=== PATIENT | female | born 2000 | race Hispanic/Latino ===

== ENCOUNTER 2019-06-13 03:55 | Emergency (ER) | payer OTHER, SELFPAY ==
--- OUTSIDE RECORDS SUMMARY | 2019-06-13 03:57 | XMS REPORT ---
:2000 [facility] Address [address] [place] [address] Dr. Ga [address] [place] [id number] Care Team Providers Name Role Phone Unavailable Unavailable Unavailable Problems This patient has no known problems. Allergies, Adverse Reactions, Alerts This patient has no known allergies or adverse reactions. Medications This patient has no known medications.
--- NOTE | 2019-06-13 04:40 | EDPHYS ---
Physician Documentation [facility] Name: Lori Handy Age: 18 yrs Sex: Female : 2000 Arrival Date: 06/13/2019 Time: 04:01 Bed 8 Private MD: ED Physician Oscar Laboy HPI: 06/13 04:33 This 18 yrs old Female presents to ER via Ambulatory with complaints of Ear angel Pain. 04:33 The patient presents with pain, tenderness. The complaints affect the right ear. Onset: angel The symptoms/episode began/occurred 2 day(s) ago. Modifying factors: The symptoms are alleviated by nothing, covering ear, the symptoms are aggravated by nothing. Associated signs and symptoms: The patient has no apparent associated signs or symptoms. Severity of symptoms: At their worst the symptoms were mild in the emergency department the symptoms are unchanged. The patient has not experienced similar symptoms in the past. 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 - Social history:: Smoking status: Patient/guardian denies using tobacco, Patient/guardian denies using alcohol, street drugs. - Ebola Screening: : Patient negative for fever greater than or equal to 101.5 degrees Fahrenheit, and additional compatible Ebola Virus Disease symptoms Patient denies exposure to infectious person Patient denies travel to an Ebola-affected area in the 21 days before illness onset. - Family history:: not pertinent. ROS: 04:33 Constitutional: Negative for fever, chills, and weight loss, Eyes: Negative for injury, angel pain, redness, and discharge, Neck: Negative for injury, pain, and swelling, Cardiovascular: Negative for chest pain, palpitations, and edema, Respiratory: Negative for shortness of breath, cough, wheezing, and pleuritic chest pain, Abdomen/GI: Negative for abdominal pain, nausea, vomiting, diarrhea, and constipation, Back: Negative for injury and pain, : Negative for injury, bleeding, discharge, and swelling, MS/Extremity: Negative for injury and deformity, Skin: Negative for injury, rash, and discoloration, Neuro: Negative for headache, weakness, numbness, tingling, and seizure, Psych: Negative for depression, anxiety, suicide ideation, homicidal ideation, and hallucinations, Allergy/Immunology: Negative for hives, rash, and allergies, Endocrine: Negative for neck swelling, polydipsia, polyuria, polyphagia, and marked weight changes, Hematologic/Lymphatic: Negative for swollen nodes, abnormal bleeding, and unusual bruising. 04:33 ENT: Positive for ear pain, rhinorrhea. Exam: 04:33 Constitutional: This is a well developed, well nourished patient who is awake, alert, angel and in no acute distress. Head/Face: Normocephalic, atraumatic. Eyes: Pupils equal round and reactive to light, extra-ocular motions intact. Lids and lashes normal. Conjunctiva and sclera are non-icteric and not injected. Cornea within normal limits. Periorbital areas with no swelling, redness, or edema. Neck: Trachea midline, no thyromegaly or masses palpated, and no cervical lymphadenopathy. Supple, full range of motion without nuchal rigidity, or vertebral point tenderness. No Meningismus. Chest/axilla: Normal chest wall appearance and motion. Nontender with no deformity. No lesions are appreciated. Cardiovascular: Regular rate and rhythm with a normal S1 and S2. No gallops, murmurs, or rubs. Normal PMI, no JVD. No pulse deficits. Respiratory: Lungs have equal breath sounds bilaterally, clear to auscultation and percussion. No rales, rhonchi or wheezes noted. No increased work of breathing, no retractions or nasal flaring. Abdomen/GI: Soft, non-tender, with normal bowel sounds. No distension or tympany. No guarding or rebound. No evidence of tenderness throughout. Back: No spinal tenderness. No costovertebral tenderness. Full range of motion. Skin: Warm, dry with normal turgor. Normal color with no rashes, no lesions, and no evidence of cellulitis. MS/ Extremity: Pulses equal, no cyanosis. Neurovascular intact. Full, normal range of motion. Neuro: Awake and alert, GCS 15, oriented to person, place, time, and situation. Cranial nerves II-XII grossly intact. Motor strength 5/5 in all extremities. Sensory grossly intact. Cerebellar exam normal. Normal gait. Psych: Awake, alert, with orientation to person, place and time. Behavior, mood, and affect are within normal limits. Vital Signs: 04:00 BP 108 / 78; Pulse 85; Resp 18; Temp 98.1(O); Pulse Ox 99% on R/A; Weight 68.04 kg (R); fc Height 5 ft. 0 in. (152.40 cm) (R); Pain 9/10; 04:51 BP 101 / 75; Pulse 94; Resp 16; Pulse Ox 100% on R/A; ak1 04:00 Body Mass Index 29.29 (68.04 kg, 152.40 cm) fc MDM: 04:04 Patient medically screened. [facility] 04:37 Data reviewed: vital signs, nurses notes. [facility] Administered Medications: 04:50 Drug: Zithromax 500 mg Route: PO; ak1 04:50 Follow up: Response: No adverse reaction ak1 Disposition: 06/13/19 04:39 Discharged to Home. Impression: Otitis externa, Otitis media, unspecified, right ear. - Condition is Stable. - Discharge Instructions: Ear Drops, Adult, Otitis Media, Adult, Otitis Media, Pediatric, Otitis Media, Adult, [id number], Otitis Media, Pediatric, [id number]-[id number], Ear Drops, Adult, [id number]. - Prescriptions for Cortisporin 3.5- 10,000-1 mg/mL-unit/mL-% Otic solution - instill 4 drop by OTIC route 4 times per day to right ear; 10 milliliter. Zithromax Z- Evans 250 mg Oral Tablet - take 1 tablet by ORAL route as directed for 5 days Day 1 - take two (2) tablets one time. Day 2, 3, 4 , 5 take one (1) tablet once daily.; 6 tablet. - Medication Reconciliation Form, Thank You Letter, Antibiotic Education, Prescription Opioid Use form. - Follow up: Private Physician; When: 2 - 3 days; Reason: Recheck today's complaints, Continuance of care, Re-evaluation by your physician. Follow up: Kirby Amaro DO; When: 2 - 3 days; Reason: Recheck today's complaints, Continuance of care, Re-evaluation by your physician. - Problem is new. - Symptoms have improved. Signatures: Oscar Laboy MD MD cha Chretien, Felicia, RN RN Jenny Brunson RN RN ak1 Corrections: (The following items were deleted from the chart) 04:51 04:39 06/13/2019 04:39 Discharged to Home. Impression: Otitis externa; Otitis media, ak1 unspecified, right ear. Condition is Stable. Forms are Medication Reconciliation Form, Thank You Letter, Antibiotic Education, Prescription Opioid Use. Follow up: Private Physician; When: 2 - 3 days; Reason: Recheck today's complaints, Continuance of care, Re-evaluation by your physician. [facility]; When: 2 - 3 days; Reason: Recheck today's complaints, Continuance of care, Re-evaluation by your physician. Problem is new. Symptoms have improved. angel
--- NOTE | 2019-06-13 04:40 | ER ---
Nurse's Notes [facility] Name: Lori Handy Age: 18 yrs Sex: Female : 2000 Arrival Date: 06/13/2019 Time: 04:01 Bed 8 Private MD: Diagnosis: Otitis externa;Otitis media, unspecified, right ear Presentation: 06/13 04:00 Presenting complaint: Patient states: that for the past 2 nights she has been having fc right ear pain. She noticed last night that there is a bump behind the ear and when she pushes it, it makes the ear hurt worse. Denies any fever or sore throat. Transition of care: patient was not received from another setting of care. Onset of symptoms was June 11, 2019. Risk Assessment: Do you want to hurt yourself or someone else? Patient reports no desire to harm self or others. Initial Sepsis Screen: Does the patient meet any 2 criteria? No. Patient's initial sepsis screen is negative. Does the patient have a suspected source of infection? No. Patient's initial sepsis screen is negative. Care prior to arrival: None. 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 - Social history:: Smoking status: Patient/guardian denies using tobacco, Patient/guardian denies using alcohol, street drugs. - Ebola Screening: : Patient negative for fever greater than or equal to 101.5 degrees Fahrenheit, and additional compatible Ebola Virus Disease symptoms Patient denies exposure to infectious person Patient denies travel to an Ebola-affected area in the 21 days before illness onset. - Family history:: not pertinent. Screenin:13 Abuse screen: Denies injuries from another. Nutritional screening: No deficits noted. fc Tuberculosis screening: No symptoms or risk factors identified. Fall Risk None identified. Assessment: 04:43 General: Appears in no apparent distress. Behavior is calm, cooperative, appropriate ak1 for age. Pain: Complains of pain in right ear. Neuro: Level of Consciousness is awake, alert, obeys commands, Oriented to person, place, time, situation, Moves all extremities. Gait is steady, Speech is normal. Cardiovascular: No deficits noted. Respiratory: No deficits noted. GI: No signs and/or symptoms were reported involving the gastrointestinal system. : No signs and/or symptoms were reported regarding the genitourinary system. EENT: Reports pain in right ear. Derm: No signs and/or symptoms reported regarding the dermatologic system. Musculoskeletal: No signs and/or symptoms reported regarding the musculoskeletal system. Vital Signs: 04:00 BP 108 / 78; Pulse 85; Resp 18; Temp 98.1(O); Pulse Ox 99% on R/A; Weight 68.04 kg (R); fc Height 5 ft. 0 in. (152.40 cm) (R); Pain 9/10; 04:51 BP 101 / 75; Pulse 94; Resp 16; Pulse Ox 100% on R/A; ak1 04:00 Body Mass Index 29.29 (68.04 kg, 152.40 cm) ED Course: 04:00 Arm band placed on Patient placed in an exam room, on a stretcher. fc 04:01 Patient arrived in ED. ds1 04:04 Oscar Laboy MD is Attending Physician. angel 04:11 Triage completed. 04:13 Patient has correct armband on for positive identification. Bed in low position. Call fc light in reach. Side rails up X 1. Pulse ox on. NIBP on. 04:39 Kirby Amaro DO is Referral Physician. angel 04:43 No provider procedures requiring assistance completed. Patient did not have IV access ak1 during this emergency room visit. 04:50 Jenny Brunson, RN is Primary Nurse. ak1 Administered Medications: 04:50 Drug: Zithromax 500 mg Route: PO; ak1 04:50 Follow up: Response: No adverse reaction ak1 Outcome: 04:39 Discharge ordered by . angel 04:43 Condition: stable ak1 04:50 Discharged to home ambulatory, with family. ak1 04:50 Discharge instructions given to patient, family, Instructed on discharge instructions, follow up and referral plans. no drinking with medication, no driving heavy equipment, medication usage, safe sex practices, control, Demonstrated understanding of instructions, follow-up care, medications, Prescriptions given X 2. 04:51 Patient left the ED. ak1 Signatures: Oscar Laboy MD MD cha Chretien, Felicia RN RN Trudy Garcia Amber, RN RN ak1
[2019-06-13] MEDS ORDERED: AZITHROMYCIN 250 MG TAB ONE (04:47)
[2019-06-13 05:00] VITALS: TEMP 98.1
[2019-06-13 05:01] VITALS: BP 101/75; O2SAT 100
== END 2019-06-13 04:51 | disposition home or self-care (01) ==
LOC: ER 03:55
DX: H66.91 Otitis media, unspecified, right ear (principal); H60.91 Unspecified otitis externa, right ear
CPT/HCPCS: 99283

== ENCOUNTER 2019-10-14 20:33 | Emergency (ER) | payer SELFPAY ==
--- OUTSIDE RECORDS SUMMARY | 2019-10-14 20:36 | XMS REPORT ---
:2000 [facility] Address [address] [place] [address] Dr. Ga [address] [place] [id number] Care Team Providers Name Role Phone Unavailable Unavailable Unavailable Problems This patient has no known problems. Allergies, Adverse Reactions, Alerts This patient has no known allergies or adverse reactions. Medications This patient has no known medications.
[2019-10-14] MEDS ORDERED: NEOMY/POLY/HC 1% OTIC DROPS ONE (21:07)
--- NOTE | 2019-10-14 21:24 | ER ---
Nurse's Notes [facility] Name: Lori Handy Age: 18 yrs Sex: Female : 2000 Arrival Date: 10/14/2019 Time: 20:37 Bed 12 Private MD: Diagnosis: Otitis externa-right ear Presentation: 10/14 20:42 Presenting complaint: Patient states: R ear pain began last night, worse today. Denies ca1 fever, N/V. Transition of care: patient was not received from another setting of care. Onset of symptoms was October 13, 2019. Risk Assessment: Do you want to hurt yourself or someone else? Patient reports no desire to harm self or others. Initial Sepsis Screen: Does the patient meet any 2 criteria? No. Patient's initial sepsis screen is negative. Does the patient have a suspected source of infection? No. Patient's initial sepsis screen is negative. Care prior to arrival: None. 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 - Social history:: Smoking status: Patient denies any tobacco usage or history of. - Ebola Screening: : Patient negative for fever greater than or equal to 101.5 degrees Fahrenheit, and additional compatible Ebola Virus Disease symptoms Patient denies exposure to infectious person Patient denies travel to an Ebola-affected area in the 21 days before illness onset No symptoms or risks identified at this time. Screenin:55 Abuse screen: Denies threats or abuse. Denies injuries from another. Nutritional aa1 screening: No deficits noted. Tuberculosis screening: No symptoms or risk factors identified. Fall Risk None identified. Assessment: 20:55 General: Appears in no apparent distress. comfortable, Behavior is calm, cooperative, aa1 appropriate for age. Pain: Complains of pain in right ear. Neuro: Level of Consciousness is awake, alert, obeys commands, Oriented to person, place, time, situation, Gait is steady. Respiratory: Airway is patent Respiratory effort is even, unlabored, Respiratory pattern is regular, symmetrical. GI: No signs and/or symptoms were reported involving the gastrointestinal system. : No signs and/or symptoms were reported regarding the genitourinary system. EENT: Ear canal w/ drainage noted from right ear. Derm: Skin is intact, is healthy with good turgor, Skin is pink, warm \T\ dry. Musculoskeletal: Capillary refill < 3 seconds. 21:27 Reassessment: Patient appears in no apparent distress at this time. Patient is alert, aa1 oriented x 3, equal unlabored respirations, skin warm/dry/pink. Discussed d/c \T\ f/u instructions with pt; denies questions or concerns at this time. Ambulatory to lobby with steady gait. Vital Signs: 20:44 BP 108 / 79; Pulse 96; Resp 17 S; Temp 99(O); Pulse Ox 100% on R/A; Weight 72.57 kg ca1 (R); Height 5 ft. 2 in. (157.48 cm) (R); Pain 9/10; 20:44 Body Mass Index 29.26 (72.57 kg, 157.48 cm) ca1 ED Course: 20:37 Patient arrived in ED. cf2 20:43 Triage completed. ca1 20:44 Arm band placed on right wrist. ca1 20:50 Cristian Sullivan FNP-C is [facility]. la1 20:50 Prince Pillai MD is Attending Physician. la1 20:55 Patient has correct armband on for positive identification. Bed in low position. Call aa1 light in reach. 21:09 Mary Peterson, MISSY is Primary Nurse. aa1 21:27 No provider procedures requiring assistance completed. Patient did not have IV access aa1 during this emergency room visit. Administered Medications: 21:09 CANCELLED (Other Intervention Used): CIPRODEX 4 drops Otic in right ear once aa1 21:10 Drug: Hgctovjp-Oofaebzms-FA Drops 1 appful Route: Otic; Site: right ear; aa1 Outcome: 21:24 Discharge ordered by . la1 21:27 Discharged to home ambulatory, with significant other. aa1 21:27 Condition: good 21:27 Discharge instructions given to patient, significant other, Instructed on discharge instructions, follow up and referral plans. medication usage, Demonstrated understanding of instructions, follow-up care, medications, Prescriptions given X 1. 21:29 Patient left the ED. aa1 Signatures: Mary Peterson RN RN aa1 Cristian Sullivan, MANAGER MSW-C MANAGER MSW-[facility]1 June Valle RN RN ca1 Dimas Gutiérrez 2
--- NOTE | 2019-10-14 21:24 | EDPHYS ---
Physician Documentation [facility] Name: Lori Handy Age: 18 yrs Sex: Female : 2000 Arrival Date: 10/14/2019 Time: 20:37 Bed 12 Private MD: ED Physician Prince Pillai HPI: 10/14 21:21 This 18 yrs old Female presents to ER via Ambulatory with complaints of Ear la1 Pain. 21:21 The patient presents with pain. The complaints affect the right ear. Onset: The la1 symptoms/episode began/occurred yesterday. Modifying factors: The symptoms are alleviated by nothing, the symptoms are aggravated by nothing. Associated signs and symptoms: The patient has no apparent associated signs or symptoms. Severity of symptoms: At their worst the symptoms were mild in the emergency department the symptoms are unchanged. The patient has not experienced similar symptoms in the past. 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 - Social history:: Smoking status: Patient denies any tobacco usage or history of. - Ebola Screening: : Patient negative for fever greater than or equal to 101.5 degrees Fahrenheit, and additional compatible Ebola Virus Disease symptoms Patient denies exposure to infectious person Patient denies travel to an Ebola-affected area in the 21 days before illness onset No symptoms or risks identified at this time. ROS: 21:22 Constitutional: Negative for fever, chills, and weight loss, Eyes: Negative for injury, la1 pain, redness, and discharge, Neck: Negative for injury, pain, and swelling, Cardiovascular: Negative for chest pain, palpitations, and edema, Respiratory: Negative for shortness of breath, cough, wheezing, and pleuritic chest pain, Abdomen/GI: Negative for abdominal pain, nausea, vomiting, diarrhea, and constipation, Back: Negative for injury and pain, : Negative for injury, bleeding, discharge, and swelling, MS/Extremity: Negative for injury and deformity, Neuro: Negative for headache, weakness, numbness, tingling, and seizure. 21:22 ENT: Positive for drainage from ear(s), ear pain. Exam: 21:22 Constitutional: This is a well developed, well nourished patient who is awake, alert, la1 and in no acute distress. Head/Face: Normocephalic, atraumatic. Eyes: Periorbital areas with no swelling, redness, or edema. 21:22 Chest/axilla: Normal chest wall appearance and motion. Nontender with no deformity. No lesions are appreciated. Cardiovascular: Regular rate and rhythm with a normal S1 and S2. No gallops, murmurs, or rubs. Normal PMI, no JVD. No pulse deficits. Respiratory: Lungs have equal breath sounds bilaterally, clear to auscultation . No rales, rhonchi or wheezes noted. No increased work of breathing, no retractions or nasal flaring. Abdomen/GI: Soft, non-tender, with normal bowel sounds. MS/ Extremity: Pulses equal, no cyanosis. Neurovascular intact. Full, normal range of motion. 21:22 ENT: Ear canal(s): purulent discharge, that is moderate, in the right canal, TM's: not visable, because of cerumen, because of discharge, right ear, Examination of the other ear shows no obvious abnormality, Posterior pharynx: is normal. Vital Signs: 20:44 BP 108 / 79; Pulse 96; Resp 17 S; Temp 99(O); Pulse Ox 100% on R/A; Weight 72.57 kg ca1 (R); Height 5 ft. 2 in. (157.48 cm) (R); Pain 9/10; 20:44 Body Mass Index 29.26 (72.57 kg, 157.48 cm) ca1 MDM: 20:50 Patient medically screened. la1 21:23 Data reviewed: vital signs, nurses notes, and as a result, I will discharge patient. la1 Data interpreted: Pulse oximetry: on room air is 100 %. Interpretation: normal. Counseling: I had a detailed discussion with the patient and/or guardian regarding: the historical points, exam findings, and any diagnostic results supporting the discharge/admit diagnosis, the need for outpatient follow up, a family practitioner, to return to the emergency department if symptoms worsen or persist or if there are any questions or concerns that arise at home. Administered Medications: 21:09 CANCELLED (Other Intervention Used): CIPRODEX 4 drops Otic in right ear once aa1 21:10 Drug: Qbrvucgt-Opxqrmzrr-SD Drops 1 appful Route: Otic; Site: right ear; aa1 Disposition: 10/15 08:10 Co-signature as Attending Physician, Prince Pillai MD I agree with the assessment and tw4 plan of care. Disposition: 10/14/19 21:24 Discharged to Home. Impression: Otitis externa-right ear. - Condition is Stable. - Discharge Instructions: Otitis Externa, Otitis Externa, [id number]. - Prescriptions for Ciprodex 0.3- 0.1 % Otic Drops, Suspension - instill 4 drop by OTIC route every 12 hours for 7 days , for ears ONLY; 1 Container. - Medication Reconciliation Form, Thank You Letter, Antibiotic Education form. - Follow up: Private Physician; When: 2 - 3 days; Reason: Recheck today's complaints, Re-evaluation by your physician. - Problem is new. - Symptoms have improved. Signatures: Mary Peterson RN RN aa1 Cristian Sullivan, CLEAT THROWER-C CLEAT THROWER-Cla1 Prince Pillai MD MD tw4 June Valle RN MISSY ca1 Corrections: (The following items were deleted from the chart) 10/14 21:09 21:02 CIPRODEX Drops 4 drops Otic in right ear once ordered. la1 aa1 21:29 21:24 10/14/2019 21:24 Discharged to Home. Impression: Otitis externa-right ear. aa1 Condition is Stable. Forms are Medication Reconciliation Form, Thank You Letter, Antibiotic Education, Prescription Opioid Use. Follow up: Private Physician; When: 2 - 3 days; Reason: Recheck today's complaints, Re-evaluation by your physician. Problem is new. Symptoms have improved. la1
[2019-10-15 03:37] VITALS: BP 108/79; TEMP 99; O2SAT 100
== END 2019-10-14 21:29 | disposition home or self-care (01) ==
LOC: ER 20:33
DX: H60.91 Unspecified otitis externa, right ear (principal); Z88.6 Allergy status to analgesic agent
CPT/HCPCS: 99283

== ENCOUNTER 2021-05-18 23:40 | Emergency (ER) | payer OTHER, SELFPAY ==
--- OUTSIDE RECORDS SUMMARY | 2021-05-18 23:43 | XMS REPORT | Continuity of Care Document ---
:2000 Author Organization [facility] t Address [address] [place] [address] Dr. Ga [address] [place] [id number] Care Team Providers Name Role Phone Unavailable Unavailable Unavailable Problems This patient has no known problems. Allergies, Adverse Reactions, Alerts This patient has no known allergies or adverse reactions. Medications This patient has no known medications. Procedures This patient has no known procedures. Results This patient has no known results.
[2021-05-19 00:20] LABS: Urine Blood 1+ (Negative); Urine Glucose Negative (Negative); Urine Protein Negative (Negative); Urine Specific Gravity >=1.030 (1.005-1.030)
[2021-05-19 01:36] LABS: Urine Specific Gravity/Preg >1.030 (1.005-1.030)
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
[2021-05-19 02:30] VITALS: BP 106/52; TEMP 98.6; O2SAT 100
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
== END 2021-05-19 02:23 | disposition home or self-care (01) ==
LOC: ER 23:40
DX: S30.1XXA Contusion of abdominal wall, initial encounter (principal); S70.01XA Contusion of right hip, initial encounter; V49.50XA Passenger injured in collision with unspecified motor vehicles in traffic accident, initial encounter; Z88.6 Allergy status to analgesic agent
CPT/HCPCS: 81025; 82565; 81003; 72125; 71260; 74177; 99284; Q9967

== ENCOUNTER 2022-09-27 18:22 | Emergency (ER) | payer SELFPAY ==
--- OUTSIDE RECORDS SUMMARY | 2022-09-27 18:25 | XMS REPORT | Continuity of Care Document ---
:2000 Author Organization [facility] t Address [address] [place] [address] Dr[address] [place] [id number] Care Team Providers Name Role Phone Unavailable Unavailable Unavailable Problems This patient has no known problems. Allergies, Adverse Reactions, Alerts This patient has no known allergies or adverse reactions. Medications This patient has no known medications. Procedures This patient has no known procedures. Results This patient has no known results.
[2022-09-27 19:00] LABS: Urine Blood Negative (Negative); Urine Glucose Negative (Negative); Urine Protein Negative (Negative); Urine Specific Gravity 1.025 (1.005-1.030)
[2022-09-27 19:10] LABS: Absolute Lymphocytes (CBC) 2.7 K/uL (0.7-4.9); Hematocrit 40.7 % (36.0-45.0); Lymphocytes % 30.1 % (15.3-44.8); RBC Red Blood Cell Count 4.91 M/uL (3.86-4.86)
[2022-09-27 19:11] LABS: Protime INR 0.94
[2022-09-27 19:20] LABS: Barbiturates NEGATIVE (NEGATIVE); Benzodiazepines NEGATIVE (NEGATIVE); Cocaine NEGATIVE (NEGATIVE); METHAMPHETAM NEGATIVE (NEGATIVE); Methadone NEGATIVE (NEGATIVE); Opiates NEGATIVE (NEGATIVE); Phencyclidine NEGATIVE (NEGATIVE); THC Cannibis NEGATIVE (NEGATIVE)
[2022-09-27 19:20] LABS: Magnesium 1.8 mg/dL (1.6-2.4); Potassium 3.6 mmol/L (3.5-5.1); Troponin High Sensitivity 3.1 pg/mL (<58.9)
[2022-09-27] MEDS ORDERED: NA CHLORIDE 0.9% 500 ML ONE (19:34)
[2022-09-27] MEDS ORDERED: KETOROLAC 30 MG/ML INJ ONE (19:34)
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
--- NOTE | 2022-09-27 19:50 | EDPHYS ---
Physician Documentation [facility] Name: Lori Handy Age: 21 yrs Sex: Female : 2000 Arrival Date: 09/27/2022 Time: 18:24 Bed 19 Private MD: ED Physician Son Baltazar HPI: 09/27 18:40 This 21 yrs old Female presents to ER via Ambulatory with complaints of Chest cp Pain. 18:40 The patient or guardian reports chest pain that is located primarily in the substernal cp area. 18:40 The pain does not radiate. Associated signs and symptoms: Pertinent positives: upper cp back pain, Pertinent negatives: cough, dizziness, lower extremity pain, lower extremity swelling, shortness of breath, syncope, vomiting. The chest pain is described as a pressure, like someone pushing on chest. Historical: - Allergies: 18:37 Tylenol; ll1 - PMHx: 18:37 None; ll1 - PSHx: 18:37 None; ll1 - Immunization history:: Client reports having NOT received the Covid vaccine. - Social history:: Smoking status: Patient denies any tobacco usage or history of. ROS: 18:45 Constitutional: Negative for body aches, chills, fever, poor PO intake. cp 18:45 Cardiovascular: Positive for chest pain, Negative for edema, palpitations. cp 18:45 Respiratory: Negative for cough, shortness of breath, wheezing. 18:45 Abdomen/GI: Negative for abdominal pain, nausea and vomiting, diarrhea, constipation. cp 18:45 Eyes: Negative for injury, pain, redness, and discharge. cp 18:45 ENT: Negative for drainage from ear(s), ear pain, sore throat, difficulty swallowing, difficulty handling secretions. 18:45 Neck: Negative for pain with movement, pain at rest, stiffness. 18:45 Back: Positive for pain at rest, of the upper back, Negative for injury or acute deformity, decreased range of motion. 18:45 Skin: Negative for cellulitis, rash. 18:45 Neuro: Negative for altered mental status, dizziness, headache, numbness, syncope, weakness. 18:45 All other systems are negative. Exam: 18:44 ECG was reviewed by the Attending Physician. cp 18:50 Constitutional: The patient appears in no acute distress, alert, awake, cp non-diaphoretic, non-toxic, well developed, well nourished, obese. 18:50 Head/Face: Normocephalic, atraumatic. cp 18:50 Eyes: Periorbital structures: appear normal, Conjunctiva: normal, no exudate, no injection, Sclera: no appreciated abnormality, Lids and lashes: appear normal, bilaterally. 18:50 ENT: External ear(s): are unremarkable, Nose: is normal, Mouth: Lips: moist, Oral mucosa: moist, Posterior pharynx: Airway: no evidence of obstruction, patent. 18:50 Neck: ROM/movement: is normal, is supple, without pain, no range of motions limitations. 18:50 Chest/axilla: Inspection: normal. 18:50 Cardiovascular: Rate: normal, Rhythm: regular, Heart sounds: murmur, not appreciated, Edema: is not appreciated, JVD: is not appreciated. 18:50 Respiratory: the patient does not display signs of respiratory distress, Respirations: normal, no use of accessory muscles, no retractions, labored breathing, is not present, Breath sounds: are clear throughout, no decreased breath sounds, no stridor, no wheezing. 18:50 Abdomen/GI: Exam negative for discomfort, distension, guarding, Inspection: obese 18:50 Back: pain, that is mild, of the left trapezius, right trapezius, left scapular area and right scapular area, ROM is normal. 18:50 Neuro: Orientation: to person, place \T\ time. Mentation: is normal, Motor: moves all fours, strength is normal, Sensation: is normal. Vital Signs: 18:35 BP 118 / 88; Pulse 77; Resp 17; Temp 97.9; Pulse Ox 96% on R/A; Weight 88.45 kg; Height ll1 5 ft. 1 in. (154.94 cm); Pain 6/10; 18:42 BP 110 / 69; Pulse 90; Resp 18; Pulse Ox 100% ; Pain 5/10; db 19:21 BP 90 / 65; Pulse 66; Resp 17; Pulse Ox 99% ; Pain 7/10; jj7 18:35 Body Mass Index 36.84 (88.45 kg, 154.94 cm) ll1 MDM: 18:39 Patient medically screened. cp 19:00 Differential diagnosis: abnormal EKG, acute myocardial infarction, acute pericarditis, cp chest wall pain, costochondritis, pericarditis, pleurisy, pneumonia, pneumothorax, pulmonary embolus. 19:47 Data reviewed: vital signs, nurses notes, lab test result(s), EKG, radiologic studies, cp plain films. 19:47 Test interpretation: by ED physician or midlevel provider: ECG, plain radiologic cp studies. Counseling: I had a detailed discussion with the patient and/or guardian regarding: the historical points, exam findings, and any diagnostic results supporting the discharge/admit diagnosis, lab results, radiology results, to return to the emergency department if symptoms worsen or persist or if there are any questions or concerns that arise at home. Response to treatment: the patient's symptoms have markedly improved after treatment, and as a result, I will discharge patient. Special discussion: Based on the patient's history, exam, and Dx evaluation, there is no indication for emergent intervention or inpatient Tx. It is understood by the patient/guardian that if the Sx's persist or worsen they need to return immediately for re-evaluation. 09/27 18:37 Order name: Basic Metabolic Panel; Complete Time: 19:43 cp 09/27 19:43 Interpretation: Normal except: NA 133. cp 09/27 18:37 Order name: CBC with Diff; Complete Time: 19:43 cp 09/27 19:44 Interpretation: Normal except: RBC 4.91. cp 09/27 18:37 Order name: D-Dimer; Complete Time: 19:43 cp 09/27 19:44 Interpretation: D-DIMER 408; Reviewed. cp 09/27 18:37 Order name: Magnesium; Complete Time: 19:43 cp 09/27 19:44 Interpretation: Reviewed. cp 09/27 18:37 Order name: NT PRO-BNP; Complete Time: 19:43 cp 09/27 19:44 Interpretation: Reviewed. cp 09/27 18:37 Order name: PT-INR; Complete Time: 19:43 cp 09/27 19:45 Interpretation: Reviewed. cp 09/27 18:37 Order name: Troponin HS; Complete Time: 19:43 cp 09/27 19:44 Interpretation: Troponin HS 3.1; Reviewed. cp 09/27 18:37 Order name: XRAY Chest (1 view); Complete Time: 19:43 cp 09/27 19:45 Interpretation: Report review. cp 09/27 18:37 Order name: EKG; Complete Time: 18:38 cp 09/27 18:37 Order name: UDS; Complete Time: 19:43 cp 09/27 19:45 Interpretation: Reviewed. cp 09/27 19:00 Order name: Urine Dipstick-Ancillary; Complete Time: 19:43 EDMS 09/27 19:44 Interpretation: Normal except: UESTR 1+. cp 09/27 19:01 Order name: Urine --Ancillary (enter results) bd 09/27 18:37 Order name: Cardiac monitoring; Complete Time: 18:52 cp 09/27 18:37 Order name: EKG - Nurse/Tech; Complete Time: 18:38 cp 09/27 18:37 Order name: IV Saline Lock; Complete Time: 18:52 cp 09/27 18:37 Order name: Labs collected and sent; Complete Time: 18:52 cp 09/27 18:37 Order name: O2 Per Protocol; Complete Time: 18:52 cp 09/27 18:37 Order name: O2 Sat Monitoring; Complete Time: 18:52 cp 09/27 18:37 Order name: Urine Dipstick-Ancillary (obtain specimen); Complete Time: 19:06 cp 09/27 18:37 Order name: Urine Test (obtain specimen); Complete Time: 19:06 cp EC:44 Rate is 73 beats/min. Rhythm is regular. IN interval is normal. QRS interval is normal. cp QT interval is normal. T waves are Inverted in leads V2, V3, V4. Interpreted by me. Reviewed by me. Administered Medications: 19:38 Drug: NS 0.9% 500 ml Route: IV; Rate: bolus; Site: right antecubital; jj7 20:04 Follow up: IV Status: Completed infusion jj7 19:39 Drug: Ketorolac 15 mg Route: IVP; Site: right antecubital; jj7 20:12 Follow up: Response: Pain is decreased jj7 Disposition: 18:47 Co-signature as Attending Physician, Son HERRERA was immediately available on-site ms3 in the Emergency Department for consultation in the care of the patient. Disposition Summary: 09/27/22 19:49 Discharge Ordered Location: Home cp Problem: new cp Symptoms: have improved cp Condition: Stable cp Diagnosis - Chest pain, unspecified cp - Dorsalgia, unspecified cp Followup: cp - With: Private Physician - When: 2 - 3 days - Reason: Recheck today's complaints Discharge Instructions: - Discharge Summary Sheet cp - Acute Back Pain, Adult cp - Nonspecific Chest Pain, Adult cp Forms: - Medication Reconciliation Form cp - Thank You Letter cp - Antibiotic Education cp - Prescription Opioid Use cp Prescriptions: - Diclofenac Sodium 75 mg Oral Tablet Sustained Release - take 1 tablet by ORAL route 2 times per day; 30 tablet; Refills: 0, Product cp Selection Permitted Signatures: Dispatcher [employer] EDMS Oscar Louise PA PA cp Lewis, Lynsay RN RN ll1 Son Baltazar DO DO ms3 Sujatha Alfaro RN RN jj7
--- NOTE | 2022-09-27 19:50 | ER ---
Nurse's Notes [facility] Name: Lori Handy Age: 21 yrs Sex: Female : 2000 Arrival Date: 09/27/2022 Time: 18:24 Bed 19 Private MD: Diagnosis: Chest pain, unspecified;Dorsalgia, unspecified Presentation: 09/27 18:35 Chief complaint: Patient states: Chest tightness since 5 PM yesterday. Coronavirus ll1 screen: Vaccine status: Patient reports receiving the 2nd dose of the covid vaccine. Client denies travel out of the [place] in the last 14 days. At this time, the client does not indicate any symptoms associated with coronavirus-19. Coronavirus screen: Vaccine status: Patient reports being unvaccinated. Ebola Screen: Patient denies travel to an Ebola-affected area in the 21 days before illness onset. Initial Sepsis Screen: Does the patient meet any 2 criteria? No. Patient's initial sepsis screen is negative. Does the patient have a suspected source of infection? No. Patient's initial sepsis screen is negative. Risk Assessment: Do you want to hurt yourself or someone else? Patient reports no desire to harm self or others. Onset of symptoms was September 26, 2022. 18:35 Method Of Arrival: Ambulatory ll1 18:35 Acuity: CRISTIANA 3 ll1 Triage Assessment: 18:37 General: Appears in no apparent distress. Behavior is calm, cooperative, appropriate ll1 for age. Pain: Complains of pain in chest. Cardiovascular: Reports chest pain, shortness of breath. Historical: - Allergies: 18:37 Tylenol; ll1 - PMHx: 18:37 None; ll1 - PSHx: 18:37 None; ll1 - Immunization history:: Client reports having NOT received the Covid vaccine. - Social history:: Smoking status: Patient denies any tobacco usage or history of. Screenin:42 [facility] ED Fall Risk Assessment (Adult) History of falling in the last 3 months, db including since admission No falls in past 3 months (0 pts) Confusion or Disorientation No (0 pts) Intoxicated or Sedated No (0 pts) Impaired Gait No (0 pts) Mobility Assist Device Used No (0 pt) Altered Elimination No (0 pt) Score/Fall Risk Level 0 - 2 = Low Risk Oriented to surroundings, Maintained a safe environment. Abuse screen: Denies threats or abuse. Denies injuries from another. Nutritional screening: No deficits noted. Tuberculosis screening: No symptoms or risk factors identified. Assessment: 18:45 Reassessment: PATIENT AMBULATORY TO THE RESTROOM WITH STEADY GATE IN NAD. db 18:52 Reassessment: Patient appears in no apparent distress at this time. db 18:53 Reassessment: Patient appears in no apparent distress at this time. Patient and/or db family updated on plan of care and expected duration. Pain level reassessed. Patient is alert, oriented x 3, equal unlabored respirations, skin warm/dry/pink. chest pressure since yesterday states pain on left part of chest. General: Appears in no apparent distress. comfortable, Behavior is calm, cooperative. Pain: Complains of pain in left chest Pain radiates to chest Pain currently is 5 out of 10 on a pain scale. Pain began 1 day ago. Neuro: No deficits noted. Level of Consciousness is awake, alert, obeys commands, Oriented to person, place, time, situation, Speech is normal. Cardiovascular: Reports chest pain, Denies diaphoresis, nausea, palpitations, shortness of breath, Rhythm is sinus rhythm. 19:05 Respiratory: No deficits noted. Airway is patent Respiratory effort is even, unlabored, db Respiratory pattern is regular, symmetrical. GI: No deficits noted. No signs and/or symptoms were reported involving the gastrointestinal system. Abdomen is round distended. 19:21 Reassessment: ASSUMED CARE OF PT. PT SITTING IN BED. NO DISTRESS NOTED. STATES CHEST jj7 PAIN WHEN SHE TURNS TOWARDS HER LEFT SIDE. VS STABLE. CALL GARCIA IN REACH. Vital Signs: 18:35 BP 118 / 88; Pulse 77; Resp 17; Temp 97.9; Pulse Ox 96% on R/A; Weight 88.45 kg; Height ll1 5 ft. 1 in. (154.94 cm); Pain 6/10; 18:42 BP 110 / 69; Pulse 90; Resp 18; Pulse Ox 100% ; Pain 5/10; db 19:21 BP 90 / 65; Pulse 66; Resp 17; Pulse Ox 99% ; Pain 7/10; jj7 18:35 Body Mass Index 36.84 (88.45 kg, 154.94 cm) ll1 Vitals: 18:42 Cardiac Rhythm Assessment Regular Sinus rhythm. db ED Course: 18:24 Patient arrived in ED. rg4 18:25 Oscar Louise PA is PHCP. cp 18:25 Son Baltazar DO is Attending Physician. cp 18:37 Triage completed. ll1 18:38 Arm band placed on. ll1 18:42 Patient has correct armband on for positive identification. Bed in low position. Call db light in reach. Side rails up X 1. Client placed on continuous cardiac and pulse oximetry monitoring. NIBP monitoring applied. Warm blanket given. 18:42 No provider procedures requiring assistance completed. Patient maintains SpO2 db saturation greater than 95% on room air. 18:52 Luz Galindo, MISSY is Primary Nurse. db 18:53 Basic Metabolic Panel Sent. bc6 18:53 CBC with Diff Sent. bc6 18:53 D-Dimer Sent. bc6 18:53 Magnesium Sent. bc6 18:53 NT PRO-BNP Sent. bc6 18:53 PT-INR Sent. bc6 18:53 Troponin HS Sent. bc6 18:54 Initial lab(s) drawn, by dc, sent to lab. Inserted saline lock: 20 gauge in right bc6 antecubital area, using aseptic technique. 19:10 XRAY Chest (1 view) In Process Unspecified. EDMS 20:24 IV discontinued, intact, bleeding controlled, No redness/swelling at site. Pressure jj7 dressing applied. Administered Medications: 19:38 Drug: NS 0.9% 500 ml Route: IV; Rate: bolus; Site: right antecubital; jj7 20:04 Follow up: IV Status: Completed infusion jj7 19:39 Drug: Ketorolac 15 mg Route: IVP; Site: right antecubital; jj7 20:12 Follow up: Response: Pain is decreased jj7 Medication: 18:42 VIS not applicable for this client. db Outcome: 19:49 Discharge ordered by . cp 20:24 Discharged to home ambulatory. jj7 20:24 Condition: improved 20:24 Discharge instructions given to patient, Instructed on discharge instructions, medication usage, Demonstrated understanding of instructions, medications, Prescriptions given X 1. 20:25 Patient left the ED. jj7 Signatures: Dispatcher [employer] EDMS Oscar Louise PA PA cp Garcia, Rubi rg4 Estelle Musa RN RN ll1 Sujatha Alfaro RN RN jj7 Luz Galindo RN RN db Candy Shetty6
[2022-09-27 20:09] LABS: Urine Specific Gravity/Preg 1.025 (1.005-1.030)
[2022-09-27 21:07] VITALS: TEMP 97.9
[2022-09-27 21:18] VITALS: BP 90/65; O2SAT 99
--- NOTE | 2022-09-29 17:42 | EKG ---
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
== END 2022-09-27 20:25 | disposition home or self-care (01) ==
LOC: ER 18:22
DX: R07.89 Other chest pain (principal); M54.9 Dorsalgia, unspecified; Z88.6 Allergy status to analgesic agent
CPT/HCPCS: 36415; 71045; 80048; 80307; 81003; 81025; 83735; 83880; 84484; 85025; 85379; 85610; 93005; 96374; 99285; J7040

== ENCOUNTER 2025-01-27 16:48 | Emergency (ER) | payer OTHER, SELFPAY ==
--- NOTE | 2025-01-27 16:59 | EDPHYS ---
Physician Documentation [facility] Name: Lori Handy Age: 24 yrs Sex: Female : 2000 Arrival Date: 01/27/2025 Time: 16:48 Bed DX3 Private MD: ED Physician Oscar Laboy HPI: 01/27 17:08 This 24 yrs old Female presents to ER via Ambulatory with complaints of Ear kb Pain. 17:08 Pt is a 24 year old female who presents for left ear pain that started yesterday and kb got worse at 1300 today. States she feels like it is swelling and is intermittently clogged. Denies fever or any other symptoms. States right ear feels ok. . 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 - Infectious Disease History:: Denies. - Social history:: Smoking status: Patient denies any tobacco usage or history of. ROS: 17:07 Constitutional: As per HPI kb Exam: 17:07 Constitutional: This is a well developed, well nourished patient who is awake, alert, kb and in no acute distress. Head/Face: Normocephalic, atraumatic. Cardiovascular: Regular rate Respiratory: Respirations even and unlabored. No increased work of breathing. Talking in full sentences Skin: Warm, dry with normal turgor. Normal color. MS/ Extremity: Pulses equal, no cyanosis. Neurovascular intact. Full, normal range of motion. Neuro: Awake and alert, GCS 15, oriented to person, place, time, and situation. 17:07 ENT: Ear canal(s): purulent discharge, that is minimal, in the left canal, swelling, that is moderate, of the left canal, 17:08 ENT: External ear(s): are unremarkable, Ear canal(s): swelling, that is minimal, of the kb right canal, TM's: are normal, Vital Signs: 17:02 BP 108 / 56; Pulse 97; Resp 16; Temp 98.4; Pulse Ox 97% ; Weight 88.45 kg; Height 5 ft. me1 0 in. ; Pain 7/10; 17:02 Body Mass Index 38.08 (88.45 kg, 152.4 cm) me1 17:02 Pain Scale: Adult me1 MDM: 16:52 Medical Screening Exam initiated kb 17:08 Differential diagnosis: otitis media, otitis externa, ruptured TM, foreign body, acute kb otalgia. Data reviewed: vital signs, nurses notes. Counseling: I had a detailed discussion with the patient and/or guardian regarding the historical points, exam findings, and any diagnostic results supporting the discharge/admit diagnosis, the need for outpatient follow up, a family practitioner, to return to the emergency department if symptoms worsen or persist or if there are any questions or concerns that arise at home. Administered Medications: No medications were administered Disposition: 23:32 Co-signature as Attending Physician, Oscar Laboy MD I agree with the assessment and angel plan of care. Disposition Summary: 01/27/25 16:58 Discharge Ordered Notes: Location: Home kb Condition: Stable kb Diagnosis - Unspecified otitis externa, left ear kb - Unspecified otitis externa, right ear kb Followup: kb - With: Emergency Department - When: As needed - Reason: Worsening of condition Followup: kb - With: Private Physician - When: 2 - 3 days - Reason: Recheck today's complaints, Continuance of care, Re-evaluation by your physician Discharge Instructions: - Discharge Summary Sheet kb - Otitis Externa, [id number] kb - Ear Drops, Adult, [id number] kb Forms: - Medication Reconciliation Form kb - Antibiotic Education kb - Prescription Opioid Use kb - Patient Portal Instructions kb - Leadership Thank You Letter kb Prescriptions: - Ciprodex 0.3-0.1 % Otic drops, suspension - instill 4 drops OTIC route every 12 hours for 7 days , for ears ONLY; 1 kb Unspecified; Refills: 0, Product Selection Permitted Signatures: Michelle Jung FNP-C FNP-Oscar Birch MD MD cha Eddleman, Michelle, MISSY RN me1
--- OUTSIDE RECORDS SUMMARY | 2025-01-27 17:00 | XMS REPORT | Continuity of Care Document ---
Author Name Unknown Address [address] [facility] [place] [address] [facility] Address [address] [facility] [address] [place] [address] Care Team Providers Care Collet Maker Name Role Phone PCP, PATIENT DOES NOT HAVE A Primary Care Physic juan miguel Unavailable GONZALO GREER Attending Clinician Unavail able Ross Phillips MA Attending Clinician Unav ailGonzalo Herrera Attending Clinician + Doctor Unassigned, [place] Attending Clinician U JENNIFER Rios Attending Clinician Unavailable ANDREIA CARLIN Attending Clinician Unav ailAndreia Black MD Attending Clinician + Alexis Grubbs MD Attending Clinician [phone] Arnaud Brantley MD Attending Clinician [phone] Anita Gordillo MD Attending Clinician [phone] CLEM NEWMAN Attending Clinician Unav hernan Ultrasound, Ang-Mfm Attending Clinician Unavaildemi George MD, Clem Attending Clinician + Shirley Parikh CNM Attending Clinician SHIRLEY PARIKH Attending Clinician UnavailCASA Hess Attending Clinician Unavailable CASA JEFFERY Attending Clinician Unavailable Lab, Ang-Rmchp Attending Clinician Unavailable BERHANE RADFORD Attending Clinician Unav ailable Berhane Radford MD Attending Clinician + PHILLIP PEACOCK Attending Clinician Unavailable PHILLIP PEACOCK Attending Clinician Unavailable Phillip Peacock MD Attending Clinician [phone] ANDREIA CARLIN Admitting Clinician Unav ailable Andreia Carlin MD Admitting Clinician + Payers Payer Name Policy Type Policy Number Effective Date Expirati on Date Source [facility] [id number] 2023 00:00:00 [employer] [place] [id number] 2023 00:00:00 2023 00:00:00 Problems Condition Name Condition Details Condition Category Status Onset Date Resolution Date Last Treatment Date Treating Clinician Comments Source Other general counseling and advice for contracept edison management Other general counseling and advice for contracept edison management Disease Active 01-19 00:00: 00 [facility] Obesity (BMI 30.0-34.9) Obesity (BMI 30.0-34.9) Disease Active 01-19 00:00: 00 [facility] Nexplanon in place Nexplanon in place Disease Active 01-19 00:00: 00 [facility] Pregestati onal diabetes mellitus, modified White class B Pregestati onal diabetes mellitus, modified White class B Disease Active 04-30 00:00: 00 Overview: Formattin g of this note might be different from the original. Failed 1hr gtt >200Accid entally dosed at 26 weeks [facility] Allergy to acetaminop hen Allergy to acetaminop hen Disease Active 4-03 00:00: 00 [facility] Need for Tdap vaccinatio n Need for Tdap vaccinatio n Disease Active 2-04 00:00: 00 [facility] Over weight Over weight Disease Active 9-24 00:00: 00 [facility] care and examinatio n of lactating mother care and examinatio n of lactating mother Disease Resolve d 4-01 00:00: 00 2024-02-10 00:00:00 2024-02-10 08:59:07 [facility] Obesity (BMI 30-39.9) Obesity (BMI 30-39.9) Disease Resolve d 3-09 00:00: 00 2024-01-17 00:00:00 2024-01-17 09:13:20 [facility] Declines flu vaccine Declines flu vaccine Disease Resolve d 2-04 00:00: 00 2024-01-17 00:00:00 2024-01-17 09:13:22 [facility] 39 weeks gestation of 39 weeks gestation of Disease Resolve d 3-09 00:00: 00 2023-12-23 00:00:00 2023-12-23 10:38:35 [facility] Supervisio n of high-risk Supervisio n of high-risk Disease Resolve d 8-07 00:00: 00 2023-12-23 00:00:00 2023-12-23 10:38:41 [facility] Multiparit y Multiparit y Disease Resolve d 8-07 00:00: 00 2023-12-23 00:00:00 2023-12-23 10:38:37 [facility] UTI in UTI in Disease Resolve d 8-10 00:00: 00 2023-11-30 00:00:00 2023-11-30 19:38:27 Overview: Formattin g of this note might be different from the original. Corky neg [facility] History of asthma History of asthma Disease Resolve d 4-04 00:00: 00 2023-11-30 00:00:00 2023-11-30 19:43:46 [facility] Obesity in Obesity in Disease Resolve d 9-24 00:00: 00 2023-11-30 00:00:00 2023-11-30 19:38:23 [facility] Routine follow-up Routine follow-up Disease Resolve d 2018-0 01-13 00:00: 00 2023-04-29 00:00:00 2023-04-29 14:08:20 [facility] 39 weeks gestation of 39 weeks gestation of Disease Resolve d 2018-0 4-03 00:00: 00 2019-01-13 00:00:00 2019-01-13 10:20:33 [facility] Labor and delivery indication for care or interventi on Labor and delivery indication for care or interventi on Disease Resolve d 2018-0 4-03 00:00: 00 2019-01-13 00:00:00 2019-01-13 10:20:40 [facility] Irregular uterine contractio ns Irregular uterine contractio ns Disease Resolve d 2018-0 4-03 00:00: 00 2019-01-13 00:00:00 2019-01-13 10:20:31 [facility] Disease Resolve d 2018-0 4-03 00:00: 00 2019-01-13 00:00:00 2019-01-13 10:20:51 [facility] Normal spontaneou s vaginal delivery Normal spontaneou s vaginal delivery Disease Resolve d 2018-0 4-03 00:00: 00 2019-01-13 00:00:00 2019-01-13 10:20:47 [facility] Liveborn by vaginal delivery Liveborn by vaginal delivery Disease Resolve d 2018-0 4-03 00:00: 00 2019-01-13 00:00:00 2019-01-13 10:20:44 [facility] Obesity in Obesity in Disease Resolve d 2018-0 3-19 00:00: 00 2019-01-13 00:00:00 2019-01-13 10:20:50 [facility] Primigravi da in third trimester Primigravi da in third trimester Disease Resolve d 2017-1 1-19 00:00: 00 2019-01-13 00:00:00 2019-01-13 10:20:52 [facility] Abnormal maternal glucose tolerance, antepartum Abnormal maternal glucose tolerance, antepartum Disease Resolve d 06-17 00:00: 00 2019-01-13 00:00:00 2019-01-13 10:20:36 [facility] Supervisio n of high-risk Supervisio n of high-risk Disease Resolve d 06-16 00:00: 00 2019-01-13 00:00:00 2019-01-13 10:20:53 [facility] Round ligament pain Round ligament pain Disease Resolve d 2017-09 00:00: 00 2018-12-24 00:00:00 2018-12-24 08:23:45 [facility] Allergies, Adverse Reactions, Alerts Allergy Name Allergy Type Status Severity Reaction(s) Onset Date Inactive Date Treating Clinician Comments Source Acetamin ophen Propensi ty to adverse reaction s Active Anaphylaxis 05-31 00:00: 00 [facility] ACETAMIN OPHEN DRUG INGREDI Active High Anaphylaxis 05-31 00:00: 00 [facility] Social History Social Habit Start Date Stop Date Quantity Comments Source ASSERTION 2023-03-16 00:00:00 [facility] intake 2024-01-17 00:00:00 2024-01-17 00:00:00 Current non-drinker of alcohol (finding) [facility] History of Social function 2019-04-02 00:00:00 2019-04-02 00:00:00 [facility] Alcoholic beverage intake 2018-06-17 00:00:00 2018-06-17 00:00:00 Current non-drinker of alcohol (finding) [facility] Tobacco use and exposure 2018-06-16 00:00:00 2018-06-16 00:00:00 Smokeless tobacco non-user [facility] Sex assigned at 2000 00:00:00 2000 00:00:00 [facility] Smoking Status Start Date Stop Date Source Never smoked tobacco [facility] Medications Ordered Medication Name Filled Medication Name Start Date Stop Date Current Medication? Ordering Clinician Indication Dosage Frequency Signature (SIG) Comments Components Source etonogestre L (NEXPLANON) implant 68 mg 01-16 15:00: 00 01-16 14:28 :00 No [id number] 68mg 68 mg, Subdermal, ONCE NOW, 1 dose, On Sat01/17/24 at 1000, Routine
Use approved by: DIRECTOR OF REHABILITATIVE SERVICES [facility] [id number] fum-folic () 27 mg iron- 1 mg folic tablet 12-01 00:00: 00 01-16 00:00 :00 No [id number] 1{tbl} Take 1 tablet by mouth in the morning. [facility] docusate 100 mg capsule 12-01 00:00: 00 01-16 00:00 :00 No [id number] 200mg Take 2 capsules by mouth once daily as needed for Constipati on. [facility] ferrous sulfate 325 mg (65 mg iron) tablet 12-01 00:00: 00 01-16 00:00 :00 No [id number] 325mg Take 1 tablet by mouth in the morning. [facility] ibuprofen 600 mg tablet 12-01 00:00: 00 01-16 00:00 :00 No [id number] 600mg Take 1 tablet by mouth every 6 (six) hours as needed (Pain). Take with food or milk. [facility] rho(D) immune globulin (RHOGAM) syringe 300 mcg 11-30 15:06: 49 Yes 300ug 300 mcg, Intramuscu lar, ONCE, For 1 dose, Conditiona l, Routine [facility] ibuprofen (IBU) tablet 600 mg 11-30 15:06: 46 Yes 600mg 600 mg, Oral, Q6HPRN, Starting on 12/01/23 at 1006, Until Discontinu ed, Routine, Pain (scale 4-6), Pain (scale 1-3) [facility] diphenhydrA MINE (BENADRYL) tablet 25 mg 11-30 15:06: 46 Yes 25mg 25 mg, Oral, Q6HPRN, Starting on 12/01/23 at 1006, Until Discontinu ed, Routine, Sleep, Itching [facility] ondansetron (ZOFRAN (PF)) injection 4 mg 11-30 15:06: 46 Yes 4mg 4 mg, Slow IV Push, Q8HPRN, Starting on Sat12/01/23 at 1006, Until Discontinu ed, Routine, Nausea and Vomiting (N/V) [facility] simethicone (GAS RELIEF (SIMETHICON E)) chewable tablet 160 mg 11-30 15:06: 46 Yes 160mg 160 mg, Oral, PC+HSPRN, Starting on Sat12/01/23 at 1006, Until Discontinu ed, Routine, Gas [facility] docusate (COLACE) capsule 200 mg 11-30 15:06: 46 Yes 200mg 200 mg, Oral, QDAILYPRN, Starting on Sat12/01/23 at 1006, Until Discontinu ed, Routine, Constipati on [facility] magnesium hydroxide (MILK OF MAGNESIA) 400 mg/5 mL suspension 30 mL 11-30 15:06: 46 Yes 30mL 30 mL, Oral, QDAILYPRN, Starting on Sat12/01/23 at 1006, Until Discontinu ed, Routine, Constipati on [facility] benzocaine- menthol (DERMOPLAST ) 20-0.5 % topical spray 11-30 15:06: 46 Yes Topical, PRN, Starting on Sat12/01/23 at 1006, Until Discontinu ed, Routine, Perineum discomfort [facility] amnioinfusi on IV infusion via GRAVITY 0.9 NaCL 1,000 mL 11-30 12:15: 00 11-30 12:11 :00 No 1000mL at 750 mL/hr, Intrauteri ne, ONCE, 1 dose, On Sat12/01/23 at 0715, EDDY
In fuse via gravity 750 ml over 1 hour.&nbsp ; Once 750 mL has been infused, the infusion may be dicsontinu ed or decreased to 100 mL/hr until the liter is complete.& nbsp;&nbsp ;Notify Deodorizer Operator if uterine resting tone exceeds 25 mmHg at any time during the amnioinfus ion. Obst etrics (NGUYEN) Aminoinfus ion Orders
[facility] terbutaline (BRETHINE) injection 0.25 mg 11-30 10:45: 00 11-30 09:56 :00 No .25mg 0.25 mg, Intravenou s, ONCE, 1 dose, On 12/01/23 at 0545, Routine [facility] ropivacaine 0.2 % (NAROPIN (PF)) epidural infusion 11-30 06:02: 00 12-01 00:14 :10 No Epidural, CONTINUOUS PRN, Starting on 12/01/23 at 0002, Until 12/01/23 at 1914, Routine, Intra-op [facility] lidocaine-e pinephrine (XYLOCAINE W/EPINEPHRI NE) 1.5 %-1:200,000 injection 11-30 06:02: 00 12-01 00:14 :10 No Intraderma l, ONCE INTRA PROCEDURE, Starting on 12/01/23 at 0002, Until 12/01/23 at 1914, Routine, Intra-op [facility] Sliding Scale Insulin-Reg ular 11-30 03:00: 00 Yes Subcutaneo us, AC+HS, First dose on 11/30/23 at 2100, Until Discontinu ed, Routine [facility] sodium citrate-cit dao acid (BICITRA) 500-334 mg/5 mL solution 30 mL 11-29 22:14: 46 11-30 05:49 :00 No 30mL 30 mL, Oral, PRE-PROCED URE ONCE, 1 dose, Starting on 11/30/23 at 1614, Until Discontinu ed, Routine, Surgery/Pr ocedure [facility] lactated ringers IV infusion 500 mL 11-29 22:14: 45 11-30 15:06 :48 No 500mL at 999 mL/hr, 500 mL, IV Infusion, PRN - SEE INSTRUCTIO NS, Starting on 11/30/23 at 1614, Until 12/01/23 at 1006, Routine [facility] D5W-LR IV infusion 1,000 mL 11-29 22:14: 45 11-30 15:06 :48 No 1000mL at 1-125 mL/hr, IV Infusion, TITRATE, Starting on 11/30/23 at 1614, Until 12/01/23 at 1006, Routine [facility] PNV 67-iron ps-folate no.1-dha (VITAFOL ULTRA) 29 mg iron- 1 mg-200 mg Cap 05-28 00:00: 00 12-01 00:00 :00 No [id number] 1{each} Take 1 Each by mouth in the morning. [facility] ampicillin 500 mg capsule 05-28 00:00: 00 06-08 04:59 :00 No [id number] 500mg Take 1 capsule by mouth 4 (four) times daily for 10 days. [facility] proMETHazin e 25 mg tablet 05-16 00:00: 00 12-01 00:00 :00 No [id number] 25mg Take 1 tablet by mouth every 6 (six) hours as needed for Nausea and Vomiting (N/V). [facility] ampicillin 500 mg capsule 05-02 00:00: 00 05-13 04:59 :00 No [id number] 500mg Take 1 capsule by mouth 4 (four) times daily for 10 days. [facility] lancets (FREESTYLE LANCETS) 28 gauge Misc 04-30 00:00: 00 Yes [id number] Check glucose 4x daily [facility] Blood-Gluco se Meter (FREESTYLE LITE METER) Kit 04-30 00:00: 00 Yes [id number] Check blood glucose 4x daily [facility] blood sugar diagnostic (FREESTYLE LITE STRIPS) strip 04-30 00:00: 00 Yes [id number] Check blood glucose 4x daily [facility] proMETHazin e 25 mg tablet 04-29 00:00: 00 05-16 00:00 :00 No [id number] 25mg Take 1 tablet by mouth every 6 (six) hours as needed for Nausea and Vomiting (N/V). [facility] docusate calcium 240 mg capsule 12-25 00:00: 00 04-29 00:00 :00 No [id number] 240mg Take 1 capsule by mouth once daily as needed for Constipati on. [facility] ibuprofen 600 mg tablet 12-25 00:00: 04-29 00:00 :00 No [id number] 600mg Take 1 tablet by mouth every 6 (six) hours as needed for Pain (scale 1-3) or Pain (scale 4-6) (Pain). Take with food or milk. [facility] Iron Fum & P-FA-Vit B & C No.9 (INTEGRA PLUS) 125 mg iron- 1 mg Cap 12-25 00:00: 04-29 00:00 :00 No [id number] 1{capsu le} Take 1 capsule by mouth daily. [facility] Immunizations Ordered Immunization Name Filled Immunization Name Date Status Comments Source Influenza Virus Vaccine Quad .5 mL IM 6+ MO 2018-10-27 00:00:00 Completed [facility] TDAP 2018-10-27 00:00:00 Completed [facility] Influenza Virus Vaccine Quad .5 mL IM 6+ MO 2018-10-27 00:00:00 Completed [facility] TDAP 2018-10-27 00:00:00 Completed [facility] Influenza Virus Vaccine Quad .5 mL IM 6+ MO 2018-10-27 00:00:00 Completed [facility] TDAP 2018-10-27 00:00:00 Completed [facility] Influenza Virus Vaccine Quad .5 mL IM 6+ MO 2018-10-27 00:00:00 Completed [facility] TDAP 2018-10-27 00:00:00 Completed [facility] Influenza Virus Vaccine Quad .5 mL IM 6+ MO 2018-10-27 00:00:00 Completed [facility] TDAP 2018-10-27 00:00:00 Completed [facility] Influenza Virus Vaccine Quad .5 mL IM 6+ MO 2018-10-27 00:00:00 Completed [facility] TDAP 2018-10-27 00:00:00 Completed [facility] Influenza Virus Vaccine Quad .5 mL IM 6+ MO (FLUZONE/FLULAVAL/FL UARIX) 2018-10-27 00:00:00 Completed [facility] TDAP 2018-10-27 00:00:00 Completed [facility] Influenza Virus Vaccine Quad .5 mL IM 6+ MO (FLUZONE/FLULAVAL/FL UARIX) 2018-10-27 00:00:00 Completed [facility] TDAP 2018-10-27 00:00:00 Completed [facility] Meningococcal Polysaccharide (groups A, C, Y and W-135) conjugate vaccine (MCV4P) 2017-05-06 00:00:00 Completed [facility] Meningococcal Polysaccharide (groups A, C, Y and W-135) conjugate vaccine (MCV4P) 2017-05-06 00:00:00 Completed [facility] Meningococcal Polysaccharide (groups A, C, Y and W-135) conjugate vaccine (MCV4P) 2017-05-06 00:00:00 Completed [facility] Meningococcal Polysaccharide (groups A, C, Y and W-135) conjugate vaccine (MCV4P) 2017-05-06 00:00:00 Completed [facility] Meningococcal Polysaccharide (groups A, C, Y and W-135) conjugate vaccine (MCV4P) 2017-05-06 00:00:00 Completed [facility] Meningococcal Polysaccharide (groups A, C, Y and W-135) conjugate vaccine (MCV4P) 2017-05-06 00:00:00 Completed [facility] Meningococcal Polysaccharide (groups A, C, Y and W-135) conjugate vaccine (MCV4P) 2017-05-06 00:00:00 Completed [facility] Meningococcal Polysaccharide (groups A, C, Y and W-135) conjugate vaccine (MCV4P) 2017-05-06 00:00:00 Completed [facility] Meningococcal Polysaccharide (groups A, C, Y and W-135) conjugate vaccine (MCV4P) 2017-05-06 00:00:00 Completed [facility] TDAP 2010-03-14 00:00:00 Completed [facility] Varicella (varivax)(chicken pox) 2010-03-14 00:00:00 Completed [facility] Meningococcal Polysaccharide (groups A, C, Y and W-135) conjugate vaccine (MCV4P) 2010-03-14 00:00:00 Completed [facility] Meningococcal Polysaccharide (groups A, C, Y and W-135) conjugate vaccine (MCV4P) 2010-03-14 00:00:00 Completed [facility] TDAP 2010-03-14 00:00:00 Completed [facility] Varicella (varivax)(chicken pox) 2010-03-14 00:00:00 Completed [facility] Meningococcal Polysaccharide (groups A, C, Y and W-135) conjugate vaccine (MCV4P) 2010-03-14 00:00:00 Completed [facility] TDAP 2010-03-14 00:00:00 Completed [facility] Varicella (varivax)(chicken pox) 2010-03-14 00:00:00 Completed [facility] Meningococcal Polysaccharide (groups A, C, Y and W-135) conjugate vaccine (MCV4P) 2010-03-14 00:00:00 Completed [facility] TDAP 2010-03-14 00:00:00 Completed [facility] Varicella (varivax)(chicken pox) 2010-03-14 00:00:00 Completed [facility] Meningococcal Polysaccharide (groups A, C, Y and W-135) conjugate vaccine (MCV4P) 2010-03-14 00:00:00 Completed [facility] TDAP 2010-03-14 00:00:00 Completed [facility] Varicella (varivax)(chicken pox) 2010-03-14 00:00:00 Completed [facility] Meningococcal Polysaccharide (groups A, C, Y and W-135) conjugate vaccine (MCV4P) 2010-03-14 00:00:00 Completed [facility] Meningococcal Polysaccharide (groups A, C, Y and W-135) conjugate vaccine (MCV4P) 2010-03-14 00:00:00 Completed TDAP 2010-03-14 00:00:00 Completed Varicella (varivax)(chicken pox) 2010-03-14 00:00:00 Completed TDAP 2010-03-14 00:00:00 Completed [facility] Varicella (varivax)(chicken pox) 2010-03-14 00:00:00 Completed [facility] Meningococcal Polysaccharide (groups A, C, Y and W-135) conjugate vaccine (MCV4P) 2010-03-14 00:00:00 Completed [facility] Meningococcal Polysaccharide (groups A, C, Y and W-135) conjugate vaccine (MCV4P) 2010-03-14 00:00:00 Completed [facility] TDAP 2010-03-14 00:00:00 Completed [facility] Varicella (varivax)(chicken pox) 2010-03-14 00:00:00 Completed [facility] TDAP 2010-03-14 00:00:00 Completed [facility] Varicella (varivax)(chicken pox) 2010-03-14 00:00:00 Completed [facility] PPD (TB) 2005-04-25 00:00:00 Completed [facility] PPD (TB) 2005-04-25 00:00:00 Completed [facility] PPD (TB) 2005-04-25 00:00:00 Completed [facility] PPD (TB) 2005-04-25 00:00:00 Completed [facility] PPD (TB) 2005-04-25 00:00:00 Completed [facility] PPD (TB) 2005-04-25 00:00:00 Completed PPD (TB) 2005-04-25 00:00:00 Completed [facility] PPD (TB) 2005-04-25 00:00:00 Completed [facility] PPD (TB) 2005-04-25 00:00:00 Completed [facility] PPD (TB) 2004-05-03 00:00:00 Completed [facility] PPD (TB) 2004-05-03 00:00:00 Completed [facility] PPD (TB) 2004-05-03 00:00:00 Completed [facility] PPD (TB) 2004-05-03 00:00:00 Completed [facility] PPD (TB) 2004-05-03 00:00:00 Completed [facility] PPD (TB) 2004-05-03 00:00:00 Completed PPD (TB) 2004-05-03 00:00:00 Completed [facility] PPD (TB) 2004-05-03 00:00:00 Completed [facility] PPD (TB) 2004-05-03 00:00:00 Completed [facility] Varicella (varivax)(chicken pox) 2002-11-30 00:00:00 Completed [facility] DTAP 2002-11-30 00:00:00 Completed [facility] MMR 2002-11-30 00:00:00 Completed [facility] Polio (IPV/OPV) 2002-11-30 00:00:00 Completed [facility] DTAP 2002-11-30 00:00:00 Completed [facility] MMR 2002-11-30 00:00:00 Completed [facility] Polio (IPV/OPV) 2002-11-30 00:00:00 Completed [facility] Varicella (varivax)(chicken pox) 2002-11-30 00:00:00 Completed [facility] DTAP 2002-11-30 00:00:00 Completed [facility] MMR 2002-11-30 00:00:00 Completed [facility] Polio (IPV/OPV) 2002-11-30 00:00:00 Completed [facility] Varicella (varivax)(chicken pox) 2002-11-30 00:00:00 Completed [facility] DTAP 2002-11-30 00:00:00 Completed [facility] MMR 2002-11-30 00:00:00 Completed [facility] Polio (IPV/OPV) 2002-11-30 00:00:00 Completed [facility] Varicella (varivax)(chicken pox) 2002-11-30 00:00:00 Completed [facility] DTAP 2002-11-30 00:00:00 Completed [facility] DTAP 2002-11-30 00:00:00 Completed [facility] MMR 2002-11-30 00:00:00 Completed [facility] Polio (IPV/OPV) 2002-11-30 00:00:00 Completed [facility] Varicella (varivax)(chicken pox) 2002-11-30 00:00:00 Completed [facility] DTAP 2002-11-30 00:00:00 Completed [facility] DTAP 2002-11-30 00:00:00 Completed MMR 2002-11-30 00:00:00 Completed [facility] MMR 2002-11-30 00:00:00 Completed Polio (IPV/OPV) 2002-11-30 00:00:00 Completed Varicella (varivax)(chicken pox) 2002-11-30 00:00:00 Completed Polio (IPV/OPV) 2002-11-30 00:00:00 Completed [facility] Varicella (varivax)(chicken pox) 2002-11-30 00:00:00 Completed [facility] MMR 2002-11-30 00:00:00 Completed [facility] Polio (IPV/OPV) 2002-11-30 00:00:00 Completed [facility] DTAP 2002-11-30 00:00:00 Completed [facility] [facility] MMR 2002-11-30 00:00:00 Completed [facility] Polio (IPV/OPV) 2002-11-30 00:00:00 Completed [facility] Varicella (varivax)(chicken pox) 2002-11-30 00:00:00 Completed [facility] Varicella (varivax)(chicken pox) 2002-11-30 00:00:00 Completed [facility]ly [facility] HEPATITIS A 2001-08-11 00:00:00 Completed Formerly [facility] HEPATITIS A 2001-08-11 00:00:00 Completed Formerly [facility] HEPATITIS A 2001-08-11 00:00:00 Completed [facility]ly [facility] HEPATITIS A 2001-08-11 00:00:00 Completed Formerly [facility] HEPATITIS A 2001-08-11 00:00:00 Completed Formerly [facility] HEPATITIS A 2001-08-11 00:00:00 Completed Formerly [facility] HEPATITIS A 2001-08-11 00:00:00 Completed Formerly [facility] HEPATITIS A 2001-08-11 00:00:00 Completed HEPATITIS A 2001-08-11 00:00:00 Completed Former[facility] HEPATITIS A 2000-12-19 00:00:00 Completed [facility] HEPATITIS A 2000-12-19 00:00:00 Completed Formerly [facility] HEPATITIS A 2000-12-19 00:00:00 Completed [facility] HEPATITIS A 2000-12-19 00:00:00 Completed Former[facility] HEPATITIS A 2000-12-19 00:00:00 Completed Former[facility] HEPATITIS A 2000-12-19 00:00:00 Completed [facility] HEPATITIS A 2000-12-19 00:00:00 Completed [facility] HEPATITIS A 2000-12-19 00:00:00 Completed HEPATITIS A 2000-12-19 00:00:00 Completed [facility] PPD (TB) 2000-01-26 00:00:00 Completed [facility] PPD (TB) 2000-01-26 00:00:00 Completed [facility] PPD (TB) 2000-01-26 00:00:00 Completed [facility] PPD (TB) 2000-01-26 00:00:00 Completed [facility] PPD (TB) 2000-01-26 00:00:00 Completed [facility] PPD (TB) 2000-01-26 00:00:00 Completed PPD (TB) 2000-01-26 00:00:00 Completed [facility] PPD (TB) 2000-01-26 00:00:00 Completed [facility] PPD (TB) 2000-01-26 00:00:00 Completed [facility] DTAP 1999-11-22 00:00:00 Completed [facility] MMR 1999-11-22 00:00:00 Completed [facility] Polio (IPV/OPV) 1999-11-22 00:00:00 Completed [facility] DTAP 1999-11-22 00:00:00 Completed [facility] MMR 1999-11-22 00:00:00 Completed [facility] Polio (IPV/OPV) 1999-11-22 00:00:00 Completed [facility] DTAP 1999-11-22 00:00:00 Completed [facility] MMR 1999-11-22 00:00:00 Completed [facility] Polio (IPV/OPV) 1999-11-22 00:00:00 Completed [facility] DTAP 1999-11-22 00:00:00 Completed [facility] MMR 1999-11-22 00:00:00 Completed [facility] Polio (IPV/OPV) 1999-11-22 00:00:00 Completed [facility] DTAP 1999-11-22 00:00:00 Completed [facility] DTAP 1999-11-22 00:00:00 Completed [facility] MMR 1999-11-22 00:00:00 Completed [facility] Polio (IPV/OPV) 1999-11-22 00:00:00 Completed [facility] DTAP 1999-11-22 00:00:00 Completed [facility] MMR 1999-11-22 00:00:00 Completed [facility] DTAP 1999-11-22 00:00:00 Completed MMR 1999-11-22 00:00:00 Completed Polio (IPV/OPV) 1999-11-22 00:00:00 Completed Polio (IPV/OPV) 1999-11-22 00:00:00 Completed [facility] MMR 1999-11-22 00:00:00 Completed [facility] DTAP 1999-11-22 00:00:00 Completed [facility] Polio (IPV/OPV) 1999-11-22 00:00:00 Completed [facility] MMR 1999-11-22 00:00:00 Completed [facility] Polio (IPV/OPV) 1999-11-22 00:00:00 Completed [facility] DTAP 1999-05-06 00:00:00 Completed [facility] HIB 4 Dose Schedule 1999-05-06 00:00:00 Completed [facility] DTAP 1999-05-06 00:00:00 Completed [facility] HIB 4 Dose Schedule 1999-05-06 00:00:00 Completed [facility] DTAP 1999-05-06 00:00:00 Completed [facility] HIB 4 Dose Schedule 1999-05-06 00:00:00 Completed [facility] DTAP 1999-05-06 00:00:00 Completed [facility] HIB 4 Dose Schedule 1999-05-06 00:00:00 Completed [facility] DTAP 1999-05-06 00:00:00 Completed [facility] DTAP 1999-05-06 00:00:00 Completed [facility] HIB 4 Dose Schedule 1999-05-06 00:00:00 Completed [facility] HIB 4 Dose Schedule 1999-05-06 00:00:00 Completed [facility] DTAP 1999-05-06 00:00:00 Completed [facility] HIB 4 Dose Schedule 1999-05-06 00:00:00 Completed [facility] DTAP 1999-05-06 00:00:00 Completed HIB 4 Dose Schedule 1999-05-06 00:00:00 Completed DTAP 1999-05-06 00:00:00 Completed [facility] HIB 4 Dose Schedule 1999-05-06 00:00:00 Completed [facility] Hep B, Adol or Pedi Dosage 1999-04-23 00:00:00 Completed [facility] Hep B, Adol or Pedi Dosage 1999-04-23 00:00:00 Completed [facility] Hep B, Adol or Pedi Dosage 1999-04-23 00:00:00 Completed [facility] Hep B, Adol or Pedi Dosage 1999-04-23 00:00:00 Completed [facility] Hep B, Adol or Pedi Dosage 1999-04-23 00:00:00 Completed [facility] Hep B, Adol or Pedi Dosage 1999-04-23 00:00:00 Completed [facility] Hep B, Adol or Pedi Dosage 1999-04-23 00:00:00 Completed Hep B, Adol or Pedi Dosage 1999-04-23 00:00:00 Completed [facility] Hep B, Adol or Pedi Dosage 1999-04-23 00:00:00 Completed [facility] DTAP 1999-03-06 00:00:00 Completed [facility] HIB 4 Dose Schedule 1999-03-06 00:00:00 Completed [facility] Polio (IPV/OPV) 1999-03-06 00:00:00 Completed [facility] DTAP 1999-03-06 00:00:00 Completed [facility] HIB 4 Dose Schedule 1999-03-06 00:00:00 Completed [facility] Polio (IPV/OPV) 1999-03-06 00:00:00 Completed [facility] DTAP 1999-03-06 00:00:00 Completed [facility] HIB 4 Dose Schedule 1999-03-06 00:00:00 Completed [facility] Polio (IPV/OPV) 1999-03-06 00:00:00 Completed [facility] DTAP 1999-03-06 00:00:00 Completed [facility] HIB 4 Dose Schedule 1999-03-06 00:00:00 Completed [facility] DTAP 1999-03-06 00:00:00 Completed [facility] Polio (IPV/OPV) 1999-03-06 00:00:00 Completed [facility] DTAP 1999-03-06 00:00:00 Completed [facility] HIB 4 Dose Schedule 1999-03-06 00:00:00 Completed [facility] Polio (IPV/OPV) 1999-03-06 00:00:00 Completed [facility] HIB 4 Dose Schedule 1999-03-06 00:00:00 Completed [facility] DTAP 1999-03-06 00:00:00 Completed [facility] HIB 4 Dose Schedule 1999-03-06 00:00:00 Completed [facility] DTAP 1999-03-06 00:00:00 Completed HIB 4 Dose Schedule 1999-03-06 00:00:00 Completed Polio (IPV/OPV) 1999-03-06 00:00:00 Completed Polio (IPV/OPV) 1999-03-06 00:00:00 Completed [facility] Polio (IPV/OPV) 1999-03-06 00:00:00 Completed [facility] DTAP 1999-03-06 00:00:00 Completed [facility] HIB 4 Dose Schedule 1999-03-06 00:00:00 Completed [facility] Polio (IPV/OPV) 1999-03-06 00:00:00 Completed [facility] DTAP 1999-01-03 00:00:00 Completed [facility] HIB 4 Dose Schedule 1999-01-03 00:00:00 Completed [facility] Hep B, Adol or Pedi Dosage 1999-01-03 00:00:00 Completed [facility] Polio (IPV/OPV) 1999-01-03 00:00:00 Completed [facility] DTAP 1999-01-03 00:00:00 Completed [facility] HIB 4 Dose Schedule 1999-01-03 00:00:00 Completed [facility] Hep B, Adol or Pedi Dosage 1999-01-03 00:00:00 Completed [facility] Polio (IPV/OPV) 1999-01-03 00:00:00 Completed [facility] DTAP 1999-01-03 00:00:00 Completed [facility] HIB 4 Dose Schedule 1999-01-03 00:00:00 Completed [facility] Hep B, Adol or Pedi Dosage 1999-01-03 00:00:00 Completed [facility] Polio (IPV/OPV) 1999-01-03 00:00:00 Completed [facility] DTAP 1999-01-03 00:00:00 Completed [facility] DTAP 1999-01-03 00:00:00 Completed [facility] HIB 4 Dose Schedule 1999-01-03 00:00:00 Completed [facility] Hep B, Adol or Pedi Dosage 1999-01-03 00:00:00 Completed [facility] Polio (IPV/OPV) 1999-01-03 00:00:00 Completed [facility] DTAP 1999-01-03 00:00:00 Completed [facility] HIB 4 Dose Schedule 1999-01-03 00:00:00 Completed [facility] HIB 4 Dose Schedule 1999-01-03 00:00:00 Completed [facility] Hep B, Adol or Pedi Dosage 1999-01-03 00:00:00 Completed [facility] Polio (IPV/OPV) 1999-01-03 00:00:00 Completed [facility] DTAP 1999-01-03 00:00:00 Completed [facility] HIB 4 Dose Schedule 1999-01-03 00:00:00 Completed [facility] Hep B, Adol or Pedi Dosage 1999-01-03 00:00:00 Completed [facility] DTAP 1999-01-03 00:00:00 Completed [facility] HIB 4 Dose Schedule 1999-01-03 00:00:00 Completed Hep B, Adol or Pedi Dosage 1999-01-03 00:00:00 Completed Polio (IPV/OPV) 1999-01-03 00:00:00 Completed Polio (IPV/OPV) 1999-01-03 00:00:00 Completed [facility] Hep B, Adol or Pedi Dosage 1999-01-03 00:00:00 Completed [facility] Polio (IPV/OPV) 1999-01-03 00:00:00 Completed [facility] DTAP 1999-01-03 00:00:00 Completed [facility] HIB 4 Dose Schedule 1999-01-03 00:00:00 Completed [facility] Hep B, Adol or Pedi Dosage 1999-01-03 00:00:00 Completed [facility] Polio (IPV/OPV) 1999-01-03 00:00:00 Completed [facility] Hep B, Adol or Pedi Dosage 1998 00:00:00 Completed [facility] Hep B, Adol or Pedi Dosage 1998 00:00:00 Completed [facility] Hep B, Adol or Pedi Dosage 1998 00:00:00 Completed [facility] Hep B, Adol or Pedi Dosage 1998 00:00:00 Completed [facility] Hep B, Adol or Pedi Dosage 1998 00:00:00 Completed [facility] Hep B, Adol or Pedi Dosage 1998 00:00:00 Completed [facility] Hep B, Adol or Pedi Dosage 1998 00:00:00 Completed [facility] Hep B, Adol or Pedi Dosage 1998 00:00:00 Completed Hep B, Adol or Pedi Dosage 1998 00:00:00 Completed [facility] HEPATITIS A Unknown Completed [facility] Hep B, Adol or Pedi Dosage Unknown Completed [facility] Meningococcal Polysaccharide (groups A, C, Y and W-135) conjugate vaccine (MCV4P) Unknown Completed [facility] MMR Unknown Completed [facility] Polio (IPV/OPV) Unknown Completed [facility] PPD (TB) Unknown Completed [facility] TDAP Unknown Completed [facility] Varicella (varivax)(chicken pox) Unknown Completed [facility] Influenza Virus Vaccine Quad IM, Preserv and ABX Free 6 MO-64 YRS (FLUCELVAX) Unknown Completed [facility] Meningococcal Polysaccharide (groups A, C, Y and W-135) conjugate vaccine (MCV4P) Unknown Completed [facility] Influenza Virus Vaccine Quad .5 mL IM 6+ MO (FLUZONE/FLULAVAL/FL UARIX) Unknown Completed [facility] TDAP Unknown Completed [facility] DTAP Unknown Completed [facility] HIB 4 Dose Schedule Unknown Completed [facility] HEPATITIS A Unknown Completed [facility] Hep B, Adol or Pedi Dosage Unknown Completed [facility] MMR Unknown Completed [facility] Polio (IPV/OPV) Unknown Completed [facility] PPD (TB) Unknown Completed [facility] Varicella (varivax)(chicken pox) Unknown Completed [facility] Influenza Virus Vaccine Quad IM, Preserv and ABX Free 6 MO-64 YRS (FLUCELVAX) Unknown Completed [facility] Meningococcal Polysaccharide (groups A, C, Y and W-135) conjugate vaccine (MCV4P) Unknown Completed [facility] Influenza Virus Vaccine Quad .5 mL IM 6+ MO (FLUZONE/FLULAVAL/FL UARIX) Unknown Completed [facility] TDAP Unknown Completed [facility] DTAP Unknown Completed [facility] HIB 4 Dose Schedule Unknown Completed [facility] HEPATITIS A Unknown Completed [facility] Hep B, Adol or Pedi Dosage Unknown Completed [facility] MMR Unknown Completed [facility] Polio (IPV/OPV) Unknown Completed [facility] PPD (TB) Unknown Completed [facility] Varicella (varivax)(chicken pox) Unknown Completed [facility] Influenza Virus Vaccine Quad IM, Preserv and ABX Free 6 MO-64 YRS (FLUCELVAX) Unknown Completed [facility] Meningococcal Polysaccharide (groups A, C, Y and W-135) conjugate vaccine (MCV4P) Unknown Completed [facility] Influenza Virus Vaccine Quad .5 mL IM 6+ MO (FLUZONE/FLULAVAL/FL UARIX) Unknown Completed [facility] TDAP Unknown Completed [facility] DTAP Unknown Completed [facility] HIB 4 Dose Schedule Unknown Completed [facility] HEPATITIS A Unknown Completed [facility] Hep B, Adol or Pedi Dosage Unknown Completed [facility] MMR Unknown Completed [facility] Polio (IPV/OPV) Unknown Completed [facility] PPD (TB) Unknown Completed [facility] Varicella (varivax)(chicken pox) Unknown Completed [facility] Influenza Virus Vaccine Quad IM, Preserv and ABX Free 6 MO-64 YRS (FLUCELVAX) Unknown Completed [facility] Meningococcal Polysaccharide (groups A, C, Y and W-135) conjugate vaccine (MCV4P) Unknown Completed [facility] Influenza Virus Vaccine Quad .5 mL IM 6+ MO (FLUZONE/FLULAVAL/FL UARIX) Unknown Completed [facility] TDAP Unknown Completed [facility] DTAP Unknown Completed [facility] HIB 4 Dose Schedule Unknown Completed [facility] HEPATITIS A Unknown Completed [facility] Hep B, Adol or Pedi Dosage Unknown Completed [facility] MMR Unknown Completed [facility] Polio (IPV/OPV) Unknown Completed [facility] PPD (TB) Unknown Completed [facility] Varicella (varivax)(chicken pox) Unknown Completed [facility] Influenza Virus Vaccine Quad IM, Preserv and ABX Free 6 MO-64 YRS (FLUCELVAX) Unknown Completed [facility] Meningococcal Polysaccharide (groups A, C, Y and W-135) conjugate vaccine (MCV4P) Unknown Completed [facility] Influenza Virus Vaccine Quad .5 mL IM 6+ MO (FLUZONE/FLULAVAL/FL UARIX) Unknown Completed [facility] TDAP Unknown Completed [facility] DTAP Unknown Completed [facility] HIB 4 Dose Schedule Unknown Completed [facility] HEPATITIS A Unknown Completed [facility] Hep B, Adol or Pedi Dosage Unknown Completed [facility] MMR Unknown Completed [facility] Polio (IPV/OPV) Unknown Completed [facility] PPD (TB) Unknown Completed [facility] Varicella (varivax)(chicken pox) Unknown Completed [facility] Influenza Virus Vaccine Quad IM, Preserv and ABX Free 6 MO-64 YRS (FLUCELVAX) Unknown Completed [facility] Meningococcal Polysaccharide (groups A, C, Y and W-135) conjugate vaccine (MCV4P) Unknown Completed [facility] Influenza Virus Vaccine Quad .5 mL IM 6+ MO (FLUZONE/FLULAVAL/FL UARIX) Unknown Completed [facility] TDAP Unknown Completed [facility] DTAP Unknown Completed [facility] HIB 4 Dose Schedule Unknown Completed [facility] HEPATITIS A Unknown Completed [facility] Hep B, Adol or Pedi Dosage Unknown Completed [facility] MMR Unknown Completed [facility] Polio (IPV/OPV) Unknown Completed [facility] PPD (TB) Unknown Completed [facility] Varicella (varivax)(chicken pox) Unknown Completed [facility] Influenza Virus Vaccine Quad IM, Preserv and ABX Free 6 MO-64 YRS (FLUCELVAX) Unknown Completed [facility] Meningococcal Polysaccharide (groups A, C, Y and W-135) conjugate vaccine (MCV4P) Unknown Completed [facility] Influenza Virus Vaccine Quad .5 mL IM 6+ MO (FLUZONE/FLULAVAL/FL UARIX) Unknown Completed [facility] TDAP Unknown Completed [facility] DTAP Unknown Completed [facility] HIB 4 Dose Schedule Unknown Completed [facility] HEPATITIS A Unknown Completed [facility] Hep B, Adol or Pedi Dosage Unknown Completed [facility] MMR Unknown Completed [facility] Polio (IPV/OPV) Unknown Completed [facility] PPD (TB) Unknown Completed [facility] Varicella (varivax)(chicken pox) Unknown Completed [facility] Influenza Virus Vaccine Quad IM, Preserv and ABX Free 6 MO-64 YRS (FLUCELVAX) Unknown Completed [facility] Meningococcal Polysaccharide (groups A, C, Y and W-135) conjugate vaccine (MCV4P) Unknown Completed [facility] Influenza Virus Vaccine Quad .5 mL IM 6+ MO (FLUZONE/FLULAVAL/FL UARIX) Unknown Completed [facility] TDAP Unknown Completed [facility] DTAP Unknown Completed [facility] HIB 4 Dose Schedule Unknown Completed [facility] HEPATITIS A Unknown Completed [facility] Hep B, Adol or Pedi Dosage Unknown Completed [facility] MMR Unknown Completed [facility] Polio (IPV/OPV) Unknown Completed [facility] PPD (TB) Unknown Completed [facility] Varicella (varivax)(chicken pox) Unknown Completed [facility] Influenza Virus Vaccine Quad IM, Preserv and ABX Free 6 MO-64 YRS (FLUCELVAX) Unknown Completed [facility] Meningococcal Polysaccharide (groups A, C, Y and W-135) conjugate vaccine (MCV4P) Unknown Completed [facility] Influenza Virus Vaccine Quad .5 mL IM 6+ MO (FLUZONE/FLULAVAL/FL UARIX) Unknown Completed [facility] TDAP Unknown Completed [facility] DTAP Unknown Completed [facility] HIB 4 Dose Schedule Unknown Completed [facility] HEPATITIS A Unknown Completed [facility] Hep B, Adol or Pedi Dosage Unknown Completed [facility] MMR Unknown Completed [facility] Polio (IPV/OPV) Unknown Completed [facility] PPD (TB) Unknown Completed [facility] Varicella (varivax)(chicken pox) Unknown Completed [facility] Influenza Virus Vaccine Quad IM, Preserv and ABX Free 6 MO-64 YRS (FLUCELVAX) Unknown Completed [facility] Meningococcal Polysaccharide (groups A, C, Y and W-135) conjugate vaccine (MCV4P) Unknown Completed [facility] Influenza Virus Vaccine Quad .5 mL IM 6+ MO (FLUZONE/FLULAVAL/FL UARIX) Unknown Completed [facility] TDAP Unknown Completed [facility] DTAP Unknown Completed [facility] HIB 4 Dose Schedule Unknown Completed [facility] HEPATITIS A Unknown Completed [facility] Hep B, Adol or Pedi Dosage Unknown Completed [facility] MMR Unknown Com[facility] [facility]) [facility] Com[facility] PPD (TB) Unknown Completed [facility] Varicella (varivax)(chicken pox) Unknown Completed [facility] Influenza Virus Vaccine Quad IM, Preserv and ABX Free 6 MO-64 YRS (FLUCELVAX) Unknown Completed [facility] Meningococcal Polysaccharide (groups A, C, Y and W-135) conjugate vaccine (MCV4P) Unknown Completed [facility] Influenza Virus Vaccine Quad .5 mL IM 6+ MO (FLUZONE/FLULAVAL/FL UARIX) Unknown Completed [facility] TDAP Unknown Completed [facility] DTAP Unknown Completed [facility] HIB 4 Dose Schedule Unknown Completed [facility] HEPATITIS A Unknown Completed [facility] Hep B, Adol or Pedi Dosage Unknown Completed [facility] MMR Unknown Completed [facility] Polio (IPV/OPV) Unknown Completed [facility] PPD (TB) Unknown Completed [facility] Varicella (varivax)(chicken pox) Unknown Completed [facility] Influenza Virus Vaccine Quad IM, Preserv and ABX Free 6 MO-64 YRS (FLUCELVAX) Unknown Completed [facility] Meningococcal Polysaccharide (groups A, C, Y and W-135) conjugate vaccine (MCV4P) Unknown Completed [facility] Influenza Virus Vaccine Quad .5 mL IM 6+ MO (FLUZONE/FLULAVAL/FL UARIX) Unknown Completed [facility] TDAP Unknown Completed [facility] DTAP Unknown Completed [facility] HIB 4 Dose Schedule Unknown Completed [facility] HEPATITIS A Unknown Completed [facility] Hep B, Adol or Pedi Dosage Unknown Completed [facility] MMR Unknown Completed [facility] Polio (IPV/OPV) Unknown Completed [facility] PPD (TB) Unknown Completed [facility] Varicella (varivax)(chicken pox) Unknown Completed [facility] Influenza Virus Vaccine Quad IM, Preserv and ABX Free 6 MO-64 YRS (FLUCELVAX) Unknown Completed [facility] Meningococcal Polysaccharide (groups A, C, Y and W-135) conjugate vaccine (MCV4P) Unknown Completed [facility] Influenza Virus Vaccine Quad .5 mL IM 6+ MO (FLUZONE/FLULAVAL/FL UARIX) Unknown Completed [facility] TDAP Unknown Completed [facility] DTAP Unknown Completed [facility] HIB 4 Dose Schedule Unknown Completed [facility] HEPATITIS A Unknown Completed [facility] Hep B, Adol or Pedi Dosage Unknown Completed [facility] MMR Unknown Completed [facility] Polio (IPV/OPV) Unknown Completed [facility] PPD (TB) Unknown Completed [facility] Varicella (varivax)(chicken pox) Unknown Completed [facility] Influenza Virus Vaccine Quad IM, Preserv and ABX Free 6 MO-64 YRS (FLUCELVAX) Unknown Completed [facility] Influenza Virus Vaccine Quad .5 mL IM 6+ MO (FLUZONE/FLULAVAL/FL UARIX) Unknown Completed [facility] Influenza Virus Vaccine Quad IM, Preserv and ABX Free 6 MO-64 YRS (FLUCELVAX) Unknown Completed [facility] Meningococcal Polysaccharide (groups A, C, Y and W-135) conjugate vaccine (MCV4P) Unknown Completed [facility] TDAP Unknown Completed [facility] DTAP Unknown Completed [facility] HIB 4 Dose Schedule Unknown Completed [facility] HEPATITIS A Unknown Completed [facility] Hep B, Adol or Pedi Dosage Unknown Completed [facility] MMR Unknown Completed [facility] Polio (IPV/OPV) Unknown Completed [facility] PPD (TB) Unknown Completed [facility] Varicella (varivax)(chicken pox) Unknown Completed [facility] Meningococcal Polysaccharide (groups A, C, Y and W-135) conjugate vaccine (MCV4P) Unknown Completed [facility] Influenza Virus Vaccine Quad .5 mL IM 6+ MO (FLUZONE/FLULAVAL/FL UARIX) Unknown Completed [facility] TDAP Unknown Completed [facility] DTAP Unknown Completed [facility] HIB 4 Dose Schedule Unknown Completed [facility] HEPATITIS A Unknown Completed [facility] Hep B, Adol or Pedi Dosage Unknown Completed [facility] MMR Unknown Completed [facility] Polio (IPV/OPV) Unknown Completed [facility] PPD (TB) Unknown Completed [facility] Varicella (varivax)(chicken pox) Unknown Completed [facility] Influenza Virus Vaccine Quad IM, Preserv and ABX Free 6 MO-64 YRS (FLUCELVAX) Unknown Completed [facility] Meningococcal Polysaccharide (groups A, C, Y and W-135) conjugate vaccine (MCV4P) Unknown Completed [facility] Influenza Virus Vaccine Quad .5 mL IM 6+ MO (FLUZONE/FLULAVAL/FL UARIX) Unknown Completed [facility] TDAP Unknown Completed [facility] DTAP Unknown Completed [facility] HIB 4 Dose Schedule Unknown Completed [facility] HEPATITIS A Unknown Completed [facility] Hep B, Adol or Pedi Dosage Unknown Completed [facility] MMR Unknown Completed [facility] Polio (IPV/OPV) Unknown Completed [facility] PPD (TB) Unknown Completed [facility] Varicella (varivax)(chicken pox) Unknown Completed [facility] Influenza Virus Vaccine Quad IM, Preserv and ABX Free 6 MO-64 YRS (FLUCELVAX) Unknown Completed [facility] Meningococcal Polysaccharide (groups A, C, Y and W-135) conjugate vaccine (MCV4P) Unknown Completed [facility] Influenza Virus Vaccine Quad .5 mL IM 6+ MO (FLUZONE/FLULAVAL/FL UARIX) Unknown Completed [facility] TDAP Unknown Completed [facility] DTAP Unknown Completed [facility] HIB 4 Dose Schedule Unknown Completed [facility] HEPATITIS A Unknown Completed [facility] Hep B, Adol or Pedi Dosage Unknown Completed [facility] MMR Unknown Completed [facility] Polio (IPV/OPV) Unknown Completed [facility] PPD (TB) Unknown Completed [facility] Varicella (varivax)(chicken pox) Unknown Completed [facility] Influenza Virus Vaccine Quad IM, Preserv and ABX Free 6 MO-64 YRS (FLUCELVAX) Unknown Completed [facility] Meningococcal Polysaccharide (groups A, C, Y and W-135) conjugate vaccine (MCV4P) Unknown Completed [facility] Influenza Virus Vaccine Quad .5 mL IM 6+ MO (FLUZONE/FLULAVAL/FL UARIX) Unknown Completed [facility] DTAP Unknown Completed [facility] HIB 4 Dose Schedule Unknown Completed [facility] HEPATITIS A Unknown Completed [facility] Hep B, Adol or Pedi Dosage Unknown Completed [facility] MMR Unknown Completed [facility] Polio (IPV/OPV) Unknown Completed [facility] PPD (TB) Unknown Completed [facility] Varicella (varivax)(chicken pox) Unknown Completed [facility] Influenza Virus Vaccine Quad IM, Preserv and ABX Free 6 MO-64 YRS (FLUCELVAX) Unknown Completed [facility] TDAP Unknown Completed [facility] Influenza Virus Vaccine Quad .5 mL IM 6+ MO (FLUZONE/FLULAVAL/FL UARIX) Unknown Completed [facility] Influenza Virus Vaccine Quad IM, Preserv and ABX Free 6 MO-64 YRS (FLUCELVAX) Unknown Completed [facility] Meningococcal Polysaccharide (groups A, C, Y and W-135) conjugate vaccine (MCV4P) Unknown Completed [facility] TDAP Unknown Completed [facility] DTAP Unknown Completed [facility] HIB 4 Dose Schedule Unknown Completed [facility] HEPATITIS A Unknown Completed [facility] Hep B, Adol or Pedi Dosage Unknown Completed [facility] MMR Unknown Completed [facility] Polio (IPV/OPV) Unknown Completed [facility] PPD (TB) Unknown Completed [facility] Varicella (varivax)(chicken pox) Unknown Completed [facility] Meningococcal Polysaccharide (groups A, C, Y and W-135) conjugate vaccine (MCV4P) Unknown Completed [facility] Influenza Virus Vaccine Quad .5 mL IM 6+ MO (FLUZONE/FLULAVAL/FL UARIX) Unknown Completed [facility] TDAP Unknown Completed [facility] DTAP Unknown Completed [facility] HIB 4 Dose Schedule Unknown Completed [facility] HEPATITIS A Unknown Completed [facility] Hep B, Adol or Pedi Dosage Unknown Completed [facility] MMR Unknown Completed [facility] Polio (IPV/OPV) Unknown Completed [facility] PPD (TB) Unknown Completed [facility] Varicella (varivax)(chicken pox) Unknown Completed [facility] Influenza Virus Vaccine Quad IM, Preserv and ABX Free 6 MO-64 YRS (FLUCELVAX) Unknown Completed [facility] Meningococcal Polysaccharide (groups A, C, Y and W-135) conjugate vaccine (MCV4P) Unknown Completed [facility] Influenza Virus Vaccine Quad .5 mL IM 6+ MO (FLUZONE/FLULAVAL/FL UARIX) Unknown Completed [facility] TDAP Unknown Completed [facility] DTAP Unknown Completed [facility] HIB 4 Dose Schedule Unknown Completed [facility] HEPATITIS A Unknown Completed [facility] Hep B, Adol or Pedi Dosage Unknown Completed [facility] MMR Unknown Completed [facility] Polio (IPV/OPV) Unknown Completed [facility] PPD (TB) Unknown Completed [facility] Varicella (varivax)(chicken pox) Unknown Completed [facility] Influenza Virus Vaccine Quad IM, Preserv and ABX Free 6 MO-64 YRS (FLUCELVAX) Unknown Completed [facility] Meningococcal Polysaccharide (groups A, C, Y and W-135) conjugate vaccine (MCV4P) Unknown Completed [facility] Influenza Virus Vaccine Quad .5 mL IM 6+ MO (FLUZONE/FLULAVAL/FL UARIX) Unknown Completed [facility] TDAP Unknown Completed [facility] DTAP Unknown Completed [facility] HIB 4 Dose Schedule Unknown Completed [facility] HEPATITIS A Unknown Completed [facility] Hep B, Adol or Pedi Dosage Unknown Completed [facility] MMR Unknown Completed [facility] Polio (IPV/OPV) Unknown Completed [facility] PPD (TB) Unknown Completed [facility] Varicella (varivax)(chicken pox) Unknown Completed [facility] Influenza Virus Vaccine Quad IM, Preserv and ABX Free 6 MO-64 YRS (FLUCELVAX) Unknown Completed [facility] Meningococcal Polysaccharide (groups A, C, Y and W-135) conjugate vaccine (MCV4P) Unknown Completed [facility] Influenza Virus Vaccine Quad .5 mL IM 6+ MO (FLUZONE/FLULAVAL/FL UARIX) Unknown Completed [facility] TDAP Unknown Completed [facility] DTAP Unknown Completed [facility] HIB 4 Dose Schedule Unknown Completed [facility] HEPATITIS A Unknown Completed [facility] Hep B, Adol or Pedi Dosage Unknown Completed [facility] MMR Unknown Completed [facility] Polio (IPV/OPV) Unknown Completed [facility] PPD (TB) Unknown Completed [facility] Varicella (varivax)(chicken pox) Unknown Completed [facility] Influenza Virus Vaccine Quad IM, Preserv and ABX Free 6 MO-64 YRS (FLUCELVAX) Unknown Completed [facility] Meningococcal Polysaccharide (groups A, C, Y and W-135) conjugate vaccine (MCV4P) Unknown Completed [facility] Influenza Virus Vaccine Quad .5 mL IM 6+ MO (FLUZONE/FLULAVAL/FL UARIX) Unknown Completed [facility] TDAP Unknown Completed [facility] DTAP Unknown Completed [facility] HIB 4 Dose Schedule Unknown Completed [facility] HEPATITIS A Unknown Completed [facility] Hep B, Adol or Pedi Dosage Unknown Completed [facility] MMR Unknown Completed [facility] Polio (IPV/OPV) Unknown Completed [facility] PPD (TB) Unknown Completed [facility] Varicella (varivax)(chicken pox) Unknown Completed [facility] Influenza Virus Vaccine Quad IM, Preserv and ABX Free 6 MO-64 YRS (FLUCELVAX) Unknown Completed [facility] Meningococcal Polysaccharide (groups A, C, Y and W-135) conjugate vaccine (MCV4P) Unknown Completed [facility] Influenza Virus Vaccine Quad .5 mL IM 6+ MO (FLUZONE/FLULAVAL/FL UARIX) Unknown Completed [facility] TDAP Unknown Completed [facility] DTAP Unknown Completed [facility] HIB 4 Dose Schedule Unknown Completed [facility] HEPATITIS A Unknown Completed [facility] Hep B, Adol or Pedi Dosage Unknown Completed [facility] MMR Unknown Completed [facility] Polio (IPV/OPV) Unknown Completed [facility] PPD (TB) Unknown Completed [facility] Varicella (varivax)(chicken pox) Unknown Completed [facility] Influenza Virus Vaccine Quad IM, Preserv and ABX Free 6 MO-64 YRS (FLUCELVAX) Unknown Completed [facility] Meningococcal Polysaccharide (groups A, C, Y and W-135) conjugate vaccine (MCV4P) Unknown Completed [facility] Influenza Virus Vaccine Quad .5 mL IM 6+ MO (FLUZONE/FLULAVAL/FL UARIX) Unknown Completed [facility] TDAP Unknown Completed [facility] DTAP Unknown Completed [facility] HIB 4 Dose Schedule Unknown Completed [facility] HEPATITIS A Unknown Completed [facility] Hep B, Adol or Pedi Dosage Unknown Completed [facility] MMR Unknown Completed [facility] Polio (IPV/OPV) Unknown Completed [facility] PPD (TB) Unknown Completed [facility] Varicella (varivax)(chicken pox) Unknown Completed [facility] Influenza Virus Vaccine Quad IM, Preserv and ABX Free 6 MO-64 YRS (FLUCELVAX) Unknown Completed [facility] Meningococcal Polysaccharide (groups A, C, Y and W-135) conjugate vaccine (MCV4P) Unknown Completed [facility] Influenza Virus Vaccine Quad .5 mL IM 6+ MO (FLUZONE/FLULAVAL/FL UARIX) Unknown Completed [facility] TDAP Unknown Completed [facility] DTAP Unknown Completed [facility] HIB 4 Dose Schedule Unknown Completed [facility] HEPATITIS A Unknown Completed [facility] Hep B, Adol or Pedi Dosage Unknown Completed [facility] MMR Unknown Completed [facility] Polio (IPV/OPV) Unknown Completed [facility] PPD (TB) Unknown Completed [facility] Varicella (varivax)(chicken pox) Unknown Completed [facility] Influenza Virus Vaccine Quad IM, Preserv and ABX Free 6 MO-64 YRS (FLUCELVAX) Unknown Completed [facility] Meningococcal Polysaccharide (groups A, C, Y and W-135) conjugate vaccine (MCV4P) Unknown Completed [facility] Influenza Virus Vaccine Quad .5 mL IM 6+ MO (FLUZONE/FLULAVAL/FL UARIX) Unknown Completed [facility] TDAP Unknown Completed [facility] DTAP Unknown Completed [facility] HIB 4 Dose Schedule Unknown Completed [facility] HEPATITIS A Unknown Completed [facility] Hep B, Adol or Pedi Dosage Unknown Completed [facility] MMR Unknown Completed [facility] Polio (IPV/OPV) Unknown Completed [facility] PPD (TB) Unknown Completed [facility] Varicella (varivax)(chicken pox) Unknown Completed [facility] Influenza Virus Vaccine Quad IM, Preserv and ABX Free 6 MO-64 YRS (FLUCELVAX) Unknown Completed [facility] Meningococcal Polysaccharide (groups A, C, Y and W-135) conjugate vaccine (MCV4P) Unknown Completed [facility] Influenza Virus Vaccine Quad .5 mL IM 6+ MO (FLUZONE/FLULAVAL/FL UARIX) Unknown Completed [facility] TDAP Unknown Completed [facility] DTAP Unknown Completed [facility] HIB 4 Dose Schedule Unknown Completed [facility] HEPATITIS A Unknown Completed [facility] Hep B, Adol or Pedi Dosage Unknown Completed [facility] MMR Unknown Completed [facility] Polio (IPV/OPV) Unknown Completed [facility] PPD (TB) Unknown Completed [facility] Varicella (varivax)(chicken pox) Unknown Completed [facility] Influenza Virus Vaccine Quad IM, Preserv and ABX Free 6 MO-64 YRS (FLUCELVAX) Unknown Completed [facility] Meningococcal Polysaccharide (groups A, C, Y and W-135) conjugate vaccine (MCV4P) Unknown Completed [facility] Influenza Virus Vaccine Quad .5 mL IM 6+ MO (FLUZONE/FLULAVAL/FL UARIX) Unknown Completed [facility] TDAP Unknown Completed [facility] DTAP Unknown Completed [facility] HIB 4 Dose Schedule Unknown Completed [facility] HEPATITIS A Unknown Completed [facility] Hep B, Adol or Pedi Dosage Unknown Completed [facility] MMR Unknown Completed [facility] Polio (IPV/OPV) Unknown Completed [facility] PPD (TB) Unknown Completed [facility] Varicella (varivax)(chicken pox) Unknown Completed [facility] Influenza Virus Vaccine Quad IM, Preserv and ABX Free 6 MO-64 YRS (FLUCELVAX) Unknown Completed [facility] Meningococcal Polysaccharide (groups A, C, Y and W-135) conjugate vaccine (MCV4P) Unknown Completed [facility] Influenza Virus Vaccine Quad .5 mL IM 6+ MO (FLUZONE/FLULAVAL/FL UARIX) Unknown Completed [facility] TDAP Unknown Completed [facility] DTAP Unknown Completed [facility] HIB 4 Dose Schedule Unknown Completed [facility] HEPATITIS A Unknown Completed [facility] Hep B, Adol or Pedi Dosage Unknown Completed [facility] MMR Unknown Completed [facility] Polio (IPV/OPV) Unknown Completed [facility] PPD (TB) Unknown Completed [facility] Varicella (varivax)(chicken pox) Unknown Completed [facility] Influenza Virus Vaccine Quad IM, Preserv and ABX Free 6 MO-64 YRS (FLUCELVAX) Unknown Completed [facility] Meningococcal Polysaccharide (groups A, C, Y and W-135) conjugate vaccine (MCV4P) Unknown Completed [facility] Influenza Virus Vaccine Quad .5 mL IM 6+ MO (FLUZONE/FLULAVAL/FL UARIX) Unknown Completed [facility] TDAP Unknown Completed [facility] DTAP Unknown Completed [facility] HIB 4 Dose Schedule Unknown Completed [facility] HEPATITIS A Unknown Completed [facility] Hep B, Adol or Pedi Dosage Unknown Completed [facility] MMR Unknown Completed [facility] Polio (IPV/OPV) Unknown Completed [facility] PPD (TB) Unknown Completed [facility] Varicella (varivax)(chicken pox) Unknown Completed [facility] Influenza Virus Vaccine Quad IM, Preserv and ABX Free 6 MO-64 YRS (FLUCELVAX) Unknown Completed [facility] Meningococcal Polysaccharide (groups A, C, Y and W-135) conjugate vaccine (MCV4P) Unknown Completed [facility] Influenza Virus Vaccine Quad .5 mL IM 6+ MO (FLUZONE/FLULAVAL/FL UARIX) Unknown Completed [facility] TDAP Unknown Completed [facility] DTAP Unknown Com[facility] [facility] D[facility] Schedule Unknown Completed [facility] HEPATITIS A Unknown Completed [facility] Hep B, Adol or Pedi Dosage Unknown Completed [facility] MMR Unknown Completed [facility] Polio (IPV/OPV) Unknown Completed [facility] PPD (TB) Unknown Completed [facility] Varicella (varivax)(chicken pox) Unknown Completed [facility] Influenza Virus Vaccine Quad IM, Preserv and ABX Free 6 MO-64 YRS (FLUCELVAX) Unknown Completed [facility] Meningococcal Polysaccharide (groups A, C, Y and W-135) conjugate vaccine (MCV4P) Unknown Completed [facility] Influenza Virus Vaccine Quad .5 mL IM 6+ MO (FLUZONE/FLULAVAL/FL UARIX) Unknown Completed [facility] TDAP Unknown Completed [facility] DTAP Unknown Completed [facility] HIB 4 Dose Schedule Unknown Completed [facility] HEPATITIS A Unknown Completed [facility] Hep B, Adol or Pedi Dosage Unknown Completed [facility] MMR Unknown Completed [facility] Polio (IPV/OPV) Unknown Completed [facility] PPD (TB) Unknown Completed [facility] Varicella (varivax)(chicken pox) Unknown Completed [facility] Influenza Virus Vaccine Quad IM, Preserv and ABX Free 6 MO-64 YRS (FLUCELVAX) Unknown Completed [facility] Meningococcal Polysaccharide (groups A, C, Y and W-135) conjugate vaccine (MCV4P) Unknown Completed [facility] Influenza Virus Vaccine Quad .5 mL IM 6+ MO (FLUZONE/FLULAVAL/FL UARIX) Unknown Completed [facility] TDAP Unknown Completed [facility] DTAP Unknown Completed [facility] HIB 4 Dose Schedule Unknown Completed [facility] HEPATITIS A Unknown Completed [facility] Hep B, Adol or Pedi Dosage Unknown Completed [facility] MMR Unknown Completed [facility] Polio (IPV/OPV) Unknown Completed [facility] PPD (TB) Unknown Completed [facility] Varicella (varivax)(chicken pox) Unknown Completed [facility] Influenza Virus Vaccine Quad IM, Preserv and ABX Free 6 MO-64 YRS (FLUCELVAX) Unknown Completed [facility] Meningococcal Polysaccharide (groups A, C, Y and W-135) conjugate vaccine (MCV4P) Unknown Completed [facility] Influenza Virus Vaccine Quad .5 mL IM 6+ MO (FLUZONE/FLULAVAL/FL UARIX) Unknown Completed [facility] TDAP Unknown Completed [facility] DTAP Unknown Completed [facility] HIB 4 Dose Schedule Unknown Completed [facility] HEPATITIS A Unknown Completed [facility] Hep B, Adol or Pedi Dosage Unknown Completed [facility] MMR Unknown Completed [facility] Polio (IPV/OPV) Unknown Completed [facility] PPD (TB) Unknown Completed [facility] Varicella (varivax)(chicken pox) Unknown Completed [facility] Influenza Virus Vaccine Quad IM, Preserv and ABX Free 6 MO-64 YRS (FLUCELVAX) Unknown Completed [facility] Meningococcal Polysaccharide (groups A, C, Y and W-135) conjugate vaccine (MCV4P) Unknown Completed [facility] Influenza Virus Vaccine Quad .5 mL IM 6+ MO (FLUZONE/FLULAVAL/FL UARIX) Unknown Completed [facility] TDAP Unknown Completed [facility] DTAP Unknown Completed [facility] HIB 4 Dose Schedule Unknown Completed [facility] HEPATITIS A Unknown Completed [facility] Hep B, Adol or Pedi Dosage Unknown Completed [facility] MMR Unknown Completed [facility] Polio (IPV/OPV) Unknown Completed [facility] PPD (TB) Unknown Completed [facility] Varicella (varivax)(chicken pox) Unknown Completed [facility] Influenza Virus Vaccine Quad IM, Preserv and ABX Free 6 MO-64 YRS (FLUCELVAX) Unknown Completed [facility] Meningococcal Polysaccharide (groups A, C, Y and W-135) conjugate vaccine (MCV4P) Unknown Completed [facility] Influenza Virus Vaccine Quad .5 mL IM 6+ MO (FLUZONE/FLULAVAL/FL UARIX) Unknown Completed [facility] TDAP Unknown Completed [facility] DTAP Unknown Completed [facility] HIB 4 Dose Schedule Unknown Completed [facility] HEPATITIS A Unknown Completed [facility] Hep B, Adol or Pedi Dosage Unknown Completed [facility] MMR Unknown Completed [facility] Polio (IPV/OPV) Unknown Completed [facility] PPD (TB) Unknown Completed [facility] Varicella (varivax)(chicken pox) Unknown Completed [facility] Influenza Virus Vaccine Quad IM, Preserv and ABX Free 6 MO-64 YRS (FLUCELVAX) Unknown Completed [facility] Influenza Virus Vaccine Quad .5 mL IM 6+ MO (FLUZONE/FLULAVAL/FL UARIX) Unknown Completed [facility] Influenza Virus Vaccine Quad IM, Preserv and ABX Free 6 MO-64 YRS (FLUCELVAX) Unknown Completed [facility] Meningococcal Polysaccharide (groups A, C, Y and W-135) conjugate vaccine (MCV4P) Unknown Completed [facility] TDAP Unknown Completed [facility] DTAP Unknown Completed [facility] HIB 4 Dose Schedule Unknown Completed [facility] HEPATITIS A Unknown Completed [facility] Hep B, Adol or Pedi Dosage Unknown Completed [facility] MMR Unknown Completed [facility] Polio (IPV/OPV) Unknown Completed [facility] PPD (TB) Unknown Completed [facility] Varicella (varivax)(chicken pox) Unknown Completed [facility] Meningococcal Polysaccharide (groups A, C, Y and W-135) conjugate vaccine (MCV4P) Unknown Completed [facility] Influenza Virus Vaccine Quad .5 mL IM 6+ MO (FLUZONE/FLULAVAL/FL UARIX) Unknown Completed [facility] TDAP Unknown Completed [facility] DTAP Unknown Completed [facility] HIB 4 Dose Schedule Unknown Completed [facility] HEPATITIS A Unknown Completed [facility] Hep B, Adol or Pedi Dosage Unknown Completed [facility] MMR Unknown Completed [facility] Polio (IPV/OPV) Unknown Completed [facility] PPD (TB) Unknown Completed [facility] Varicella (varivax)(chicken pox) Unknown Completed [facility] Influenza Virus Vaccine Quad IM, Preserv and ABX Free 6 MO-64 YRS (FLUCELVAX) Unknown Completed [facility] Meningococcal Polysaccharide (groups A, C, Y and W-135) conjugate vaccine (MCV4P) Unknown Completed [facility] Influenza Virus Vaccine Quad .5 mL IM 6+ MO (FLUZONE/FLULAVAL/FL UARIX) Unknown Completed [facility] TDAP Unknown Completed [facility] DTAP Unknown Completed [facility] HIB 4 Dose Schedule Unknown Completed [facility] HEPATITIS A Unknown Completed [facility] Hep B, Adol or Pedi Dosage Unknown Completed [facility] MMR Unknown Completed [facility] Polio (IPV/OPV) Unknown Completed [facility] PPD (TB) Unknown Completed [facility] Varicella (varivax)(chicken pox) Unknown Completed [facility] Influenza Virus Vaccine Quad IM, Preserv and ABX Free 6 MO-64 YRS (FLUCELVAX) Unknown Completed [facility] Influenza Virus Vaccine Quad .5 mL IM 6+ MO (FLUZONE/FLULAVAL/FL UARIX) Unknown Completed [facility] Influenza Virus Vaccine Quad IM, Preserv and ABX Free 6 MO-64 YRS (FLUCELVAX) Unknown Completed [facility] Meningococcal Polysaccharide (groups A, C, Y and W-135) conjugate vaccine (MCV4P) Unknown Completed [facility] TDAP Unknown Completed [facility] DTAP Unknown Completed [facility] HIB 4 Dose Schedule Unknown Completed [facility] HEPATITIS A Unknown Completed [facility] Hep B, Adol or Pedi Dosage Unknown Completed [facility] MMR Unknown Completed [facility] Polio (IPV/OPV) Unknown Completed [facility] PPD (TB) Unknown Completed [facility] Varicella (varivax)(chicken pox) Unknown Completed [facility] Meningococcal Polysaccharide (groups A, C, Y and W-135) conjugate vaccine (MCV4P) Unknown Completed [facility] Influenza Virus Vaccine Quad .5 mL IM 6+ MO (FLUZONE/FLULAVAL/FL UARIX) Unknown Completed [facility] TDAP Unknown Completed [facility] DTAP Unknown Completed [facility] HIB 4 Dose Schedule Unknown Completed [facility] HEPATITIS A Unknown Completed [facility] Hep B, Adol or Pedi Dosage Unknown Completed [facility] MMR Unknown Completed [facility] Polio (IPV/OPV) Unknown Completed [facility] PPD (TB) Unknown Completed [facility] Varicella (varivax)(chicken pox) Unknown Completed [facility] Influenza Virus Vaccine Quad IM, Preserv and ABX Free 6 MO-64 YRS (FLUCELVAX) Unknown Completed [facility] Meningococcal Polysaccharide (groups A, C, Y and W-135) conjugate vaccine (MCV4P) Unknown Completed [facility] Influenza Virus Vaccine Quad .5 mL IM 6+ MO (FLUZONE/FLULAVAL/FL UARIX) Unknown Completed [facility] TDAP Unknown Completed [facility] DTAP Unknown Completed [facility] HIB 4 Dose Schedule Unknown Completed [facility] HEPATITIS A Unknown Completed [facility] Hep B, Adol or Pedi Dosage Unknown Completed [facility] MMR Unknown Completed [facility] Polio (IPV/OPV) Unknown Completed [facility] PPD (TB) Unknown Completed [facility] Varicella (varivax)(chicken pox) Unknown Completed [facility] Influenza Virus Vaccine Quad IM, Preserv and ABX Free 6 MO-64 YRS (FLUCELVAX) Unknown Completed [facility] Influenza Virus Vaccine Quad .5 mL IM 6+ MO (FLUZONE/FLULAVAL/FL UARIX) Unknown Completed [facility] Influenza Virus Vaccine Quad IM, Preserv and ABX Free 6 MO-64 YRS (FLUCELVAX) Unknown Completed [facility] Meningococcal Polysaccharide (groups A, C, Y and W-135) conjugate vaccine (MCV4P) Unknown Completed [facility] TDAP Unknown Completed [facility] DTAP Unknown Completed [facility] HIB 4 Dose Schedule Unknown Completed [facility] HEPATITIS A Unknown Completed [facility] Hep B, Adol or Pedi Dosage Unknown Completed [facility] MMR Unknown Completed [facility] Polio (IPV/OPV) Unknown Completed [facility] PPD (TB) Unknown Completed [facility] Varicella (varivax)(chicken pox) Unknown Completed [facility] Meningococcal Polysaccharide (groups A, C, Y and W-135) conjugate vaccine (MCV4P) Unknown Completed [facility] Influenza Virus Vaccine Quad .5 mL IM 6+ MO (FLUZONE/FLULAVAL/FL UARIX) Unknown Completed [facility] TDAP Unknown Completed [facility] DTAP Unknown Completed [facility] HIB 4 Dose Schedule Unknown Completed [facility] HEPATITIS A Unknown Completed [facility] Hep B, Adol or Pedi Dosage Unknown Completed [facility] MMR Unknown Completed [facility] Polio (IPV/OPV) Unknown Completed [facility] PPD (TB) Unknown Completed [facility] Varicella (varivax)(chicken pox) Unknown Completed [facility] Meningococcal Polysaccharide (groups A, C, Y and W-135) conjugate vaccine (MCV4P) Unknown Completed [facility] Influenza Virus Vaccine Quad .5 mL IM 6+ MO (FLUZONE/FLULAVAL/FL UARIX) Unknown Completed [facility] TDAP Unknown Completed [facility] DTAP Unknown Completed [facility] HIB 4 Dose Schedule Unknown Completed [facility] HEPATITIS A Unknown Completed [facility] Hep B, Adol or Pedi Dosage Unknown Completed [facility] MMR Unknown Completed [facility] Polio (IPV/OPV) Unknown Completed [facility] PPD (TB) Unknown Completed [facility] Varicella (varivax)(chicken pox) Unknown Completed [facility] Meningococcal Polysaccharide (groups A, C, Y and W-135) conjugate vaccine (MCV4P) Unknown Completed [facility] Influenza Virus Vaccine Quad .5 mL IM 6+ MO (FLUZONE/FLULAVAL/FL UARIX) Unknown Completed [facility] TDAP Unknown Completed [facility] DTAP Unknown Completed [facility] HIB 4 Dose Schedule Unknown Completed [facility] HEPATITIS A Unknown [facility] Hep B, Adol or Pedi Dosage Unknown Completed [facility] MMR Unknown Completed [facility] Polio (IPV/OPV) Unknown Completed [facility] PPD (TB) Unknown Completed [facility] Varicella (varivax)(chicken pox) Unknown Completed [facility] Meningococcal Polysaccharide (groups A, C, Y and W-135) conjugate vaccine (MCV4P) Unknown Completed [facility] Influenza Virus Vaccine Quad .5 mL IM 6+ MO (FLUZONE/FLULAVAL/FL UARIX) Unknown Completed [facility] TDAP Unknown Completed [facility] DTAP Unknown Completed [facility] HIB 4 Dose Schedule Unknown Completed [facility] HEPATITIS A Unknown Completed [facility] Hep B, Adol or Pedi Dosage Unknown Completed [facility] MMR Unknown Completed [facility] Polio (IPV/OPV) Unknown Completed [facility] PPD (TB) Unknown Completed [facility] Varicella (varivax)(chicken pox) Unknown Completed [facility] Meningococcal Polysaccharide (groups A, C, Y and W-135) conjugate vaccine (MCV4P) Unknown Completed [facility] Influenza Virus Vaccine Quad .5 mL IM 6+ MO (FLUZONE/FLULAVAL/FL UARIX) Unknown Completed [facility] TDAP Unknown Completed [facility] DTAP Unknown Completed [facility] HIB 4 Dose Schedule Unknown Completed [facility] HEPATITIS A Unknown Completed [facility] Hep B, Adol or Pedi Dosage Unknown Completed [facility] MMR Unknown Completed [facility] Polio (IPV/OPV) Unknown Completed [facility] PPD (TB) Unknown Completed [facility] Varicella (varivax)(chicken pox) Unknown Completed [facility] Influenza Virus Vaccine Quad IM, Preserv and ABX Free 6 MO-64 YRS (FLUCELVAX) Unknown Completed [facility] Meningococcal Polysaccharide (groups A, C, Y and W-135) conjugate vaccine (MCV4P) Unknown Completed [facility] Influenza Virus Vaccine Quad .5 mL IM 6+ MO (FLUZONE/FLULAVAL/FL UARIX) Unknown Completed [facility] TDAP Unknown Completed [facility] DTAP Unknown Completed [facility] HIB 4 Dose Schedule Unknown Completed [facility] HEPATITIS A Unknown Completed [facility] Hep B, Adol or Pedi Dosage Unknown Completed [facility] MMR Unknown Completed [facility] Polio (IPV/OPV) Unknown Completed [facility] PPD (TB) Unknown Completed [facility] Varicella (varivax)(chicken pox) Unknown Completed [facility] Influenza Virus Vaccine Quad IM, Preserv and ABX Free 6 MO-64 YRS (FLUCELVAX) Unknown Completed [facility] Meningococcal Polysaccharide (groups A, C, Y and W-135) conjugate vaccine (MCV4P) Unknown Completed [facility] Influenza Virus Vaccine Quad .5 mL IM 6+ MO (FLUZONE/FLULAVAL/FL UARIX) Unknown Completed [facility] TDAP Unknown Completed [facility] DTAP Unknown Completed [facility] HIB 4 Dose Schedule Unknown Completed [facility] HEPATITIS A Unknown Completed [facility] Hep B, Adol or Pedi Dosage Unknown Completed [facility] MMR Unknown Completed [facility] Polio (IPV/OPV) Unknown Completed [facility] PPD (TB) Unknown Completed [facility] Varicella (varivax)(chicken pox) Unknown Completed [facility] Influenza Virus Vaccine Quad IM, Preserv and ABX Free 6 MO-64 YRS (FLUCELVAX) Unknown Completed [facility] Meningococcal Polysaccharide (groups A, C, Y and W-135) conjugate vaccine (MCV4P) Unknown Completed [facility] Influenza Virus Vaccine Quad .5 mL IM 6+ MO (FLUZONE/FLULAVAL/FL UARIX) Unknown Completed [facility] TDAP Unknown Completed [facility] DTAP Unknown Completed [facility] HIB 4 Dose Schedule Unknown Completed [facility] HEPATITIS A Unknown Completed [facility] Hep B, Adol or Pedi Dosage Unknown Completed [facility] MMR Unknown Completed [facility] Polio (IPV/OPV) Unknown Completed [facility] PPD (TB) Unknown Completed [facility] Varicella (varivax)(chicken pox) Unknown Completed [facility] Influenza Virus Vaccine Quad IM, Preserv and ABX Free 6 MO-64 YRS (FLUCELVAX) Unknown Completed [facility] Meningococcal Polysaccharide (groups A, C, Y and W-135) conjugate vaccine (MCV4P) Unknown Completed [facility] Influenza Virus Vaccine Quad .5 mL IM 6+ MO (FLUZONE/FLULAVAL/FL UARIX) Unknown Completed [facility] TDAP Unknown Completed [facility] DTAP Unknown Completed [facility] HIB 4 Dose Schedule Unknown Completed [facility] HEPATITIS A Unknown Completed [facility] Hep B, Adol or Pedi Dosage Unknown Completed [facility] MMR Unknown Completed [facility] Polio (IPV/OPV) Unknown Completed [facility] PPD (TB) Unknown Completed [facility] Varicella (varivax)(chicken pox) Unknown Completed [facility] Influenza Virus Vaccine Quad IM, Preserv and ABX Free 6 MO-64 YRS (FLUCELVAX) Unknown Completed [facility] Meningococcal Polysaccharide (groups A, C, Y and W-135) conjugate vaccine (MCV4P) Unknown Completed [facility] Influenza Virus Vaccine Quad .5 mL IM 6+ MO (FLUZONE/FLULAVAL/FL UARIX) Unknown Completed [facility] TDAP Unknown Completed [facility] DTAP Unknown Completed [facility] HIB 4 Dose Schedule Unknown Completed [facility] HEPATITIS A Unknown Completed [facility] Hep B, Adol or Pedi Dosage Unknown Completed [facility] MMR Unknown Completed [facility] Polio (IPV/OPV) Unknown Completed [facility] PPD (TB) Unknown Completed [facility] Varicella (varivax)(chicken pox) Unknown Completed [facility] Influenza Virus Vaccine Quad IM, Preserv and ABX Free 6 MO-64 YRS (FLUCELVAX) Unknown Completed [facility] Influenza Virus Vaccine Quad .5 mL IM 6+ MO (FLUZONE/FLULAVAL/FL UARIX) Unknown Completed [facility] DTAP Unknown Completed [facility] HIB 4 Dose Schedule Unknown Completed [facility] Vital Signs Vital Name Observation Time Observation Value Comments S ource Systolic blood pressure 2024-02-10 13:46:00 122 mm[Hg] [facility] Diastolic blood pressure 2024-02-10 13:46:00 79 mm[Hg] [facility] [facility] Heart rate 2024-02-10 13:46:00 74 /min [facility] Body temperature 2024-02-10 13:46:00 36 Nathaly [facility] Respiratory rate 2024-02-10 13:46:00 18 /min [facility] Body height 2024-02-10 13:46:00 157.5 cm [facility] Body weight 2024-02-10 13:46:00 85.594 kg [facility] BMI 2024-02-10 13:46:00 34.51 kg/m2 [facility] Systolic blood pressure 2024-01-17 13:08:00 124 mm[Hg] [place] [facility] Diastolic blood pressure 2024-01-17 13:08:00 71 mm[Hg] [facility] Heart rate 2024-01-17 13:08:00 65 /min [facility] Body temperature 2024-01-17 13:08:00 36.06 Nathaly [facility] Respiratory rate 2024-01-17 13:08:00 18 /min [facility] Body height 2024-01-17 13:08:00 157.5 cm [facility] Body weight 2024-01-17 13:08:00 85.639 kg [facility] BMI 2024-01-17 13:08:00 34.53 kg/m2 [facility] Systolic blood pressure 2023-12-23 15:09:00 119 mm[Hg] [facility] Diastolic blood pressure 2023-12-23 15:09:00 80 mm[Hg] [facility] Heart rate 2023-12-23 15:09:00 79 /min [facility] Body temperature 2023-12-23 15:09:00 35.94 Nathaly [facility] Respiratory rate 2023-12-23 15:09:00 18 /min [facility] Body height 2023-12-23 15:09:00 157.5 cm [facility] Body weight 2023-12-23 15:09:00 83.87 kg [facility] BMI 2023-12-23 15:09:00 33.82 kg/m2 [facility] Systolic blood pressure 2023-12-02 12:40:00 113 mm[Hg] [facility] Diastolic blood pressure 2023-12-02 12:40:00 74 mm[Hg] [facility] Heart rate 2023-12-02 12:40:00 87 /min [facility] Body temperature 2023-12-02 12:40:00 36.5 Nathaly [facility] Respiratory rate 2023-12-02 12:40:00 18 /min [facility] Oxygen saturation in Arterial blood by Pulse oximetry 2023-12-02 12:40:00 99 /min [facility] Body height 2023-11-30 21:45:00 157.5 cm [facility] Body weight 2023-11-30 21:45:00 92.352 kg [facility] BMI 2023-11-30 21:45:00 37.24 kg/m2 [facility] Systolic blood pressure 2023-11-29 14:19:00 107 mm[Hg] [facility] Diastolic blood pressure 2023-11-29 14:19:00 74 mm[Hg] [facility] Heart rate 2023-11-29 14:19:00 88 /min [facility] Body temperature 2023-11-29 14:19:00 35.94 Nathaly [facility] Respiratory rate 2023-11-29 14:19:00 17 /min [facility] Body height 2023-11-29 14:19:00 157.5 cm [facility] Body weight 2023-11-29 14:19:00 91.264 kg [facility] BMI 2023-11-29 14:19:00 36.80 kg/m2 [facility] Systolic blood pressure 2023-11-26 18:49:00 116 mm[Hg] [facility] Diastolic blood pressure 2023-11-26 18:49:00 77 mm[Hg] [facility] Heart rate 2023-11-26 18:49:00 94 /[facility] 2023-11-26 18:49:00 35.89 Nathaly [facility] Respiratory rate 2023-11-26 18:49:00 18 /min [facility] Body height 2023-11-26 18:49:00 157.5 [facility] 2023-11-26 18:49:00 91.712 kg [facility] BMI 2023-11-26 18:49:00 36.98 kg/m2 [facility] Systolic blood pressure 2023-11-22 14:51:00 114 mm[Hg] [facility] Diastolic blood pressure 2023-11-22 14:51:00 73 mm[Hg] [facility] Heart rate 2023-11-22 14:51:00 86 /min [facility] Body temperature 2023-11-22 14:51:00 35.83 Nathaly [facility] Respiratory rate 2023-11-22 14:51:00 18 /min [facility] Body height 2023-11-22 14:51:00 157.5 cm [facility] Body weight 2023-11-22 14:51:00 92.262 kg [facility] BMI 2023-11-22 14:51:00 37.20 kg/m2 [facility] Systolic blood pressure 2023-11-15 18:51:00 116 mm[Hg] [facility] Diastolic blood pressure 2023-11-15 18:51:00 74 mm[Hg] [facility] Heart rate 2023-11-15 18:51:00 86 /min [facility] Body temperature 2023-11-15 18:51:00 35.83 Nathaly [facility] Respiratory rate 2023-11-15 18:51:00 17 /min [facility] Body height 2023-11-15 18:51:00 157.5 cm [facility] Body weight 2023-11-15 18:51:00 93.078 kg [facility] BMI 2023-11-15 18:51:00 37.53 kg/m2 [facility] Systolic blood pressure 2023-11-12 20:05:00 119 mm[Hg] [facility] Diastolic blood pressure 2023-11-12 20:05:00 72 mm[Hg] [facility] Heart rate 2023-11-12 20:05:00 109 /min [facility] Body temperature 2023-11-12 20:05:00 36.06 Nathaly [facility] Respiratory rate 2023-11-12 20:05:00 18 /min [facility] Body height 2023-11-12 20:05:00 157.5 cm [facility] Body weight 2023-11-12 20:05:00 90.436 kg [facility] BMI 2023-11-12 20:05:00 36.47 kg/m2 [facility] Systolic blood pressure 2023-11-08 15:27:00 118 mm[Hg] [facility] Diastolic blood pressure 2023-11-08 15:27:00 77 mm[Hg] [facility] Heart rate 2023-11-08 15:27:00 106 /min [facility] Body temperature 2023-11-08 15:27:00 35.72 Nathaly [facility] Respiratory rate 2023-11-08 15:27:00 18 /min [facility] Body height 2023-11-08 15:27:00 157.5 cm [facility] Body weight 2023-11-08 15:27:00 91.808 kg [facility] BMI 2023-11-08 15:27:00 37.02 kg/m2 [facility] Systolic blood pressure 2023 19:27:00 114 mm[Hg] [facility] Diastolic blood pressure 2023 19:27:00 78 mm[Hg] [facility] Heart rate 2023 19:27:00 99 /min [facility] Body temperature 2023 19:27:00 35.89 Nathaly [facility] Respiratory rate 2023 19:27:00 18 /min [facility] Body height 2023 19:27:00 157.5 cm [facility] Body weight 2023 19:27:00 90.084 kg [facility] BMI 2023 19:27:00 36.32 kg/m2 [facility] Systolic blood pressure 2023-11-01 16:02:00 99 mm[Hg] [place] [facility] Diastolic blood pressure 2023-11-01 16:02:00 68 mm[Hg] [facility] Heart rate 2023-11-01 16:02:00 79 /min [facility] Body temperature 2023-11-01 16:02:00 36.11 Nathaly [facility] Respiratory rate 2023-11-01 16:02:00 17 /min [facility] Body height 2023-11-01 16:02:00 157.5 cm [facility] Body weight 2023-11-01 16:02:00 91.899 kg [facility] BMI 2023-11-01 16:02:00 37.06 kg/m2 [facility] Systolic blood pressure 2023-10-29 16:58:00 95 mm[Hg] [place] [facility] Diastolic blood pressure 2023-10-29 16:58:00 65 mm[Hg] [facility] Heart rate 2023-10-29 16:58:00 107 /min [facility] Body temperature 2023-10-29 16:58:00 36.61 Nathaly [facility] Respiratory rate 2023-10-29 16:58:00 19 /min [facility] Body height 2023-10-29 16:58:00 157.5 cm [facility] Body weight 2023-10-29 16:58:00 89.767 kg [facility] BMI 2023-10-29 16:58:00 36.20 kg/m2 [facility] Systolic blood pressure 2023-10-25 16:31:00 106 mm[Hg] [facility] Diastolic blood pressure 2023-10-25 16:31:00 71 mm[Hg] [facility] Heart rate 2023-10-25 16:31:00 83 /min [facility] Body temperature 2023-10-25 16:31:00 35.94 Nathaly [facility] Respiratory rate 2023-10-25 16:31:00 18 /min [facility] Body height 2023-10-25 16:31:00 157.5 cm [facility] Body weight 2023-10-25 16:31:00 91.445 kg [facility] BMI 2023-10-25 16:31:00 36.87 kg/m2 [facility] Systolic blood pressure 2023-10-22 15:42:00 113 mm[Hg] [facility] Diastolic blood pressure 2023-10-22 15:42:00 75 mm[Hg] [facility] Heart rate 2023-10-22 15:42:00 95 /min [facility] Body temperature 2023-10-22 15:42:00 36.11 Nathaly [facility] Respiratory rate 2023-10-22 15:42:00 19 /min [facility] Body height 2023-10-22 15:42:00 157.5 cm [facility] Body weight 2023-10-22 15:42:00 89.086 kg [facility] BMI 2023-10-22 15:42:00 35.92 kg/m2 [facility] Systolic blood pressure 2023-10-18 14:49:00 111 mm[Hg] [facility] Diastolic blood pressure 2023-10-18 14:49:00 71 mm[Hg] [facility] Heart rate 2023-10-18 14:49:00 107 /min [facility] Body temperature 2023-10-18 14:49:00 35.94 Nathaly [facility] Respiratory rate 2023-10-18 14:49:00 19 /min [facility] Body height 2023-10-18 14:49:00 157.5 cm [facility] Body weight 2023-10-18 14:49:00 91.264 kg [facility] BMI 2023-10-18 14:49:00 36.80 kg/m2 [facility] Systolic blood pressure 2023-10-15 16:39:00 84 mm[Hg] [facility] Diastolic blood pressure 2023-10-15 16:39:00 65 mm[Hg] [facility] Heart rate 2023-10-15 16:39:00 135 /min [facility] Body temperature 2023-10-15 16:39:00 36.94 Nathaly [facility] Respiratory rate 2023-10-15 16:39:00 17 /min [facility] Body height 2023-10-15 16:39:00 157.5 cm [facility] Body weight 2023-10-15 16:39:00 89.313 kg [facility] BMI 2023-10-15 16:39:00 36.01 kg/m2 [facility] Systolic blood pressure 2023-10-01 16:45:00 112 mm[Hg] [facility] Diastolic blood pressure 2023-10-01 16:45:00 70 mm[Hg] [facility] Heart rate 2023-10-01 16:45:00 92 /min [facility] Body temperature 2023-10-01 16:45:00 35.89 Nathaly [facility] Respiratory rate 2023-10-01 16:45:00 18 /min [facility] Body height 2023-10-01 16:45:00 157.5 cm [facility] Body weight 2023-10-01 16:45:00 88.179 kg [facility] BMI 2023-10-01 16:45:00 35.56 kg/m2 [facility] Systolic blood pressure 2023-09-03 16:05:00 111 mm[Hg] [facility] Diastolic blood pressure 2023-09-03 16:05:00 71 mm[Hg] [facility] Heart rate 2023-09-03 16:05:00 91 /min [facility] Body [facility] 2023-09-03 16:05:00 35.56 Nathaly [facility] Respiratory rate 2023-09-03 16:05:00 18 /min [facility] Body height 2023-09-03 16:05:00 157.5 cm [facility] Body weight 2023-09-03 16:05:00 87.272 kg [facility] BMI 2023-09-03 16:05:00 35.19 kg/m2 [facility] Systolic blood pressure 2023-08-20 21:21:00 107 mm[Hg] [facility] Diastolic blood pressure 2023-08-20 21:21:00 67 mm[Hg] [facility] Heart rate 2023-08-20 21:21:00 86 /min [facility] Body temperature 2023-08-20 21:21:00 36.11 Nathaly [facility] Respiratory rate 2023-08-20 21:21:00 18 /min [facility] Body height 2023-08-20 21:21:00 157.5 cm [facility] Body weight 2023-08-20 21:21:00 86.183 kg [facility] BMI 2023-08-20 21:21:00 34.75 kg/m2 [facility] Systolic blood pressure 2023-08-06 14:14:00 102 mm[Hg] [facility] Diastolic blood pressure 2023-08-06 14:14:00 65 mm[Hg] [facility] Heart rate 2023-08-06 14:14:00 94 /min [facility] Body temperature 2023-08-06 14:14:00 35.94 Nathaly [facility] Respiratory rate 2023-08-06 14:14:00 16 /min [facility] Body height 2023-08-06 14:14:00 157.5 cm [facility] Body weight 2023-08-06 14:14:00 85.821 kg [facility] BMI 2023-08-06 14:14:00 34.61 kg/m2 [facility] Systolic blood pressure 2023-07-16 20:11:00 114 mm[Hg] [facility] Diastolic blood pressure 2023-07-16 20:11:00 70 mm[Hg] [facility] Heart rate 2023-07-16 20:11:00 84 /min [facility] Body temperature 2023-07-16 20:11:00 35.61 Nathaly [facility] Respiratory rate 2023-07-16 20:11:00 18 /min [facility] Body height 2023-07-16 20:11:00 157.5 cm [facility] Body weight 2023-07-16 20:11:00 84.188 kg [facility] BMI 2023-07-16 20:11:00 33.95 kg/m2 [facility] Systolic blood pressure 2023-07-01 20:18:00 114 mm[Hg] [facility] Diastolic blood pressure 2023-07-01 20:18:00 73 mm[Hg] [facility] Heart rate 2023-07-01 20:18:00 107 /min [facility] Body temperature 2023-07-01 20:18:00 36 Nathaly [facility] Respiratory rate 2023-07-01 20:18:00 18 /min [facility] Body height 2023-07-01 20:18:00 157.5 cm [facility] Body weight 2023-07-01 20:18:00 85.639 kg [facility] BMI 2023-07-01 20:18:00 34.53 kg/m2 [facility] Systolic blood pressure 2023-06-12 14:29:00 114 mm[Hg] [facility] Diastolic blood pressure 2023-06-12 14:29:00 75 mm[Hg] [facility] Heart rate 2023-06-12 14:29:00 89 /min [facility] Body temperature 2023-06-12 14:29:00 36 Nathaly [facility] Respiratory rate 2023-06-12 14:29:00 18 /min [facility] Body height 2023-06-12 14:29:00 157.5 cm [facility] Body weight 2023-06-12 14:29:00 85.004 kg [facility] BMI 2023-06-12 14:29:00 34.28 kg/m2 [facility] Systolic blood pressure 2023-05-28 19:09:00 99 mm[Hg] [facility] Diastolic blood pressure 2023-05-28 19:09:00 62 mm[Hg] [facility] Heart rate 2023-05-28 19:09:00 81 /min [facility] Body temperature 2023-05-28 19:09:00 36.11 Nathaly [facility] Respiratory rate 2023-05-28 19:09:00 18 /min [facility] Body height 2023-05-28 19:09:00 157.5 cm [facility] Body weight 2023-05-28 19:09:00 86.637 kg [facility] BMI 2023-05-28 19:09:00 34.93 kg/m2 [facility] Systolic blood pressure 2023-04-29 18:36:00 108 mm[Hg] [facility] Diastolic blood pressure 2023-04-29 18:36:00 70 mm[Hg] [facility] Heart rate 2023-04-29 18:36:00 70 /min [facility] Body temperature 2023-04-29 18:36:00 35.67 Nathaly [facility] Respiratory rate 2023-04-29 18:36:00 18 /min [facility] Body height 2023-04-29 18:36:00 157.5 cm [facility] Body weight 2023-04-29 18:36:00 89.177 kg [facility] BMI 2023-04-29 18:36:00 35.96 kg/m2 [facility] Procedures Procedure Date / Time Performed Performing Clinician Source POCT TEST 2024-01-17 13:30:00 Marky Greer [facility] DME/SUPPLY JUSTIFICATION 2023-12-09 05:01:00 Doc tor Unassigned, [place] [facility] POCT GLUCOSE (AUTOMATED) 2023-12-02 14:44:00 [facility] 2023-12-02 09:14:00 Marci Forbes [facility] POCT GLUCOSE (AUTOMATED) 2023-12-02 02:39:00 Are Andreia Jauregui [facility] POCT GLUCOSE (AUTOMATED) 2023-12-01 23:04:00 [facility] VEN[facility] CORD GAS 2023-12-01 14:50:00 [facility] ([facility]OMATED) 2023-12-01 14:33:00 [facility] ([facility]OMATED) 2023-12-01 11:15:00 Are Andreia Jauregui [facility] CENTRAL NEURAXIAL BLOCK 2023-12-01 09:52:00 Romie And negin [facility] POCT GLUCOSE (AUTOMATED) 2023-12-01 08:06:00 Are Andreia Jauregui [facility] POCT GLUCOSE (AUTOMATED) 2023-12-01 03:49:00 [facility] ([facility]OMATED) 2023-12-01 01:58:00 Are Andreia Jauregui [facility] CBC WITH DIFF 2023-11-30 22:19:00 [facility] HEPATITIS B SURFACE ANTIGEN 2023-11-30 22:19:00 [facility] HB ABO GROUPING 2023-11-30 22:19:00 Jany crowe [facility] RHO (D) IMMUNE GLOBULIN 2023-11-30 22:19:00 Marci Forbes [facility] HIV 1/2 AG-AB WITH REFLEX 2023-11-30 22:19:00 Ar derik Ely [facility] SYPHILIS IGG/IGM 2023-11-30 22:19:00 Andreia Cruz [facility] POCT GLUCOSE (AUTOMATED) 2023-11-30 21:58:00 Andreia Koehler [facility] POCT GLUCOSE (AUTOMATED) 2023-11-29 15:26:00 Gonzalo Greer [facility] POCT URINALYSIS 2023-11-29 00:00:00 Gonzalo Greer [facility] NON-STRESS TEST 2023-11-26 21:50:12 Mohsen Greer [facility] POCT URINALYSIS 2023-11-26 18:50:00 Gonzalo Greer [facility] SECOND AND THIRD TRIMESTER ULTRASOUND 2023-11-26 17:42:00 Gonzalo Greer [facility] DIABETES TESTING REPORTS 2023-11-26 06:01:00 Doc tor Unassigned, [place] [facility] NON-STRESS TEST 2023-11-22 20:10:29 Mohsen Greer [facility] POCT URINALYSIS 2023-11-22 15:50:00 Gonzalo Greer [facility] POCT GLUCOSE (AUTOMATED) 2023-11-22 15:31:00 Gonzalo Greer [facility] NON-STRESS TEST 2023-11-15 20:33:09 Mohsen Greer [facility] POCT GLUCOSE (AUTOMATED) 2023-11-15 19:38:00 Gonzalo Greer [facility] POCT URINALYSIS 2023-11-15 19:02:00 Gonzalo Greer [facility] PATIENT CORRESPONDENCE (LETTERS, USPS DOCUMENTATION) 2023-11-15 06:01:00 Doctor Unassigned, [place] [facility] NON-STRESS TEST 2023-11-13 02:18:48 Gideon Parikh [facility] POCT URINALYSIS 2023-11-12 22:22:00 Gonzalo Greer [facility] NON-STRESS TEST 2023-11-08 16:59:53 Gideon Parikh [facility] POCT URINALYSIS 2023-11-08 15:26:00 Gonzalo Greer [facility] NON-STRESS TEST 2023 20:51:40 Mohsen Greer [facility] NON-STRESS TEST 2023-11-01 16:28:06 Mohsen Greer [facility] POCT GLUCOSE (AUTOMATED) 2023-11-01 16:20:00 Gonzalo Greer [facility] POCT URINALYSIS 2023-11-01 16:04:00 Gonzalo Greer [facility] NON-STRESS TEST 2023-10-31 15:46:22 Mohsen Greer [facility] POCT URINALYSIS 2023-10-29 19:21:00 Gonzalo Greer [facility] SECOND AND THIRD TRIMESTER ULTRASOUND 2023-10-29 18:01:00 Gonzalo Greer [facility] DIABETES TESTING REPORTS 2023-10-29 06:01:00 Doc tor Unassigned, [place] [facility] NON-STRESS TEST 2023-10-25 18:17:31 Mohsen Greer [facility] POCT URINALYSIS 2023-10-25 16:34:00 Gonzalo Greer [facility] POCT URINALYSIS 2023-10-22 16:18:00 Gonzalo Greer [facility] NON-STRESS TEST 2023-10-22 16:12:52 Mohsen Greer [facility] NON-STRESS TEST 2023-10-18 15:57:31 Mohsen Greer [facility] POCT GLUCOSE (AUTOMATED) 2023-10-18 15:40:00 Gonzalo Greer [facility] POCT URINALYSIS 2023-10-18 14:59:00 Gonzalo Greer [facility] AUTHORIZATION FOR RELEASE OF PHI 2023-10-17 06:01:00 Doctor Unassigned, [place] [facility] POCT URINALYSIS 2023-10-15 17:28:00 Gonzalo Greer [facility] POCT GLUCOSE (AUTOMATED) 2023-10-15 17:17:00 Gonzalo Greer [facility] SECOND AND THIRD TRIMESTER ULTRASOUND 2023-10-01 18:01:00 Gonzalo Greer [facility] TDAP VACCINE, >11 YRS, IM 2023-10-01 17:23:44 Gonzalo Greer [facility] DIABETES TESTING REPORTS 2023-10-01 06:01:00 Doc tor Unassigned, [place] [facility] POCT GLUCOSE(AGE >30DAYS) 2023-09-03 16:43:00 Gonzalo Greer [facility] CBC WITH DIFF 2023-09-03 16:42:00 Gonzalo Greer [facility] POCT GLUCOSE (AUTOMATED) 2023-09-03 16:38:00 Gonzalo Greer [facility] POCT URINALYSIS 2023-09-03 16:08:00 Gonzalo Greer [facility] SECOND AND THIRD TRIMESTER ULTRASOUND 2023-08-26 19:02:00 Gonzalo Greer [facility] PROTEIN QUANT U/24H 2023-08-26 16:38:00 Marky Greer [facility] POCT GLUCOSE (AUTOMATED) 2023-08-20 22:11:00 Gonzalo Greer [facility] COMP. METABOLIC PANEL ([id number]) 2023-08-20 10:00:00 Gonzalo Greer [facility] GLYCOSYLATED HEMOGLOBIN (A1C) 2023-08-20 10:00:00 Gonzalo Greer [facility] DIABETES TESTING REPORTS 2023-08-06 06:01:00 Doc tor Unassigned, [place] [facility] POCT URINALYSIS 2023-08-06 00:00:00 Gonzalo Greer [facility] SECOND AND THIRD TRIMESTER ULTRASOUND 2023-07-29 21:12:00 Gonzalo Greer [facility] SECOND AND THIRD TRIMESTER ULTRASOUND 2023-07-29 21:05:00 Gonzalo Greer [facility] POCT GLUCOSE (AUTOMATED) 2023-07-16 20:55:00 Gonzalo Greer [facility] POCT URINALYSIS 2023-07-16 20:15:00 Gonzalo Greer [facility] FLU VACC ([id number]), 6 MO-64 YRS, .5ML, IM, QUAD (FLUCELVAX) 2023-07-01 20:44:05 Gonzalo Greer [facility] POCT URINALYSIS 2023-07-01 20:21:00 Gonzalo Greer [facility] DIABETES TESTING REPORTS 2023-07-01 05:01:00 Doc tor Unassigned, [place] [facility] FIRST TRIMESTER ULTRASOUND 2023-06-12 16:16:00 Gonzalo Greer [facility] DIABETES TESTING REPORTS 2023-06-12 05:01:00 Doc tor Unassigned, [place] [facility] POCT URINALYSIS 2023-05-28 19:14:00 Gonzalo Greer [facility] URINE CULTURE 2023-04-29 19:48:00 Gonzalo Greer [facility] GC & CHLAMYDIA AMPLIFIED ASSAY 2023-04-29 19:48:00 Gonzalo Greer [facility] PAP SMEAR-LIQUID BASED-CP 2023-04-29 19:48:00 Gonzalo Greer [facility] GLUCOSE 1 HOUR POST PRANDIAL 2023-04-29 19:30:00 Gonzalo Greer [facility] CBC WITH DIFF 2023-04-29 19:30:00 Gonzalo Greer [facility] RUBELLA SCREEN IGG 2023-04-29 19:30:00 Alvina Greer [facility] HEPATITIS B SURFACE ANTIGEN 2023-04-29 19:30:00 Gonzalo Greer [facility] HB ABO GROUPING 2023-04-29 19:30:00 Gonzalo Greer [facility] HIV 1/2 AG-AB WITH REFLEX 2023-04-29 19:30:00 Gonzalo Greer [facility] SYPHILIS IGG/IGM 2023-04-29 19:30:00 Phillip [facility]er [facility] POCT TEST 2023-04-29 18:24:00 Marky Greer [facility] POCT URINALYSIS W/O SPECIFIC GRAVITY 2023-04-29 18:24:00 Gonzalo Greer [facility] CONSENT/REFUSAL FOR DIAGNOSIS AND TREATMENT 2023-04-29 17:40:47 Doctor Unassigned, [place] [facility] ASSIGNMENT OF BENEFITS 2023-04-29 17:40:29 Docto r Unassigned, [place] [facility] Encounters Start Date/Time End Date/Time Encounter Type Admission Type Attending Clinicians Care Facility Care Department Encounter ID Source 2025-01-18 08:00:00 2025-01-18 08:00:00 Outpatient R GONZALO GREER [facility] [id number] [facility] 2018-06-25 00:00:00 2024-11-07 03:14:33 Orders Only Ross Phillips Prisciliana [facility] DIRECTOR OF REHABILITATIVE SERVICES [facility]ERNAL & [facility] ..840.114 350.1.13.10 4.2.7.2.686 [id number] 107 [id number] [facility] 2024-02-11 00:00:00 2024-02-11 13:34:28 Telephone Gonzalo Greer [facility] DIRECTOR OF REHABILITATIVE SERVICES [facility] MATERNAL & CHILD [facility] ..840.114 350.1.13.10 4.2.7.2.686 [id number] 107 [id number] [facility] 2024-02-10 00:00:00 2024-02-10 10:48:57 Letter (Out) Gonzalo Greer [facility] DIRECTOR OF REHABILITATIVE SERVICES [facility] MATERNAL & CHILD [facility] ..840.114 350.1.13.10 4.2.7.2.686 [id number] 107 [id number] [facility] 2024-02-10 08:00:00 2024-02-10 10:47:53 Outpatient R GONZALO GREER [facility] [id number] [facility] 2024-02-10 08:00:00 2024-02-10 10:47:53 Office Visit Gonzalo Greer [facility] DIRECTOR OF REHABILITATIVE SERVICES [facility] CHILD [facility] ..840.114 350.1.13.10 4.2.7.2.686 [id number] 107 [id number] [facility] 2024-01-17 07:45:00 2024-01-17 09:03:35 Outpatient R GONZALO GREER [facility] [id number] [facility] 2024-01-17 07:45:00 2024-01-17 09:03:35 Office Visit Gonzalo Greer [facility] DIRECTOR OF REHABILITATIVE SERVICES [facility] CHILD [facility] ..840.114 350.1.13.10 4.2.7.2.686 [id number] 107 [id number] [facility] 2024-01-17 00:00:00 2024-01-17 00:00:00 Letter (Out) Gonzalo Greer [facility] DIRECTOR OF REHABILITATIVE SERVICES [facility] CHILD [facility] ..840.114 350.1.13.10 4.2.7.2.686 [id number] 107 [id number] [facility] 2024-01-15 08:00:00 2024-01-15 08:00:00 Outpatient R GONZALO GREER [facility] [id number] [facility] 2024-01-12 00:00:00 2024-01-12 00:00:00 Telephone Gonzalo Greer [facility] DIRECTOR OF REHABILITATIVE SERVICES [facility] CHILD [facility] 1.840.114 350.1.13.10 4.2.7.2.686 [id number] 107 [id number] [facility] 2023-12-23 10:00:00 2023-12-23 10:36:59 Outpatient R MAHESHSIGIFREDOGONZALO MONACO [facility] [id number] [facility] 2023-12-23 10:00:00 2023-12-23 10:36:59 Routine Visit Gonzalo Greer [facility] DIRECTOR OF REHABILITATIVE SERVICES [facility]NAL [facility] 1.840.114 350.1.13.10 4.2.7.2.686 [id number] 107 [id number] [facility] 2023-12-09 00:00:00 2023-12-09 00:00:00 Orders Only Doctor Unassigned, [place] [facility] 1.840.114 350.1.13.10 4.2.7.2.686 [id number] [facility] 2023-11-30 15:23:00 2023-12-02 15:25:00 Inpatient P ANDREIA CARLIN [facility] NGUYEN [id number] [facility] 2023-11-30 15:23:00 2023-12-02 15:25:00 [facility].0.114 350.1.13.10 4.2.7.2.686 [id number] [facility] 2023-11-30 23:48:00 2023-12-01 12:00:00 Anesthesia Event Alexis Grubbs Ryan C S [facility] 1..114 350.1.13.10 4.2.7.2.686 [id number] [facility] 2023-11-30 18:01:23 2023-11-30 18:01:23 Anesthesia Event Anita Gordillo [facility] 1.0.114 350.1.13.10 4.2.7.2.686 [id number] [facility] 2023-11-29 08:30:00 2023-11-29 09:31:33 Outpatient R DEIRDREKATHIA GONZALO [facility] [id number] [facility] 2023-11-29 08:30:00 2023-11-29 09:31:33 Routine Visit Gonzalo Greer [facility] DIRECTOR OF REHABILITATIVE SERVICES [facility] CHILD [facility] 1.2.840.114 350.1.13.10 4.2.7.2.686 [id number] 107 [id number] [facility] 2023-11-28 00:00:00 2023-11-28 00:00:00 Abstract Gonzalo Greer [facility] DIRECTOR OF REHABILITATIVE SERVICES [facility] CHILD [facility] 1.2.840.114 350.1.13.10 4.2.7.2.686 [id number] 107 [id number] [facility] 2023-11-28 00:00:00 2023-11-28 00:00:00 Telephone DeirdrekathiaGonzalo Cristi [facility] DIRECTOR OF REHABILITATIVE SERVICES [facility] 1.2.840.114 350.1.13.10 4.2.7.2.686 [id number] 107 [id number] [facility] 2023-11-26 13:00:00 2023-11-26 13:22:46 Outpatient R DEIRDREKATHIAALVINAGONZALO [facility] [id number] [facility] 2023-11-26 13:00:00 2023-11-26 13:22:46 Routine Visit Maheshsigifredokathia Gonzalo Cristi [facility] 1.2840.114 350.1.13.10 4.2.7.2.686 [id number] 107 [id number] [facility] 2023-11-26 11:30:00 2023-11-26 11:42:17 Outpatient P CLEM CHAMBERS [facility] [id number] [facility] 2023-11-26 11:30:00 2023-11-26 11:42:17 Hris Developer Visit Ultrasound, Gonzalo Roy Gay [facility] DIRECTOR OF REHABILITATIVE SERVICES [facility] CHILD [facility] 1..114 350.1.13.10 4.2.7.2.686 [id number] [facility] 2023-11-26 00:00:00 2023-11-26 00:00:00 Orders Only Doctor Unassigned, [place] [facility] ..114 350.1.13.10 4.2.7.2.686 [id number] [facility] 2023-11-22 08:45:00 2023-11-22 09:37:01 Outpatient R GONZALO GREER [facility] [id number] [facility] 2023-11-22 08:45:00 2023-11-22 09:37:01 Routine Visit Gonzalo Greer [facility] DIRECTOR OF REHABILITATIVE SERVICES [facility]ILD [facility] ..114 350.1.13.10 4.2.7.2.686 [id number] 107 [id number] [facility] 2023-11-19 09:15:00 2023-11-19 09:15:00 Outpatient R GONZALO GREER [facility] [id number] [facility] 2023-11-15 12:45:00 2023-11-15 13:39:36 Outpatient GONZALO GARCÍA [facility] [id number] [facility] 2023-11-15 12:45:00 2023-11-15 13:39:36 Routine Visit Gonzalo Greer [facility] DIRECTOR OF REHABILITATIVE SERVICES [facility] ..114 350.1.13.10 4.2.7.2.686 [id number] 107 [id number] [facility] 2023-11-15 00:00:00 2023-11-15 00:00:00 Orders Only Doctor Unassigned, [place] [facility] 1..114 350.1.13.10 4.2.7.2.686 [id number] 009 [id number] [facility] 2023-11-12 14:30:00 2023-11-12 14:34:26 Outpatient R GONZALO GREER [facility] [id number] [facility] 2023-11-12 14:30:00 2023-11-12 14:34:26 Routine Visit Shirley Parikh Damilola C [facility] DIRECTOR OF REHABILITATIVE SERVICES [facility] MATERNAL & CHILD [facility] 1..114 350.1.13.10 4.2.7.2.686 [id number] 107 [id number] [facility] 2023-11-08 09:30:00 2023-11-08 10:36:21 Outpatient R SHIRLEY PARIKH [facility] [id number] [facility] 2023-11-08 09:30:00 2023-11-08 10:36:21 Routine Visit Shirley Parikh [facility] DIRECTOR OF REHABILITATIVE SERVICES [facility] MATERNAL & CHILD [facility] 1.114 350.1.13.10 4.2.7.2.686 [id number] 107 [id number] [facility] 2023 13:15:00 2023 14:25:18 Outpatient R GONZALO GREER [facility] [id number] [facility] 2023 13:15:00 2023 14:25:18 Routine Visit Gonzalo Greer [facility] DIRECTOR OF REHABILITATIVE SERVICES [facility] MATERNAL & CHILD [facility] 1..114 350.1.13.10 4.2.7.2.686 [id number] 107 [id number] [facility] 2023-11-01 10:15:00 2023-11-01 10:28:56 Outpatient R GONZALO GREER [facility] [id number] [facility] 2023-11-01 10:15:00 2023-11-01 10:28:56 Routine Visit Gonzalo Greer [facility] DIRECTOR OF REHABILITATIVE SERVICES [facility] 1.840.114 350.1.13.10 4.2.7.2.686 [id number] 107 [id number] [facility] 2023-11-01 00:00:00 2023-11-01 00:00:00 Letter (Out) Gonzalo Greer [facility] 1..840.114 350.1.13.10 4.2.7.2.686 [id number] 107 [id number] [facility] 2023-10-29 11:30:00 2023-10-29 12:02:39 Outpatient P [facility] [id number] [facility] 2023-10-29 11:30:00 2023-10-29 12:02:39 Hris Developer Visit Ultrasound, [facility] Gonzalo Greer Gay [facility] .840.114 350.1.13.10 4.2.7.2.686 [id number] [facility] 2023-10-29 10:15:00 2023-10-29 11:47:22 Outpatient R GONZALO GREER [facility] [id number] [facility] 2023-10-29 10:15:00 2023-10-29 11:47:22 Routine Visit Gonzlao Greer [facility] DIRECTOR OF REHABILITATIVE SERVICES [facility] 1.840.114 350.1.13.10 4.2.7.2.686 [id number] 107 [id number] [facility] 2023-10-29 00:00:00 2023-10-29 00:00:00 Abstract Gonzalo Greer [facility] DIRECTOR OF REHABILITATIVE SERVICES [facility]ILD [facility] 1.2.840.114 350.1.13.10 4.2.7.2.686 [id number] 107 [id number] [facility] 2023-10-29 00:00:00 2023-10-29 00:00:00 Orders Only Doctor Unassigned, [place] [facility] 1.840.114 350.1.13.10 4.2.7.2.686 [id number] [facility] 2023-10-25 10:30:00 2023-10-25 11:20:12 Outpatient R GONZALO GREER [facility] [id number] [facility] 2023-10-25 10:30:00 2023-10-25 11:20:12 Routine Visit Gonzalo Greer [facility] DIRECTOR OF REHABILITATIVE SERVICES [facility] 1.840.114 350.1.13.10 4.2.7.2.686 [id number] 107 [id number] [facility] 2023-10-25 00:00:00 2023-10-25 00:00:00 Letter (Out) Gonzalo Greer [facility] DIRECTOR OF REHABILITATIVE SERVICES [facility] 1.2.840.114 350.1.13.10 4.2.7.2.686 [id number] 107 [id number] [facility] 2023-10-22 10:00:00 2023-10-22 10:18:39 Outpatient R GONZALO GREER [facility] [id number] [facility] 2023-10-22 10:00:00 2023-10-22 10:18:39 Routine Visit Gonzalo Greer [facility] DIRECTOR OF REHABILITATIVE SERVICES [facility]ILD [facility] 1.2.840.114 350.1.13.10 4.2.7.2.686 [id number] 107 [id number] [facility] 2023-10-18 08:45:00 2023-10-18 09:44:20 Outpatient R GONZALO GREER [facility] [id number] [facility] 2023-10-18 08:45:00 2023-10-18 09:44:20 Routine Visit MaheshGonzalo stuart Cristi [facility] DIRECTOR OF REHABILITATIVE SERVICES [facility]ILD [facility] 1.2840.114 350.1.13.10 4.2.7.2.686 [id number] 107 [id number] [facility] 2023-10-18 00:00:00 2023-10-18 00:00:00 Letter (Out) MaheshsigifredokathiaGonzalo [facility] 1.840.114 350.1.13.10 4.2.7.2.686 [id number] 107 [id number] [facility] 2023-10-17 00:00:00 2023-10-17 00:00:00 Orders Only Doctor Unassigned, [place] [facility] 1.2840.114 350.1.13.10 4.2.7.2.686 [id number] [facility] 2023-10-15 10:45:00 2023-10-15 11:26:24 Outpatient R GONZALO GREER [facility] [id number] [facility] 2023-10-15 10:45:00 2023-10-15 11:26:24 Routine Visit MaheshGonzalo stuart [facility] DIRECTOR OF REHABILITATIVE SERVICES [facility] 1.2.840.114 350.1.13.10 4.2.7.2.686 [id number] 107 [id number] [facility] 2023-10-02 00:00:00 2023-10-02 00:00:00 Abstract Gonzalo Greer [facility] DIRECTOR OF REHABILITATIVE SERVICES [facility] 1.2840.114 350.1.13.10 4.2.7.2.686 [id number] 107 [id number] [facility] 2023-10-01 11:30:00 2023-10-01 12:02:29 Outpatient P [facility] [id number] [facility] 2023-10-01 11:30:00 2023-10-01 12:02:29 Hris Developer Visit Ultrasound, [facility] Glynn Gay [facility] DIRECTOR OF REHABILITATIVE SERVICES [facility] 1.2.840.114 350.1.13.10 4.2.7.2.686 [id number] [facility] 2023-10-01 10:15:00 2023-10-01 11:21:50 Routine Visit Gonzalo Greer [facility] DIRECTOR OF REHABILITATIVE SERVICES [facility] 1.2840.114 350.1.13.10 4.2.7.2.686 [id number] 107 [id number] [facility] 2023-10-01 00:00:00 2023-10-01 00:00:00 Orders Only Doctor Unassigned, [place] [facility] 1.840.114 350.1.13.10 4.2.7.2.686 [id number] [facility] 2023-09-24 10:00:00 2023-09-24 10:00:00 Outpatient P [facility] [id number] [facility] 2023-09-03 09:45:00 2023-09-03 10:43:37 Outpatient R GONZALO GREER [facility] [id number] [facility] 2023-09-03 09:45:00 2023-09-03 10:43:37 Routine Visit Gonzalo Greer [facility] DIRECTOR OF REHABILITATIVE SERVICES [facility] 1.840.114 350.1.13.10 4.2.7.2.686 [id number] 107 [id number] [facility] 2023-08-30 00:00:00 2023-08-30 00:00:00 Abstract Gonzalo Greer [facility] DIRECTOR OF REHABILITATIVE SERVICES [facility] 1.2840.114 350.1.13.10 4.2.7.2.686 [id number] [facility] 2023-08-26 10:30:00 2023-08-26 11:00:46 Outpatient R CASA JEFFERY COREY [facility] [id number] [facility] 2023-08-26 10:30:00 2023-08-26 11:00:46 Hris Developer Visit Ultrasound, NilsMfGonzalo Glynn Corey [facility] DIRECTOR OF REHABILITATIVE SERVICES [facility] 1.840.114 350.1.13.10 4.2.7.2.686 [id number] [facility] 2023-08-26 08:30:00 2023-08-26 10:36:10 Hris Developer Visit Lab, [facility] Gonzalo Greer [facility] DIRECTOR OF REHABILITATIVE SERVICES [facility] 1.2840.114 350.1.13.10 4.2.7.2.686 [id number] 107 [id number] [facility] 2023-08-20 15:15:00 2023-08-20 16:14:33 Outpatient R GONZALO GREER [facility] [id number] [facility] 2023-08-20 15:15:00 2023-08-20 16:14:33 Routine Visit Gonzalo Greer [facility] DIRECTOR OF REHABILITATIVE SERVICES [facility] 1.2840.114 350.1.13.10 4.2.7.2.686 [id number] 107 [id number] [facility] 2023-08-06 08:00:00 2023-08-06 08:46:08 Outpatient R GONZALO GREER [facility] [id number] [facility] 2023-08-06 08:00:00 2023-08-06 08:46:08 Routine Visit Gonzalo Greer [facility] DIRECTOR OF REHABILITATIVE SERVICES [facility] 1..114 350.1.13.10 4.2.7.2.686 [id number] 107 [id number] [facility] 2023-08-06 00:00:00 2023-08-06 00:00:00 Orders Only Doctor Unassigned, [place] [facility] 1..114 350.1.13.10 4.2.7.2.686 [id number] [facility] 2023-07-30 15:00:00 2023-07-30 15:00:00 Outpatient R MAHESHSIGIFREDOKATHIA GONZALO [facility] [id number] [facility] 2023-07-30 00:00:00 2023-07-30 00:00:00 Abstract Gonzalo Greer [facility] DIRECTOR OF REHABILITATIVE SERVICES [facility] 1..114 350.1.13.10 4.2.7.2.686 [id number] 107 [id number] [facility] 2023-07-29 14:15:00 2023-07-29 15:20:28 Outpatient P BERHANE RADFORD [facility] [id number] [facility] 2023-07-29 14:15:00 2023-07-29 15:20:28 Hris Developer Visit Ultrasound, Berhane Bishop [facility] DIRECTOR OF REHABILITATIVE SERVICES [facility] MATERNAL & CHILD [facility] 1..114 350.1.13.10 4.2.7.2.686 [id number] [facility] 2023-07-16 15:00:00 2023-07-16 15:57:47 Outpatient R GONZALO GREER [facility] [id number] [facility] 2023-07-16 15:00:00 2023-07-16 15:57:47 Routine Visit Gonzalo Greer [facility] DIRECTOR OF REHABILITATIVE SERVICES [facility] MATERNAL & CHILD [facility] 1..840.114 350.1.13.10 4.2.7.2.686 [id number] 107 [id number] [facility] 2023-07-15 15:15:00 2023-07-15 15:15:00 Outpatient R GONZALO GREER [facility] [id number] [facility] 2023-07-01 15:15:00 2023-07-01 15:51:33 Outpatient R GONZALO GREER [facility] [id number] [facility] 2023-07-01 15:15:00 2023-07-01 15:51:33 Routine Visit Gonzalo Greer [facility] DIRECTOR OF REHABILITATIVE SERVICES [facility] ..840.114 350.1.13.10 4.2.7.2.686 [id number] 107 [id number] [facility] 2023-07-01 00:00:00 2023-07-01 00:00:00 Orders Only Doctor Unassigned, [place] [facility] 1..840.114 350.1.13.10 4.2.7.2.686 [id number] [facility] 2023-06-25 08:00:00 2023-06-25 08:00:00 Outpatient R GONZALO GREER [facility] [id number] [facility] 2023-06-17 00:00:00 2023-06-17 00:00:00 Abstract Gonzalo Greer [facility] DIRECTOR OF REHABILITATIVE SERVICES [facility] 1.2.840.114 350.1.13.10 4.2.7.2.686 [id number] [facility] 2023-06-12 09:30:00 2023-06-12 10:46:04 Routine Visit Gonzalo Greer [facility] DIRECTOR OF REHABILITATIVE SERVICES [facility] & CHILD [facility] 1.840.114 350.1.13.10 4.2.7.2.686 [id number] [facility] 2023-06-12 10:00:00 2023-06-12 10:45:52 Outpatient PHILLIP AVINA [facility] [id number] [facility] 2023-06-12 10:00:00 2023-06-12 10:45:52 Hris Developer [facility] DIRECTOR OF REHABILITATIVE SERVICES [facility] 1.840.114 350.1.13.10 4.2.7.2.686 [id number] [facility] 2023-06-12 00:00:00 2023-06-12 00:00:00 Orders Only Doctor Unassigned, [place] [facility] 1.2840.114 350.1.13.10 4.2.7.2.686 [id number] [facility] 2023-06-11 15:00:00 2023-06-11 15:00:00 Outpatient R GONZALO GREER [facility] [id number] [facility] 2023-06-10 00:00:00 2023-06-10 00:00:00 Telephone Gonzalo Greer [facility] DIRECTOR OF REHABILITATIVE SERVICES [facility] 1.2840.114 350.1.13.10 4.2.7.2.686 [id number] [facility] 2023-05-28 14:15:00 2023-05-28 14:30:00 Routine Visit Gonzalo Greer DIRECTOR OF REHABILITATIVE SERVICES [facility] 1..840.114 350.1.13.10 4.2.7.2.686 [id number] [facility] 2023-05-28 14:15:00 2023-05-28 14:15:00 Outpatient R GONZALO GREER [facility] [id number] [facility] 2023-05-15 00:00:00 2023-05-15 00:00:00 Refill Gonzalo Greer [facility] DIRECTOR OF REHABILITATIVE SERVICES [facility] 1..840.114 350.1.13.10 4.2.7.2.686 [id number] [facility] 2023-05-06 13:30:00 2023-05-06 13:30:00 Outpatient R [facility] [id number] [facility] 2023-05-06 00:00:00 2023-05-06 00:00:00 Telephone Gonzalo Greer [facility] DIRECTOR OF REHABILITATIVE SERVICES [facility] 1..840.114 350.1.13.10 4.2.7.2.686 [id number] [facility] [facility] 2023-05-02 13:00:00 2023-05-02 13:00:00 Outpatient R GONZALO GREER MENOMI [facility] [id number] [facility] 2023-05-02 00:00:00 2023-05-02 00:00:00 Telephone Gonzalo Greer MENOMI DIRECTOR OF REHABILITATIVE SERVICES [facility] 1..840.114 350.1.13.10 4.2.7.2.686 [id number] [facility] 2023-04-30 00:00:00 2023-04-30 00:00:00 Telephone Gonzalo Greer MENOMI DIRECTOR OF REHABILITATIVE SERVICES [facility] [id number] 350.1.13.10 4.2.7.2.686 [id number] [facility] 2023-04-29 13:45:00 2023-04-29 14:39:12 Initial Visit Gonzalo Greer [facility] DIRECTOR OF REHABILITATIVE SERVICES [facility] 1.2.840.114 350.1.13.10 4.2.7.2.686 [id number] [facility] 2023-04-29 13:45:00 2023-04-29 14:39:12 Outpatient R GONZALO GREER [facility] [id number] [facility] 2023-04-29 13:15:00 2023-04-29 13:21:39 Outpatient R GONZALO GREER [facility] [id number] [facility] 2023-04-29 00:00:00 2023-04-29 00:00:00 Orders Only Doctor Unassigned, [place] [facility] [id number] 350.1.13.10 4.2.7.2.686 [id number] [facility] Results Test Description Test Time Test Comments Results Result Co mments Source [facility] [id number] 13:31:00* Test Item Value Reference Range Interpretation Comme nts POCT PREG (test code = 1605) Negative On board controls acceptable with C Line (test code = 3574) Yes POCT PREG LOT # (test code = 3575) POCT PREG TEST DATE ( test code = 3576) [facility] GLUCOSE (AUTOMATED)2023-12-02 14:46:51* Test Item Value Reference Range Interpretation Comme [facility] POCT GLU (test code = 3365181237) 75 mg/dL 70-110 Lab Interpretation (test cod e = 43931-1) Normal [facility] GLUCOSE (AUTOMATED)2023-12-02 02:42:04* Test Item Value Reference Range Interpretation Comme [facility] POCT GLU (test code = 6784759030) 102 mg/dL 70-110 Lab Interpretation (test cod e = 68694-8) Normal [facility] GLUCOSE (AUTOMATED)2023-12-01 23:06:10* Test Item Value Reference Range Interpretation Comme nts POCT GLU (test code = 8362783622) 109 mg/dL 70-110 Lab Interpretation (test cod e = 27411-2) Normal [facility] IMMUNE [id number] 15:19:58* Test Item Value Reference Range Interpretation Comme nts RHIG CANDIDATE? (test code = 5188) No- see comment Patient is not a candidate for RhIg- Patient is Rh Positive.Performed at [facility] Laboratory Services - [facility] Blood [address] [place] [address]Zyhn Free: [phone] No. [id number] [facility] HospitalArterial Cord [id number] 15:15:35* Test Item Value Reference Range Interpretation Comme nts BASE EXCESS, CORD (test code = 8068271168) -4.9 mEq/L AC PH, CORD (BEAKER) (test c ode = 1785362719) 7.33 7.18-7.38 PC02, CORD (test code = 4302994674) 39 32-66 PO2, CORD (test code = 2436396132) 28 10-30 BICARBONATE, CORD (test code = 3606378413) 21 17-27 [facility]Ven[facility] Cord [id number] 15:14:25* Test Item Value Reference Range Interpretation Comme nts VENOUS BASE EXCESS, CORD (te st code = 8662450656) -5.1 mEq/L VENOUS PH, CORD (test code = 7237720047) 7.34 7.25-7.45 VENOUS PC02, CORD (test code = 9706552201) 38 27-49 VENOUS PO2, CORD (test code = 3536584525) 27 17-41 VENOUS BICARBONATE, CORD (te st code = 3655129151) 20 12-29 [facility] GLUCOSE (AUTOMATED)2023-12-01 14:36:08* Test Item Value Reference Range Interpretation Comme nts POCT GLU (test code = 0970073708) 103 mg/dL 70-110 Lab Interpretation (test cod e = 55083-2) Normal [facility] HospitalGAL[facility] ONLY - SYPHILIS [id number]/[id number] 14:02:42* Test Item Value Reference Range Interpretation Comme [facility] Syphilis IgG/IgM (test code = 80323-1) Non-reactive Non-reactive ZULEIKA (test code = ZULEIKA) Non-reactive - No serologic evidence of T. pallidum infection. Cannot exclude incubating or early syphilis. Submit a second specimen in 2-4 weeks if syphilis is clinically suspected. Equivocal - Further testing to follow. Reactive - Further testing to follow. Lab Interpretation (test code = 77970-7) Normal [facility]2023-12-01 11:16:18* Test Item Value Reference Range Interpretation Comme nts POCT GLU (test code = 1960495771) 89 mg/dL 70-110 Lab Interpretation (test cod e = 13276-1) Normal [facility] Hospital[facility] Neuraxial [id number] 09:52:00 Alexis Grubbs MD ? ? 12/01/2023 ?4:53 AM Central Neuraxial Block Date/Time: 12/01/2023 4:52 AM Performed by: Alexis Grubbs MDAuthorized by: Anita Gordillo MD ?Patient Location: OBEnd Time: 12/01/2023 4:52 AMReason for Block: OB request, Patient request, Labor analgesia, Surgical anesthesia and Post-op pain managementStaff: ?Anesthesiologist: Anita Gordillo MD ?Resident/TOURING PRODUCTION MANAGER: Alexis Grubbs MD ?Performed by: resident/CRNAPreanesthetic Checklist: patient identified, IV checked, risks and benefits explained, monitors and equipment checked, timeout performed, pre-op evaluation, site marked andanesthesia consentProcedure: ?Type of Neuraxial: Epidural ?Epidural Description: DPE ? Sterility Prep cap, gloves, hand hygiene, mask and drape ?Prep: Betadine and patient draped ? ?Monitoring: heartrate, continuous pulse ox, heart rate / toco and NIBP ?Location: lumbar (1-5) ?Lumbar: L4-L5 ?Approach: midline ? ?Technique: catheter and LAVELLE saline ?Guidance with: landmark technique}Epidural/ Spinal Dennehotso and/or Catheter: ?Epidural/Spinal Kit: BBraun ?Needle Type: Tuohy ?Needle Gauge: 17 G ?Needle Length: 3.5 in (8.89 cm) ?Needle Insertion Depth: 7 ?Catheter Type: multiport ? ?Catheter Size: 19 G ? ?Catheter at Skin Depth: 12 ?Number of Attempts: 1 ?Test Dose: lidocaine 1.5% with epinephrine 1-to-200,000 and negative ? ?Dose: 3 cc ? ?Catheter Securement Method: surgical tape and Tega dermAssessment: ?Procedure Assessment: patient tolerated procedure well with no complicationsNotes:? Patient prepped and draped in sterile fashion. ?Lidocaine was injected into L3-L4 space. ?Epidural attempt x 1. Needle insertion depth 7 cm, catheter left at 12 cm. Negative aspiration of CSF and test dose negative. The patient was placed at 30 degrees and connected to the epidural pump at 12 mL/hour. Remote given to patient and all questions were answered. Counseled the patient on fall risk. The patient tolerated the procedure without complications. Pump Settings:12 mL/hrBolus: 4 mLLockout: 15 min Smooth and atraumatic, (+) Local, (+) [facility] 2023-12-01 08:07:31* Test Item Value Reference Range Interpretation Comme nts POCT GLU (test code = 1041210400) 97 mg/dL 70-110 Lab Interpretation (test cod e = 66449-0) Normal [facility] GLUCOSE (AUTOMATED)2023-12-01 03:50:42* Test Item Value Reference Range Interpretation Comme [facility] POCT GLU (test code = 3926859213) 87 mg/dL 70-110 Lab Interpretation (test cod e = 49929-1) Normal [facility] GLUCOSE (AUTOMATED)2023-12-01 02:01:41* Test Item Value Reference Range Interpretation Comme [facility] POCT GLU (test code = 5989306868) 68 mg/dL 70-110 L Lab Interpretation (test cod e = 05759-6) Abnormal [facility]HIV [facility]/2 AG-AB WITH [id number] 01:17:56* Test Item Value Reference Range Interpretation Comme nts HIV Semi-quantitative (test code = 82062-1) 0.09 Negative ZULEIKA (test code = ZULEIKA) Non-reactive for HIV-1 antigen and HIV-1/HIV-2 antibodies. ?No laboratory evidence of HIV infection. ?Repeat in 2-4 weeks if acute HIV infection is suspected. [facility] HospitalHepatitis B Surface [id number] 00:09:35 * Test Item Value Reference Range Interpretation Comme nts HBsAg Semi-Quantitative (ras t code = 5195-3) 0.06 Negative [facility] HospitalCBC with [id number] 23:04:11* Test Item Value Reference Range Interpretation Comme nts WBC (test code = 6690-2) 10.51 4.30-11.10 RBC (test code = 789-8) 4.26 3.93-5.25 HGB (test code = 718-7) 10.3 g/dL 11.6-15.0 L HCT (test code = 4544-3) 32.2 % 35.7-45.2 L MCV (test code = 787-2) 75.6 fL 80.6-95.5 L MCH (test code = 785-6) 24.2 pg 25.9-32.8 L MCHC (test code = 786-4) 32.0 g/dL 31.6-35.1 RDW-SD (test code = 56066-4) 37.7 fL 39.0-49.9 L RDW-CV (test code = 788-0) 14.0 % 12.0-15.5 PLT (test code = 777-3) 284 166-358 MPV (test code = 28865-9) 10.3 fL 9.5-12.9 NRBC/100 WBC (test code = 7543306988) 0.0 0.0-10.0 NRBC x10^3 (test code = 7381676140) See_Comment [Automated messa ge] The system which generated this result transmitted reference range: 10*3/?L. The reference range was not used to interpret this result as normal/abnormal. GRAN MAT (NEUT) % (test code = 770-8) 79.1 % IMM GRAN % (test code = 5319235597) 0.50 % LYMPH % (test code = 736-9) 15.0 % MONO % (test code = 5905-5) 4.7 % EOS % (test code = 713-8) 0.5 % BASO % (test code = 706-2) 0.2 % GRAN MAT x10^3(ANC) (test code = 8915194778) 8.32 10*3/uL 1.88-7.09 H IMM GRAN x10^3 (test code = 9727322742) 0.05 10*3/uL 0.00-0.06 LYMPH x10^3 (test code = 731-0) 1.58 10*3/uL 1.32-3.29 MONO x10^3 (test code = 742-7) 0.49 10*3/uL 0.33-0.92 EOS x10^3 (test code = 711-2) 0.05 10*3/uL 0.03-0.39 BASO x10^3 (test code = 704-7) 0.01-0.07 Lab Interpretation (test code = 45972-8) Abnormal [facility] HospitalType and Screen - ONCE [id number] 22:27:00 * Test Item Value Reference Range Interpretation Comme nts ABO & RH (test code = 20) O POSITIVE IAT (test code = 1185) Negative [facility] GLUCOSE (AUTOMATED)2023-11-30 21:59:44* Test Item Value Reference Range Interpretation Comme nts POCT GLU (test code = 1634723437) 76 mg/dL 70-110 Lab Interpretation (test cod e = 47084-5) Normal [facility] GLUCOSE (AUTOMATED)2023-11-29 15:30:24* Test Item Value Reference Range Interpretation Comme nts POCT GLU (test code = 3804908935) 100 mg/dL 70-110 Lab Interpretation (test cod e = 93022-9) Normal [facility] URINALYSIS W SPECIFIC [id number] 14:37:00* Test Item Value Reference Range Interpretation Comme nts POCT U SP GRAV (test code = 3255) . 1.005-1.025 POCT PH U (test code = 3254) 6 mg/dl 5-8 POCT U LEUK EST (test code = 3263) 2+ Negative - Negative POCT U NIT (test code = 3262) negative Negative - Negati ve POCT U PROT (test code = 3259) 1+ Negative - Negat edison POCT U GLU (test code = 3256) negative Negative - Negati ve POCT U KETONE (test code = 3258) negative Negative - Neg ative POCT U UROBILI (test code = 3260) . 0.2-1 POCT U BILI (test code = 3261) . Negative - Negat edison POCT U BLD (test code = 3257) negative Negative - Negati ve POCT U COLOR (test code = 3266) . POCT U APPEAR (test code = 3267) . [facility] URINALYSIS W SPECIFIC [id number] 18:50:00* Test Item Value Reference Range Interpretation Comme nts POCT U SP GRAV (test code = 3255) . 1.005-1.025 POCT PH U (test code = 3254) 7 mg/dl 5-8 POCT U LEUK EST (test code = 3263) 2+ Negative - Negative POCT U NIT (test code = 3262) Neg Negative - Negati ve POCT U PROT (test code = 3259) 1+ Negative - Negat edison POCT U GLU (test code = 3256) Nml Negative - Negati ve POCT U KETONE (test code = 3258) None Negative - Neg ative POCT U UROBILI (test code = 3260) . 0.2-1 POCT U BILI (test code = 3261) . Negative - Negat edison POCT U BLD (test code = 3257) Trace Negative - Negati ve POCT U COLOR (test code = 3266) . POCT U APPEAR (test code = 3267) .. [facility] URINALYSIS W SPECIFIC [id number] 18:50:00* Test Item Value Reference Range Interpretation Comme nts POCT U SP GRAV (test code = 3255) . 1.005-1.025 POCT PH U (test code = 3254) 7 mg/dl 5-8 POCT U LEUK EST (test code = 3263) 2+ Negative - Negative POCT U NIT (test code = 3262) Neg Negative - Negati ve POCT U PROT (test code = 3259) 1+ Negative - Negat edison POCT U GLU (test code = 3256) Nml Negative - Negati ve POCT U KETONE (test code = 3258) None Negative - Neg ative POCT U UROBILI (test code = 3260) . 0.2-1 POCT U BILI (test code = 3261) . Negative - Negat edison POCT U BLD (test code = 3257) Trace Negative - Negati ve POCT U COLOR (test code = 3266) . POCT U APPEAR (test code = 3267) .. [facility] URINALYSIS W SPECIFIC [id number] 18:50:00* Test Item Value Reference Range Interpretation Comme nts POCT U SP GRAV (test code = 3255) . 1.005-1.025 POCT PH U (test code = 3254) 7 mg/dl 5-8 POCT U LEUK EST (test code = 3263) 2+ Negative - Negative POCT U NIT (test code = 3262) Neg Negative - Negati ve POCT U PROT (test code = 3259) 1+ Negative - Negat edison POCT U GLU (test code = 3256) Nml Negative - Negati ve POCT U KETONE (test code = 3258) None Negative - Neg ative POCT U UROBILI (test code = 3260) . 0.2-1 POCT U BILI (test code = 3261) . Negative - Negat edison POCT U BLD (test code = 3257) Trace Negative - Negati ve POCT U COLOR (test code = 3266) . POCT U APPEAR (test code = 3267) .. [facility] URINALYSIS W SPECIFIC [id number] 15:50:00* Test Item Value Reference Range Interpretation Comme nts POCT U SP GRAV (test code = 3255) . 1.005-1.025 POCT PH U (test code = 3254) . 5-8 POCT U LEUK EST (test code = 3263) . Negative - N egative POCT U NIT (test code = 3262) . Negative - Negati ve POCT U PROT (test code = 3259) trace Negative - Negat edison POCT U GLU (test code = 3256) neg Negative - Negati ve POCT U KETONE (test code = 3258) . Negative - Neg ative POCT U UROBILI (test code = 3260) . 0.2-1 POCT U BILI (test code = 3261) . Negative - Negat edison POCT U BLD (test code = 3257) . Negative - Negati ve POCT U COLOR (test code = 3266) . POCT U APPEAR (test code = 3267) . [facility] GLUCOSE (AUTOMATED)2023-11-22 15:33:36* Test Item Value Reference Range Interpretation Comme nts POCT GLU (test code = 1248666229) 97 mg/dL 70-110 Lab Interpretation (test cod e = 54017-1) Normal [facility] GLUCOSE (AUTOMATED)2023-11-15 19:41:37* Test Item Value Reference Range Interpretation Comme nts POCT GLU (test code = 5187501432) 87 mg/dL 70-110 Lab Interpretation (test cod e = 09529-5) Normal [facility] URINALYSIS W SPECIFIC [id number] 19:02:00* Test Item Value Reference Range Interpretation Comme nts POCT U SP GRAV (test code = 3255) . 1.005-1.025 POCT PH U (test code = 3254) . 5-8 POCT U LEUK EST (test code = 3263) . Negative - N egative POCT U NIT (test code = 3262) . Negative - Negati ve POCT U PROT (test code = 3259) trace Negative - Negat edison POCT U GLU (test code = 3256) neg Negative - Negati ve POCT U KETONE (test code = 3258) . Negative - Neg ative POCT U UROBILI (test code = 3260) . 0.2-1 POCT U BILI (test code = 3261) . Negative - Negat edison POCT U BLD (test code = 3257) . Negative - Negati ve POCT U COLOR (test code = 3266) POCT U APPEAR (test code = 3267) [facility] URINALYSIS W SPECIFIC [id number] 22:22:00* Test Item Value Reference Range Interpretation Comme nts POCT U SP GRAV (test code = 3255) . 1.005-1.025 POCT PH U (test code = 3254) . 5-8 POCT U LEUK EST (test code = 3263) . Negative - N egative POCT U NIT (test code = 3262) . Negative - Negati ve POCT U PROT (test code = 3259) . Negative - Negat edison POCT U GLU (test code = 3256) . Negative - Negati ve POCT U KETONE (test code = 3258) . Negative - Neg ative POCT U UROBILI (test code = 3260) . 0.2-1 POCT U BILI (test code = 3261) . Negative - Negat edison POCT U BLD (test code = 3257) . Negative - Negati ve POCT U COLOR (test code = 3266) . POCT U APPEAR (test code = 3267) . [facility] URINALYSIS W SPECIFIC [id number] 15:27:00* Test Item Value Reference Range Interpretation Comme nts POCT U SP GRAV (test code = 3255) . 1.005-1.025 POCT PH U (test code = 3254) 6 mg/dl 5-8 POCT U LEUK EST (test code = 3263) trace Negative - Negative POCT U NIT (test code = 3262) neg Negative - Negati ve POCT U PROT (test code = 3259) trace Negative - Negat edison POCT U GLU (test code = 3256) neg Negative - Negati ve POCT U KETONE (test code = 3258) neg Negative - Neg ative POCT U UROBILI (test code = 3260) . 0.2-1 POCT U BILI (test code = 3261) . Negative - Negat edison POCT U BLD (test code = 3257) neg Negative - Negati ve POCT U COLOR (test code = 3266) . POCT U APPEAR (test code = 3267) . [facility] GLUCOSE (AUTOMATED)2023-11-01 16:22:41* Test Item Value Reference Range Interpretation Comme nts POCT GLU (test code = 8597337561) 85 mg/dL 70-110 Lab Interpretation (test cod e = 09366-4) Normal [facility] URINALYSIS W SPECIFIC [id number] 16:05:00* Test Item Value Reference Range Interpretation Comme nts POCT U SP GRAV (test code = 3255) . 1.005-1.025 POCT PH U (test code = 3254) . 5-8 POCT U LEUK EST (test code = 3263) . Negative - N egative POCT U NIT (test code = 3262) . Negative - Negati ve POCT U PROT (test code = 3259) trace Negative - Negat edison POCT U GLU (test code = 3256) neg Negative - Negati ve POCT U KETONE (test code = 3258) . Negative - Neg ative POCT U UROBILI (test code = 3260) . 0.2-1 POCT U BILI (test code = 3261) . Negative - Negat edison POCT U BLD (test code = 3257) . Negative - Negati ve POCT U COLOR (test code = 3266) POCT U APPEAR (test code = 3267) [facility] URINALYSIS W SPECIFIC [id number] 19:21:00* Test Item Value Reference Range Interpretation Comme nts POCT U SP GRAV (test code = 3255) . 1.005-1.025 POCT PH U (test code = 3254) . 5-8 POCT U LEUK EST (test code = 3263) trace Negative - N egative POCT U NIT (test code = 3262) neg Negative - Negati ve POCT U PROT (test code = 3259) . Negative - Negat edison POCT U GLU (test code = 3256) . Negative - Negati ve POCT U KETONE (test code = 3258) . Negative - Neg ative POCT U UROBILI (test code = 3260) . 0.2-1 POCT U BILI (test code = 3261) . Negative - Negat edison POCT U BLD (test code = 3257) . Negative - Negati ve POCT U COLOR (test code = 3266) POCT U APPEAR (test code = 3267) [facility] URINALYSIS W SPECIFIC [id number] 19:21:00* Test Item Value Reference Range Interpretation Comme nts POCT U SP GRAV (test code = 3255) . 1.005-1.025 POCT PH U (test code = 3254) . 5-8 POCT U LEUK EST (test code = 3263) trace Negative - N egative POCT U NIT (test code = 3262) neg Negative - Negati ve POCT U PROT (test code = 3259) . Negative - Negat edison POCT U GLU (test code = 3256) . Negative - Negati ve POCT U KETONE (test code = 3258) . Negative - Neg ative POCT U UROBILI (test code = 3260) . 0.2-1 POCT U BILI (test code = 3261) . Negative - Negat edison POCT U BLD (test code = 3257) . Negative - Negati ve POCT U COLOR (test code = 3266) POCT U APPEAR (test code = 3267) [facility] URINALYSIS W SPECIFIC [id number] 16:34:00* Test Item Value Reference Range Interpretation Comme nts POCT U SP GRAV (test code = 3255) . 1.005-1.025 POCT PH U (test code = 3254) . 5-8 POCT U LEUK EST (test code = 3263) . Negative - N egative POCT U NIT (test code = 3262) . Negative - Negati ve POCT U PROT (test code = 3259) trace Negative - Negat edison POCT U GLU (test code = 3256) neg Negative - Negati ve POCT U KETONE (test code = 3258) . Negative - Neg ative POCT U UROBILI (test code = 3260) . 0.2-1 POCT U BILI (test code = 3261) . Negative - Negat edison POCT U BLD (test code = 3257) . Negative - Negati ve POCT U COLOR (test code = 3266) . POCT U APPEAR (test code = 3267) . [facility] URINALYSIS W SPECIFIC [id number] 16:18:00* Test Item Value Reference Range Interpretation Comme nts POCT U SP GRAV (test code = 3255) . 1.005-1.025 POCT PH U (test code = 3254) . 5-8 POCT U LEUK EST (test code = 3263) . Negative - N egative POCT U NIT (test code = 3262) . Negative - Negati ve POCT U PROT (test code = 3259) trace Negative - Negat edison POCT U GLU (test code = 3256) neg Negative - Negati ve POCT U KETONE (test code = 3258) . Negative - Neg ative POCT U UROBILI (test code = 3260) . 0.2-1 POCT U BILI (test code = 3261) . Negative - Negat edison POCT U BLD (test code = 3257) . Negative - Negati ve POCT U COLOR (test code = 3266) POCT U APPEAR (test code = 3267) [facility] GLUCOSE (AUTOMATED)2023-10-18 15:42:40* Test Item Value Reference Range Interpretation Comme nts POCT GLU (test code = 0833138709) 96 mg/dL 70-110 Lab Interpretation (test cod e = 74316-6) Normal [facility] URINALYSIS W SPECIFIC [id number] 14:59:00* Test Item Value Reference Range Interpretation Comme nts POCT U SP GRAV (test code = 3255) . 1.005-1.025 POCT PH U (test code = 3254) . 5-8 POCT U LEUK EST (test code = 3263) . Negative - N egative POCT U NIT (test code = 3262) . Negative - Negati ve POCT U PROT (test code = 3259) trace Negative - Negat edison POCT U GLU (test code = 3256) neg Negative - Negati ve POCT U KETONE (test code = 3258) . Negative - Neg ative POCT U UROBILI (test code = 3260) . 0.2-1 POCT U BILI (test code = 3261) . Negative - Negat edison POCT U BLD (test code = 3257) . Negative - Negati ve POCT U COLOR (test code = 3266) POCT U APPEAR (test code = 3267) [facility] URINALYSIS W SPECIFIC [id number] 17:28:00* Test Item Value Reference Range Interpretation Comme nts POCT U SP GRAV (test code = 3255) norm 1.005-1.025 POCT PH U (test code = 3254) . 5-8 POCT U LEUK EST (test code = 3263) . Negative - N egative POCT U NIT (test code = 3262) . Negative - Negati ve POCT U PROT (test code = 3259) trace Negative - Negat edison POCT U GLU (test code = 3256) neg Negative - Negati ve POCT U KETONE (test code = 3258) . Negative - Neg ative POCT U UROBILI (test code = 3260) . 0.2-1 POCT U BILI (test code = 3261) . Negative - Negat edison POCT U BLD (test code = 3257) . Negative - Negati ve POCT U COLOR (test code = 3266) POCT U APPEAR (test code = 3267) [facility] GLUCOSE (AUTOMATED)2023-10-15 17:23:05* Test Item Value Reference Range Interpretation Comme nts POCT GLU (test code = 3565835912) 97 mg/dL 70-110 Lab Interpretation (test cod e = 28109-4) Normal [facility] GLUCOSE (AUTOMATED)2023-09-03 16:49:33* Test Item Value Reference Range Interpretation Comme nts POCT GLU (test code = 0193729233) 189 mg/dL 70-110 H Lab Interpretation (test cod e = 24440-5) Abnormal [facility] Glucose(Age >30days)2023-09-03 16:43:00* Test Item Value Reference Range Interpretation Comme nts POCT Glu (age>30days) (test code = 3342) 189 mg/dL 70-110 A Lab Interpretation (test cod e = 51106-0) Abnormal [facility] URINALYSIS W SPECIFIC [id number] 16:08:00* Test Item Value Reference Range Interpretation Comme nts POCT U SP GRAV (test code = 3255) . 1.005-1.025 POCT PH U (test code = 3254) . 5-8 POCT U LEUK EST (test code = 3263) . Negative - N egative POCT U NIT (test code = 3262) . Negative - Negati ve POCT U PROT (test code = 3259) trace Negative - Negat edison POCT U GLU (test code = 3256) neg Negative - Negati ve POCT U KETONE (test code = 3258) . Negative - Neg ative POCT U UROBILI (test code = 3260) . 0.2-1 POCT U BILI (test code = 3261) . Negative - Negat edison POCT U BLD (test code = 3257) . Negative - Negati ve POCT U COLOR (test code = 3266) . POCT U APPEAR (test code = 3267) . [facility] GLUCOSE (AUTOMATED)2023-08-20 22:37:21* Test Item Value Reference Range Interpretation Comme nts POCT GLU (test code = 2032891095) 85 mg/dL 70-110 Lab Interpretation (test cod e = 96905-8) Normal [facility] URINALYSIS W SPECIFIC [id number] 22:40:00* Test Item Value Reference Range Interpretation Comme nts POCT U SP GRAV (test code = 3255) . 1.005-1.025 POCT PH U (test code = 3254) . 5-8 POCT U LEUK EST (test code = 3263) . Negative - N egative POCT U NIT (test code = 3262) . Negative - Negati ve POCT U PROT (test code = 3259) trace Negative - Negat edison POCT U GLU (test code = 3256) normal Negative - Negati ve POCT U KETONE (test code = 3258) . Negative - Neg ative POCT U UROBILI (test code = 3260) . 0.2-1 POCT U BILI (test code = 3261) . Negative - Negat edison POCT U BLD (test code = 3257) . Negative - Negati ve POCT U COLOR (test code = 3266) . POCT U APPEAR (test code = 3267) . [facility] GLUCOSE (AUTOMATED)2023-07-16 20:59:03* Test Item Value Reference Range Interpretation Comme nts POCT GLU (test code = [id number]) 78 mg/dL 70-110 Lab Interpretation (test cod e = 95692-4) Normal [facility] URINALYSIS W SPECIFIC [id number] 20:15:00* Test Item Value Reference Range Interpretation Comme nts POCT U SP GRAV (test code = 3255) . 1.005-1.025 POCT PH U (test code = 3254) . 5-8 POCT U LEUK EST (test code = 3263) . Negative - N egative POCT U NIT (test code = 3262) . Negative - Negati ve POCT U PROT (test code = 3259) TRACE Negative - Negat edison POCT U GLU (test code = 3256) NEG Negative - Negati ve POCT U KETONE (test code = 3258) . Negative - Neg ative POCT U UROBILI (test code = 3260) . 0.2-1 POCT U BILI (test code = 3261) . Negative - Negat edison POCT U BLD (test code = 3257) . Negative - Negati ve POCT U COLOR (test code = 3266) . POCT U APPEAR (test code = 3267) . [facility] URINALYSIS W SPECIFIC [id number] 20:21:00* Test Item Value Reference Range Interpretation Comme nts POCT U SP GRAV (test code = 3255) . 1.005-1.025 POCT PH U (test code = 3254) . 5-8 POCT U LEUK EST (test code = 3263) . Negative - N egative POCT U NIT (test code = 3262) . Negative - Negati ve POCT U PROT (test code = 3259) TRACE Negative - Negat edison POCT U GLU (test code = 3256) NEG Negative - Negati ve POCT U KETONE (test code = 3258) . Negative - Neg ative POCT U UROBILI (test code = 3260) . 0.2-1 POCT U BILI (test code = 3261) . Negative - Negat edison POCT U BLD (test code = 3257) . Negative - Negati ve POCT U COLOR (test code = 3266) . POCT U APPEAR (test code = 3267) . [facility] URINALYSIS W SPECIFIC [id number] 19:14:00* Test Item Value Reference Range Interpretation Comme nts POCT U SP GRAV (test code = 3255) . 1.005-1.025 POCT PH U (test code = 3254) . 5-8 POCT U LEUK EST (test code = 3263) . Negative - Negative POCT U NIT (test code = 3262) . Negative - Negati ve POCT U PROT (test code = 3259) trace Negative - Negat edison POCT U GLU (test code = 3256) negative Negative - Negati ve POCT U KETONE (test code = 3258) . Negative - Neg ative POCT U UROBILI (test code = 3260) . 0.2-1 POCT U BILI (test code = 3261) . Negative - Negat edison POCT U BLD (test code = 3257) . Negative - Negati ve POCT U COLOR (test code = 3266) POCT U APPEAR (test code = 3267) [facility] URINALYSIS W SPECIFIC [id number] 19:14:00* Test Item Value Reference Range Interpretation Comme nts POCT U SP GRAV (test code = 3255) . 1.005-1.025 POCT PH U (test code = 3254) . 5-8 POCT U LEUK EST (test code = 3263) . Negative - Negative POCT U NIT (test code = 3262) . Negative - Negati ve POCT U PROT (test code = 3259) trace Negative - Negat edison POCT U GLU (test code = 3256) negative Negative - Negati ve POCT U KETONE (test code = 3258) . Negative - Neg ative POCT U UROBILI (test code = 3260) . 0.2-1 POCT U BILI (test code = 3261) . Negative - Negat edison POCT U BLD (test code = 3257) . Negative - Negati ve POCT U COLOR (test code = 3266) POCT U APPEAR (test code = 3267) [facility] URINALYSIS W/O SPECIFIC [id number] 18:25:00* Test Item Value Reference Range Interpretation Comme nts POCT PH U (test code = 3254) 6 mg/dl 5-8 POCT U LEUK EST (test code = 3263) 1+ Negative - Negative POCT U NIT (test code = 3262) neg Negative - Negati ve POCT U PROT (test code = 3259) 30+ Negative - Negat edison POCT U GLU (test code = 3256) neg Negative - Negati ve POCT U KETONE (test code = 3258) 3+ Negative - Neg ative POCT U BLD (test code = 3257) neg Negative - Negati ve [id number]:24[facility]* Test Item Value Reference Range Interpretation Comme nts POCT PREG (test code = 1605) Positive On board controls acceptable with C Line (test code = 3574) Yes POCT PREG LOT # (test code = 3575) POCT PREG TEST DATE ( test code = 3576) [facility] History and Physical Notes Date/Time Note Provider Source 2023-11-30 18:35:28 TRIAGE/L&D HISTORY & PHYSICAL IDENTIFYING DATA Lori Cohen is 23 year old, /White, 39w0d, female with KIANNA 12/07/2023, by Ultrasound. : 2000 Primary Care Physician: PATIENT DOES NOT HAVE A PCP CHIEF COMPLAINT Scheduled IOL HISTORY OF PRESENT ILLNESS Lori Cohen is a 23 year old at 39w0d who presents for scheduled IOL. Patient denies vaginal bleeding, denies leakage of fluid, denies contractions. Patient denies headache, denies nausea/vomiting, denies RUQ pain, denies visual abnormalities. Endorses normal movement. PAST OBSTETRIC HISTORY OB History Para Term AB Living 2 1 1 1 SAB IAB Ectopic Multiple Live Births 1 # Outcome Date GA Lbr Ovidio/2nd Weight Sex Delivery Anes PTL Lv 2 Current 1 Term 12/24/18 39w2d 2977 g M NORMAL SPONT CALI PAST MEDICAL HISTORY Problem list: Patient Active Problem List Diagnosis Date Noted Obesity (BMI 30-39.9) 11/30/2023 39 weeks gestation of 11/30/2023 Pregestational diabetes mellitus, modified White class B 04/30/2023 Supervision of high-risk 04/29/2023 Multiparity 04/29/2023 History of asthma 12/25/2018 Allergy to acetaminophen 12/24/2018 Declines flu vaccine 10/27/2018 Operations: No past surgical history on file. Past Medical History: Diagnosis Date Abnormal maternal glucose tolerance, antepartum 06/17/2018 Asthma Pregestational diabetes mellitus, modified White class B 04/30/2023 CURRENT HEALTH STATUS Medications: Current Facility-Administered Medications Medication Dose Route Frequency Last Rate Last Admin [id number]-LR IV infusion 1,000 mL 1,000 mL IV Infusion TITRATE 125 mL/hr at 11/30/231914 1,000 mL at 11/30/231914 lactated ringers IV infusion 500 mL 500 mL IV Infusion PRN - SEE INSTRUCTIONS lactated ringers IV infusion 700 mL 700 mL Intravenous ONCE lidocaine 1% (PF) (XYLOCAINE) injection 0.3 mL 0.3 mL Infiltration PRN - SEE INSTRUCTIONS lidocaine 1% (XYLOCAINE) 10 mg/mL (1 %) injection 50 mL 50 mL Infiltration PRN - SEE INSTRUCTIONS oxytocin (PITOCIN) 30 units in NS 500 mL IV infusion 2-40 brook-units/min IV Infusion TITRATE 2 mL/hr at 11/30/231927 2 brook-units/min at 11/30/231927 sodium citrate-citric acid (BICITRA) 500-334 mg/5 mL solution 30 mL 30 mL Oral PRE-PROCEDURE ONCE sodium citrate-citric acid (BICITRA) 500-334 mg/5 mL solution 30 mL 30 mL Oral PRE-PROCEDURE ONCE Allergies and drug reactions: Tylenol [acetaminophen] HOME MEDICATIONS Medications Prior to Admission Medication Sig Dispense Refill Last Dose PNV 67-iron ps-folate no.1-dha (VITAFOL ULTRA) 29 mg iron- 1 mg-200 mg Cap Take 1 Each by mouth in the morning. 30 capsule 11 proMETHazine 25 mg tablet Take 1 tablet by mouth every 6 (six) hours as needed for Nausea and Vomiting (N/V). 30 tablet 0 blood sugar diagnostic (FREESTYLE LITE STRIPS) strip Check blood glucose 4x daily 100 Each 3 Blood-Glucose Meter (FREESTYLE LITE METER) Kit Check blood glucose 4x daily 1 Kit 0 lancets (FREESTYLE LANCETS) 28 gauge Misc Check glucose 4x daily 100 Each 3 SOCIAL HISTORY Tobacco History: Social History Tobacco Use Smoking Status Never Passive exposure: Never Smokeless Tobacco Never Drug History: Social History Substance and Sexual Activity Drug Use No Alcohol History: Social History Substance and Sexual Activity Alcohol Use No FAMILY HISTORY Family History Problem Relation Age of Onset Diabetes Mother Arthritis Father Asthma Sister High cholesterol Maternal Grandmother REVIEW OF SYSTEMS General: negative Skin: negative HEENT: negative Neck: negative HEME: negative Resp: negative Cardio: negative GI: negative : negative Endo: negative Neuro: negative Back: negative SABRA: negative Psych: negative VITAL SIGNS BP: (100-122)/(60-76) Temp: [36.2 ?C (97.2 ?F)-36.6 ?C (97.9 ?F)] Temp source: Axillary (11/29 1830) Pulse: [90-102] Resp: [16-17] SpO2: [97 %-100 %] Height: [157.5 cm (5' 2")] Weight: [92.4 kg (203 lb 9.6 oz)] BMI (calculated): [37.24] PHYSICAL EXAMINATIONS General: patient alert and in no acute distress HEENT: symmetric, negative for masses Lungs: unlabored breathing Cardiology: peripheral pulses intact and regular Abdomen: soft, non-tender, non-distended, no liver, spleen or abnormal masses palpated and Gravid Extremities: no clubbing, cyanosis, or edema Neuro: patient moving all extremities, no facial droop : SVE 4/50/-2 REVIEW OF LABORATORY, PATHOLOGY, AND RADIOLOGY DATA Lab results: Type & Screen Lab Results Component Value Date/Time IABORH O POSITIVE 11/30/2023 04:19 PM IAT Negative 11/30/2023 04:19 PM Serologies Lab Results Component Value Date/Time VZVIGG Positive 05/28/2023 02:40 PM HIVMULTIPLEX Non-reactive 10/27/2018 11:27 AM RUBG Positive 04/29/2023 02:30 PM SYPIGG Non-reactive 10/01/2023 11:33 AM SYPIGG Nonreactive 06/16/2018 11:36 AM HBSAG Negative 11/30/2023 04:19 PM HBSAG 0.06 11/30/2023 04:19 PM Chlamydia Lab Results Component Value Date/Time VCAA Negative 11/08/2023 10:32 AM Group B Strep Lab Results Component Value Date/Time CGB Negative 11/08/2023 10:32 AM GTT Lab Results Component Value Date/Time GLUF 79 10/01/2018 08:18 AM RYPE7NY 200 (H) 04/29/2023 02:30 PM GLU3H 96 10/01/2018 11:20 AM CBC Lab Results Component Value Date/Time HGB 10.3 (L) 11/30/2023 04:19 PM HGB 12.9 03/21/2017 07:57 AM HCT 32.2 (L) 11/30/2023 04:19 PM HCT 38.9 03/21/2017 07:57 AM PLT 284 11/30/2023 04:19 PM PLT 262 03/21/2017 07:57 AM Active Hospital Problems Diagnosis Date Noted Obesity (BMI 30-39.9) 11/30/2023 39 weeks gestation of 11/30/2023 Pregestational diabetes mellitus, modified White class B 04/30/2023 Failed 1hr gtt >200 Accidentally dosed at 26 weeks Supervision of high-risk 04/29/2023 History of asthma 12/25/2018 Resolved Hospital Problems No resolved problems to display. Present on Admission: Obesity (BMI 30-39.9) 39 weeks gestation of Pregestational diabetes mellitus, modified White class B Supervision of high-risk History of asthma Placenta Accreta Screening Prior ? : No Prior Uterine Surgery?: No Placenta low lying/previa in current ? : No Ultrasound suspicion of PASD in current ?: No Screening outcome: A positive screening outcome indicates a history of prior delivery or prior uterine surgery, AND the presence of either a placenta low lying/previa or ultrasound suspicion of PASD in the current . Negative screening. ASSESSMENT AND PLAN Lori Cohen is a 23 year old at 39w0d by u(14) who presents for IOL, admitted for AOL in setting of BDM. AOL - Denies contractions, vaginal bleeding, DFM, LOF - SVE: 4 / 50 % / -2 - Contractions (number / 10 minute): q5-10 min - Plan: Admit to L&D for AOL. Plan for pitocin titration as tolerated. Desires epidural this labor course. BDM - Diagnosed early this by early 1 hr 200 - Diet controlled, reports compliance with 4x daily BG check - Self reports fastings 70s-90s, 2 hr PP 100s - 24 hr urine protein 66, baseline labs wnl - FSBG 76 on admission - SSI ordered, insulin GTT in active labor if indicated Antepartum course reviewed - 1 h 200, sero negative, Rimmune, VZVimmune, HPV not immune, O positive/IAT negative, GBS negative, Pap NILM 2022 - H/H, plt: 10.3 / 32.2, 284 on 11/30/23 - Contraception: Depo Provera, counseled on options on admission - [place] [facility] Fetus - Presentation on admission: cephalic - posterior placenta - EFW: 3028 g, 29%tile on MFM US 11/25 - FHT reactive and reassuring - Normal anatomy scan Bao Rinaldi MD H SETTER Associated attestation - Andreia Carlin MD - 11/30/2023 9:03 PM PATCH SETTER I was L&D faculty on 11/30/2023 and agree with H&P below. Briefly, patient is a 23 year old at 39w0d who presented for scheduled induction of labor. I discussed the plan of care with the residents. Andreia Ely MD [facility] - Health Procedure Notes Date/Time Note Provider Source 2023-12-01 04:52:24 Associated Order(s): Central Neuraxial Block Central Neuraxial Block Date/Time: 12/01/2023 4:52 AM Performed by: Alexis Grubbs MD Authorized by: Anita Gordillo MD Patient Location: OB End Time: 12/01/2023 4:52 AM Reason for Block: OB request, Patient request, Labor analgesia, Surgical anesthesia and Post-op pain management Staff: Anesthesiologist: Anita Gordillo MD Resident/TOURING PRODUCTION MANAGER: Alexis Grubbs MD Performed by: resident/TOURING PRODUCTION MANAGER Preanesthetic Checklist: patient identified, IV checked, risks and benefits explained, monitors and equipment checked, timeout performed, pre-op evaluation, site marked and anesthesia consent Procedure: Type of Neuraxial: Epidural Epidural Description: DPE Sterility Prep cap, gloves, hand hygiene, mask and drape Prep: Betadine and patient draped Monitoring: heart rate, continuous pulse ox, heart rate / toco and NIBP Location: lumbar (1-5) Lumbar: L4-L5 Approach: midline Technique: catheter and LAVELLE saline Guidance with: landmark technique} Epidural/Spinal [place] and/or Catheter: Epidural/Spinal Kit: BBenrique Needle Type: Tuohy Needle Gauge: 17 G Needle Length: 3.5 in (8.89 cm) Needle Insertion Depth: 7 Catheter Type: multiport Catheter Size: 19 G Catheter at Skin Depth: 12 Number of Attempts: 1 Test Dose: lidocaine 1.5% with epinephrine 1-to-200,000 and negative Dose: 3 cc Catheter Securement Method: surgical tape and Tegaderm Assessment: Procedure Assessment: patient tolerated procedure well with no complications Notes: Patient prepped and draped in sterile fashion. Lidocaine was injected into L3-L4 space. Epidural attempt x 1. Needle insertion depth 7 cm, catheter left at 12 cm. Negative aspiration of CSF and test dose negative. The patient was placed at 30 degrees and connected to the epidural pump at 12 mL/hour. Remote given to patient and all questions were answered. Counseled the patient on fall risk. The patient tolerated the procedure without complications. Pump Settings: 12 mL/hr Bolus: 4 mL Lockout: 15 min Smooth and atraumatic, (+) Local, (+) STF AN-ANESTHESIOLOGY [facility] Notes Date/Time Note Provider Source 2024-02-11 16:25:30 Called pt, discussed lab results and poc. Pt verbalized understanding. Anya Price RN 02/11/24 4:25 PM [facility] 2024-02-11 13:32:24 Please notify the patient she is passed her glucose test, but please advise her on proper diet and exercise PEEWEE Moffett 02/11/2024 1:33 PM [facility] 2024-01-14 16:07:54 3rd attempt to call pt, no answer. Left vm. Encounter closed. Anya Price RN 01/14/24 4:08 PM [facility] 2024-01-14 09:07:44 2nd attempt to call patient, no answer, vm full. [facility] 2024-01-13 16:25:23 Attempted to contact patient, voicemail not set-up to leave message. Benton Liriano [facility] 2024-01-12 13:42:26 Lori Cohen is a 23 year old female Pt called regarding wanting to get procedure moved to a different date, currently scheduled for 01/15/24. Please advise. Elver Jimenes [facility] 2023-12-02 14:23:44 Problem: Discharge Planning - Goal: Adequate for discharge Outcome: Adequate for discharge Goal: Mood stable Outcome: Adequate for discharge Problem: Complications of hemorrhage (risk or actual) Goal: Absence of active bleeding Outcome: Adequate for discharge Goal: Absence of complications Outcome: Adequate for discharge Aditi Garcia RN [facility] 2023-12-02 08:22:00 Problem: Discharge Planning - Goal: Adequate for discharge Outcome: Adequate for discharge Goal: Mood stable Outcome: Adequate for discharge Amanda Espinoza RN [facility] 2023-12-01 21:07:07 Problem: Discharge Planning - Goal: Adequate for discharge Outcome: Progressing as expected Goal: Mood stable Outcome: Progressing as expected Problem: Complications of hemorrhage (risk or actual) Goal: Absence of active bleeding Outcome: Progressing as expected Goal: Absence of complications Outcome: Progressing as expected Demi Agustin RN [facility] 2023-12-01 19:14:17 Patient: Lori Cohen Procedure Summary Date: 11/30/23 Room / Location: Anesthesia Start: 2347 Anesthesia Stop: 12/01/231199 Procedure: CENTRAL NEURAXIAL BLOCK Diagnosis: Scheduled Providers: Responsible Provider: Arnaud Brantley MD Anesthesia Type: Epidural ASA Status: 2 Anesthesia Type: Epidural Last vitals BP Temp Pulse Resp SpO2 There were no known notable events for this encounter. Anesthesia Post Evaluation Patient location during evaluation: bedside Patient participation: complete - patient participated Level of consciousness: awake and alert Pain management: satisfactory to patient Airway patency: patent Cardiovascular status: acceptable and blood pressure returned to baseline Respiratory status: acceptable Hydration status: acceptable Comments: BP 110/71 (BP Location: Left arm, Patient Position: Sitting) | Pulse 87 | Temp 36.6 ?C (97.9 ?F) | Resp 18 | Ht 1.575 m (5' 2") | Wt 92.4 kg (203 lb 9.6 oz) | LMP 03/12/2023 | SpO2 100% | Unknown | BMI 37.24 kg/m? Block resolving appropriately AN-ANESTHESIOLOGY ANESTHESIOLOGIST [facility] 2023-12-01 17:58:41 Problem: Discharge Planning - Goal: Adequate for discharge Outcome: Progressing as expected Goal: Mood stable Outcome: Progressing as expected [facility] 2023-12-01 09:55:52 DELIVERY BY SPONTANEOUS VAGINAL DELIVERY Delivery Date: 12/01/2023 Delivery Time: 9:44 AM Review the Delivery Report for details. The patient was admitted to the Labor & Delivery unit for IOL at 39w1d. Delivery Physician: Hany Maradiaga MD OB Faculty: Allison Hunter MD OB Fellow: Phillip Keith Valve Assembler Resident: Marci Forbes MD Intrapartum Anesthesia/Analgesia: Epidural Mode of Delivery: Delivery of esteves fetus with cephalic presentation Fetus Spontaneous vaginal delivery of head with cephalic position, left occipital anterior. As the head crowned and distended the perineum, no episiotomy was performed. A blue towel was used to protect the perineum as the head crowned and delivered. The other hand was used to exert pressure on the occiput to control the delivery of the head. The perineum was pushed with a towel-draped hand as the head and mouth was delivered over the perineum. The head was allowed to rotate externally to achieve natural body posture. Examination of neck revealed nuchal cord, which was Loose umbilical cord - reduced. The shoulder was delivered by gentle downward traction applied to head and downward traction for the delivery of anterior shoulder. This was followed by upward traction with delivery of posterior shoulder and body. A male was delivered. The umbilical cord was clamped, cut and the was handed off the field to the circulating nurse. The pediatricians were at the stand to evaluate the new born. Placenta Placenta was delivered spontaneously while the abdominal hand lifted the uterus cephalad and other hand keeping the umbilical cord slightly taut. Laceration Laceration Repair: No laceration repair needed. Fourth Stage Fourth stage of labor was managed by uterine massage with abdominal hand and infusion of 30 units of pitocin mixed with intravenous fluid. EBL: 250 ml APGARs: 8 , 9 Weight: 2900 g Complications: none Hany Maradiaga MD 12/01/23 9:55 AM Associated attestation - Allison Hunter MD - 12/01/2023 3:42 PM CDT I was present for delivery of a viable infant. No immediate complications noted. I agree with Dr. Maradiaga' delivery note. Allison Hunter MD OG-OBSTETRICS & GYNECOLOGY [facility] 2023-12-01 03:03:40 Intrapartum Progress Note 12/01/2023 3:03 AM Subjective: Patient has no complaints Objective: Vitals last 24 hours: Temp: [36.2 ?C (97.2 ?F)-37.1 ?C (98.8 ?F)] 37.1 ?C (98.8 ?F) Pulse: [78-102] 86 Resp: [16-17] 16 BP: (92-123)/(51-76) 99/51 Intake/Output : No intake/output data recorded. No intake/output data recorded. Assessment Active movement: Yes Mode: EFM Uterine Activity: Mode: Roma Contractions (number / 10 minute): 3 Contraction duration (seconds): 60 Membrane Status Membrane status: Artificial Rupture date: 12/01/23 Rupture time: 0301 Amniotic fluid color: Clear Cervical Exam 4 / 50 % / -2 Assessment/Plan: Lori Cohen is a 23 year old at 39w1d OB Assessment: AOL, BDM OB Plan: Pit@1930, SSI Additional Comments/Detail: AROM w/ moderate clear fluid. Pt comfortable w/ epidural in place. Huyen Ross MD OG-OBSTETRICS & GYNECOLOGY [facility] 2023-11-30 23:33:34 Name/ MRN / Age / Gender: Lori Cohen, [id number] 23 year old female BMI: Estimated body mass index is 37.24 kg/m? as calculated from the following: Height as of this encounter: 1.575 m (5' 2"). Weight as of this encounter: 92.4 kg (203 lb 9.6 oz). Allergies: Tylenol [acetaminophen] Last Vitals: BP Readings from Last 1 Encounters: 11/30/23 112/73 Pulse Readings from Last 1 Encounters: 11/30/23 86 SpO2 Readings from Last 1 Encounters: 11/30/23 99% Date of Surgery: 11/30/2023 Surgeon: * No surgeons listed * Procedure: CENTRAL NEURAXIAL BLOCK OR Location: [facility] [facility] OUT OF OR - OR LOCATION Anesthesia Preop Eval (physical exam) Anesthesia Preop: Chart Review and [id number] NPO Status Verified Clear Liquids: > 2 Hours Solid Food/Non-Clear Liquids: > 8 Hours Anesthesia History Anesthesia History Negative Previous Anesthetics/Airways Cardiovascular Negative Cardiac ROS Comments: BP Readings from Last 4 Encounters: 11/30/23 : 112/73 11/29/23 : 107/74 11/26/23 : 116/77 11/22/23 : 114/73 Pulmonary Negative Pulmonary ROS (+) Asthma Neuro/Musculoskeletal Negative Neuro/Musculosketal ROS GI/Hepatic Negative GI/Hepatic ROS Hematology Negative Hematology ROS Comments: HGB (g/dL) Date Value 11/30/2023 10.3 (L) HEMOGLOBIN-Q (g/dL) Date Value 03/21/2017 12.9 11/30/23 1619 PLT 284 Renal Negative Renal ROS Comments: CREATININE (mg/dL) Date Value 08/20/2023 0.52 CREATININE-Q (mg/dL) Date Value 03/21/2017 0.60 K (mmol/L) Date Value 08/20/2023 4.0 POTASSIUM-Q (mmol/L) Date Value 03/21/2017 4.0 Skin Negative Skin ROS Endo/Other Negative Endo/Other ROS Comments: No results found for: "[id number]" Other DIRECTOR OF REHABILITATIVE SERVICES Comments: @ 39w0d Lori Cohen is a 23 year old at 39w0d by u(14) who presents for IOL, admitted for AOL in setting of BDM. AOL - Denies contractions, vaginal bleeding, DFM, LOF - SVE: 4 / 50 % / -2 - Contractions (number / 10 minute): q5-10 min - Plan: Admit to L&D for AOL. Plan for pitocin titration as tolerated. Desires epidural this labor course. BDM - Diagnosed early this by early 1 hr 200 - Diet controlled, reports compliance with 4x daily BG check - Self reports fastings 70s-90s, 2 hr PP 100s - 24 hr urine protein 66, baseline labs wnl - FSBG 76 on admission - SSI ordered, insulin GTT in active labor if indicated Antepartum course reviewed - 1 h 200, sero negative, Rimmune, VZVimmune, HPV not immune, O positive/IAT negative, GBS negative, Pap NILM 2022 - H/H, plt: 10.3 / 32.2, 284 on 11/30/23 - Contraception: [facility] - Presentation on admission: cephalic - posterior placenta - EFW: 3028 g, 29%tile on [facility] US 11/25 - FHT reactive and reassuring - Normal anatomy scan Pediatric Pediatric N/A N/A Preoperative Medication Instructions Continue taking all prescribed medications except: CHENG inhibitors, ARBs, diuretics, all oral diabetes medications Anticoagulant Therapy: Defer to surgeons Insulin: Take 1/2 dose the night prior to surgery. Hold on DOS. Phentermine: Alert [facility] anesthesiologist SGLT2 Inhibitors: "gliflozins" to be held for 3 days prior to elective surgeries GLP1 Agonosit: stop 7 days prior to surgery MAC Cases: Continue taking CHENG inhibitors and ARBs ASA Classification ASA: 2 Labs: Chemistry 08/20/2023 CBC 11/30/2023 133 (L) 103 9 85 10.51 10.3 (L) 284 4.0 21 (L) 0.52 32.2 (L) eGFR: 133.2 Date: 08/20/2023 ANC: 8.32 (H) Date: 11/30/2023 LFTs 08/20/2023 Coags AST: 16 AP: 131 (H) Prot: 6.9 Ca: 9.2 PT: - Date: - ALT: 9 T Sadi: 0.3 Alb: 3.6 PTT: - Date: - PO4: - Date: - INR: - Date: - Cardiac Endocrine & other pBNP: - Date: - A1C: 5.2 Date: 08/20/2023 Trop I: - Date: - TSH: - Date: - CK: - Date: - FT4: - Date: - CKMB: - Date: - Lact: - Date: - Procal: - Date: - Respiratory -|-|-|-|- D-dimer: - ABG Date: - Date: - Current Medications: No outpatient medications have been marked as taking for the 11/30/23 encounter (Hospital Encounter). Previous Surgeries: No past surgical history on file. Anesthesia Physical Exam General no apparent distress and alert and oriented x 3 Neuro/Psych neurological nonfocal Dental no notable dental hx Abdominal GI exam normal (+) gravid Airway Mallampati score:II TM distance:> 5 cm Neck ROM: full Mouth opening:normal (+) Normal facies Extremity Pulmonary pulmonary exam normal and bilateral clear to auscultation Other Cardiovascular cardiovascular exam normalRhythm:regular Rate: normal Anesthesia Plan ASA Status: 2 Plan discussed during pre-op evaluation: General, Epidural and Spinal Anesthetic plan on DOS: Epidural Anesthesia plan discussed with: patient or financial sales representative Post-Operative Analgesia: routine analgesia & antiemetics Recovery Plan: PACU Additional comments: AN-ANESTHESIOLOGY ANESTHESIOLOGIST [facility] 2023-11-30 18:02:19 Name/ MRN / Age / Gender: Lori Cohen, [id number] 23 year old female BMI: Estimated body mass index is 37.24 kg/m? as calculated from the following: Height as of this encounter: 1.575 m (5' 2"). Weight as of this encounter: 92.4 kg (203 lb 9.6 oz). Allergies: Tylenol [acetaminophen] Last Vitals: BP Readings from Last 1 Encounters: 11/30/23 102/60 Pulse Readings from Last 1 Encounters: 11/30/23 102 SpO2 Readings from Last 1 Encounters: 11/30/23 100% Date of Surgery: 11/30/2023 Surgeon: * No surgeons listed * Procedure: LABOR CONSULT OR Location: [facility]EST[facility] OUT OF OR - OR LOCATION Anesthesia Preop Eval (physical exam) Anesthesia History Anesthesia History Negative Previous Anesthetics/Airways Cardiovascular Negative Cardiac ROS Pulmonary (+) Asthma Neuro/Musculoskeletal Negative Neuro/Musculosketal ROS GI/Hepatic Negative GI/Hepatic ROS Hematology Negative Hematology ROS Renal Negative Renal ROS Skin Endo/Other Other DIRECTOR OF REHABILITATIVE SERVICES Comments: s/f IOL Gestational DM P: 1 Pediatric Preoperative Medication Instructions Continue taking all prescribed medications except: CHENG inhibitors, ARBs, diuretics, all oral diabetes medications Anticoagulant Therapy: Defer to surgeons Insulin: Take 1/2 dose the night prior to surgery. Hold on DOS. Phentermine: Alert [facility] anesthesiologist SGLT2 Inhibitors: "gliflozins" to be held for 3 days prior to elective surgeries GLP1 Agonosit: stop 7 days prior to surgery MAC Cases: Continue taking CHENG inhibitors and ARBs ASA Classification ASA: 2 Labs: Chemistry 08/20/2023 CBC 11/30/2023 133 (L) 103 9 85 10.51 10.3 (L) 284 4.0 21 (L) 0.52 32.2 (L) eGFR: 133.2 Date: 08/20/2023 ANC: 8.32 (H) Date: 11/30/2023 LFTs 08/20/2023 Coags AST: 16 AP: 131 (H) Prot: 6.9 Ca: 9.2 PT: - Date: - ALT: 9 T Sadi: 0.3 Alb: 3.6 PTT: - Date: - PO4: - Date: - INR: - Date: - Cardiac Endocrine & other pBNP: - Date: - A1C: 5.2 Date: 08/20/2023 Trop I: - Date: - TSH: - Date: - CK: - Date: - FT4: - Date: - CKMB: - Date: - Lact: - Date: - Procal: - Date: - Respiratory -|-|-|-|- D-dimer: - ABG Date: - Date: - Current Medications: No outpatient medications have been marked as taking for the 11/30/23 encounter (Hospital Encounter). Previous Surgeries: No past surgical history on file. Anesthesia Physical Exam General no apparent distress and alert and oriented x 3 Neuro/Psych Dental no notable dental hx Abdominal GI exam normal Airway Mallampati score:II TM distance:> 5 cm Neck ROM: full Mouth opening:normal Extremity Pulmonary pulmonary exam normal Other Cardiovascular Anesthesia Plan ASA Status: 2 Anesthetic plan on DOS: General, Epidural, Spinal, CSE and IT Catheter Anesthesia plan discussed with: patient or financial sales representative Post-Operative Analgesia: routine analgesia & antiemetics Recovery Plan: LDR Additional comments: H SETTER AN-ANESTHESIOLOGY ANESTHESIOLOGIST [facility] 2023-11-30 15:46:51 Problem: Intrapartum process (including labor pain) Goal: Absence of or reduction of complications of labor Outcome: Progressing as expected Goal: Able to cope with pain Outcome: Progressing as expected Goal: Adequate to move to next level of care Outcome: Progressing as expected Goal: Reduction in pain sensation Outcome: Progressing as expected Problem: Pain Goal: Control of pain at or below patient's documented comfort goal Outcome: Progressing as expected Goal: Reduction in pain sensation Outcome: Progressing as expected [facility] 2023-11-28 14:12:12 Patient informed of recommendations and informed to keep appt for tomorrow, verbalized understanding. [facility] 2023-11-28 13:58:46 Attempted to call patient, no answer, left vm. [facility] 2023-11-28 13:49:44 Per patient last usg, the recommendation is that pt be delivered bw 38-39 weeks. So her scheduled date may change, please let her know as soon as we have the date we will contact her PEEWEE Moffett 11/28/2023 1:51 PM [facility] 2023-10-29 10:15:00 Addended by: GONZALO BINGHAM on: 10/31/2023 09:51 AM Modules accepted: Level of Service [facility] 2023-10-01 10:15:00 Addended by: GONZALO BINGHAM on: 10/01/2023 11:23 AM Modules accepted: Orders [facility] 2023-06-10 15:15:03 Formatting of this n ote might be different from the original. Call placed to pharmacy and orders changed to one touch ultra since it is covered by her insurance. Informed patient supplies should be ready for picker and packer, verbalized understanding. [facility] 2023-06-10 15:02:35 Formatting of this n ote might be different from the original. Pt is requesting call back, states needs prior auth for diabetic supplies at pharmacy. Please call [phone] (home) SAVANNAH Lopez [facility] 2023-05-15 12:03:13 Formatting of this n ote might be different from the original. Lori Cohen is a 22 year old female Requesting refill for proMETHazine 25 mg tablet [facility]/pharmacy #[id number] AT [place] [id number] T [facility] 2023-05-06 15:46:34 Formatting of this n ote might be different from the original. Patient is stating she is needing a work excuse for her appt on 04/29. Informed patient work excuse sent to [employer]. T [facility] 2023-05-06 14:21:07 Formatting of this n ote might be different from the original. Lori Cohen is a 22 year old female Pt is calling requesting a work excuse from 04/29 last appt saying ok to return to work Wednesday 8/16 uploaded to her [facility] MyChart. Please contact pt at [phone]. Pravin Lomax [facility] 2023-05-02 13:14:15 Formatting of this n ote might be different from the original. Called patient, notified patient positive for UTI. Educated patient on antibiotics, good perineal hygiene, and increasing fluids. Pt verbalized understanding. ANYA Price RN 05/02/2023 1:14 PM [facility] 2023-05-02 13:01:21 Formatting of this n ote might be different from the original. Please notify the patient of UTI, meds have been sent to the pharmacy. Please advise the patient on good perineal hygiene, drinking plenty of water, and completing the entire course of treatment. PEEWEE Moffett 05/02/2023 1:01 PM [facility] 2023-04-30 15:44:52 Formatting of this n ote might be different from the original. Patient informed of results and need for gdm teaching. Appt made for 05/02/2023, informed to bring supplies to appt, verbalized understanding. [facility] 2023-04-30 15:33:13 Formatting of this n ote might be different from the original. Please notify the patient that she failed her 1hr gtt >200mgdl, please have her come in for a nurse visit for diabetic education. I have sent supplies to her pharmacy for her to picker and packer PEEWEE Moffett 04/30/2023 3:34 PM [facility]
--- NOTE | 2025-01-27 17:07 | ER ---
Nurse's Notes [facility] Name: Lori Handy Age: 24 yrs Sex: Female : 2000 Arrival Date: 01/27/2025 Time: 16:48 Bed DX3 Private MD: Diagnosis: Unspecified otitis externa, left ear;Unspecified otitis externa, right ear Presentation: 01/27 17:02 Chief complaint: Patient states: L ear pain since yesterday that got worse today at 1 me1 pm. Denies fever, took ibuprofen at 1320. Pain 7/10. Coronavirus screen: Vaccine status: Patient reports being unvaccinated. Ebola Screen: No symptoms or risks identified at this time. Initial Sepsis Screen: Does the patient meet any 2 criteria? No. Patient's initial sepsis screen is negative. Does the patient have a suspected source of infection? No. Patient's initial sepsis screen is negative. Risk Assessment: Do you want to hurt yourself or someone else? Patient reports no desire to harm self or others. Onset of symptoms was January 26, 2025. 17:02 [place] [facility] [place] Acuity: CRISTIANA 5 me1 Triage Assessment: 17:04 General: Appears in no apparent distress. well groomed, well developed, well nourished, me1 Behavior is calm, cooperative, appropriate for age. Pain: Complains of pain in left ear Pain does not radiate. Pain currently is 7 out of 10 on a pain scale. Quality of pain is described as sharp, Pain began suddenly, Is continuous. EENT: Reports pain in left ear. Neuro: Level of Consciousness is awake, alert, obeys commands, Oriented to person, place, time, situation, Appropriate for age. Cardiovascular: Patient's skin is warm and dry. Respiratory: Airway is patent Respiratory effort is even, unlabored, Respiratory pattern is regular, symmetrical. GI: No signs and/or symptoms were reported involving the gastrointestinal system. : No signs and/or symptoms were reported regarding the genitourinary system. Derm: Skin is intact, is healthy with good turgor, Skin is pink, warm \T\ dry. Musculoskeletal: No signs and/or symptoms reported regarding the musculoskeletal system. 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 - Infectious Disease History:: Denies. - Social history:: Smoking status: Patient denies any tobacco usage or history of. Screenin:06 [facility] ED Fall Risk Assessment (Adult) History of falling in the last 3 months, me1 including since admission No falls in past 3 months (0 pts) Confusion or Disorientation No (0 pts) Intoxicated or Sedated No (0 pts) Impaired Gait No (0 pts) Mobility Assist Device Used No (0 pt) Altered Elimination No (0 pt) Score/Fall Risk Level 0 - 2 = Low Risk Maintained a safe environment, Provided non-skid footwear, Hourly rounding (assess needs \T\ fall precautionary measures) done. Abuse screen: Denies threats or abuse. Nutritional screening: No deficits noted. Tuberculosis screening: No symptoms or risk factors identified. Assessment: 17:06 Reassessment: See triage assessment. me1 Vital Signs: 17:02 BP 108 / 56; Pulse 97; Resp 16; Temp 98.4; Pulse Ox 97% ; Weight 88.45 kg; Height 5 ft. me1 0 in. ; Pain 7/10; 17:02 Body Mass Index 38.08 (88.45 kg, 152.4 cm) me1 17:02 Pain Scale: Adult me1 ED Course: 16:51 Patient arrived in ED. mr 16:52 Michelle Jung FNP-C [facility]. kb 16:52 Oscar Laboy MD is Attending Physician. kb 17:02 Alessia Fox RN is Primary Nurse. me1 17:04 Triage completed. me1 17:04 Arm band placed on Patient placed in an exam room. me1 17:06 Patient has correct armband on for positive identification. Bed in low position. Call me1 light in reach. Side rails up X2. Provided Education on: POC. Verbalized understanding.. 17:06 No provider procedures requiring assistance completed. Patient did not have IV access me1 during this emergency room visit. Administered Medications: No medications were administered Medication: 17:06 VIS not applicable for this client. me1 Outcome: 16:58 Discharge ordered by . hi 17:07 Discharged to home ambulatory, me1 17:07 Condition: stable 17:07 Discharge instructions given to patient, Instructed on discharge instructions, follow up and referral plans. medication usage, Demonstrated understanding of instructions, follow-up care, medications, Prescriptions given X 1, 17:07 Patient left the ED. me1 Signatures: Michelle Jung, FOREIGN CAR MECHANIC-C FOREIGN CAR MECHANIC-Ckb Aga Franks, Reg Reg mr Alessia Fox, RN RN me1
[2025-01-27 18:28] VITALS: BP 108/56; TEMP 98.4; O2SAT 97
== END 2025-01-27 17:07 | disposition home or self-care (01) ==
LOC: ER 16:48
DX: H60.92 Unspecified otitis externa, left ear (principal); H60.91 Unspecified otitis externa, right ear

== ENCOUNTER 2025-06-20 08:41 | Emergency (ER) | payer OTHER ==
--- OUTSIDE RECORDS SUMMARY | 2025-06-20 08:55 | XMS REPORT | Continuity of Care Document ---
Author Name Unknown Address [address] [facility] [place] [address] [facility] Address [address] [facility] [address] [place] [address] Care Team Providers Care Engineer Station Mainline Name Role Phone TRENTON MENDOZA Primary Care Physician Unavailab TRENTON Weaver Attending Clinician Unavailable IMAN BOWERS Attending Clinician Unavailable AKINGONZALO GILMORE Attending Clinician Unavail able Ross Phillips MA Attending Clinician Unav aildago Akinnarciso Gonzalo TAVAREZ Attending Clinician + Doctor Unassigned, Moquino Attending Clinician U JENNIFER Rios Attending Clinician Unavailable ANDREIA CARLIN Attending Clinician Unav aildago Ely MD, Andreia Attending Clinician + Alexis Grubbs MD Attending Clinician [phone] Arnaud Brantley MD Attending Clinician [phone] Anita Gordillo MD Attending Clinician [phone] CLEM NEWMAN Attending Clinician Unaesa aildago Reyna, Ang-Mfm Attending Clinician Unavaildemi George MD, Clem Attending Clinician + Shirley Parikh CNM Attending Clinician [phone] SHIRLEY PARIKH Attending Clinician Unavaila ble CASA JEFFERY Attending Clinician Unavailable RUSSEL JEFFERYY Attending Clinician Unavailable Lab, Ang-Rmchp Attending Clinician Unavailable BERHANE RADFORD Attending Clinician Unav ailBerhane Rivas MD Attending Clinician + PHILLIP PEACOCK Attending Clinician Unavailable PHILLIP PEACOCK Attending Clinician Unavailable Phillip Peacock MD Attending Clinician [phone] ANDREIA CARLIN Admitting Clinician Unav ailable Andreia Carlin MD Admitting Clinician + Payers Payer Name Policy Type Policy Number Effective Date Expirati on Date Source [facility] [id number] 2023 00:00:00 [place] [id number] 2023 00:00:00 2023 00:00:00 Problems Condition Name Condition Details Condition Category Status Onset Date Resolution Date Last Treatment Date Treating Clinician Comments Source Other general counseling and advice for contracept edison management Other general counseling and advice for contracept edison management Disease Active 01-19 00:00: 00 [facility] Obesity (BMI 30.0-34.9) Obesity (BMI 30.0-34.9) Disease Active 01-19 00:00: 00 [facility] Nexplanon in place Nexplanon in place Disease Active 01-19 00:00: 00 [facility] Pregestati onal diabetes mellitus, modified White class B Pregestati onal diabetes mellitus, modified White class B Disease Active 04-30 00:00: 00 Overview: Formattin g of this note might be different from the original. Failed 1hr gtt >200Accid entally dosed at 26 weeks [facility] Allergy to acetaminop hen Allergy to acetaminop hen Disease Active 4-03 00:00: 00 [facility] Need for Tdap vaccinatio n Need for Tdap vaccinatio n Disease Active 2-04 00:00: 00 [facility] Over weight Over weight Disease Active 9-24 00:00: 00 [facility] care and examinatio n of lactating mother care and examinatio n of lactating mother Disease Resolve d 4-01 00:00: 00 2024-02-10 00:00:00 2024-02-10 08:59:07 [facility] Obesity (BMI 30-39.9) Obesity (BMI 30-39.9) Disease Resolve d 3-09 00:00: 00 2024-01-17 00:00:00 2024-01-17 09:13:20 [facility] Declines flu vaccine Declines flu vaccine Disease Resolve d 2-04 00:00: 00 2024-01-17 00:00:00 2024-01-17 09:13:22 [facility] 39 weeks gestation of 39 weeks gestation of Disease Resolve d 3-09 00:00: 00 2023-12-23 00:00:00 2023-12-23 10:38:35 [facility] Supervisio n of high-risk Supervisio n of high-risk Disease Resolve d 8-07 00:00: 00 2023-12-23 00:00:00 2023-12-23 10:38:41 [facility] Multiparit y Multiparit y Disease Resolve d 8-07 00:00: 00 2023-12-23 00:00:00 2023-12-23 10:38:37 [facility] UTI in UTI in Disease Resolve d 8-10 00:00: 00 2023-11-30 00:00:00 2023-11-30 19:38:27 Overview: Formattin g of this note might be different from the original. Corky neg [facility] History of asthma History of asthma Disease Resolve d 4-04 00:00: 00 2023-11-30 00:00:00 2023-11-30 19:43:46 [facility] Obesity in Obesity in Disease Resolve d 9-24 00:00: 00 2023-11-30 00:00:00 2023-11-30 19:38:23 [facility] Routine follow-up Routine follow-up Disease Resolve d 0 01-13 00:00: 00 2023-04-29 00:00:00 2023-04-29 14:08:20 [facility] 39 weeks gestation of 39 weeks gestation of Disease Resolve d 2018-0 4-03 00:00: 2019-01-13 00:00:00 2019-01-13 10:20:33 [facility] Labor and delivery indication for care or interventi on Labor and delivery indication for care or interventi on Disease Resolve d 2018-0 4-03 00:00: 00 2019-01-13 00:00:00 2019-01-13 10:20:40 [facility] Irregular uterine contractio ns Irregular uterine contractio ns Disease Resolve d 0 4-03 00:00: 00 2019-01-13 00:00:00 2019-01-13 10:20:31 [facility] Disease Resolve d 2018-0 4-03 00:00: 00 2019-01-13 00:00:00 2019-01-13 10:20:51 [facility] Normal spontaneou s vaginal delivery Normal spontaneou s vaginal delivery Disease Resolve d 2018-0 4-03 00:00: 00 2019-01-13 00:00:00 2019-01-13 10:20:47 [facility] Liveborn by vaginal delivery Liveborn by vaginal delivery Disease Resolve d 2018-0 4-03 00:00: 00 2019-01-13 00:00:00 2019-01-13 10:20:44 [facility] Obesity in Obesity in Disease Resolve d 2018-0 3-19 00:00: 00 2019-01-13 00:00:00 2019-01-13 10:20:50 [facility] Primigravi da in third trimester Primigravi da in third trimester Disease Resolve d 2017-1 1-19 00:00: 00 2019-01-13 00:00:00 2019-01-13 10:20:52 [facility] Abnormal maternal glucose tolerance, antepartum Abnormal maternal glucose tolerance, antepartum Disease Resolve d 06-17 00:00: 00 2019-01-13 00:00:00 2019-01-13 10:20:36 [facility] Supervisio n of high-risk Supervisio n of high-risk Disease Resolve d 06-16 00:00: 00 2019-01-13 00:00:00 2019-01-13 10:20:53 [facility] Round ligament pain Round ligament pain Disease Resolve d 2017-09 00:00: 00 2018-12-24 00:00:00 2018-12-24 08:23:45 [facility] Allergies, Adverse Reactions, Alerts Allergy Name Allergy Type Status Severity Reaction(s) Onset Date Inactive Date Treating Clinician Comments Source Acetamin ophen Propensi ty to adverse reaction s Active Anaphylaxis 05-31 00:00: 00 [facility] ACETAMIN OPHEN DRUG INGREDI Active High Anaphylaxis 05-31 00:00: 00 [facility] Social History Social Habit Start Date Stop Date Quantity Comments Source ASSERTION 2023-03-16 00:00:00 [facility] Alcohol intake 2024-01-17 00:00:00 2024-01-17 00:00:00 Current non-drinker of alcohol (finding) [facility] History of Social function 2019-04-02 00:00:00 2019-04-02 00:00:00 [facility] Alcoholic beverage intake 2018-06-17 00:00:00 2018-06-17 00:00:00 Current non-drinker of alcohol (finding) [facility] Tobacco use and exposure 2018-06-16 00:00:00 2018-06-16 00:00:00 Smokeless tobacco non-user [facility] Sex assigned at 2000 00:00:00 2000 00:00:00 [facility] Smoking Status Start Date Stop Date Source Never smoked tobacco [facility] Medications Ordered Medication Name Filled Medication Name Start Date Stop Date Current Medication? Ordering Clinician Indication Dosage Frequency Signature (SIG) Comments Components Source etonogestre L (NEXPLANON) implant 68 mg 01-16 15:00: 00 01-16 14:28 :00 No [id number] 68mg 68 mg, Subdermal, ONCE NOW, 1 dose, On Sat01/17/24 at 1000, Routine
Use approved by: SECURITY REP [facility] [id number] fum-folic () 27 mg iron- 1 mg folic tablet 12-01 00:00: 00 01-16 00:00 :00 No [id number] 1{tbl} Take 1 tablet by mouth in the morning. [facility] docusate 100 mg capsule 12-01 00:00: 00 01-16 00:00 :00 No [id number] 200mg Take 2 capsules by mouth once daily as needed for Constipati on. [facility] ferrous sulfate 325 mg (65 mg iron) tablet 12-01 00:00: 00 01-16 00:00 :00 No [id number] 325mg Take 1 tablet by mouth in the morning. [facility] ibuprofen 600 mg tablet 12-01 00:00: 00 01-16 00:00 :00 No [id number] 600mg Take 1 tablet by mouth every 6 (six) hours as needed (Pain). Take with food or milk. [facility] rho(D) immune globulin (RHOGAM) syringe 300 mcg 11-30 15:06: 49 Yes 300ug 300 mcg, Intramuscu lar, ONCE, For 1 dose, Conditiona l, Routine [facility] ibuprofen (IBU) tablet 600 mg 11-30 15:06: 46 Yes 600mg 600 mg, Oral, Q6HPRN, Starting on 12/01/23 at 1006, Until Discontinu ed, Routine, Pain (scale 4-6), Pain (scale 1-3) [facility] diphenhydrA MINE (BENADRYL) tablet 25 mg 11-30 15:06: 46 Yes 25mg 25 mg, Oral, Q6HPRN, Starting on 12/01/23 at 1006, Until Discontinu ed, Routine, Sleep, Itching [facility] ondansetron (ZOFRAN (PF)) injection 4 mg 11-30 15:06: 46 Yes 4mg 4 mg, Slow IV Push, Q8HPRN, Starting on Sat12/01/23 at 1006, Until Discontinu ed, Routine, Nausea and Vomiting (N/V) [facility] simethicone (GAS RELIEF (SIMETHICON E)) chewable tablet 160 mg 11-30 15:06: 46 Yes 160mg 160 mg, Oral, PC+HSPRN, Starting on Sat12/01/23 at 1006, Until Discontinu ed, Routine, Gas [facility] docusate (COLACE) capsule 200 mg 11-30 15:06: 46 Yes 200mg 200 mg, Oral, QDAILYPRN, Starting on Sat12/01/23 at 1006, Until Discontinu ed, Routine, Constipati on [facility] magnesium hydroxide (MILK OF MAGNESIA) 400 mg/5 mL suspension 30 mL 11-30 15:06: 46 Yes 30mL 30 mL, Oral, QDAILYPRN, Starting on Sat12/01/23 at 1006, Until Discontinu ed, Routine, Constipati on [facility] benzocaine- menthol (DERMOPLAST ) 20-0.5 % topical spray 11-30 15:06: 46 Yes Topical, PRN, Starting on Sat12/01/23 at 1006, Until Discontinu ed, Routine, Perineum discomfort [facility] amnioinfusi on IV infusion via GRAVITY [...] until the liter is complete.& nbsp;&nbsp ;Notify Patient Navigator if uterine resting tone exceeds 25 mmHg at any time during the amnioinfus ion. Obst etrics (NGUYEN) Aminoinfus ion Orders
[facility] terbutaline (BRETHINE) injection 0.25 mg 11-30 10:45: 00 11-30 09:56 :00 No .25mg 0.25 mg, Intravenou s, ONCE, 1 dose, On 12/01/23 at 0545, Routine [facility] ropivacaine 0.2 % (NAROPIN (PF)) epidural infusion 11-30 06:02: 00 12-01 00:14 :10 No Epidural, CONTINUOUS PRN, Starting on 12/01/23 at 0002, Until [place] 12/01/23 at 1914, Routine, Intra-op [facility] lidocaine-e pinephrine (XYLOCAINE W/EPINEPHRI NE) 1.5 %-1:200,000 injection 11-30 06:02: 00 12-01 00:14 :10 No Intraderma l, ONCE INTRA PROCEDURE, Starting on 12/01/23 at 0002, Until 12/01/23 at 1914, Routine, Intra-op [facility] Sliding Scale Insulin-Reg ular 11-30 03:00: 00 Yes Subcutaneo us, AC+HS, First dose on 11/30/23 at 2100, Until Discontinu ed, Routine [facility] sodium citrate-cit dao acid (BICITRA) 500-334 mg/5 mL solution 30 mL 11-29 22:14: 46 11-30 05:49 :00 No 30mL 30 mL, Oral, PRE-PROCED URE ONCE, 1 dose, Starting on 11/30/23 at 1614, Until Discontinu ed, Routine, Surgery/Pr ocedure [facility] lactated ringers IV infusion 500 mL 11-29 22:14: 45 11-30 15:06 :48 No 500mL at 999 mL/hr, 500 mL, IV Infusion, PRN - SEE INSTRUCTIO NS, Starting on 11/30/23 at 1614, Until 12/01/23 at 1006, Routine [facility] [id number]-[id number] IV infusion 1,000 mL 11-29 22:14: 45 11-30 15:06 :48 No 1000mL at 1-125 mL/hr, IV Infusion, TITRATE, Starting on 11/30/23 at 1614, Until 12/01/23 at 1006, Routine [facility] PNV 67-iron ps-folate no.1-dha (VITAFOL ULTRA) 29 mg iron- 1 mg-200 mg Cap 05-28 00:00: 00 12-01 00:00 :00 No [id number] 1{each} Take 1 Each by mouth in the morning. [facility] ampicillin 500 mg capsule 05-28 00:00: 00 06-08 04:59 :00 No [id number] 500mg Take 1 capsule by mouth 4 (four) times daily for 10 days. [facility] proMETHazin e 25 mg tablet 05-16 00:00: 00 12-01 00:00 :00 No [id number] 25mg Take 1 tablet by mouth every 6 (six) hours as needed for Nausea and Vomiting (N/V). [facility] ampicillin 500 mg capsule 05-02 00:00: 00 05-13 04:59 :00 No [id number] 500mg Take 1 capsule by mouth 4 (four) times daily for 10 days. [facility] lancets (FREESTYLE LANCETS) 28 gauge Misc 04-30 00:00: 00 Yes [id number] Check glucose 4x daily [facility] Blood-Gluco se Meter (FREESTYLE LITE METER) Kit 04-30 00:00: 00 Yes [id number] Check blood glucose 4x daily [facility] blood sugar diagnostic (FREESTYLE LITE STRIPS) strip 04-30 00:00: 00 Yes [id number] Check blood glucose 4x daily [facility] proMETHazin e 25 mg tablet 04-29 00:00: 00 05-16 00:00 :00 No [id number] 25mg Take 1 tablet by mouth every 6 (six) hours as needed for Nausea and Vomiting (N/V). [facility] docusate calcium 240 mg capsule 12-25 00:00: 00 04-29 00:00 :00 No [id number] 240mg Take 1 capsule by mouth once daily as needed for Constipati on. [facility] ibuprofen 600 mg tablet 12-25 00:00: 00 04-29 00:00 :00 No [id number] 600mg Take 1 tablet by mouth every 6 (six) hours as needed for Pain (scale 1-3) or Pain (scale 4-6) (Pain). Take with food or milk. [facility] Iron Fum & P-FA-Vit B & C No.9 (INTEGRA PLUS) 125 mg iron- 1 mg Cap 12-25 00:00: 00 04-29 00:00 :00 No [id number] 1{capsu le} Take 1 capsule by mouth daily. [facility] Immunizations Ordered Immunization Name Filled Immunization Name Date Status Comments Source Influenza Virus Vaccine Quad .5 mL IM 6+ MO 2018-10-27 00:00:00 Completed [facility] TDAP 2018-10-27 00:00:00 Completed [facility] Influenza Virus Vaccine Quad .5 mL IM 6+ MO 2018-10-27 00:00:00 Completed [facility] TDAP 2018-10-27 00:00:00 Completed [facility] Influenza Virus Vaccine Quad .5 mL IM 6+ MO 2018-10-27 00:00:00 Completed [facility] TDAP 2018-10-27 00:00:00 Completed [facility] Influenza Virus Vaccine Quad .5 mL IM 6+ MO 2018-10-27 00:00:00 Completed [facility] TDAP 2018-10-27 00:00:00 Completed [facility] Influenza Virus Vaccine Quad .5 mL IM 6+ MO 2018-10-27 00:00:00 Completed [facility] TDAP 2018-10-27 00:00:00 Completed [facility] Influenza Virus Vaccine Quad .5 mL IM 6+ MO 2018-10-27 00:00:00 Completed [facility] TDAP 2018-10-27 00:00:00 Completed [facility] Influenza Virus Vaccine Quad .5 mL IM 6+ MO (FLUZONE/FLULAVAL/FL UARIX) 2018-10-27 00:00:00 Completed [facility] TDAP 2018-10-27 00:00:00 Completed [facility] Influenza Virus Vaccine Quad .5 mL IM 6+ MO (FLUZONE/FLULAVAL/FL UARIX) 2018-10-27 00:00:00 Completed [facility] TDAP 2018-10-27 00:00:00 Completed [facility] Meningococcal Polysaccharide (groups A, C, Y and W-135) conjugate vaccine (MCV4P) 2017-05-06 00:00:00 Completed [facility] Meningococcal Polysaccharide (groups A, C, Y and W-135) conjugate vaccine (MCV4P) 2017-05-06 00:00:00 Completed [facility] Meningococcal Polysaccharide (groups A, C, Y and W-135) conjugate vaccine (MCV4P) 2017-05-06 00:00:00 Completed [facility] Meningococcal Polysaccharide (groups A, C, Y and W-135) conjugate vaccine (MCV4P) 2017-05-06 00:00:00 Completed [facility] Meningococcal Polysaccharide (groups A, C, Y and W-135) conjugate vaccine (MCV4P) 2017-05-06 00:00:00 Completed [facility] Meningococcal Polysaccharide (groups A, C, Y and W-135) conjugate vaccine (MCV4P) 2017-05-06 00:00:00 Completed [facility] Meningococcal Polysaccharide (groups A, C, Y and W-135) conjugate vaccine (MCV4P) 2017-05-06 00:00:00 Completed [facility] Meningococcal Polysaccharide (groups A, C, Y and W-135) conjugate vaccine (MCV4P) 2017-05-06 00:00:00 Completed [facility] Meningococcal Polysaccharide (groups A, C, Y and W-135) conjugate vaccine (MCV4P) 2017-05-06 00:00:00 Completed [facility] TDAP 2010-03-14 00:00:00 Completed [facility] Varicella (varivax)(chicken pox) 2010-03-14 00:00:00 Completed [facility] Meningococcal Polysaccharide (groups A, C, Y and W-135) conjugate vaccine (MCV4P) 2010-03-14 00:00:00 Completed [facility] Meningococcal Polysaccharide (groups A, C, Y and W-135) conjugate vaccine (MCV4P) 2010-03-14 00:00:00 Completed [facility] TDAP 2010-03-14 00:00:00 Completed [facility] Varicella (varivax)(chicken pox) 2010-03-14 00:00:00 Completed [facility] Meningococcal Polysaccharide (groups A, C, Y and W-135) conjugate vaccine (MCV4P) 2010-03-14 00:00:00 Completed [facility] TDAP 2010-03-14 00:00:00 Completed [facility] Varicella (varivax)(chicken pox) 2010-03-14 00:00:00 Completed [facility] Meningococcal Polysaccharide (groups A, C, Y and W-135) conjugate vaccine (MCV4P) 2010-03-14 00:00:00 Completed [facility] TDAP 2010-03-14 00:00:00 Completed [facility] Varicella (varivax)(chicken pox) 2010-03-14 00:00:00 Completed [facility] Meningococcal Polysaccharide (groups A, C, Y and W-135) conjugate vaccine (MCV4P) 2010-03-14 00:00:00 Completed [facility] TDAP 2010-03-14 00:00:00 Completed [facility] Varicella (varivax)(chicken pox) 2010-03-14 00:00:00 Completed [facility] Meningococcal Polysaccharide (groups A, C, Y and W-135) conjugate vaccine (MCV4P) 2010-03-14 00:00:00 Completed [facility] Meningococcal Polysaccharide (groups A, C, Y and W-135) conjugate vaccine (MCV4P) 2010-03-14 00:00:00 Completed TDAP 2010-03-14 00:00:00 Completed Varicella (varivax)(chicken pox) 2010-03-14 00:00:00 Completed TDAP 2010-03-14 00:00:00 Completed [facility] Varicella (varivax)(chicken pox) 2010-03-14 00:00:00 Completed [facility] Meningococcal Polysaccharide (groups A, C, Y and W-135) conjugate vaccine (MCV4P) 2010-03-14 00:00:00 Completed [facility] Meningococcal Polysaccharide (groups A, C, Y and W-135) conjugate vaccine (MCV4P) 2010-03-14 00:00:00 Completed [facility] TDAP 2010-03-14 00:00:00 Completed [facility] Varicella (varivax)(chicken pox) 2010-03-14 00:00:00 Completed [facility] TDAP 2010-03-14 00:00:00 Completed [facility] Varicella (varivax)(chicken pox) 2010-03-14 00:00:00 Completed [facility] PPD (TB) 2005-04-25 00:00:00 Completed [facility] PPD (TB) 2005-04-25 00:00:00 Completed [facility] PPD (TB) 2005-04-25 00:00:00 Completed [facility] PPD (TB) 2005-04-25 00:00:00 Completed [facility] PPD (TB) 2005-04-25 00:00:00 Completed [facility] PPD (TB) 2005-04-25 00:00:00 Completed PPD (TB) 2005-04-25 00:00:00 Completed [facility] PPD (TB) 2005-04-25 00:00:00 Completed [facility] PPD (TB) 2005-04-25 00:00:00 Completed [facility] PPD (TB) 2004-05-03 00:00:00 Completed [facility] PPD (TB) 2004-05-03 00:00:00 Completed [facility] PPD (TB) 2004-05-03 00:00:00 Completed [facility] PPD (TB) 2004-05-03 00:00:00 Completed [facility] PPD (TB) 2004-05-03 00:00:00 Completed [facility] PPD (TB) 2004-05-03 00:00:00 Completed PPD (TB) 2004-05-03 00:00:00 Completed [facility] PPD (TB) 2004-05-03 00:00:00 Completed [facility] PPD (TB) 2004-05-03 00:00:00 Completed [facility] Varicella (varivax)(chicken pox) 2002-11-30 00:00:00 Completed [facility] DTAP 2002-11-30 00:00:00 Completed [facility] MMR 2002-11-30 00:00:00 Completed [facility] Polio (IPV/OPV) 2002-11-30 00:00:00 Completed [facility] DTAP 2002-11-30 00:00:00 Completed [facility] MMR 2002-11-30 00:00:00 Completed [facility] Polio (IPV/OPV) 2002-11-30 00:00:00 Completed [facility] Varicella (varivax)(chicken pox) 2002-11-30 00:00:00 Completed [facility] DTAP 2002-11-30 00:00:00 Completed [facility] MMR 2002-11-30 00:00:00 Completed [facility] Polio (IPV/OPV) 2002-11-30 00:00:00 Completed [facility] Varicella (varivax)(chicken pox) 2002-11-30 00:00:00 Completed [facility] DTAP 2002-11-30 00:00:00 Completed [facility] MMR 2002-11-30 00:00:00 Completed [facility] Polio (IPV/OPV) 2002-11-30 00:00:00 Completed [facility] Varicella (varivax)(chicken pox) 2002-11-30 00:00:00 Completed [facility] DTAP 2002-11-30 00:00:00 Completed [facility] DTAP 2002-11-30 00:00:00 Completed [facility] MMR 2002-11-30 00:00:00 Completed [facility] Polio (IPV/OPV) 2002-11-30 00:00:00 Completed [facility] Varicella (varivax)(chicken pox) 2002-11-30 00:00:00 Completed [facility] DTAP 2002-11-30 00:00:00 Completed [facility] DTAP 2002-11-30 00:00:00 Completed MMR 2002-11-30 00:00:00 Completed [facility] MMR 2002-11-30 00:00:00 Completed Polio (IPV/OPV) 2002-11-30 00:00:00 Completed Varicella (varivax)(chicken pox) 2002-11-30 00:00:00 Completed Polio (IPV/OPV) 2002-11-30 00:00:00 Completed [facility] Varicella (varivax)(chicken pox) 2002-11-30 00:00:00 Completed [facility] MMR 2002-11-30 00:00:00 Completed [facility] Polio (IPV/OPV) 2002-11-30 00:00:00 Completed [facility] DTAP 2002-11-30 00:00:00 Completed [facility] MMR 2002-11-30 00:00:00 Completed [facility] Polio (IPV/OPV) 2002-11-30 00:00:00 Completed [facility] Varicella (varivax)(chicken pox) 2002-11-30 00:00:00 Completed [facility] Varicella (varivax)(chicken pox) 2002-11-30 00:00:00 Completed [facility] HEPATITIS A 2001-08-11 00:00:00 Completed [facility] HEPATITIS A 2001-08-11 00:00:00 Completed [facility] HEPATITIS A 2001-08-11 00:00:00 Completed [facility] HEPATITIS A 2001-08-11 00:00:00 Completed [facility] HEPATITIS A 2001-08-11 00:00:00 Completed [facility] HEPATITIS A 2001-08-11 00:00:00 Completed [facility] HEPATITIS A 2001-08-11 00:00:00 Completed [facility] HEPATITIS A 2001-08-11 00:00:00 Completed HEPATITIS A 2001-08-11 00:00:00 Completed [facility] HEPATITIS A 2000-12-19 00:00:00 [facility] [facility] HEPATITIS A 2000-12-19 00:00:00 Completed [facility] HEPATITIS A 2000-12-19 00:00:00 Completed [facility] HEPATITIS A 2000-12-19 00:00:00 Completed [facility] HEPATITIS A 2000-12-19 00:00:00 Completed [facility] HEPATITIS A 2000-12-19 00:00:00 Completed [facility] HEPATITIS A 2000-12-19 00:00:00 Completed [facility] HEPATITIS A 2000-12-19 00:00:00 Completed HEPATITIS A 2000-12-19 00:00:00 Completed [facility] PPD (TB) 2000-01-26 00:00:00 Completed [facility] PPD (TB) 2000-01-26 00:00:00 Completed [facility] PPD (TB) 2000-01-26 00:00:00 Completed [facility] PPD (TB) 2000-01-26 00:00:00 Completed [facility] PPD (TB) 2000-01-26 00:00:00 Completed [facility] PPD (TB) 2000-01-26 00:00:00 Completed PPD (TB) 2000-01-26 00:00:00 Completed [facility] PPD (TB) 2000-01-26 00:00:00 Completed [facility] PPD (TB) 2000-01-26 00:00:00 Completed [facility] DTAP 1999-11-22 00:00:00 Completed [facility] MMR 1999-11-22 00:00:00 Completed [facility] Polio (IPV/OPV) 1999-11-22 00:00:00 Completed [facility] DTAP 1999-11-22 00:00:00 Completed [facility] MMR 1999-11-22 00:00:00 Completed [facility] Polio (IPV/OPV) 1999-11-22 00:00:00 Completed [facility] DTAP 1999-11-22 00:00:00 Completed [facility] MMR 1999-11-22 00:00:00 Completed [facility] Polio (IPV/OPV) 1999-11-22 00:00:00 Completed [facility] DTAP 1999-11-22 00:00:00 Completed [facility] MMR 1999-11-22 00:00:00 Completed [facility] Polio (IPV/OPV) 1999-11-22 00:00:00 Completed [facility] DTAP 1999-11-22 00:00:00 Completed [facility] DTAP 1999-11-22 00:00:00 Completed [facility] MMR 1999-11-22 00:00:00 Completed [facility] Polio (IPV/OPV) 1999-11-22 00:00:00 Completed [facility] DTAP 1999-11-22 00:00:00 Completed [facility] MMR 1999-11-22 00:00:00 Completed [facility] DTAP 1999-11-22 00:00:00 Completed MMR 1999-11-22 00:00:00 Completed Polio (IPV/OPV) 1999-11-22 00:00:00 Completed Polio (IPV/OPV) 1999-11-22 00:00:00 Completed [facility] MMR 1999-11-22 00:00:00 Completed [facility] DTAP 1999-11-22 00:00:00 Completed [facility] Polio (IPV/OPV) 1999-11-22 00:00:00 Completed [facility] MMR 1999-11-22 00:00:00 Completed [facility] Polio (IPV/OPV) 1999-11-22 00:00:00 Completed [facility] DTAP 1999-05-06 00:00:00 Completed [facility] HIB 4 Dose Schedule 1999-05-06 00:00:00 Completed [facility] DTAP 1999-05-06 00:00:00 Completed [facility] HIB 4 Dose Schedule 1999-05-06 00:00:00 Completed [facility] DTAP 1999-05-06 00:00:00 Completed [facility] HIB 4 Dose Schedule 1999-05-06 00:00:00 Completed [facility] DTAP 1999-05-06 00:00:00 Completed [facility] HIB 4 Dose Schedule 1999-05-06 00:00:00 Completed [facility] DTAP 1999-05-06 00:00:00 Completed [facility] DTAP 1999-05-06 00:00:00 Completed [facility] HIB 4 Dose Schedule 1999-05-06 00:00:00 Completed [facility] HIB 4 Dose Schedule 1999-05-06 00:00:00 Completed [facility] DTAP 1999-05-06 00:00:00 Completed [facility] HIB 4 Dose Schedule 1999-05-06 00:00:00 Completed [facility] DTAP 1999-05-06 00:00:00 Completed HIB 4 Dose Schedule 1999-05-06 00:00:00 Completed DTAP 1999-05-06 00:00:00 Completed [facility] HIB 4 Dose Schedule 1999-05-06 00:00:00 Completed [facility] Hep B, Adol or Pedi Dosage 1999-04-23 00:00:00 Completed [facility] Hep B, Adol or Pedi Dosage 1999-04-23 00:00:00 Completed [facility] Hep B, Adol or Pedi Dosage 1999-04-23 00:00:00 Completed [facility] Hep B, Adol or Pedi Dosage 1999-04-23 00:00:00 Completed [facility] Hep B, Adol or Pedi Dosage 1999-04-23 00:00:00 Completed [facility] Hep B, Adol or Pedi Dosage 1999-04-23 00:00:00 Completed [facility] Hep B, Adol or Pedi Dosage 1999-04-23 00:00:00 Completed Hep B, Adol or Pedi Dosage 1999-04-23 00:00:00 Completed [facility] Hep B, Adol or Pedi Dosage 1999-04-23 00:00:00 Completed [facility] DTAP 1999-03-06 00:00:00 Completed [facility] HIB 4 Dose Schedule 1999-03-06 00:00:00 Completed [facility] Polio (IPV/OPV) 1999-03-06 00:00:00 Completed [facility] DTAP 1999-03-06 00:00:00 Completed [facility] HIB 4 Dose Schedule 1999-03-06 00:00:00 Completed [facility] Polio (IPV/OPV) 1999-03-06 00:00:00 Completed [facility] DTAP 1999-03-06 00:00:00 Completed [facility] HIB 4 Dose Schedule 1999-03-06 00:00:00 Completed [facility] Polio (IPV/OPV) 1999-03-06 00:00:00 Completed [facility] DTAP 1999-03-06 00:00:00 Completed [facility] HIB 4 Dose Schedule 1999-03-06 00:00:00 Completed [facility] DTAP 1999-03-06 00:00:00 Completed [facility] Polio (IPV/OPV) 1999-03-06 00:00:00 Completed [facility] DTAP 1999-03-06 00:00:00 Completed [facility] HIB 4 Dose Schedule 1999-03-06 00:00:00 Completed [facility] Polio (IPV/OPV) 1999-03-06 00:00:00 Completed [facility] HIB 4 Dose Schedule 1999-03-06 00:00:00 Completed [facility] DTAP 1999-03-06 00:00:00 Completed [facility] HIB 4 Dose Schedule 1999-03-06 00:00:00 Completed [facility] DTAP 1999-03-06 00:00:00 Completed HIB 4 Dose Schedule 1999-03-06 00:00:00 Completed Polio (IPV/OPV) 1999-03-06 00:00:00 Completed Polio (IPV/OPV) 1999-03-06 00:00:00 Completed [facility] Polio (IPV/OPV) 1999-03-06 00:00:00 Completed [facility] DTAP 1999-03-06 00:00:00 Completed [facility] HIB 4 Dose Schedule 1999-03-06 00:00:00 Completed [facility] Polio (IPV/OPV) 1999-03-06 00:00:00 Completed [facility] DTAP 1999-01-03 00:00:00 Completed [facility] HIB 4 Dose Schedule 1999-01-03 00:00:00 Completed [facility] Hep B, Adol or Pedi Dosage 1999-01-03 00:00:00 Completed [facility] Polio (IPV/OPV) 1999-01-03 00:00:00 Completed [facility] DTAP 1999-01-03 00:00:00 Completed [facility] HIB 4 Dose Schedule 1999-01-03 00:00:00 Completed [facility] Hep B, Adol or Pedi Dosage 1999-01-03 00:00:00 Completed [facility] Polio (IPV/OPV) 1999-01-03 00:00:00 Completed [facility] DTAP 1999-01-03 00:00:00 Completed [facility] HIB 4 Dose Schedule 1999-01-03 00:00:00 Completed [facility] Hep B, Adol or Pedi Dosage 1999-01-03 00:00:00 Completed [facility] Polio (IPV/OPV) 1999-01-03 00:00:00 Completed [facility] DTAP 1999-01-03 00:00:00 Completed [facility] DTAP 1999-01-03 00:00:00 Completed [facility] HIB 4 Dose Schedule 1999-01-03 00:00:00 Completed [facility] Hep B, Adol or Pedi Dosage 1999-01-03 00:00:00 Completed [facility] Polio (IPV/OPV) 1999-01-03 00:00:00 Completed [facility] DTAP 1999-01-03 00:00:00 Completed [facility] HIB 4 Dose Schedule 1999-01-03 00:00:00 Completed [facility] HIB 4 Dose Schedule 1999-01-03 00:00:00 Completed [facility] Hep B, Adol or Pedi Dosage 1999-01-03 00:00:00 Completed [facility] Polio (IPV/OPV) 1999-01-03 00:00:00 Completed [facility] DTAP 1999-01-03 00:00:00 Completed [facility] HIB 4 Dose Schedule 1999-01-03 00:00:00 Completed [facility] Hep B, Adol or Pedi Dosage 1999-01-03 00:00:00 Completed [facility] DTAP 1999-01-03 00:00:00 Completed [facility] HIB 4 Dose Schedule 1999-01-03 00:00:00 Completed Hep B, Adol or Pedi Dosage 1999-01-03 00:00:00 Completed Polio (IPV/OPV) 1999-01-03 00:00:00 Completed Polio (IPV/OPV) 1999-01-03 00:00:00 Completed [facility] Hep B, Adol or Pedi Dosage 1999-01-03 00:00:00 Completed [facility] Polio (IPV/OPV) 1999-01-03 00:00:00 Completed [facility] DTAP 1999-01-03 00:00:00 Completed [facility] HIB 4 Dose Schedule 1999-01-03 00:00:00 Completed [facility] Hep B, Adol or Pedi Dosage 1999-01-03 00:00:00 Completed [facility] Polio (IPV/OPV) 1999-01-03 00:00:00 Completed [facility] Hep B, Adol or Pedi Dosage 1998 00:00:00 Completed [facility] Hep B, Adol or Pedi Dosage 1998 00:00:00 Completed [facility] Hep B, Adol or Pedi Dosage 1998 00:00:00 Completed [facility] Hep B, Adol or Pedi Dosage 1998 00:00:00 Completed [facility] Hep B, Adol or Pedi Dosage 1998 00:00:00 Completed [facility] Hep B, Adol or Pedi Dosage 1998 00:00:00 Completed [facility] Hep B, Adol or Pedi Dosage 1998 00:00:00 Completed [facility] Hep B, Adol or Pedi Dosage 1998 00:00:00 Completed Hep B, Adol or Pedi Dosage 1998 00:00:00 Completed [facility] HEPATITIS A Unknown Completed [facility] Hep B, Adol or Pedi Dosage Unknown Completed [facility] Meningococcal Polysaccharide (groups A, C, Y and W-135) conjugate vaccine (MCV4P) Unknown Completed [facility] MMR Unknown Completed [facility] Polio (IPV/OPV) Unknown Completed [facility] PPD (TB) Unknown Completed [facility] TDAP Unknown Completed [facility] Varicella (varivax)(chicken pox) Unknown Completed [facility] Influenza Virus Vaccine Quad IM, Preserv and ABX Free 6 MO-64 YRS (FLUCELVAX) Unknown Completed [facility] Meningococcal Polysaccharide (groups A, C, Y and W-135) conjugate vaccine (MCV4P) Unknown Completed [facility] Influenza Virus Vaccine Quad .5 mL IM 6+ MO (FLUZONE/FLULAVAL/FL UARIX) Unknown Completed [facility] TDAP Unknown Completed [facility] DTAP Unknown Completed [facility] HIB 4 Dose Schedule Unknown Completed [facility] HEPATITIS A Unknown Completed [facility] Hep B, Adol or Pedi Dosage Unknown Completed [facility] MMR Unknown Completed [facility] Polio (IPV/OPV) Unknown Completed [facility] PPD (TB) Unknown Completed [facility] Varicella (varivax)(chicken pox) Unknown Completed [facility] Influenza Virus Vaccine Quad IM, Preserv and ABX Free 6 MO-64 YRS (FLUCELVAX) Unknown Completed [facility] Meningococcal Polysaccharide (groups A, C, Y and W-135) conjugate vaccine (MCV4P) Unknown Completed [facility] Influenza Virus Vaccine Quad .5 mL IM 6+ MO (FLUZONE/FLULAVAL/FL UARIX) Unknown Completed [facility] TDAP Unknown Completed [facility] DTAP Unknown Completed [facility] HIB 4 Dose Schedule Unknown Completed [facility] HEPATITIS A Unknown Completed [facility] Hep B, Adol or Pedi Dosage Unknown Completed [facility] MMR Unknown Completed [facility] Polio (IPV/OPV) Unknown Completed [facility] PPD (TB) Unknown Completed [facility] Varicella (varivax)(chicken pox) Unknown Completed [facility] Influenza Virus Vaccine Quad IM, Preserv and ABX Free 6 MO-64 YRS (FLUCELVAX) Unknown Completed [facility] Meningococcal Polysaccharide (groups A, C, Y and W-135) conjugate vaccine (MCV4P) Unknown Completed [facility] Influenza Virus Vaccine Quad .5 mL IM 6+ MO (FLUZONE/FLULAVAL/FL UARIX) Unknown Completed [facility] TDAP Unknown Completed [facility] DTAP Unknown Completed [facility] HIB 4 Dose Schedule Unknown Completed [facility] HEPATITIS A Unknown Completed [facility] Hep B, Adol or Pedi Dosage Unknown Completed [facility] MMR Unknown Completed [facility] Polio (IPV/OPV) Unknown Completed [facility] PPD (TB) Unknown Completed [facility] Varicella (varivax)(chicken pox) Unknown Completed [facility] Influenza Virus Vaccine Quad IM, Preserv and ABX Free 6 MO-64 YRS (FLUCELVAX) Unknown Completed [facility] Meningococcal Polysaccharide (groups A, C, Y and W-135) conjugate vaccine (MCV4P) Unknown Completed [facility] Influenza Virus Vaccine Quad .5 mL IM 6+ MO (FLUZONE/FLULAVAL/FL UARIX) Unknown Completed [facility] TDAP Unknown Completed [facility] DTAP Unknown Completed [facility] HIB 4 Dose Schedule Unknown Completed [facility] HEPATITIS A Unknown Completed [facility] Hep B, Adol or Pedi Dosage Unknown Completed [facility] MMR Unknown Completed [facility] Polio (IPV/OPV) Unknown Completed [facility] PPD (TB) Unknown Completed [facility] Varicella (varivax)(chicken pox) Unknown Completed [facility] Influenza Virus Vaccine Quad IM, Preserv and ABX Free 6 MO-64 YRS (FLUCELVAX) Unknown Completed [facility] Meningococcal Polysaccharide (groups A, C, Y and W-135) conjugate vaccine (MCV4P) Unknown Completed [facility] Influenza Virus Vaccine Quad .5 mL IM 6+ MO (FLUZONE/FLULAVAL/FL UARIX) Unknown Completed [facility] TDAP Unknown Completed [facility] DTAP Unknown Completed [facility] HIB 4 Dose Schedule Unknown Completed [facility] HEPATITIS A Unknown Completed [facility] Hep B, Adol or Pedi Dosage Unknown Completed [facility] MMR Unknown Completed [facility] Polio (IPV/OPV) Unknown Completed [facility] PPD (TB) Unknown Completed [facility] Varicella (varivax)(chicken pox) Unknown Completed [facility] Influenza Virus Vaccine Quad IM, Preserv and ABX Free 6 MO-64 YRS (FLUCELVAX) Unknown Completed [facility] Meningococcal Polysaccharide (groups A, C, Y and W-135) conjugate vaccine (MCV4P) Unknown Completed [facility] Influenza Virus Vaccine Quad .5 mL IM 6+ MO (FLUZONE/FLULAVAL/FL UARIX) Unknown Completed [facility] TDAP Unknown Completed [facility] DTAP Unknown Completed [facility] HIB 4 Dose Schedule Unknown Completed [facility] HEPATITIS A Unknown Completed [facility] Hep B, Adol or Pedi Dosage Unknown Completed [facility] MMR Unknown Completed [facility] Polio (IPV/OPV) Unknown Completed [facility] PPD (TB) Unknown Completed [facility] Varicella (varivax)(chicken pox) Unknown Completed [facility] Influenza Virus Vaccine Quad IM, Preserv and ABX Free 6 MO-64 YRS (FLUCELVAX) Unknown Completed [facility] Meningococcal Polysaccharide (groups A, C, Y and W-135) conjugate vaccine (MCV4P) Unknown Completed [facility] Influenza Virus Vaccine Quad .5 mL IM 6+ MO (FLUZONE/FLULAVAL/FL UARIX) Unknown Completed [facility] TDAP Unknown Completed [facility] DTAP Unknown Completed [facility] HIB 4 Dose Schedule Unknown Completed [facility] HEPATITIS A Unknown Completed [facility] Hep B, Adol or Pedi Dosage Unknown Completed [facility] MMR Unknown Completed [facility] Polio (IPV/OPV) Unknown Completed [facility] PPD (TB) Unknown Completed [facility] Varicella (varivax)(chicken pox) Unknown Completed [facility] Influenza Virus Vaccine Quad IM, Preserv and ABX Free 6 MO-64 YRS (FLUCELVAX) Unknown Completed [facility] Meningococcal Polysaccharide (groups A, C, Y and W-135) conjugate vaccine (MCV4P) Unknown Completed [facility] Influenza Virus Vaccine Quad .5 mL IM 6+ MO (FLUZONE/FLULAVAL/FL UARIX) Unknown Completed [facility] TDAP Unknown Completed [facility] DTAP Unknown Completed [facility] HIB 4 Dose Schedule Unknown Completed [facility] HEPATITIS A Unknown Completed [facility] Hep B, Adol or Pedi Dosage Unknown Completed [facility] MMR Unknown Completed [facility] Polio (IPV/OPV) Unknown Completed [facility] PPD (TB) Unknown Completed [facility] Varicella (varivax)(chicken pox) Unknown Completed [facility] Influenza Virus Vaccine Quad IM, Preserv and ABX Free 6 MO-64 YRS (FLUCELVAX) Unknown Completed [facility] Meningococcal Polysaccharide (groups A, C, Y and W-135) conjugate vaccine (MCV4P) Unknown Completed [facility] Influenza Virus Vaccine Quad .5 mL IM 6+ MO (FLUZONE/FLULAVAL/FL UARIX) Unknown Completed [facility] TDAP Unknown Completed [facility] DTAP Unknown Completed [facility] HIB 4 Dose Schedule Unknown Completed [facility] HEPATITIS A Unknown Completed [facility] Hep B, Adol or Pedi Dosage Unknown Completed [facility] MMR Unknown Completed [facility] Polio (IPV/OPV) Unknown Completed [facility] PPD (TB) Unknown Completed [facility] Varicella (varivax)(chicken pox) Unknown Completed [facility] Influenza Virus Vaccine Quad IM, Preserv and ABX Free 6 MO-64 YRS (FLUCELVAX) Unknown Completed [facility] Meningococcal Polysaccharide (groups A, C, Y and W-135) conjugate vaccine (MCV4P) Unknown Completed [facility] Influenza Virus Vaccine Quad .5 mL IM 6+ MO (FLUZONE/FLULAVAL/FL UARIX) Unknown Completed [facility] TDAP Unknown Completed [facility] DTAP Unknown Completed [facility] HIB 4 Dose Schedule Unknown Completed [facility] HEPATITIS A Unknown Completed [facility] Hep B, Adol or Pedi Dosage Unknown Completed [facility] MMR Unknown Completed [facility] Polio (IPV/OPV) Unknown Completed [facility] PPD (TB) Unknown Completed [facility] Varicella (varivax)(chicken pox) Unknown Completed [facility] Influenza Virus Vaccine Quad IM, Preserv and ABX Free 6 MO-64 YRS (FLUCELVAX) Unknown Completed [facility] Meningococcal Polysaccharide (groups A, C, Y and W-135) conjugate vaccine (MCV4P) Unknown Completed [facility] Influenza Virus Vaccine Quad .5 mL IM 6+ MO (FLUZONE/FLULAVAL/FL UARIX) Unknown Completed [facility] TDAP Unknown Completed [facility] DTAP Unknown Completed [facility] HIB 4 Dose Schedule Unknown Completed [facility] HEPATITIS A Unknown Completed [facility] Hep B, Adol or Pedi Dosage Unknown Completed [facility] MMR Unknown Completed [facility] Polio (IPV/OPV) Unknown Completed [facility] PPD (TB) Unknown Completed [facility] Varicella (varivax)(chicken pox) Unknown Completed [facility] Influenza Virus Vaccine Quad IM, Preserv and ABX Free 6 MO-64 YRS (FLUCELVAX) Unknown Completed [facility] Meningococcal Polysaccharide (groups A, C, Y and W-135) conjugate vaccine (MCV4P) Unknown Completed [facility] Influenza Virus Vaccine Quad .5 mL IM 6+ MO (FLUZONE/FLULAVAL/FL UARIX) Unknown Completed [facility] TDAP Unknown Completed [facility] DTAP Unknown Completed [facility] HIB 4 Dose Schedule Unknown Completed [facility] HEPATITIS A Unknown Completed [facility] Hep B, Adol or Pedi Dosage Unknown Completed [facility] MMR Unknown Completed [facility] Polio (IPV/OPV) Unknown Completed [facility] PPD (TB) Unknown Completed [facility] Varicella (varivax)(chicken pox) Unknown Completed [facility] Influenza Virus Vaccine Quad IM, Preserv and ABX Free 6 MO-64 YRS (FLUCELVAX) Unknown Completed [facility] Meningococcal Polysaccharide (groups A, C, Y and W-135) conjugate vaccine (MCV4P) Unknown Completed [facility] Influenza Virus Vaccine Quad .5 mL IM 6+ MO (FLUZONE/FLULAVAL/FL UARIX) Unknown Completed [facility] TDAP Unknown Completed [facility] DTAP Unknown Completed [facility] HIB 4 Dose Schedule Unknown Completed [facility] HEPATITIS A Unknown Completed [facility] Hep B, Adol or Pedi Dosage Unknown Completed [facility] MMR Unknown Completed [facility] Polio (IPV/OPV) Unknown Completed [facility] PPD (TB) Unknown Completed [facility] Varicella (varivax)(chicken pox) Unknown Completed [facility] Influenza Virus Vaccine Quad IM, Preserv and ABX Free 6 MO-64 YRS (FLUCELVAX) Unknown Completed [facility] Influenza Virus Vaccine Quad .5 mL IM 6+ MO (FLUZONE/FLULAVAL/FL UARIX) Unknown Completed [facility] Influenza Virus Vaccine Quad IM, Preserv and ABX Free 6 MO-64 YRS (FLUCELVAX) Unknown Completed [facility] Meningococcal Polysaccharide (groups A, C, Y and W-135) conjugate vaccine (MCV4P) Unknown Completed [facility] TDAP Unknown Completed [facility] DTAP Unknown Completed [facility] HIB 4 Dose Schedule Unknown Completed [facility] HEPATITIS A Unknown Completed [facility] Hep B, Adol or Pedi Dosage Unknown Completed [facility] MMR Unknown Completed [facility] Polio (IPV/OPV) Unknown Completed [facility] PPD (TB) Unknown Completed [facility] Varicella (varivax)(chicken pox) Unknown Completed [facility] Meningococcal Polysaccharide (groups A, C, Y and W-135) conjugate vaccine (MCV4P) Unknown Completed [facility] Influenza Virus Vaccine Quad .5 mL IM 6+ MO (FLUZONE/FLULAVAL/FL UARIX) Unknown Completed [facility] TDAP Unknown Completed [facility] DTAP Unknown Completed [facility] HIB 4 Dose Schedule Unknown Completed [facility] HEPATITIS A Unknown Completed [facility] Hep B, Adol or Pedi Dosage Unknown Completed [facility] MMR Unknown Completed [facility] Polio (IPV/OPV) Unknown Completed [facility] PPD (TB) Unknown Completed [facility] Varicella (varivax)(chicken pox) Unknown Completed [facility] Influenza Virus Vaccine Quad IM, Preserv and ABX Free 6 MO-64 YRS (FLUCELVAX) Unknown Completed [facility] Meningococcal Polysaccharide (groups A, C, Y and W-135) conjugate vaccine (MCV4P) Unknown Completed [facility] Influenza Virus Vaccine Quad .5 mL IM 6+ MO (FLUZONE/FLULAVAL/FL UARIX) Unknown Completed [facility] TDAP Unknown Completed [facility] DTAP Unknown Completed [facility] HIB 4 Dose Schedule Unknown Completed [facility] HEPATITIS A Unknown Completed [facility] Hep B, Adol or Pedi Dosage Unknown Completed [facility] MMR Unknown Completed [facility] Polio (IPV/OPV) Unknown Completed [facility] PPD (TB) Unknown Completed [facility] Varicella (varivax)(chicken pox) Unknown Completed [facility] Influenza Virus Vaccine Quad IM, Preserv and ABX Free 6 MO-64 YRS (FLUCELVAX) Unknown Completed [facility] Meningococcal Polysaccharide (groups A, C, Y and W-135) conjugate vaccine (MCV4P) Unknown Completed [facility] Influenza Virus Vaccine Quad .5 mL IM 6+ MO (FLUZONE/FLULAVAL/FL UARIX) Unknown Completed [facility] TDAP Unknown Completed [facility] DTAP Unknown Completed [facility] HIB 4 Dose Schedule Unknown Completed [facility] HEPATITIS A Unknown Completed [facility] Hep B, Adol or Pedi Dosage Unknown Completed [facility] MMR Unknown Completed [facility] Polio (IPV/OPV) Unknown Completed [facility] PPD (TB) Unknown Completed [facility] Varicella (varivax)(chicken pox) Unknown Completed [facility] Influenza Virus Vaccine Quad IM, Preserv and ABX Free 6 MO-64 YRS (FLUCELVAX) Unknown Completed [facility] Meningococcal Polysaccharide (groups A, C, Y and W-135) conjugate vaccine (MCV4P) Unknown Completed [facility] Influenza Virus Vaccine Quad .5 mL IM 6+ MO (FLUZONE/FLULAVAL/FL UARIX) Unknown Completed [facility] DTAP Unknown Completed [facility] HIB 4 Dose Schedule Unknown Completed [facility] HEPATITIS A Unknown Completed [facility] Hep B, Adol or Pedi Dosage Unknown Completed [facility] MMR Unknown Completed [facility] Polio (IPV/OPV) Unknown Completed [facility] PPD (TB) Unknown Completed [facility] Varicella (varivax)(chicken pox) Unknown Completed [facility] Influenza Virus Vaccine Quad IM, Preserv and ABX Free 6 MO-64 YRS (FLUCELVAX) Unknown Completed [facility] TDAP Unknown Completed [facility] Influenza Virus Vaccine Quad .5 mL IM 6+ MO (FLUZONE/FLULAVAL/FL UARIX) Unknown Completed [facility] Influenza Virus Vaccine Quad IM, Preserv and ABX Free 6 MO-64 YRS (FLUCELVAX) Unknown Completed [facility] Meningococcal Polysaccharide (groups A, C, Y and W-135) conjugate vaccine (MCV4P) Unknown Completed [facility] TDAP Unknown Completed [facility] DTAP Unknown Completed [facility] HIB 4 Dose Schedule Unknown Completed [facility] HEPATITIS A Unknown Completed [facility] Hep B, Adol or Pedi Dosage Unknown Completed [facility] MMR Unknown Completed [facility] Polio (IPV/OPV) Unknown Completed [facility] PPD (TB) Unknown Completed [facility] Varicella (varivax)(chicken pox) Unknown Completed [facility] Meningococcal Polysaccharide (groups A, C, Y and W-135) conjugate vaccine (MCV4P) Unknown Completed [facility] Influenza Virus Vaccine Quad .5 mL IM 6+ MO (FLUZONE/FLULAVAL/FL UARIX) Unknown Completed [facility] TDAP Unknown Completed [facility] DTAP Unknown Completed [facility] HIB 4 Dose Schedule Unknown Completed [facility] HEPATITIS A Unknown Completed [facility] Hep B, Adol or Pedi Dosage Unknown Completed [facility] MMR Unknown Completed [facility] Polio (IPV/OPV) Unknown Completed [facility] PPD (TB) Unknown Completed [facility] Varicella (varivax)(chicken pox) Unknown Completed [facility] Influenza Virus Vaccine Quad IM, Preserv and ABX Free 6 MO-64 YRS (FLUCELVAX) Unknown Completed [facility] Meningococcal Polysaccharide (groups A, C, Y and W-135) conjugate vaccine (MCV4P) Unknown Completed [facility] Influenza Virus Vaccine Quad .5 mL IM 6+ MO (FLUZONE/FLULAVAL/FL UARIX) Unknown Completed [facility] TDAP Unknown Completed [facility] DTAP Unknown Completed [facility] HIB 4 Dose Schedule Unknown Completed [facility] HEPATITIS A Unknown Completed [facility] Hep B, Adol or Pedi Dosage Unknown Completed [facility] MMR Unknown Completed [facility] Polio (IPV/OPV) Unknown Completed [facility] PPD (TB) Unknown Completed [facility] Varicella (varivax)(chicken pox) Unknown Completed [facility] Influenza Virus Vaccine Quad IM, Preserv and ABX Free 6 MO-64 YRS (FLUCELVAX) Unknown Completed [facility] Meningococcal Polysaccharide (groups A, C, Y and W-135) conjugate vaccine (MCV4P) Unknown Completed [facility] Influenza Virus Vaccine Quad .5 mL IM 6+ MO (FLUZONE/FLULAVAL/FL UARIX) Unknown Completed [facility] TDAP Unknown Completed [facility] DTAP Unknown Completed [facility] HIB 4 Dose Schedule Unknown Completed [facility] HEPATITIS A Unknown Completed [facility] Hep B, Adol or Pedi Dosage Unknown Completed [facility] MMR Unknown Completed [facility] Polio (IPV/OPV) Unknown Completed [facility] PPD (TB) Unknown Completed [facility] Varicella (varivax)(chicken pox) Unknown Completed [facility] Influenza Virus Vaccine Quad IM, Preserv and ABX Free 6 MO-64 YRS (FLUCELVAX) Unknown Completed [facility] Meningococcal Polysaccharide (groups A, C, Y and W-135) conjugate vaccine (MCV4P) Unknown Completed [facility] Influenza Virus Vaccine Quad .5 mL IM 6+ MO (FLUZONE/FLULAVAL/FL UARIX) Unknown Completed [facility] TDAP Unknown Completed [facility] DTAP Unknown Completed [facility] HIB 4 Dose Schedule Unknown Completed [facility] HEPATITIS A Unknown Completed [facility] Hep B, Adol or Pedi Dosage Unknown Completed [facility] MMR Unknown Completed [facility] Polio (IPV/OPV) Unknown Completed [facility] PPD (TB) Unknown Completed [facility] Varicella (varivax)(chicken pox) Unknown Completed [facility] Influenza Virus Vaccine Quad IM, Preserv and ABX Free 6 MO-64 YRS (FLUCELVAX) Unknown Completed [facility] Meningococcal Polysaccharide (groups A, C, Y and W-135) conjugate vaccine (MCV4P) Unknown Completed [facility] Influenza Virus Vaccine Quad .5 mL IM 6+ MO (FLUZONE/FLULAVAL/FL UARIX) Unknown Completed [facility] TDAP Unknown Completed [facility] DTAP Unknown Completed [facility] HIB 4 Dose Schedule Unknown Completed [facility] HEPATITIS A Unknown Completed [facility] Hep B, Adol or Pedi Dosage Unknown Completed [facility] MMR Unknown Completed [facility] Polio (IPV/OPV) Unknown Completed [facility] PPD (TB) Unknown Completed [facility] Varicella (varivax)(chicken pox) Unknown Completed [facility] Influenza Virus Vaccine Quad IM, Preserv and ABX Free 6 MO-64 YRS (FLUCELVAX) Unknown Completed [facility] Meningococcal Polysaccharide (groups A, C, Y and W-135) conjugate vaccine (MCV4P) Unknown Completed [facility] Influenza Virus Vaccine Quad .5 mL IM 6+ MO (FLUZONE/FLULAVAL/FL UARIX) Unknown Completed [facility] TDAP Unknown Completed [facility] DTAP Unknown Completed [facility] HIB 4 Dose Schedule Unknown Completed [facility] HEPATITIS A Unknown Completed [facility] Hep B, Adol or Pedi Dosage Unknown Completed [facility] MMR Unknown Completed [facility] Polio (IPV/OPV) Unknown Completed [facility] PPD (TB) Unknown Completed [facility] Varicella (varivax)(chicken pox) Unknown Completed [facility] Influenza Virus Vaccine Quad IM, Preserv and ABX Free 6 MO-64 YRS (FLUCELVAX) Unknown Completed [facility] Meningococcal Polysaccharide (groups A, C, Y and W-135) conjugate vaccine (MCV4P) Unknown Completed [facility] Influenza Virus Vaccine Quad .5 mL IM 6+ MO (FLUZONE/FLULAVAL/FL UARIX) Unknown Completed [facility] TDAP Unknown Completed [facility] DTAP Unknown Completed [facility] HIB 4 Dose Schedule Unknown Completed [facility] HEPATITIS A Unknown Completed [facility] Hep B, Adol or Pedi Dosage Unknown Completed [facility] MMR Unknown Completed [facility] Polio (IPV/OPV) Unknown Completed [facility] PPD (TB) Unknown Completed [facility] Varicella (varivax)(chicken pox) Unknown Completed [facility] Influenza Virus Vaccine Quad IM, Preserv and ABX Free 6 MO-64 YRS (FLUCELVAX) Unknown Completed [facility] Meningococcal Polysaccharide (groups A, C, Y and W-135) conjugate vaccine (MCV4P) Unknown Completed [facility] Influenza Virus Vaccine Quad .5 mL IM 6+ MO (FLUZONE/FLULAVAL/FL UARIX) Unknown Completed [facility] TDAP Unknown Completed [facility] DTAP Unknown Completed [facility] HIB 4 Dose Schedule Unknown Completed [facility] HEPATITIS A Unknown Completed [facility] Hep B, Adol or Pedi Dosage Unknown Completed [facility] MMR Unknown Completed [facility] Polio (IPV/OPV) Unknown Completed [facility] PPD (TB) Unknown Completed [facility] Varicella (varivax)(chicken pox) Unknown Completed [facility] Influenza Virus Vaccine Quad IM, Preserv and ABX Free 6 MO-64 YRS (FLUCELVAX) Unknown Completed [facility] Meningococcal Polysaccharide (groups A, C, Y and W-135) conjugate vaccine (MCV4P) Unknown Completed [facility] Influenza Virus Vaccine Quad .5 mL IM 6+ MO (FLUZONE/FLULAVAL/FL UARIX) Unknown Completed [facility] TDAP Unknown Completed [facility] DTAP Unknown Completed [facility] HIB 4 Dose Schedule Unknown Completed [facility] HEPATITIS A Unknown Completed [facility] Hep B, Adol or Pedi Dosage Unknown Completed [facility] MMR Unknown Completed [facility] Polio (IPV/OPV) Unknown Completed [facility] PPD (TB) Unknown Completed [facility] Varicella (varivax)(chicken pox) Unknown Completed [facility] Influenza Virus Vaccine Quad IM, Preserv and ABX Free 6 MO-64 YRS (FLUCELVAX) Unknown Completed [facility] Meningococcal Polysaccharide (groups A, C, Y and W-135) conjugate vaccine (MCV4P) Unknown Completed [facility] Influenza Virus Vaccine Quad .5 mL IM 6+ MO (FLUZONE/FLULAVAL/FL UARIX) Unknown Completed [facility] TDAP Unknown Completed [facility] DTAP Unknown Completed [facility] HIB 4 Dose Schedule Unknown Completed [facility] HEPATITIS A Unknown Completed [facility] Hep B, Adol or Pedi Dosage Unknown Completed [facility] MMR Unknown Completed [facility] Polio (IPV/OPV) Unknown Completed [facility] PPD (TB) Unknown Completed [facility] Varicella (varivax)(chicken pox) Unknown Completed [facility] Influenza Virus Vaccine Quad IM, Preserv and ABX Free 6 MO-64 YRS (FLUCELVAX) Unknown Completed [facility] Meningococcal Polysaccharide (groups A, C, Y and W-135) conjugate vaccine (MCV4P) Unknown Completed [facility] Influenza Virus Vaccine Quad .5 mL IM 6+ MO (FLUZONE/FLULAVAL/FL UARIX) Unknown Completed [facility] TDAP Unknown Completed [facility] DTAP Unknown Completed [facility] HIB 4 Dose Schedule Unknown Completed [facility] HEPATITIS A Unknown Completed [facility] Hep B, Adol or Pedi Dosage Unknown Completed [facility] MMR Unknown Completed [facility] Polio (IPV/OPV) Unknown Completed [facility] PPD (TB) Unknown Completed [facility] Varicella (varivax)(chicken pox) Unknown Completed [facility] Influenza Virus Vaccine Quad IM, Preserv and ABX Free 6 MO-64 YRS (FLUCELVAX) Unknown Completed [facility] Meningococcal Polysaccharide (groups A, C, Y and W-135) conjugate vaccine (MCV4P) Unknown Completed [facility] Influenza Virus Vaccine Quad .5 mL IM 6+ MO (FLUZONE/FLULAVAL/FL UARIX) Unknown Completed [facility] TDAP Unknown Completed [facility] DTAP Unknown Completed [facility] HIB 4 Dose Schedule Unknown Completed [facility] HEPATITIS A Unknown Completed [facility] Hep B, Adol or Pedi Dosage Unknown Completed [facility] MMR Unknown Completed [facility] Polio (IPV/OPV) Unknown Completed [facility] PPD (TB) Unknown Completed [facility] Varicella (varivax)(chicken pox) Unknown Completed [facility] Influenza Virus Vaccine Quad IM, Preserv and ABX Free 6 MO-64 YRS (FLUCELVAX) Unknown Completed [facility] Meningococcal Polysaccharide (groups A, C, Y and W-135) conjugate vaccine (MCV4P) Unknown Completed [facility] Influenza Virus Vaccine Quad .5 mL IM 6+ MO (FLUZONE/FLULAVAL/FL UARIX) Unknown Completed [facility] TDAP Unknown Completed [facility] DTAP Unknown Completed [facility] HIB 4 Dose Schedule Unknown Completed [facility] HEPATITIS A Unknown Completed [facility] Hep B, Adol or Pedi Dosage Unknown Completed [facility] MMR Unknown Completed [facility] Polio (IPV/OPV) Unknown Completed [facility] PPD (TB) Unknown Completed [facility] Varicella (varivax)(chicken pox) Unknown Completed [facility] Influenza Virus Vaccine Quad IM, Preserv and ABX Free 6 MO-64 YRS (FLUCELVAX) Unknown Completed [facility] Meningococcal Polysaccharide (groups A, C, Y and W-135) conjugate vaccine (MCV4P) Unknown Completed [facility] Influenza Virus Vaccine Quad .5 mL IM 6+ MO (FLUZONE/FLULAVAL/FL UARIX) Unknown Completed [facility] TDAP Unknown Completed [facility] DTAP Unknown Completed [facility] HIB 4 Dose Schedule Unknown Completed [facility] HEPATITIS A Unknown Completed [facility] Hep B, Adol or Pedi Dosage Unknown Completed [facility] MMR Unknown Completed [facility] Polio (IPV/OPV) Unknown Completed [facility] PPD (TB) Unknown Completed [facility] Varicella (varivax)(chicken pox) Unknown Completed [facility] Influenza Virus Vaccine Quad IM, Preserv and ABX Free 6 MO-64 YRS (FLUCELVAX) Unknown Completed [facility] Meningococcal Polysaccharide (groups A, C, Y and W-135) conjugate vaccine (MCV4P) Unknown Completed [facility] Influenza Virus Vaccine Quad .5 mL IM 6+ MO (FLUZONE/FLULAVAL/FL UARIX) Unknown Completed [facility] TDAP Unknown Completed [facility] DTAP Unknown Completed [facility] HIB 4 Dose Schedule Unknown Completed [facility] HEPATITIS A Unknown Completed [facility] Hep B, Adol or Pedi Dosage Unknown Completed [facility] MMR Unknown Completed [facility] Polio (IPV/OPV) Unknown Completed [facility] PPD (TB) Unknown Completed [facility] Varicella (varivax)(chicken pox) Unknown Completed [facility] Influenza Virus Vaccine Quad IM, Preserv and ABX Free 6 MO-64 YRS (FLUCELVAX) Unknown Completed [facility] Meningococcal Polysaccharide (groups A, C, Y and W-135) conjugate vaccine (MCV4P) Unknown Completed [facility] Influenza Virus Vaccine Quad .5 mL IM 6+ MO (FLUZONE/FLULAVAL/FL UARIX) Unknown Completed [facility] TDAP Unknown Completed [facility] DTAP Unknown Completed [facility] HIB 4 Dose Schedule Unknown Completed [facility] HEPATITIS A Unknown Completed [facility] Hep B, Adol or Pedi Dosage Unknown Completed [facility] MMR Unknown Completed [facility] Polio (IPV/OPV) Unknown Completed [facility] PPD (TB) Unknown Completed [facility] Varicella (varivax)(chicken pox) Unknown Completed [facility] Influenza Virus Vaccine Quad IM, Preserv and ABX Free 6 MO-64 YRS (FLUCELVAX) Unknown Completed [facility] Meningococcal Polysaccharide (groups A, C, Y and W-135) conjugate vaccine (MCV4P) Unknown Completed [facility] Influenza Virus Vaccine Quad .5 mL IM 6+ MO (FLUZONE/FLULAVAL/FL UARIX) Unknown Completed [facility] TDAP Unknown Completed [facility] DTAP Unknown Completed [facility] HIB 4 Dose Schedule Unknown Completed [facility] HEPATITIS A Unknown Completed [facility] Hep B, Adol or Pedi Dosage Unknown Completed [facility] MMR Unknown Completed [facility] Polio (IPV/OPV) Unknown Completed [facility] PPD (TB) Unknown Completed [facility] Varicella (varivax)(chicken pox) Unknown Completed [facility] Influenza Virus Vaccine Quad IM, Preserv and ABX Free 6 MO-64 YRS (FLUCELVAX) Unknown Completed [facility] Meningococcal Polysaccharide (groups A, C, Y and W-135) conjugate vaccine (MCV4P) Unknown Completed [facility] Influenza Virus Vaccine Quad .5 mL IM 6+ MO (FLUZONE/FLULAVAL/FL UARIX) Unknown Completed [facility] TDAP Unknown Completed [facility] DTAP Unknown Completed [facility] HIB 4 Dose Schedule Unknown Completed [facility] HEPATITIS A Unknown Completed [facility] Hep B, Adol or Pedi Dosage Unknown Completed [facility] MMR Unknown Completed [facility] Polio (IPV/OPV) Unknown Completed [facility] PPD (TB) Unknown Completed [facility] Varicella (varivax)(chicken pox) Unknown Completed [facility] Influenza Virus Vaccine Quad IM, Preserv and ABX Free 6 MO-64 YRS (FLUCELVAX) Unknown Completed [facility] Meningococcal Polysaccharide (groups A, C, Y and W-135) conjugate vaccine (MCV4P) Unknown Completed [facility] Influenza Virus Vaccine Quad .5 mL IM 6+ MO (FLUZONE/FLULAVAL/FL UARIX) Unknown Completed [facility] TDAP Unknown Completed [facility] DTAP Unknown Completed [facility] HIB 4 Dose Schedule Unknown Completed [facility] HEPATITIS A Unknown Completed [facility] Hep B, Adol or Pedi Dosage Unknown [facility] [place] MMR Unknown Completed [facility] [place] Polio (IPV/OPV) Unknown Completed [facility] PPD (TB) Unknown Completed [facility] [place] Varicella (varivax)(chicken pox) Unknown Completed [facility] [place] Influenza Virus Vaccine Quad IM, Preserv and ABX Free 6 MO-64 YRS (FLUCELVAX) Unknown Completed [facility] [place] Influenza Virus Vaccine Quad .5 mL IM 6+ MO (FLUZONE/FLULAVAL/FL UARIX) Unknown Completed [facility] [place] Influenza Virus Vaccine Quad IM, Preserv and ABX Free 6 MO-64 YRS (FLUCELVAX) Unknown Completed [facility] [place] Meningococcal Polysaccharide (groups A, C, Y and W-135) conjugate vaccine (MCV4P) Unknown Completed [facility] TDAP Unknown Completed [facility] [place] DTAP Unknown Completed [facility] [place] HIB 4 Dose Schedule Unknown Completed [facility] [place] HEPATITIS A Unknown Completed [facility] Hep B, Adol or Pedi Dosage Unknown Completed [facility] [place] MMR Unknown Completed [facility] [place] Polio (IPV/OPV) Unknown Completed [facility] PPD (TB) Unknown Completed [facility] [place] Varicella (varivax)(chicken pox) Unknown Completed [facility] [place] Meningococcal Polysaccharide (groups A, C, Y and W-135) conjugate vaccine (MCV4P) Unknown Completed [facility] Influenza Virus Vaccine Quad .5 mL IM 6+ MO (FLUZONE/FLULAVAL/FL UARIX) Unknown Completed [facility] [place] TDAP Unknown Completed [facility] DTAP Unknown Completed [facility] HIB 4 Dose Schedule Unknown Completed [facility] [place] HEPATITIS A Unknown Completed [facility] Hep B, Adol or Pedi Dosage Unknown Completed [facility] [place] MMR Unknown Completed [facility] [place] Polio (IPV/OPV) Unknown Completed [facility] PPD (TB) Unknown Completed [facility] [place] Varicella (varivax)(chicken pox) Unknown Completed [facility] [place] Influenza Virus Vaccine Quad IM, Preserv and ABX Free 6 MO-64 YRS (FLUCELVAX) Unknown Completed [facility] [place] Meningococcal Polysaccharide (groups A, C, Y and W-135) conjugate vaccine (MCV4P) Unknown Completed [facility] Influenza Virus Vaccine Quad .5 mL IM 6+ MO (FLUZONE/FLULAVAL/FL UARIX) Unknown Completed [facility] [place] TDAP Unknown Completed [facility] [place] DTAP Unknown Completed [facility] [place] HIB 4 Dose Schedule Unknown Completed [facility] [place] HEPATITIS A Unknown Completed [facility] Hep B, Adol or Pedi Dosage Unknown Completed [facility] [place] MMR Unknown Completed [facility] [place] Polio (IPV/OPV) Unknown Completed [facility] PPD (TB) Unknown Completed [facility] [place] Varicella (varivax)(chicken pox) Unknown Completed [facility] [place] Influenza Virus Vaccine Quad IM, Preserv and ABX Free 6 MO-64 YRS (FLUCELVAX) Unknown Completed [facility] [place] Influenza Virus Vaccine Quad .5 mL IM 6+ MO (FLUZONE/FLULAVAL/FL UARIX) Unknown Completed [facility] [place] Influenza Virus Vaccine Quad IM, Preserv and ABX Free 6 MO-64 YRS (FLUCELVAX) Unknown Completed [facility] [place] Meningococcal Polysaccharide (groups A, C, Y and W-135) conjugate vaccine (MCV4P) Unknown Completed [facility] TDAP Unknown Completed [facility] [place] DTAP Unknown Completed [facility] [place] HIB 4 Dose Schedule Unknown Completed [facility] [place] HEPATITIS A Unknown Completed [facility] Hep B, Adol or Pedi Dosage Unknown Completed [facility] [place] MMR Unknown Completed [facility] [place] Polio (IPV/OPV) Unknown Completed [facility] PPD (TB) Unknown Completed [facility] [place] Varicella (varivax)(chicken pox) Unknown Completed [facility] [place] Meningococcal Polysaccharide (groups A, C, Y and W-135) conjugate vaccine (MCV4P) Unknown Completed [facility] Influenza Virus Vaccine Quad .5 mL IM 6+ MO (FLUZONE/FLULAVAL/FL UARIX) Unknown Completed [facility] [place] TDAP Unknown Completed [facility] DTAP Unknown Completed [facility] HIB 4 Dose Schedule Unknown Completed [facility] [place] HEPATITIS A Unknown Completed [facility] Hep B, Adol or Pedi Dosage Unknown Completed [facility] [place] MMR Unknown Completed [facility] [place] Polio (IPV/OPV) Unknown Completed [facility] PPD (TB) Unknown Completed [facility] [place] Varicella (varivax)(chicken pox) Unknown Completed [facility] [place] Influenza Virus Vaccine Quad IM, Preserv and ABX Free 6 MO-64 YRS (FLUCELVAX) Unknown Completed [facility] [place] Meningococcal Polysaccharide (groups A, C, Y and W-135) conjugate vaccine (MCV4P) Unknown Completed [facility] Influenza Virus Vaccine Quad .5 mL IM 6+ MO (FLUZONE/FLULAVAL/FL UARIX) Unknown Completed [facility] [place] TDAP Unknown Completed [facility] DTAP Unknown Completed [facility] [place] HIB 4 Dose Schedule Unknown Completed [facility] [place] HEPATITIS A Unknown Completed [facility] Hep B, Adol or Pedi Dosage Unknown Completed [facility] [place] MMR Unknown Completed [facility] [place] Polio (IPV/OPV) Unknown Completed [facility] PPD (TB) Unknown Completed [facility] [place] Varicella (varivax)(chicken pox) Unknown Completed [facility] [place] Influenza Virus Vaccine Quad IM, Preserv and ABX Free 6 MO-64 YRS (FLUCELVAX) Unknown Completed [facility] [place] Influenza Virus Vaccine Quad .5 mL IM 6+ MO (FLUZONE/FLULAVAL/FL UARIX) Unknown Completed [facility] [place] Influenza Virus Vaccine Quad IM, Preserv and ABX Free 6 MO-64 YRS (FLUCELVAX) Unknown Completed [facility] [place] Meningococcal Polysaccharide (groups A, C, Y and W-135) conjugate vaccine (MCV4P) Unknown Completed [facility] TDAP Unknown Completed [facility] [place] DTAP Unknown Completed [facility] HIB 4 Dose Schedule Unknown Completed [facility] [place] HEPATITIS A Unknown Completed [facility] Hep B, Adol or Pedi Dosage Unknown Completed [facility] [place] MMR Unknown Completed [facility] [place] Polio (IPV/OPV) Unknown Completed [facility] PPD (TB) Unknown Completed [facility] [place] Varicella (varivax)(chicken pox) Unknown Completed [facility] [place] Meningococcal Polysaccharide (groups A, C, Y and W-135) conjugate vaccine (MCV4P) Unknown Completed [facility] Influenza Virus Vaccine Quad .5 mL IM 6+ MO (FLUZONE/FLULAVAL/FL UARIX) Unknown Completed [facility] [place] TDAP Unknown Completed [facility] [place] DTAP Unknown Completed [facility] [place] HIB 4 Dose Schedule Unknown Completed [facility] [place] HEPATITIS A Unknown Completed [facility] Hep B, Adol or Pedi Dosage Unknown Completed [facility] [place] MMR Unknown Completed [facility] [place] Polio (IPV/OPV) Unknown Completed [facility] PPD (TB) Unknown Completed [facility] [place] Varicella (varivax)(chicken pox) Unknown Completed [facility] [place] Meningococcal Polysaccharide (groups A, C, Y and W-135) conjugate vaccine (MCV4P) Unknown Completed [facility] Influenza Virus Vaccine Quad .5 mL IM 6+ MO (FLUZONE/FLULAVAL/FL UARIX) Unknown Completed [facility] [place] TDAP Unknown Completed [facility] [place] DTAP Unknown Completed [facility] [place] HIB 4 Dose Schedule Unknown Completed [facility] [place] HEPATITIS A Unknown Completed [facility] Hep B, Adol or Pedi Dosage Unknown Completed [facility] [place] MMR Unknown Completed [facility] [place] Polio (IPV/OPV) Unknown Completed [facility] PPD (TB) Unknown Completed [facility] [place] Varicella (varivax)(chicken pox) Unknown Completed [facility] [place] Meningococcal Polysaccharide (groups A, C, Y and W-135) conjugate vaccine (MCV4P) Unknown Completed [facility] Influenza Virus Vaccine Quad .5 mL IM 6+ MO (FLUZONE/FLULAVAL/FL UARIX) Unknown Completed [facility] [place] TDAP Unknown Completed [facility] DTAP Unknown Completed [facility] HIB 4 Dose Schedule Unknown Completed [facility] [place] HEPATITIS A Unknown Completed [facility] Hep B, Adol or Pedi Dosage Unknown Completed [facility] [place] MMR Unknown Completed [facility] [place] Polio (IPV/OPV) Unknown Completed [facility] PPD (TB) Unknown Completed [facility] [place] Varicella (varivax)(chicken pox) Unknown Completed [facility] [place] Meningococcal Polysaccharide (groups A, C, Y and W-135) conjugate vaccine (MCV4P) Unknown Completed [facility] Influenza Virus Vaccine Quad .5 mL IM 6+ MO (FLUZONE/FLULAVAL/FL UARIX) Unknown Completed [facility] [place] TDAP Unknown Completed [facility] DTAP Unknown Completed [facility] [place] HIB 4 Dose Schedule Unknown Completed [facility] [place] HEPATITIS A Unknown Completed [facility] Hep B, Adol or Pedi Dosage Unknown Completed [facility] [place] MMR Unknown Completed [facility] [place] Polio (IPV/OPV) Unknown Completed [facility] PPD (TB) Unknown Completed [facility] [place] Varicella (varivax)(chicken pox) Unknown Completed [facility] [place] Meningococcal Polysaccharide (groups A, C, Y and W-135) conjugate vaccine (MCV4P) Unknown Completed [facility] Influenza Virus Vaccine Quad .5 mL IM 6+ MO (FLUZONE/FLULAVAL/FL UARIX) Unknown Completed [facility] [place] TDAP Unknown Completed [facility] [place] DTAP Unknown Completed [facility] [place] HIB 4 Dose Schedule Unknown Completed [facility] [place] HEPATITIS A Unknown Completed [facility] Hep B, Adol or Pedi Dosage Unknown Completed [facility] [place] MMR Unknown Completed [facility] [place] Polio (IPV/OPV) Unknown Completed [facility] PPD (TB) Unknown Completed [facility] [place] Varicella (varivax)(chicken pox) Unknown Completed [facility] [place] Influenza Virus Vaccine Quad IM, Preserv and ABX Free 6 MO-64 YRS (FLUCELVAX) Unknown Completed [facility] [place] Meningococcal Polysaccharide (groups A, C, Y and W-135) conjugate vaccine (MCV4P) Unknown Completed [facility] Influenza Virus Vaccine Quad .5 mL IM 6+ MO (FLUZONE/FLULAVAL/FL UARIX) Unknown Completed [facility] [place] TDAP Unknown Completed [facility] DTAP Unknown Completed [facility] HIB 4 Dose Schedule Unknown Completed [facility] [place] HEPATITIS A Unknown Completed [facility] Hep B, Adol or Pedi Dosage Unknown Completed [facility] [place] MMR Unknown Completed [facility] Polio (IPV/OPV) Unknown Completed [facility] PPD (TB) Unknown Completed [facility] [place] Varicella (varivax)(chicken pox) Unknown Completed [facility] [place] Influenza Virus Vaccine Quad IM, Preserv and ABX Free 6 MO-64 YRS (FLUCELVAX) Unknown Completed [facility] [place] Meningococcal Polysaccharide (groups A, C, Y and W-135) conjugate vaccine (MCV4P) Unknown Completed [facility] Influenza Virus Vaccine Quad .5 mL IM 6+ MO (FLUZONE/FLULAVAL/FL UARIX) Unknown Completed [facility] TDAP Unknown Completed [facility] DTAP Unknown Completed [facility] HIB 4 Dose Schedule Unknown Completed [facility] HEPATITIS A Unknown Completed [facility] Hep B, Adol or Pedi Dosage Unknown Completed [facility] [place] MMR Unknown Completed [facility] Polio (IPV/OPV) Unknown Completed [facility] PPD (TB) Unknown Completed [facility] [place] Varicella (varivax)(chicken pox) Unknown Completed [facility] [place] Influenza Virus Vaccine Quad IM, Preserv and ABX Free 6 MO-64 YRS (FLUCELVAX) Unknown Completed [facility] [place] Meningococcal Polysaccharide (groups A, C, Y and W-135) conjugate vaccine (MCV4P) Unknown Completed [facility] Influenza Virus Vaccine Quad .5 mL IM 6+ MO (FLUZONE/FLULAVAL/FL UARIX) Unknown Completed [facility] [place] TDAP Unknown Completed [facility] DTAP Unknown Completed [facility] HIB 4 Dose Schedule Unknown Completed [facility] HEPATITIS A Unknown Completed [facility] Hep B, Adol or Pedi Dosage Unknown Completed [facility] [place] MMR Unknown Completed [facility] Polio (IPV/OPV) Unknown Completed [facility] PPD (TB) Unknown Completed [facility] [place] Varicella (varivax)(chicken pox) Unknown Completed [facility] [place] Influenza Virus Vaccine Quad IM, Preserv and ABX Free 6 MO-64 YRS (FLUCELVAX) Unknown Completed [facility] [place] Meningococcal Polysaccharide (groups A, C, Y and W-135) conjugate vaccine (MCV4P) Unknown Completed [facility] Influenza Virus Vaccine Quad .5 mL IM 6+ MO (FLUZONE/FLULAVAL/FL UARIX) Unknown Completed [facility] TDAP Unknown Completed [facility] DTAP Unknown Completed [facility] HIB 4 Dose Schedule Unknown Completed [facility] HEPATITIS A Unknown Completed [facility] Hep B, Adol or Pedi Dosage Unknown Completed [facility] MMR Unknown Completed [facility] Polio (IPV/OPV) Unknown Completed [facility] PPD (TB) Unknown Completed [facility] [place] Varicella (varivax)(chicken pox) Unknown Completed [facility] [place] Influenza Virus Vaccine Quad IM, Preserv and ABX Free 6 MO-64 YRS (FLUCELVAX) Unknown Completed [facility] [place] Meningococcal Polysaccharide (groups A, C, Y and W-135) conjugate vaccine (MCV4P) Unknown Completed [facility] Influenza Virus Vaccine Quad .5 mL IM 6+ MO (FLUZONE/FLULAVAL/FL UARIX) Unknown Completed [facility] TDAP Unknown Completed [facility] DTAP Unknown Completed [facility] HIB 4 Dose Schedule Unknown Completed [facility] HEPATITIS A Unknown Completed [facility] Hep B, Adol or Pedi Dosage Unknown Completed [facility] [place] MMR Unknown Completed [facility] Polio (IPV/OPV) Unknown Completed [facility] PPD (TB) Unknown Completed [facility] [place] Varicella (varivax)(chicken pox) Unknown Completed [facility] [place] Influenza Virus Vaccine Quad IM, Preserv and ABX Free 6 MO-64 YRS (FLUCELVAX) Unknown Completed [facility] [place] Influenza Virus Vaccine Quad .5 mL IM 6+ MO (FLUZONE/FLULAVAL/FL UARIX) Unknown Completed [facility] DTAP Unknown Completed [facility] HIB 4 Dose Schedule Unknown Completed [facility] [place] Vital Signs Vital Name Observation Time Observation Value Comments S ource Systolic blood pressure 2024-02-10 13:46:00 122 mm[Hg] [facility] Diastolic blood pressure 2024-02-10 13:46:00 79 mm[Hg] [facility] Heart rate 2024-02-10 13:46:00 74 /min [facility] temperature 2024-02-10 13:46:00 36 Nathaly [facility] [place] Respiratory rate 2024-02-10 13:46:00 18 /min [facility] Body height 2024-02-10 13:46:00 157.5 cm [facility] Body weight 2024-02-10 13:46:00 85.594 kg [facility] BMI 2024-02-10 13:46:00 34.51 kg/m2 [facility] Systolic blood pressure 2024-01-17 13:08:00 124 mm[Hg] [facility] Diastolic blood pressure 2024-01-17 13:08:00 71 mm[Hg] [facility] Heart rate 2024-01-17 13:08:00 65 /min [facility] Body temperature 2024-01-17 13:08:00 36.06 Nathaly [facility] Respiratory rate 2024-01-17 13:08:00 18 /min [facility] Body height 2024-01-17 13:08:00 157.5 cm [facility] Body weight 2024-01-17 13:08:00 85.639 kg [facility] BMI 2024-01-17 13:08:00 34.53 kg/m2 [facility] Systolic blood pressure 2023-12-23 15:09:00 119 mm[Hg] [facility] Diastolic blood pressure 2023-12-23 15:09:00 80 mm[Hg] [facility] Heart rate 2023-12-23 15:09:00 79 /min [facility] Body temperature 2023-12-23 15:09:00 35.94 Nathaly [facility] Respiratory rate 2023-12-23 15:09:00 18 /min [facility] Body height 2023-12-23 15:09:00 157.5 cm [facility] Body weight 2023-12-23 15:09:00 83.87 kg [facility] BMI 2023-12-23 15:09:00 33.82 kg/m2 [facility] Systolic blood pressure 2023-12-02 12:40:00 113 mm[Hg] [facility] Diastolic blood pressure 2023-12-02 12:40:00 74 mm[Hg] [facility] Heart rate 2023-12-02 12:40:00 87 /min [facility] Body temperature 2023-12-02 12:40:00 36.5 Nathaly [facility] [place] Respiratory rate 2023-12-02 12:40:00 18 /min [facility] Oxygen saturation in Arterial blood by Pulse oximetry 2023-12-02 12:40:00 99 /min [facility] Body height 2023-11-30 21:45:00 157.5 cm [facility] Body weight 2023-11-30 21:45:00 92.352 kg [facility] BMI 2023-11-30 21:45:00 37.24 kg/m2 [facility] Systolic blood pressure 2023-11-29 14:19:00 107 mm[Hg] [facility] Diastolic blood pressure 2023-11-29 14:19:00 74 mm[Hg] [facility] Heart rate 2023-11-29 14:19:00 88 /min [facility] Body temperature 2023-11-29 14:19:00 35.94 Nathaly [facility] Respiratory rate 2023-11-29 14:19:00 17 /min [facility] Body height 2023-11-29 14:19:00 157.5 cm [facility] Body weight 2023-11-29 14:19:00 91.264 kg [facility] BMI 2023-11-29 14:19:00 36.80 kg/m2 [facility] Systolic blood pressure 2023-11-26 18:49:00 116 mm[Hg] [facility] Diastolic blood pressure 2023-11-26 18:49:00 77 mm[Hg] [facility] Heart rate 2023-11-26 18:49:00 94 /min [facility] Body temperature 2023-11-26 18:49:00 35.89 Nathaly [facility] [place] Respiratory rate 2023-11-26 18:49:00 18 /min [facility] Body height 2023-11-26 18:49:00 157.5 cm [facility] Body weight 2023-11-26 18:49:00 91.712 kg [facility] BMI 2023-11-26 18:49:00 36.98 kg/m2 [facility] Systolic blood pressure 2023-11-22 14:51:00 114 mm[Hg] [facility] Diastolic blood pressure 2023-11-22 14:51:00 73 mm[Hg] [facility] Heart rate 2023-11-22 14:51:00 86 /min [facility] Body temperature 2023-11-22 14:51:00 35.83 Nathaly [facility] Respiratory rate 2023-11-22 14:51:00 18 /min [facility] Body height 2023-11-22 14:51:00 157.5 cm [facility] Body weight 2023-11-22 14:51:00 92.262 kg [facility] BMI 2023-11-22 14:51:00 37.20 kg/m2 [facility] Systolic blood pressure 2023-11-15 18:51:00 116 mm[Hg] [facility] Diastolic blood pressure 2023-11-15 18:51:00 74 mm[Hg] [facility] Heart rate 2023-11-15 18:51:00 86 /min [facility] Body temperature 2023-11-15 18:51:00 35.83 Nathaly [facility] Respiratory rate 2023-11-15 18:51:00 17 /min [facility] Body height 2023-11-15 18:51:00 157.5 cm [facility] Body weight 2023-11-15 18:51:00 93.078 kg [facility] BMI 2023-11-15 18:51:00 37.53 kg/m2 [facility] Systolic blood pressure 2023-11-12 20:05:00 119 mm[Hg] [place] [facility] Diastolic blood pressure 2023-11-12 20:05:00 72 mm[Hg] [facility] Heart rate 2023-11-12 20:05:00 109 /min [facility] Body temperature 2023-11-12 20:05:00 36.06 Nathaly [facility] Respiratory rate 2023-11-12 20:05:00 18 /min [facility] Body height 2023-11-12 20:05:00 157.5 cm [facility] Body weight 2023-11-12 20:05:00 90.436 kg [facility] BMI 2023-11-12 20:05:00 36.47 kg/m2 [facility] Systolic blood pressure 2023-11-08 15:27:00 118 mm[Hg] [facility] Diastolic blood pressure 2023-11-08 15:27:00 77 mm[Hg] [facility] Heart rate 2023-11-08 15:27:00 106 /min [facility] Body temperature 2023-11-08 15:27:00 35.72 Nathaly [facility] Respiratory rate 2023-11-08 15:27:00 18 /min [facility] Body height 2023-11-08 15:27:00 157.5 cm [facility] Body weight 2023-11-08 15:27:00 91.808 kg [facility] BMI 2023-11-08 15:27:00 37.02 kg/m2 [facility] Systolic blood pressure 2023 19:27:00 114 mm[Hg] [facility] Diastolic blood pressure 2023 19:27:00 78 mm[Hg] [facility] Heart rate 2023 19:27:00 99 /min [facility] Body temperature 2023 19:27:00 35.89 Nathaly [facility] Respiratory rate 2023 19:27:00 18 /min [facility] Body height 2023 19:27:00 157.5 cm [facility] Body weight 2023 19:27:00 90.084 kg [facility] BMI 2023 19:27:00 36.32 kg/m2 [facility] Systolic blood pressure 2023-11-01 16:02:00 99 mm[Hg] [facility] Diastolic blood pressure 2023-11-01 16:02:00 68 mm[Hg] [facility] Heart rate 2023-11-01 16:02:00 79 /min [facility] Body temperature 2023-11-01 16:02:00 36.11 Nathaly [facility] Respiratory rate 2023-11-01 16:02:00 17 /min [facility] Body height 2023-11-01 16:02:00 157.5 cm [facility] Body weight 2023-11-01 16:02:00 91.899 kg [facility] BMI 2023-11-01 16:02:00 37.06 kg/m2 [facility] Systolic blood pressure 2023-10-29 16:58:00 95 mm[Hg] [facility] Diastolic blood pressure 2023-10-29 16:58:00 65 mm[Hg] [facility] Heart rate 2023-10-29 16:58:00 107 /min [facility] Body temperature 2023-10-29 16:58:00 36.61 Nathaly [facility] Respiratory rate 2023-10-29 16:58:00 19 /min [facility] Body height 2023-10-29 16:58:00 157.5 cm [facility] Body weight 2023-10-29 16:58:00 89.767 kg [facility] BMI 2023-10-29 16:58:00 36.20 kg/m2 [facility] Systolic blood pressure 2023-10-25 16:31:00 106 mm[Hg] [facility] Diastolic blood pressure 2023-10-25 16:31:00 71 mm[Hg] [facility] Heart rate 2023-10-25 16:31:00 83 /min [facility] Body temperature 2023-10-25 16:31:00 35.94 Nathaly [facility] Respiratory rate 2023-10-25 16:31:00 18 /min [facility] Body height 2023-10-25 16:31:00 157.5 cm [facility] Body weight 2023-10-25 16:31:00 91.445 kg [facility] BMI 2023-10-25 16:31:00 36.87 kg/m2 [facility] Systolic blood pressure 2023-10-22 15:42:00 113 mm[Hg] [facility] Diastolic blood pressure 2023-10-22 15:42:00 75 mm[Hg] [facility] Heart rate 2023-10-22 15:42:00 95 /min [facility] Body temperature 2023-10-22 15:42:00 36.11 Nathaly [facility] Respiratory rate 2023-10-22 15:42:00 19 /min [facility] Body height 2023-10-22 15:42:00 157.5 cm [facility] Body weight 2023-10-22 15:42:00 89.086 kg [facility] BMI 2023-10-22 15:42:00 35.92 kg/m2 [facility] Systolic blood pressure 2023-10-18 14:49:00 111 mm[Hg] [facility] Diastolic blood pressure 2023-10-18 14:49:00 71 mm[Hg] [facility] Heart rate 2023-10-18 14:49:00 107 /min [facility] Body temperature 2023-10-18 14:49:00 35.94 Nathaly [facility] Respiratory rate 2023-10-18 14:49:00 19 /min [facility] Body height 2023-10-18 14:49:00 157.5 cm [facility] Body weight 2023-10-18 14:49:00 91.264 kg [facility] BMI 2023-10-18 14:49:00 36.80 kg/m2 [facility] Systolic blood pressure 2023-10-15 16:39:00 84 mm[Hg] [facility] Diastolic blood pressure 2023-10-15 16:39:00 65 mm[Hg] [facility] Heart rate 2023-10-15 16:39:00 135 /min [facility] Body temperature 2023-10-15 16:39:00 36.94 Nathaly [facility] Respiratory rate 2023-10-15 16:39:00 17 /min [facility] Body height 2023-10-15 16:39:00 157.5 cm [facility] Body weight 2023-10-15 16:39:00 89.313 kg [facility] BMI 2023-10-15 16:39:00 36.01 kg/m2 [facility] Systolic blood pressure 2023-10-01 16:45:00 112 mm[Hg] [facility] Diastolic blood pressure 2023-10-01 16:45:00 70 mm[Hg] [facility] Heart rate 2023-10-01 16:45:00 92 /min [facility] Body temperature 2023-10-01 16:45:00 35.89 Nathaly [facility] Respiratory rate 2023-10-01 16:45:00 18 /min [facility] Body height 2023-10-01 16:45:00 157.5 cm [facility] Body weight 2023-10-01 16:45:00 88.179 kg [facility] BMI 2023-10-01 16:45:00 35.56 kg/m2 [facility] Systolic blood pressure 2023-09-03 16:05:00 111 mm[Hg] [facility] Diastolic blood pressure 2023-09-03 16:05:00 71 mm[Hg] [facility] Heart rate 2023-09-03 16:05:00 91 /min [facility] Body temperature 2023-09-03 16:05:00 35.56 Nathaly [facility] Respiratory rate 2023-09-03 16:05:00 18 /min [facility] Body height 2023-09-03 16:05:00 157.5 cm [facility] 2023-09-03 16:05:00 87.272 kg [facility] BMI 2023-09-03 16:05:00 35.19 kg/m2 [facility] Systolic blood pressure 2023-08-20 21:21:00 107 mm[Hg] [facility] Diastolic blood pressure 2023-08-20 21:21:00 67 mm[Hg] [facility] Heart rate 2023-08-20 21:21:00 86 /min [facility] Body temperature 2023-08-20 21:21:00 36.11 Nathaly [facility] Respiratory rate 2023-08-20 21:21:00 18 /min [facility] Body height 2023-08-20 21:21:00 157.5 cm [facility] Body weight 2023-08-20 21:21:00 86.183 kg [facility] BMI 2023-08-20 21:21:00 34.75 kg/m2 [facility] Systolic blood pressure 2023-08-06 14:14:00 102 mm[Hg] [facility] Diastolic blood pressure 2023-08-06 14:14:00 65 mm[Hg] [facility] Heart rate 2023-08-06 14:14:00 94 /min [facility] Body temperature 2023-08-06 14:14:00 35.94 Nathaly [facility] Respiratory rate 2023-08-06 14:14:00 16 /min [facility] Body height 2023-08-06 14:14:00 157.5 cm [facility] Body weight 2023-08-06 14:14:00 85.821 kg [facility] BMI 2023-08-06 14:14:00 34.61 kg/m2 [facility] Systolic blood pressure 2023-07-16 20:11:00 114 mm[Hg] [facility] Diastolic blood pressure 2023-07-16 20:11:00 70 mm[Hg] [facility] Heart rate 2023-07-16 20:11:00 84 /min [facility] Body temperature 2023-07-16 20:11:00 35.61 Nathaly [facility] Respiratory rate 2023-07-16 20:11:00 18 /min [facility] Body height 2023-07-16 20:11:00 157.5 cm [facility] Body weight 2023-07-16 20:11:00 84.188 kg [facility] BMI 2023-07-16 20:11:00 33.95 kg/m2 [facility] Systolic blood pressure 2023-07-01 20:18:00 114 mm[Hg] [facility] Diastolic blood pressure 2023-07-01 20:18:00 73 mm[Hg] [facility] Heart rate 2023-07-01 20:18:00 107 /min [facility] Body temperature 2023-07-01 20:18:00 36 Nathaly [facility] Respiratory rate 2023-07-01 20:18:00 18 /min [facility] Body height 2023-07-01 20:18:00 157.5 cm [facility] Body weight 2023-07-01 20:18:00 85.639 kg [facility] BMI 2023-07-01 20:18:00 34.53 kg/m2 [facility] Systolic blood pressure 2023-06-12 14:29:00 114 mm[Hg] [facility] Diastolic blood pressure 2023-06-12 14:29:00 75 mm[Hg] [facility] Heart rate 2023-06-12 14:29:00 89 /min [facility] Body temperature 2023-06-12 14:29:00 36 Nathaly [facility] Respiratory rate 2023-06-12 14:29:00 18 /min [facility] Body height 2023-06-12 14:29:00 157.5 cm [facility] Body weight 2023-06-12 14:29:00 85.004 kg [facility] BMI 2023-06-12 14:29:00 34.28 kg/m2 [facility] Systolic blood pressure 2023-05-28 19:09:00 99 mm[Hg] [facility] Diastolic blood pressure 2023-05-28 19:09:00 62 mm[Hg] [facility] Heart rate 2023-05-28 19:09:00 81 /min [facility] Body temperature 2023-05-28 19:09:00 36.11 Nathaly [facility] Respiratory rate 2023-05-28 19:09:00 18 /min [facility] Body height 2023-05-28 19:09:00 157.5 cm [facility] Body weight 2023-05-28 19:09:00 86.637 kg [facility] BMI 2023-05-28 19:09:00 34.93 kg/m2 [facility] Systolic blood pressure 2023-04-29 18:36:00 108 mm[Hg] [facility] Diastolic blood pressure 2023-04-29 18:36:00 70 mm[Hg] [facility] Heart rate 2023-04-29 18:36:00 70 /min [facility] Body temperature 2023-04-29 18:36:00 35.67 Nathaly [facility] Respiratory rate 2023-04-29 18:36:00 18 /min [facility] Body height 2023-04-29 18:36:00 157.5 cm [facility] Body weight 2023-04-29 18:36:00 89.177 kg [facility] BMI 2023-04-29 18:36:00 35.96 kg/m2 [facility] Procedures Procedure Date / Time Performed Performing Clinician Source POCT TEST 2024-01-17 13:30:00 Marky Greer [facility] DME/SUPPLY JUSTIFICATION 2023-12-09 05:01:00 Doc tor Unassigned, Moquino [facility] POCT GLUCOSE (AUTOMATED) 2023-12-02 14:44:00 Are Andreia Jauregui [facility] CBC WITH DIFF 2023-12-02 09:14[facility] 2023-12-02 02:39[facility]00 [facility] 2023-12-01 23:04:00 Are Andreia Jauregui [facility] VENOUS CORD GAS 2023-12-01 14:50:00 Jany crowe [facility] POCT GLUCOSE (AUTOMATED) 2023-12-01 14:33:00 Are Andreia Jauregui [facility] POCT GLUCOSE (AUTOMATED) 2023-12-01 11:15:00 Are Andreia Jauregui [facility] CENTRAL NEURAXIAL BLOCK 2023-12-01 09:52:00 Romie, And rew [facility] POCT GLUCOSE (AUTOMATED) 2023-12-01 08:06:00 [facility] 2023-12-01 03:49:00 Are Andreia Jauregui [facility] POCT GLUCOSE (AUTOMATED) 2023-12-01 01:58:00 Are Andreia Jauregui [facility] CBC WITH DIFF 2023-11-30 22:19:00 Andreia Mcmanus [facility] HEPATITIS B SURFACE ANTIGEN 2023-11-30 22:19:00 Jany Ely [facility] HB ABO GROUPING 2023-11-30 22:19:00 Jany crowe [facility] RHO (D) IMMUNE GLOBULIN 2023-11-30 22:19:00 Marci Forbes [facility] HIV 1/2 AG-AB WITH REFLEX 2023-11-30 22:19:00 Andreia Omer [facility] SYPHILIS IGG/IGM 2023-11-30 22:19:00 Andreia Cruz [facility] POCT GLUCOSE (AUTOMATED) 2023-11-30 21:58:00 Are Andreia Jauregui [facility] POCT GLUCOSE (AUTOMATED) 2023-11-29 15:26:00 Gonzalo Greer [facility] POCT URINALYSIS 2023-11-29 00:00:00 Gonzalo Greer [facility] NON-STRESS TEST 2023-11-26 21:50:12 Mohsen Greer [facility] POCT URINALYSIS 2023-11-26 18:50:00 Gonzalo Greer [facility] SECOND AND THIRD TRIMESTER ULTRASOUND 2023-11-26 17:42:00 Gonzalo Greer [facility] DIABETES TESTING REPORTS 2023-11-26 06:01:00 Doc tor Unassigned, Moquino [facility] NON-STRESS TEST 2023-11-22 20:10:29 Mohsen Greer [facility] POCT URINALYSIS 2023-11-22 15:50:00 Gonzalo Greer [facility] POCT GLUCOSE (AUTOMATED) 2023-11-22 15:31:00 Gonzalo Greer [facility] NON-STRESS TEST 2023-11-15 20:33:09 Mohsen Greer [facility] POCT GLUCOSE (AUTOMATED) 2023-11-15 19:38:00 Gonzalo Greer [facility] POCT URINALYSIS 2023-11-15 19:02:00 Gonzalo Greer [facility] PATIENT CORRESPONDENCE (LETTERS, USPS DOCUMENTATION) 2023-11-15 06:01:00 Doctor Unassigned, Moquino [facility] NON-STRESS TEST 2023-11-13 02:18:48 Gideon Parikh [facility] POCT URINALYSIS 2023-11-12 22:22:00 Gonzalo Greer [facility] NON-STRESS TEST 2023-11-08 16:59:53 Gideon Parikh [facility] POCT URINALYSIS 2023-11-08 15:26:00 Gonzalo Greer [facility] NON-STRESS TEST 2023 20:51:40 Mhosen Greer [facility] NON-STRESS TEST 2023-11-01 16:28:06 Mohsen Greer [facility] POCT GLUCOSE (AUTOMATED) 2023-11-01 16:20:00 Gonzalo Greer [facility] POCT URINALYSIS 2023-11-01 16:04:00 Gonzalo Greer [facility] NON-STRESS TEST 2023-10-31 15:46:22 Mohsen Greer [facility] POCT URINALYSIS 2023-10-29 19:21:00 Gonzalo Greer [facility] SECOND AND THIRD TRIMESTER ULTRASOUND 2023-10-29 18:01:00 Gonzalo Greer [facility] DIABETES TESTING REPORTS 2023-10-29 06:01:00 Doc tor Unassigned, Moquino [facility] NON-STRESS TEST 2023-10-25 18:17:31 Mohsen Greer [facility] POCT URINALYSIS 2023-10-25 16:34:00 Gonzalo Greer [facility] POCT URINALYSIS 2023-10-22 16:18:00 Gonzalo Greer [facility] NON-STRESS TEST 2023-10-22 16:12:52 Mohsen Greer [facility] NON-STRESS TEST 2023-10-18 15:57:31 Mohsen Greer [facility] POCT GLUCOSE (AUTOMATED) 2023-10-18 15:40:00 Gonzalo Greer [facility] POCT URINALYSIS 2023-10-18 14:59:00 Gonzalo Greer [facility] AUTHORIZATION FOR RELEASE OF PHI 2023-10-17 06:01:00 Doctor Unassigned, Moquino [facility] POCT URINALYSIS 2023-10-15 17:28:00 Gonzalo Greer [facility] POCT GLUCOSE (AUTOMATED) 2023-10-15 17:17:00 Gonzalo Greer [facility] SECOND AND THIRD TRIMESTER ULTRASOUND 2023-10-01 18:01:00 Gonzalo Greer [facility] TDAP VACCINE, >11 YRS, IM 2023-10-01 17:23:44 Gonzalo Greer [facility] DIABETES TESTING REPORTS 2023-10-01 06:01:00 Doc tor Unassigned, Moquino [facility] POCT GLUCOSE(AGE >30DAYS) 2023-09-03 16:43:00 Gonzalo Greer [facility] CBC WITH DIFF 2023-09-03 16:42:00 Gonzalo Greer [facility] POCT GLUCOSE (AUTOMATED) 2023-09-03 16:38:00 Gonzalo Greer [facility] POCT URINALYSIS 2023-09-03 16:08:00 Gonzalo Greer [facility] SECOND AND THIRD TRIMESTER ULTRASOUND 2023-08-26 19:02:00 Gonzalo Greer [facility] PROTEIN QUANT U/24H 2023-08-26 16:38:00 Marky Greer [facility] POCT GLUCOSE (AUTOMATED) 2023-08-20 22:11:00 Gonzalo Greer [facility] COMP. METABOLIC PANEL (51637) 2023-08-20 10:00:00 Gonzalo Greer [facility] GLYCOSYLATED HEMOGLOBIN (A1C) 2023-08-20 10:00:00 Gonzalo Greer [facility] DIABETES TESTING REPORTS 2023-08-06 06:01:00 Doc tor Unassigned, Moquino [facility] POCT URINALYSIS 2023-08-06 00:00:00 Gonzalo Greer [facility] SECOND AND THIRD TRIMESTER ULTRASOUND 2023-07-29 21:12:00 Gonzalo Greer [facility] SECOND AND THIRD TRIMESTER ULTRASOUND 2023-07-29 21:05:00 Gonzalo Greer [facility] POCT GLUCOSE (AUTOMATED) 2023-07-16 20:55:00 Gonzalo Greer [facility] POCT URINALYSIS 2023-07-16 20:15:00 Gonzalo Greer [facility] FLU VACC (), 6 MO-64 YRS, .5ML, IM, QUAD (FLUCELVAX) 2023-07-01 20:44:05 Gonzalo Greer [facility] POCT URINALYSIS 2023-07-01 20:21:00 Gonzalo Greer [facility] DIABETES TESTING REPORTS 2023-07-01 05:01:00 Doc tor Unassigned, Moquino [facility] FIRST TRIMESTER ULTRASOUND 2023-06-12 16:16:00 Gonzalo Greer [facility] DIABETES TESTING REPORTS 2023-06-12 05:01:00 Doc tor Unassigned, Moquino [facility] POCT URINALYSIS 2023-05-28 19:14:00 Gonzalo Greer [facility] URINE CULTURE 2023-04-29 19:48:00 Gonzalo Greer [facility] GC & CHLAMYDIA AMPLIFIED ASSAY 2023-04-29 19:48:00 Gonzalo Greer [facility] PAP SMEAR-LIQUID BASED-CP 2023-04-29 19:48:00 Gonzalo Greer [facility] GLUCOSE 1 HOUR POST PRANDIAL 2023-04-29 19:30:00 Gonzalo Greer [facility] CBC WITH DIFF 2023-04-29 19:30:00 Gonzalo Greer [facility] RUBELLA SCREEN IGG 2023-04-29 19:30:00 Gio Greer [facility] HEPATITIS B SURFACE ANTIGEN 2023-04-29 19:30:00 Gonzalo Greer [facility] HB ABO GROUPING 2023-04-29 19:30:00 Gonzalo Greer [facility] HIV 1/2 AG-AB WITH REFLEX 2023-04-29 19:30:00 Gonzalo Greer [facility] SYPHILIS IGG/IGM 2023-04-29 19:30:00 Phillip Greer [facility] POCT TEST 2023-04-29 18:24:00 Marky Greer [facility] POCT URINALYSIS W/O SPECIFIC GRAVITY 2023-04-29 18:24:00 Gonzalo Greer [facility] CONSENT/REFUSAL FOR DIAGNOSIS AND TREATMENT 2023-04-29 17:40:47 Doctor Unassigned, Moquino [facility] ASSIGNMENT OF BENEFITS 2023-04-29 17:40:29 Docto r Unassigned, Moquino [facility] Encounters Start Date/Time End Date/Time Encounter Type Admission Type Attending [facility] Care Facility Care Department Encounter ID Source 2025-01-18 08:00:00 2025-01-18 08:00:00 Outpatient R GONZALO GREER [facility] [id number] [facility] 2018-06-25 00:00:00 2024-11-07 03:14:33 Orders Only Ross Phillips Prisciliana [facility] SECURITY REP [facility] ..840.114 350.1.13.10 4.2.7.2.686 [id number] [facility] 2024-02-11 00:00:00 2024-02-11 13:34:28 Telephone Gonzalo Greer [facility] SECURITY REP [facility] CHILD [facility] ..840.114 350.1.13.10 4.2.7.2.686 [id number] [facility] 2024-02-10 00:00:00 2024-02-10 10:48:57 Letter (Out) Gonzalo Greer [place] SECURITY REP [facility] & CHILD [facility] 1.2.840.114 350.1.13.10 4.2.7.2.686 [id number] [facility] 2024-02-10 08:00:00 2024-02-10 10:47:53 Outpatient R GONZALO GREER [facility] [id number] [facility] 2024-02-10 08:00:00 2024-02-10 10:47:53 Office Visit Gonzalo Greer [facility] SECURITY REP [facility] & CHILD [facility] 1.2.840.114 350.1.13.10 4.2.7.2.686 [id number] 107 [id number] [facility] 2024-01-17 07:45:00 2024-01-17 09:03:35 Outpatient R GONZALO GREER [facility] [id number] [facility] 2024-01-17 07:45:00 2024-01-17 09:03:35 Office Visit Gonzalo Greer [place] SECURITY REP [facility] 1.2.840.114 350.1.13.10 4.2.7.2.686 [id number] [facility] 2024-01-17 00:00:00 2024-01-17 00:00:00 Letter (Out) Gonzalo Greer [facility] SECURITY REP [facility] & CHILD [facility] 1.2.840.114 350.1.13.10 4.2.7.2.686 [id number] [facility] 2024-01-15 08:00:00 2024-01-15 08:00:00 Outpatient R GONZALO GREER [facility] [id number] [facility] 2024-01-12 00:00:00 2024-01-12 00:00:00 Telephone Gonzalo Greer [facility] SECURITY REP [facility] 1.2840.114 350.1.13.10 4.2.7.2.686 [id number] [facility] 2023-12-23 10:00:00 2023-12-23 10:36:59 Outpatient R GONZALO GREER [facility] [id number] [facility] 2023-12-23 10:00:00 2023-12-23 10:36:59 Routine Visit Gonzalo Greer [facility] SECURITY REP [facility] 1.2840.114 350.1.13.10 4.2.7.2.686 [id number] [facility] 2023-12-09 00:00:00 2023-12-09 00:00:00 Orders Only Doctor Unassigned, Moquino [facility] 1.840.114 350.1.13.10 4.2.7.2.686 [id number] [facility] 2023-11-30 15:23:00 2023-12-02 15:25:00 Inpatient P ANDREIA CARLIN [facility] NGUYEN [id number] [facility] 2023-11-30 15:23:00 2023-12-02 15:25:00 Hospital Encounter Andreia Carlin [facility] 1.840.114 350.1.13.10 4.2.7.2.686 [id number] [facility] 2023-11-30 23:48:00 2023-12-01 12:00:00 Anesthesia Event Alexis Grubbs Ryan C S [facility] 1.2840.114 350.1.13.10 4.2.7.2.686 [id number] [facility] 2023-11-30 18:01:23 2023-11-30 18:01:23 Anesthesia Event Anita Gordillo [facility] 1.2.840.114 350.1.13.10 4.2.7.2.686 [id number] [facility] 2023-11-29 08:30:00 2023-11-29 09:31:33 Outpatient R GONZALO GREER [facility] [id number] [facility] 2023-11-29 08:30:00 2023-11-29 09:31:33 Routine Visit Gonzalo Greer Cristi [facility] SECURITY REP [facility] 1.2.840.114 350.1.13.10 4.2.7.2.686 [id number] [facility] 2023-11-28 00:00:00 2023-11-28 00:00:00 Abstract Gonzalo Greer [facility] SECURITY REP [facility] 1.2.840.114 350.1.13.10 4.2.7.2.686 [id number] [facility] 2023-11-28 00:00:00 2023-11-28 00:00:00 Telephone Gonzalo Greer [facility] SECURITY REP [facility] 1.2.840.114 350.1.13.10 4.2.7.2.686 [id number] [facility] 2023-11-26 13:00:00 2023-11-26 13:22:46 Outpatient R GONZALO GREER [facility] [id number] [facility] 2023-11-26 13:00:00 2023-11-26 13:22:46 Routine Visit Gonzalo Greer [facility] SECURITY REP [facility] CHILD [facility] 1.2.840.114 350.1.13.10 4.2.7.2.686 [id number] [facility] 2023-11-26 11:30:00 2023-11-26 11:42:17 Outpatient P CLEM CHAMBERS [facility] [id number] [facility] 2023-11-26 11:30:00 2023-11-26 11:42:17 Grout Machine Tender Visit Ultrasound, Gonzalo Roy Gay [facility] SECURITY REP [facility] 1.840.114 350.1.13.10 4.2.7.2.686 [id number] [facility] 2023-11-26 00:00:00 2023-11-26 00:00:00 Orders Only Doctor Unassigned, Moquino [facility] .840.114 350.1.13.10 4.2.7.2.686 [id number] [facility] 2023-11-22 08:45:00 2023-11-22 09:37:01 Outpatient R GONZALO GREER [facility] [id number] [facility] 2023-11-22 08:45:00 2023-11-22 09:37:01 Routine Visit Gonzalo Greer [facility] SECURITY REP [facility] ..840.114 350.1.13.10 4.2.7.2.686 [id number] 107 [id number] [facility] 2023-11-19 09:15:00 2023-11-19 09:15:00 Outpatient R GONZALO GREER [facility] [id number] [facility] 2023-11-15 12:45:00 2023-11-15 13:39:36 Outpatient R GONZALO GREER [facility] [id number] [facility] 2023-11-15 12:45:00 2023-11-15 13:39:36 Routine Visit Gonzalo Greer [facility] SECURITY REP [facility] 1.84.114 350.1.13.10 4.2.7.2.686 [id number] 107 [id number] [facility] 2023-11-15 00:00:00 2023-11-15 00:00:00 Orders Only Doctor Unassigned, Moquino [facility] 1.114 350.1.13.10 4.2.7.2.686 [id number] [facility] 2023-11-12 14:30:00 2023-11-12 14:34:26 Outpatient R GONZALO GREER [facility] [id number] [facility] 2023-11-12 14:30:00 2023-11-12 14:34:26 Routine Visit Shirley Parikh Damilola C [facility] SECURITY REP [facility] .84.114 350.1.13.10 4.2.7.2.686 [id number] 107 [id number] [facility] 2023-11-08 09:30:00 2023-11-08 10:36:21 Outpatient R SHIRLEY PARIKH [facility] [id number] [facility] 2023-11-08 09:30:00 2023-11-08 10:36:21 Routine Visit Shirley Parikh [facility] SECURITY REP [facility] ..114 350.1.13.10 4.2.7.2.686 [id number] 107 [id number] [facility] 2023 13:15:00 2023 14:25:18 Outpatient R GONZALO GREER [facility] [id number] [facility] 2023 13:15:00 2023 14:25:18 Routine Visit Gonzalo Greer [facility] SECURITY REP [facility] .84.114 350.1.13.10 4.2.7.2.686 [id number] 107 [id number] [facility] 2023-11-01 10:15:00 2023-11-01 10:28:56 Outpatient R GONZALO GREER [facility] [id number] [facility] 2023-11-01 10:15:00 2023-11-01 10:28:56 Routine Visit Gonzalo Greer [facility] SECURITY REP [facility] 1..840.114 350.1.13.10 4.2.7.2.686 [id number] 107 [id number] [facility] 2023-11-01 00:00:00 2023-11-01 00:00:00 Letter (Out) Gonzalo Greer [facility] SECURITY REP [facility] ..840.114 350.1.13.10 4.2.7.2.686 [id number] 107 [id number] [facility] 2023-10-29 11:30:00 2023-10-29 12:02:39 Outpatient P CLEM CHAMBERS [facility] [id number] [facility] 2023-10-29 11:30:00 2023-10-29 12:02:39 Grout Machine Tender Visit Ultrasound, [facility] Gonzalo Greer Gay [facility] 1..840.114 350.1.13.10 4.2.7.2.686 [id number] [facility] 2023-10-29 10:15:00 2023-10-29 11:47:22 Outpatient R GONZALO GREER [facility] [id number] [facility] 2023-10-29 10:15:00 2023-10-29 11:47:22 Routine Visit Gonzalo Greer [facility] SECURITY REP [facility] 1.2.840.114 350.1.13.10 4.2.7.2.686 [id number] 107 [id number] [facility] 2023-10-29 00:00:00 2023-10-29 00:00:00 Abstract Gonzalo Greer [facility] SECURITY REP [facility] 1.2.840.114 350.1.13.10 4.2.7.2.686 [id number] 107 [id number] [facility] 2023-10-29 00:00:00 2023-10-29 00:00:00 Orders Only Doctor Unassigned, Moquino [facility] 1.2.840.114 350.1.13.10 4.2.7.2.686 [id number] [id number] [facility] 2023-10-25 10:30:00 2023-10-25 11:20:12 Outpatient R GONZALO GREER [facility] [id number] [facility] 2023-10-25 10:30:00 2023-10-25 11:20:12 Routine Visit Gonzalo Greer [facility] SECURITY REP [facility] 1.2.840.114 350.1.13.10 4.2.7.2.686 [id number] 107 [id number] [facility] 2023-10-25 00:00:00 2023-10-25 00:00:00 Letter (Out) Gonzalo Greer [facility] SECURITY REP [facility] 1.2.840.114 350.1.13.10 4.2.7.2.686 [id number] 107 [id number] [facility] 2023-10-22 10:00:00 2023-10-22 10:18:39 Outpatient R GONZALO GREER [facility] [id number] [facility] 2023-10-22 10:00:00 2023-10-22 10:18:39 Routine Visit Gonzalo Greer [facility] SECURITY REP [facility] 1.2.840.114 350.1.13.10 4.2.7.2.686 [id number] 107 [id number] [facility] 2023-10-18 08:45:00 2023-10-18 09:44:20 Outpatient R GONZALO GREER [facility] [id number] [facility] 2023-10-18 08:45:00 2023-10-18 09:44:20 Routine Visit Gonzalo Greer [facility] SECURITY REP [facility] 1.2.840.114 350.1.13.10 4.2.7.2.686 [id number] 107 [id number] [facility] 2023-10-18 00:00:00 2023-10-18 00:00:00 Letter (Out) Gonzalo Greer [facility] SECURITY REP [facility] 1.2.840.114 350.1.13.10 4.2.7.2.686 [id number] 107 [id number] [facility] 2023-10-17 00:00:00 2023-10-17 00:00:00 Orders Only Doctor Unassigned, Moquino [facility] 1.2.840.114 350.1.13.10 4.2.7.2.686 [id number] [id number] [facility] 2023-10-15 10:45:00 2023-10-15 11:26:24 Outpatient R GONZALO GREER [facility] [id number] [facility] 2023-10-15 10:45:00 2023-10-15 11:26:24 Routine Visit Gonzalo Greer [facility] SECURITY REP [facility] 1.2.840.114 350.1.13.10 4.2.7.2.686 [id number] 107 [id number] [facility] 2023-10-02 00:00:00 2023-10-02 00:00:00 Abstract Gonzalo Greer [facility] SECURITY REP [facility] 1.2.840.114 350.1.13.10 4.2.7.2.686 [id number] 107 [id number] [facility] 2023-10-01 11:30:00 2023-10-01 12:02:29 Outpatient P CLEM CHAMBERS [facility] [id number] [facility] 2023-10-01 11:30:00 2023-10-01 12:02:29 Grout Machine Tender [facility] SECURITY REP [facility] 1.2.840.114 350.1.13.10 4.2.7.2.686 [id number] 369 [id number] [facility] 2023-10-01 10:15:00 2023-10-01 11:21:50 Routine Visit Gonzalo Greer [facility] SECURITY REP [facility] 1.2.840.114 350.1.13.10 4.2.7.2.686 [id number] 107 [id number] [facility] 2023-10-01 00:00:00 2023-10-01 00:00:00 Orders Only Doctor Unassigned, Moquino [facility] 1.2.840.114 350.1.13.10 4.2.7.2.686 [id number] 009 [id number] [facility] 2023-09-24 10:00:00 2023-09-24 10:00:00 Outpatient P [facility] [id number] [facility] 2023-09-03 09:45:00 2023-09-03 10:43:37 Outpatient R GONZALO GREER [facility] [id number] [facility] 2023-09-03 09:45:00 2023-09-03 10:43:37 Routine Visit Gonzalo Greer [facility] SECURITY REP [facility] 1.2.840.114 350.1.13.10 4.2.7.2.686 [id number] 107 [id number] [facility] 2023-08-30 00:00:00 2023-08-30 00:00:00 Abstract Gonzalo Greer [facility] SECURITY REP [facility] 1.2.840.114 350.1.13.10 4.2.7.2.686 [id number] 107 [id number] [facility] 2023-08-26 10:30:00 2023-08-26 11:00:46 Outpatient R CASA JEFFERY COREY [facility] [id number] [facility] 2023-08-26 10:30:00 2023-08-26 11:00:46 Grout Machine Tender Visit Ultrasound, [facility] Gonzalo Greer Corey [facility] SECURITY REP [facility] 1..840.114 350.1.13.10 4.2.7.2.686 [id number] [facility] 2023-08-26 08:30:00 2023-08-26 10:36:10 Grout Machine Tender Visit Lab, [facility] Gonzalo Greer [facility] SECURITY REP [facility] 1.2.840.114 350.1.13.10 4.2.7.2.686 [id number] 107 [id number] [facility] 2023-08-20 15:15:00 2023-08-20 16:14:33 Outpatient R GONZALO GREER [facility] [id number] [facility] 2023-08-20 15:15:00 2023-08-20 16:14:33 Routine Visit Gonzalo Greer [facility] SECURITY REP [facility] 1.114 350.1.13.10 4.2.7.2.686 [id number] 107 [id number] [facility] 2023-08-06 08:00:00 2023-08-06 08:46:08 Outpatient R GONZALO GREER [facility] [id number] [facility] 2023-08-06 08:00:00 2023-08-06 08:46:08 Routine Visit Gonzalo Greer [facility] SECURITY REP [facility] 1..114 350.1.13.10 4.2.7.2.686 [id number] 107 [id number] [facility] 2023-08-06 00:00:00 2023-08-06 00:00:00 Orders Only Doctor Unassigned, Moquino [facility] .114 350.1.13.10 4.2.7.2.686 [id number] 009 [id number] [facility] 2023-07-30 15:00:00 2023-07-30 15:00:00 Outpatient R GONZALO GREER [facility] [id number] [facility] 2023-07-30 00:00:00 2023-07-30 00:00:00 Abstract Gonzalo Greer [facility] ..114 350.1.13.10 4.2.7.2.686 [id number] 107 [id number] [facility] 2023-07-29 14:15:00 2023-07-29 15:20:28 Outpatient P BERHANE RADFORD [facility] [id number] [facility] 2023-07-29 14:15:00 2023-07-29 15:20:28 Grout Machine Tender Visit Ultrasound, Jayson-Berhane Soares [facility] SECURITY REP [facility] 1..114 350.1.13.10 4.2.7.2.686 [id number] 369 [id number] [facility] 2023-07-16 15:00:00 2023-07-16 15:57:47 Outpatient R GONZALO GREER [facility] [id number] [facility] 2023-07-16 15:00:00 2023-07-16 15:57:47 Routine Visit Gonzalo Greer [facility] SECURITY REP [facility] 1..840.114 350.1.13.10 4.2.7.2.686 [id number] 107 [id number] [facility] 2023-07-15 15:15:00 2023-07-15 15:15:00 Outpatient R GONZALO GREER [facility] [id number] [facility] 2023-07-01 15:15:00 2023-07-01 15:51:33 Outpatient R GONZALO GREER [facility] [id number] [facility] 2023-07-01 15:15:00 2023-07-01 15:51:33 Routine Visit Gonzlao Greer [facility] SECURITY REP [facility] 1..840.114 350.1.13.10 4.2.7.2.686 [id number] 107 [id number] [facility] 2023-07-01 00:00:00 2023-07-01 00:00:00 Orders Only Doctor Unassigned, Moquino [facility] 1..840.114 350.1.13.10 4.2.7.2.686 [id number] [id number] [facility] 2023-06-25 08:00:00 2023-06-25 08:00:00 Outpatient R GONZALO GREER [facility] [id number] [facility] 2023-06-17 00:00:00 2023-06-17 00:00:00 Abstract Gonzalo Greer [facility] SECURITY REP [facility] 1.2.840.114 350.1.13.10 4.2.7.2.686 [id number] 107 [id number] [facility] 2023-06-12 09:30:00 2023-06-12 10:46:04 Routine Visit Gonzalo Greer [facility] SECURITY REP [facility] 1.2.840.114 350.1.13.10 4.2.7.2.686 [id number] 107 [id number] [facility] 2023-06-12 10:00:00 2023-06-12 10:45:52 [facility]patient [facility] [id number] [facility] 2023-06-12 10:00:00 2023-06-12 10:45:52 Grout Machine Tender Visit Ultrasound, NilsIban Rodríguezeeta [facility] SECURITY REP [facility] 1.2840.114 350.1.13.10 4.2.7.2.686 [id number] [facility] 2023-06-12 00:00:00 2023-06-12 00:00:00 Orders Only Doctor Unassigned, Moquino [facility] 1.2.840.114 350.1.13.10 4.2.7.2.686 [id number] [facility] 2023-06-11 15:00:00 2023-06-11 15:00:00 Outpatient R GONZALO GREER [facility] [id number] [facility] 2023-06-10 00:00:00 2023-06-10 00:00:00 Telephone Gonzalo Greer [facility]/GYN [facility] 1.2.840.114 350.1.13.10 4.2.7.2.686 [id number] 107 [id number] [facility] 2023-05-28 14:15:00 2023-05-28 14:30:00 Routine Visit Gonzalo Greer [facility] SECURITY REP [facility] 1..840.114 350.1.13.10 4.2.7.2.686 [id number] 107 [id number] [facility] 2023-05-28 14:15:00 2023-05-28 14:15:00 Outpatient R GONZALO GREER [facility] [id number] [facility] 2023-05-15 00:00:00 2023-05-15 00:00:00 Refill Gonzalo Greer [place] SECURITY REP [facility] 1..840.114 350.1.13.10 4.2.7.2.686 [id number] 107 [id number] [facility] 2023-05-06 13:30:00 2023-05-06 13:30:00 Outpatient R OHNOMI [facility] [id number] [facility] 2023-05-06 00:00:00 2023-05-06 00:00:00 Telephone Gonzalo Greer [place] SECURITY REP [facility] 1..840.114 350.1.13.10 4.2.7.2.686 [id number] 107 [id number] [facility] 2023-05-02 13:00:00 2023-05-02 13:00:00 Outpatient R GONZALO GREER OHN[place]I [facility] [id number] [facility] 2023-05-02 00:00:00 2023-05-02 00:00:00 Telephone Gonzalo Greer [place] SECURITY REP [facility] 1..840.114 350.1.13.10 4.2.7.2.686 [id number] 107 [id number] [facility] 2023-04-30 00:00:00 2023-04-30 00:00:00 Telephone Gonzalo Greer [facility] SECURITY REP [facility] 1.2.840.114 350.1.13.10 4.2.7.2.686 [id number] 107 [id number] [facility] 2023-04-29 13:45:00 2023-04-29 14:39:12 Initial Visit Gonzalo Greer [facility] SECURITY REP [facility] 1.2.840.114 350.1.13.10 4.2.7.2.686 [id number] 107 [id number] [facility] 2023-04-29 13:45:00 2023-04-29 14:39:12 Outpatient R GONZALO GREER [facility] [id number] [facility] 2023-04-29 13:15:00 2023-04-29 13:21:39 Outpatient R MAHESHMINA GILMOREILOLA [facility] [id number] [facility] 2023-04-29 00:00:00 2023-04-29 00:00:00 Orders Only Doctor Unassigned, Moquino [facility] 1.2.840.114 350.1.13.10 4.2.7.2.686 [id number] [facility] Results Test Description Test Time Test Comments Results Result Co mments Source [facility] [id number] 13:31:00* Test Item Value Reference Range Interpretation Comme nts POCT PREG (test code = 1605) Negative On board controls acceptable with C Line (test code = 3574) Yes POCT PREG LOT # (test code = 3575) POCT PREG TEST DATE ( test code = 3576) [facility] GLUCOSE (AUTOMATED)2023-12-02 14:46:51* Test Item Value Reference Range Interpretation Comme [facility] POCT GLU (test code = 0227796967) 75 mg/dL 70-110 Lab Interpretation (test cod e = 08653-7) Normal [facility] GLUCOSE (AUTOMATED)2023-12-02 02:42:04* Test Item Value Reference Range Interpretation Comme nts POCT GLU (test code = 7983144609) 102 mg/dL 70-110 Lab Interpretation (test cod e = 06543-9) Normal [facility] GLUCOSE (AUTOMATED)2023-12-01 23:06:10* Test Item Value Reference Range Interpretation Comme nts POCT GLU (test code = 4873316564) 109 mg/dL 70-110 Lab Interpretation (test cod e = 43392-7) Normal [facility] IMMUNE [id number] 15:19:58* Test Item Value Reference Range Interpretation Comme nts RHIG CANDIDATE? (test code = 5188) No- see comment Patient is not a candidate for RhIg- Patient is Rh Positive.Performed at [facility] Laboratory Services - [facility] Blood [address] [place] [address] 35656Hxbz Free: [phone] No. [id number] [facility] DallasArterial Cord [id number] 15:15:35* Test Item Value Reference Range Interpretation Comme nts BASE EXCESS, CORD (test code = 8525315307) -4.9 mEq/L AC PH, CORD (BEAKER) (test c ode = 7206792450) 7.33 7.18-7.38 PC02, CORD (test code = 6041915578) 39 32-66 PO2, CORD (test code = 2188745695) 28 10-30 BICARBONATE, CORD (test code = 2498396154) 21 17-27 [facility] DallasVenous Cord [id number] 15:14:25* Test Item Value Reference Range Interpretation Comme nts VENOUS BASE EXCESS, CORD (te st code = 7742623114) -5.1 mEq/L VENOUS PH, CORD (test code = 3092946817) 7.34 7.25-7.45 VENOUS PC02, CORD (test code = 5772773610) 38 27-49 VENOUS PO2, CORD (test code = 5941818234) 27 17-41 VENOUS BICARBONATE, CORD (te st code = 9325834998) 20 12-29 [facility] GLUCOSE (AUTOMATED)2023-12-01 14:36:08* Test Item Value Reference Range Interpretation Comme nts POCT GLU (test code = 9065412463) 103 mg/dL 70-110 Lab Interpretation (test cod e = 02771-8) Normal [facility] DallasGAL[facility] ONLY - SYPHILIS IGG/[id number] 14:02:42* Test Item Value Reference Range Interpretation Comme [facility] Syphilis IgG/IgM (test code = 45557-5) Non-reactive Non-reactive ZULEIKA (test code = ZULEIKA) Non-reactive - No serologic evidence of T. pallidum infection. Cannot exclude incubating or early syphilis. Submit a second specimen in 2-4 weeks if syphilis is clinically suspected. Equivocal - Further testing to follow. Reactive - Further testing to follow. Lab Interpretation (test code = 50936-7) Normal [facility] Dallas[facility] GLU[facility]SE (AUTOMATED)2023-12-01 11:16:18* Test Item Value Reference Range Interpretation Comme nts POCT GLU (test code = 4101437822) 89 mg/dL 70-110 Lab Interpretation (test cod e = 12506-2) Normal [facility] Dallas[facility] Neuraxial [id number] 09:52:00 Alexis Grubbs MD ? ? 12/01/2023 ?4:53 AM Central Neuraxial Block Date/Time: 12/01/2023 4:52 AM Performed by: Alexis Grubbs MDAuthorized by: Anita Gordillo MD ?Patient Location: OBEnd Time: 12/01/2023 4:52 AMReason for Block: OB request, Patient request, Labor analgesia, Surgical anesthesia and Post-op pain managementStaff: ?Anesthesiologist: Anita Gordillo MD ?Resident/ELECTRIC MOTOR ANALYST: Alexis Grubbs MD ?Performed by: resident/CRNAPreanesthetic Checklist: [...] LAVELLE saline ?Guidance with: landmark technique}Epidural/ Spinal [place] and/or Catheter: ?Epidural/Spinal Kit: BBraun ?Needle Type: [...] min Smooth and atraumatic, (+) Local, (+) [facility]Univers[facility]) 2023-12-01 08:07:31* Test Item Value Reference Range Interpretation Comme nts POCT GLU (test code = 6904034749) 97 mg/dL 70-110 Lab Interpretation (test cod e = 01825-3) Normal [facility] GLUCOSE (AUTOMATED)2023-12-01 03:50:42* Test Item Value Reference Range Interpretation Comme nts POCT GLU (test code = 9029066144) 87 mg/dL 70-110 Lab Interpretation (test cod e = 90428-3) Normal [facility] GLUCOSE (AUTOMATED)2023-12-01 02:01:41* Test Item Value Reference Range Interpretation Comme nts POCT GLU (test code = 1290463076) 68 mg/dL 70-110 L Lab Interpretation (test cod e = 77251-6) Abnormal [facility] DallasHIV 1/2 AG-AB WITH [id number] 01:17:56* Test Item Value Reference Range Interpretation Comme nts HIV Semi-quantitative (test code = 28710-5) 0.09 Negative ZULEIKA (test code = ZULEIKA) Non-reactive for HIV-1 antigen and HIV-1/HIV-2 antibodies. ?No laboratory evidence of HIV infection. ?Repeat in 2-4 weeks if acute HIV infection is suspected. [facility] DallasHepatitis B Surface [id number] 00:09:35 * Test Item Value Reference Range Interpretation Comme nts HBsAg Semi-Quantitative (ras t code = 5195-3) 0.06 Negative [facility] DallasCBC with [id number] 23:04:11* Test Item Value Reference Range Interpretation [...] 32.0 g/dL 31.6-35.1 RDW-SD (test code = 44093-7) 37.7 fL 39.0-49.9 L RDW-CV (test code = 788-0) 14.0 % 12.0-15.5 PLT (test code = 777-3) 284 166-358 MPV (test code = 10481-6) 10.3 fL 9.5-12.9 NRBC/100 WBC (test code = 3994239660) 0.0 0.0-10.0 NRBC x10^3 (test code = 9028086142) See_Comment [Automated [employer]] The system which generated this result transmitted reference range: 10*3/?L. The reference range was not used to interpret this result as normal/abnormal. GRAN MAT (NEUT) % (test code = 770-8) 79.1 % IMM GRAN % (test code = 5250907213) 0.50 % LYMPH % (test code = 736-9) 15.0 % MONO % (test code = 5905-5) 4.7 % EOS % (test code = 713-8) 0.5 % BASO % (test code = 706-2) 0.2 % GRAN MAT x10^3(ANC) (test code = 8973857357) 8.32 10*3/uL 1.88-7.09 H IMM GRAN x10^3 (test code = 7096565020) 0.05 10*3/uL 0.00-0.06 LYMPH x10^3 (test code = 731-0) 1.58 10*3/uL 1.32-3.29 MONO x10^3 (test code = 742-7) 0.49 10*3/uL 0.33-0.92 EOS x10^3 (test code = 711-2) 0.05 10*3/uL 0.03-0.39 BASO x10^3 (test code = 704-7) 0.01-0.07 Lab Interpretation (test code = 12975-5) [facility] [id number] 22:27:00 * Test Item Value Reference Range Interpretation Comme nts ABO & RH (test code = 20) O POSITIVE IAT (test code = 1185) Negative [facility] GLUCOSE (AUTOMATED)2023-11-30 21:59:44* Test Item Value Reference Range Interpretation Comme nts POCT GLU (test code = 9924463500) 76 mg/dL 70-110 Lab Interpretation (test cod e = 18992-1) Normal [facility] GLUCOSE (AUTOMATED)2023-11-29 15:30:24* Test Item Value Reference Range Interpretation Comme nts POCT GLU (test code = 9526460664) 100 mg/dL 70-110 Lab Interpretation (test cod e = 20134-5) Normal [facility] URINALYSIS W SPECIFIC [id number] 14:37:00* Test Item Value Reference Range Interpretation [...] U APPEAR (test code = 3267) . [facility] URINALYSIS W SPECIFIC [id number] 18:50:00* Test Item Value Reference Range Interpretation [...] U APPEAR (test code = 3267) .. [facility] URINALYSIS W SPECIFIC [id number] 18:50:00* Test Item Value Reference Range Interpretation [...] U APPEAR (test code = 3267) .. [facility] URINALYSIS W SPECIFIC [id number] 18:50:00* Test Item Value Reference Range Interpretation [...] U APPEAR (test code = 3267) .. [facility] URINALYSIS W SPECIFIC [id number] 15:50:00* Test Item Value Reference Range Interpretation [...] U APPEAR (test code = 3267) . [facility] GLUCOSE (AUTOMATED)2023-11-22 15:33:36* Test Item Value Reference Range Interpretation Comme nts POCT GLU (test code = 0624044588) 97 mg/dL 70-110 Lab Interpretation (test cod e = 65959-0) Normal [facility] GLUCOSE (AUTOMATED)2023-11-15 19:41:37* Test Item Value Reference Range Interpretation Comme nts POCT GLU (test code = 2097465897) 87 mg/dL 70-110 Lab Interpretation (test cod e = 67319-6) Normal [facility] URINALYSIS W SPECIFIC [id number] 19:02:00* Test Item Value Reference Range Interpretation [...] POCT U APPEAR (test code = 3267) [facility] URINALYSIS W SPECIFIC [id number] 22:22:00* Test Item Value Reference Range Interpretation [...] U APPEAR (test code = 3267) . [facility] URINALYSIS W SPECIFIC [id number] 15:27:00* Test Item Value Reference Range Interpretation [...] U APPEAR (test code = 3267) . [facility] GLUCOSE (AUTOMATED)2023-11-01 16:22:41* Test Item Value Reference Range Interpretation Comme nts POCT GLU (test code = 3028520366) 85 mg/dL 70-110 Lab Interpretation (test cod e = 75908-7) Normal [facility] URINALYSIS W SPECIFIC [id number] 16:05:00* Test Item Value Reference Range Interpretation [...] POCT U APPEAR (test code = 3267) [facility] URINALYSIS W SPECIFIC [id number] 19:21:00* Test Item Value Reference Range Interpretation [...] POCT U APPEAR (test code = 3267) [facility] URINALYSIS W SPECIFIC [id number] 19:21:00* Test Item Value Reference Range Interpretation [...] POCT U APPEAR (test code = 3267) [facility] URINALYSIS W SPECIFIC [id number] 16:34:00* Test Item Value Reference Range Interpretation [...] U APPEAR (test code = 3267) . [facility] URINALYSIS W SPECIFIC [id number] 16:18:00* Test Item Value Reference Range Interpretation [...] POCT U APPEAR (test code = 3267) [facility] GLUCOSE (AUTOMATED)2023-10-18 15:42:40* Test Item Value Reference Range Interpretation Comme nts POCT GLU (test code = 4480756525) 96 mg/dL 70-110 Lab Interpretation (test cod e = 17161-9) Normal [facility] URINALYSIS W SPECIFIC [id number] 14:59:00* Test Item Value Reference Range Interpretation [...] POCT U APPEAR (test code = 3267) [facility] URINALYSIS W SPECIFIC [id number] 17:28:00* Test Item Value Reference Range Interpretation [...] POCT U APPEAR (test code = 3267) [facility] GLUCOSE (AUTOMATED)2023-10-15 17:23:05* Test Item Value Reference Range Interpretation Comme nts POCT GLU (test code = 8803785265) 97 mg/dL 70-110 Lab Interpretation (test cod e = 62153-1) Normal [facility] GLUCOSE (AUTOMATED)2023-09-03 16:49:33* Test Item Value Reference Range Interpretation Comme nts POCT GLU (test code = 8613477050) 189 mg/dL 70-110 H Lab Interpretation (test cod e = 81297-2) Abnormal [facility] Glucose(Age >30days)2023-09-03 16:43:00* Test Item Value Reference Range Interpretation Comme nts POCT Glu (age>30days) (test code = 3342) 189 mg/dL 70-110 A Lab Interpretation (test cod e = 66476-8) Abnormal [facility] URINALYSIS W SPECIFIC [id number] 16:08:00* Test Item Value Reference Range Interpretation [...] U APPEAR (test code = 3267) . [facility] GLUCOSE (AUTOMATED)2023-08-20 22:37:21* Test Item Value Reference Range Interpretation Comme nts POCT GLU (test code = 0527001267) 85 mg/dL 70-110 Lab Interpretation (test cod e = 23111-6) Normal [facility] URINALYSIS W SPECIFIC [id number] 22:40:00* Test Item Value Reference Range Interpretation [...] U APPEAR (test code = 3267) . [facility] GLUCOSE (AUTOMATED)2023-07-16 20:59:03* Test Item Value Reference Range Interpretation Comme nts POCT GLU (test code = 1170003432) 78 mg/dL 70-110 Lab Interpretation (test cod e = 62976-3) Normal [facility] URINALYSIS W SPECIFIC [id number] 20:15:00* Test Item Value Reference Range Interpretation [...] U APPEAR (test code = 3267) . [facility] URINALYSIS W SPECIFIC [id number] 20:21:00* Test Item Value Reference Range Interpretation [...] U APPEAR (test code = 3267) . [facility] URINALYSIS W SPECIFIC [id number] 19:14:00* Test Item Value Reference Range Interpretation [...] POCT U APPEAR (test code = 3267) [facility] URINALYSIS W SPECIFIC [id number] 19:14:00* Test Item Value Reference Range Interpretation [...] POCT U APPEAR (test code = 3267) [facility] URINALYSIS W/O SPECIFIC [id number] 18:25:00* Test Item Value Reference Range Interpretation [...] = 3257) neg Negative - [id number] 18:24:00* Test Item Value Reference Range Interpretation Comme nts POCT PREG (test code = 1605) Positive On board controls acceptable with C Line (test code = 3574) Yes POCT PREG LOT # (test code = 3575) POCT PREG TEST DATE ( test code = 3576) [facility] History and Physical Notes Date/Time Note Provider [...] mL IV Infusion TITRATE 125 mL/hr at 11/30/23 191 1,000 mL at 11/30/23 191 lactated ringers IV infusion 500 mL 500 [...] brook-units/min IV Infusion TITRATE 2 mL/hr at 11/30/23 1928 2 brook-units/min at 11/30/23 192 sodium citrate-citric acid (BICITRA) 500-334 mg/5 mL [...] all extremities, no facial droop : SVE /-2 REVIEW OF LABORATORY, PATHOLOGY, AND RADIOLOGY DATA [...] Value Date/Time GLUF 79 10/01/2018 08:18 AM [id number] 200 (H) 04/29/2023 02:30 PM GLU3H 96 [...] Provera, counseled on options on admission - [facility] Fetus - Presentation on admission: cephalic - posterior placenta - EFW: 3028 g, 29%tile on MFM US 11/25 - FHT reactive and reassuring - Normal anatomy scan Bao Rinaldi MD [facility] Associated attestation - Andreia Carlin MD - 11/30/2023 9:03 PM [facility] I was L&D faculty on 11/30/2023 and agree with H&P below. Briefly, patient is a 23 year old at 39w0d who presented for scheduled induction of labor. I discussed the plan of care with the residents. Andreia Ely MD [facility] - Health Procedure Notes Date/Time Note Provider Source 2023-12-01 04:52:24 Associated Order(s): Central Neuraxial Block Central Neuraxial Block Date/Time: 12/01/2023 4:52 AM Performed by: Alexis Grubbs MD Authorized by: Anita Gordillo MD Patient Location: OB End Time: 12/01/2023 4:52 AM Reason for Block: OB request, Patient request, Labor analgesia, Surgical anesthesia and Post-op pain management Staff: Anesthesiologist: Anita Gordillo MD Resident/ELECTRIC MOTOR ANALYST: Alexis Grubbs MD Performed by: resident/ELECTRIC MOTOR ANALYST Preanesthetic Checklist: patient identified, IV checked, risks [...] LAVELLE saline Guidance with: landmark technique} Epidural/Spinal [place] and/or Catheter: Epidural/Spinal Kit: BBraun Needle Type: Tuohy Needle Gauge: 17 G [...] and atraumatic, (+) Local, (+) STF AN-ANESTHESIOLOGY [facility] Notes Date/Time Note Provider Source 2024-02-11 16:25:30 Called pt, discussed lab results and poc. Pt verbalized understanding. Anya Price RN 02/11/24 4:[address] [facility] 2024-02-11 13:32:24 Please notify the patient she is passed her glucose test, but please advise her on proper diet and exercise PEEWEE Moffett 02/11/2024 1:[address] [facility] 2024-01-14 16:07:54 3rd attempt to call pt, no answer. Left vm. Encounter closed. Anya Price RN 01/14/24 4:[address] [facility] 2024-01-14 09:07:44 2nd attempt to call patient, no answer, vm full. T [facility] 2024-01-13 16:25:23 Attempted to contact patient, voicemail not set-up to leave message. Benton Liriano [facility] 2024-01-12 13:42:26 Lori Cohen is a 23 year old female Pt called regarding wanting to get procedure moved to a different date, currently scheduled for 01/15/24. Please advise. Elver Jimenes [facility] 2023-12-02 14:23:44 Problem: Discharge Planning - Goal: Adequate for discharge Outcome: Adequate for discharge Goal: Mood stable Outcome: Adequate for discharge Problem: Complications of hemorrhage (risk or actual) Goal: Absence of active bleeding Outcome: Adequate for discharge Goal: Absence of complications Outcome: Adequate for discharge Aditi Garcia RN [facility] 2023-12-02 08:22:00 Problem: Discharge Planning - Goal: Adequate for discharge Outcome: Adequate for discharge Goal: Mood stable Outcome: Adequate for discharge Amanda Espinoza RN [facility] 2023-12-01 21:07:07 Problem: Discharge Planning - Goal: Adequate for discharge Outcome: Progressing as expected Goal: Mood stable Outcome: Progressing as expected Problem: Complications of hemorrhage (risk or actual) Goal: Absence of active bleeding Outcome: Progressing as expected Goal: Absence of complications Outcome: Progressing as expected Demi Agustin RN [facility] 2023-12-01 19:14:17 Patient: Lori Coehn Procedure Summary Date: 11/30/23 Room / Location: Anesthesia Start: 2347 Anesthesia Stop: 12/01/23 1200 Procedure: CENTRAL NEURAXIAL BLOCK Diagnosis: Scheduled Providers: [...] 37.24 kg/m? Block resolving appropriately AN-ANESTHESIOLOGY ANESTHESIOLOGIST [facility] 2023-12-01 17:58:41 Problem: Discharge Planning - Goal: Adequate for discharge Outcome: Progressing as expected Goal: Mood stable Outcome: Progressing as expected [facility] 2023-12-01 09:55:52 DELIVERY BY SPONTANEOUS VAGINAL DELIVERY Delivery Date: 12/01/2023 Delivery Time: 9:44 AM Review the Delivery Report for details. The patient was admitted to the Labor & Delivery unit for IOL at 39w1d. Delivery Physician: Hany Maradiaga MD OB Faculty: Allison Hunter MD OB Fellow: Phillip Keith Sales Compensation Analyst Resident: Marci Forbes MD Intrapartum Anesthesia/Analgesia: Epidural [...] was present for delivery of a viable . No immediate complications noted. I agree with Dr. Maradiaga' delivery note. Allison Hunter MD OG-OBSTETRICS & GYNECOLOGY [facility] 2023-12-01 03:03:40 Intrapartum Progress Note 12/01/2023 3:03 AM Subjective: Patient has no complaints Objective: Vitals last 24 hours: Temp: [36.2 ?C (97.2 ?F)-37.1 ?C (98.8 ?F)] 37.1 ?C (98.8 ?F) Pulse: [78-102] 86 Resp: [16-17] 16 BP: (92-123)/(51-76) 99/51 Intake/Output : No intake/output data recorded. No intake/output data recorded. Assessment Active movement: Yes Mode: EFM Uterine Activity: Mode: [place] Contractions (number / 10 minute): 3 Contraction duration (seconds): 60 Membrane Status Membrane status: Artificial Rupture date: 12/01/23 Rupture time: 030 Amniotic fluid color: Clear Cervical Exam 4 / 50 % / -2 Assessment/Plan: Lori Cohen is a 23 year old at 39w1d OB Assessment: AOL, BDM OB Plan: Pit@1930, SSI Additional Comments/Detail: AROM w/ moderate clear fluid. Pt comfortable w/ epidural in place. Huyen Ross MD OG-OBSTETRICS & GYNECOLOGY [facility] 2023-11-30 23:33:34 Name/ MRN / Age / Gender: Lori Cohen, [id number] 23 year old female BMI: Estimated body [...] (physical exam) Anesthesia Preop: Chart Review and Clff-ws-Aacu NPO Status Verified Clear Liquids: > 2 [...] Endo/Other ROS Comments: No results found for: "LVBOPHQ9F" Other SECURITY REP Comments: @ 39w0d Lori Cohen is a [...] Provera, counseled on options on admission - [facility] Fetus - Presentation on admission: cephalic - posterior placenta - EFW: 3028 g, 29%tile on [facility] US 11/25 - FHT reactive and reassuring - Normal anatomy scan Pediatric Pediatric N/A N/A Preoperative Medication Instructions Continue taking all prescribed medications except: CHENG inhibitors, ARBs, diuretics, all oral diabetes medications Anticoagulant Therapy: Defer to surgeons Insulin: Take 1/2 dose the night prior to surgery. Hold on DOS. 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 2023-11-30 18:02:19 Name/ MRN / Age / Gender: Lori Cohen, [id number] 23 year old female BMI: Estimated body [...] listed * Procedure: LABOR CONSULT OR Location: [place] ANESTHESIA OUT OF OR - OR LOCATION Anesthesia Preop Eval (physical exam) Anesthesia History Anesthesia History Negative Previous Anesthetics/Airways Cardiovascular Negative Cardiac ROS Pulmonary (+) Asthma Neuro/Musculoskeletal Negative Neuro/Musculosketal ROS GI/Hepatic Negative GI/Hepatic ROS Hematology Negative Hematology ROS Renal Negative Renal ROS Skin Endo/Other Other SECURITY REP Comments: s/f IOL Gestational DM P: 1 Pediatric Preoperative Medication Instructions Continue taking all prescribed medications except: CHENG inhibitors, ARBs, diuretics, all oral diabetes medications Anticoagulant Therapy: Defer to surgeons Insulin: Take 1/2 dose the night prior to surgery. Hold on DOS. 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 2023-11-30 15:46:51 Problem: Intrapartum process (including [...] in pain sensation Outcome: Progressing as expected [facility] 2023-11-28 14:12:12 Patient informed of recommendations and informed to keep appt for tomorrow, verbalized understanding. [facility] 2023-11-28 13:58:46 Attempted to call patient, no answer, left vm. [facility] 2023-11-28 13:49:44 Per patient last usg, the recommendation is that pt be delivered bw 38-39 weeks. So her scheduled date may change, please let her know as soon as we have the date we will contact her PEEWEE Moffett 11/28/2023 1:51 PM [facility] 2023-10-29 10:15:00 Addended by: GONZALO BINGHAM on: 10/31/2023 09:51 AM Modules accepted: Level of Service [facility] 2023-10-01 10:15:00 Addended by: GONZALO BINGHAM on: 10/01/2023 11:23 AM Modules accepted: Orders [facility] 2023-06-10 15:15:03 Formatting of this n ote might be different from the original. Call placed to pharmacy and orders changed to one touch ultra since it is covered by her insurance. 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 T [facility] 2023-06-10 15:02:35 Formatting of this n ote might be different from the original. Pt is requesting call back, states needs prior auth for diabetic supplies at pharmacy. Please call [phone] (home) SAVANNAH Lopez [facility] 2023-05-15 12:03:13 Formatting of this n ote might be different from the original. Loir Cohen is a 22 year old female Requesting refill for proMETHazine 25 mg tablet [facility]/pharmacy [address] [place] [address] AT [place] [id number] [facility] 2023-05-06 15:46:34 Formatting of this n ote might be different from the original. Patient is stating she is needing a work excuse for her appt on 04/29. Informed patient work excuse sent to [facility]. T [facility] 2023-05-06 14:21:07 Formatting of this n ote might be different from the original. Lori Cohen is a 22 year old female Pt is calling requesting a work excuse from 04/29 last appt saying ok to return to work Tuesday 05/08 uploaded to her [facility] MyChart. Please contact pt at [phone]. Pravin Lomax [facility] 2023-05-02 13:14:15 Formatting of this n ote might be different from the original. Called patient, notified patient positive for UTI. Educated patient on antibiotics, good perineal hygiene, and increasing fluids. Pt verbalized understanding. ANYA Price RN 05/02/2023 1:[address] [facility] 2023-05-02 13:01:21 Formatting of this n ote might be different from the original. Please notify the patient of UTI, meds have been sent to the pharmacy. Please advise the patient on good perineal hygiene, drinking plenty of water, and completing the entire course of treatment. PEEWEE Moffett 05/02/2023 1:[address] [facility] 2023-04-30 15:44:52 Formatting of this n ote might be different from the original. Patient informed of results and need for gdm teaching. Appt made for 05/02/2023, informed to bring supplies to appt, verbalized understanding. [facility] 2023-04-30 15:33:13 Formatting of this n ote might be different from the original. Please notify the patient that she failed her 1hr gtt >200mgdl, please have her come in for a nurse visit for diabetic education. 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
--- NOTE | 2025-06-20 09:01 | ER ---
Nurse's Notes [facility] Name: Lori Handy Age: 24 yrs Sex: Female : 2000 Arrival Date: 06/20/2025 Time: 08:41 Bed DX3 Private MD: Diagnosis: Otitis externa, right Presentation: 06/20 08:47 Chief complaint: Patient states: I am having right ear pain that started on Saturday. I jb4 had some left over ear drops that I was given, cipro and dexathasone, and motrin. It is no longer helping. Coronavirus screen: At this time, the client does not indicate any symptoms associated with coronavirus-19. Ebola Screen: No symptoms or risks identified at this time. Initial Sepsis Screen: Does the patient meet any 2 criteria? No. Patient's initial sepsis screen is negative. Does the patient have a suspected source of infection? No. Patient's initial sepsis screen is negative. Risk Assessment: Do you want to hurt yourself or someone else? Patient reports no desire to harm self or others. Onset of symptoms was June 20, 2025. Transition of care: patient was not received from another setting of care. 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 - Infectious Disease History:: Denies. - Social history:: Smoking status: Patient denies any tobacco usage or history of. Screenin:07 [facility] ED Fall Risk Assessment (Adult) History of falling in the last 3 months, ll1 including since admission No falls in past 3 months (0 pts) Confusion or Disorientation No (0 pts) Intoxicated or Sedated No (0 pts) Impaired Gait No (0 pts) Mobility Assist Device Used No (0 pt) Altered Elimination No (0 pt) Score/Fall Risk Level 0 - 2 = Low Risk Maintained a safe environment, Hourly rounding (assess needs \T\ fall precautionary measures) done. Abuse screen: Denies threats or abuse. Nutritional screening: No deficits noted. Tuberculosis screening: No symptoms or risk factors identified. Assessment: 09:06 General: Appears uncomfortable, Behavior is calm, cooperative, appropriate for age. ll1 Pain: Complains of pain in right ear Pain radiates to head Quality of pain is described as aching. Neuro: Reports headache. Cardiovascular: No deficits noted. Respiratory: No deficits noted. EENT: Reports pain in right ear. Vital Signs: 08:47 BP 118 / 82; Pulse 100; Resp 16; Temp 97.8(TE); Pulse Ox 100% on R/A; Weight 94.35 kg jb4 (R); Height 5 ft. 1 in. (R); Pain 10/10; 09:08 Resp 17; ll1 08:47 Body Mass Index 39.30 (94.35 kg, 154.94 cm) jb4 08:47 Pain Scale: Adult jb4 ED Course: 08:44 Patient arrived in ED. ts1 08:45 Sulema Amaro MD is Attending Physician. sp3 08:50 Triage completed. jb4 08:50 Arm band placed on right wrist. jb4 09:00 Domonique Mayorga MD is Referral Physician. sp3 09:07 Patient has correct armband on for positive identification. Provided Education on: ER ll1 procedures and process. 09:07 No provider procedures requiring assistance completed. Patient did not have IV access ll1 during this emergency room visit. Administered Medications: No medications were administered Medication: 09:07 VIS not applicable for this client. ll1 Outcome: 09:00 Discharge ordered by . sp3 09:07 Discharged to home ambulatory, ll1 09:07 Condition: stable 09:07 Discharge instructions given to patient, Instructed on discharge instructions, follow up and referral plans. medication usage, Demonstrated understanding of instructions, follow-up care, medications, Prescriptions given X 2, 09:08 Patient left the ED. ll1 Signatures: Jose Raul Crocker RN RN jb4 Estelle Musa RN RN ll1 Sulema Amaro MD MD sp3 Gisselle Hernandez PAS PAS ts1
--- NOTE | 2025-06-20 09:01 | EDPHYS ---
Physician Documentation [facility] Name: Lori Handy Age: 24 yrs Sex: Female : 2000 Arrival Date: 06/20/2025 Time: 08:41 Bed DX3 Private MD: ED Physician Sulema Amaro HPI: 06/20 08:56 This 24 yrs old Female presents to ER via Ambulatory with complaints of Ear sp3 Pain. 08:56 24-year-old female with no significant past medical history and history of otitis sp3 externa in the past, now presents with right ear pain and mild drainage and crusting. She denies any swimming or other incident. ROS negative for fever, upper respiratory infection symptoms, sore throat, loss of hearing, or any other signs or symptoms on ROS at this time.. 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 - Infectious Disease History:: Denies. - Social history:: Smoking status: Patient denies any tobacco usage or history of. ROS: 08:57 Constitutional: Negative for fever, chills, and weight loss, Eyes: Negative for injury, sp3 pain, redness, and discharge, Neck: Negative for injury, pain, and swelling, Cardiovascular: Negative for chest pain, palpitations, and edema, Respiratory: Negative for shortness of breath, cough, wheezing, and pleuritic chest pain, Abdomen/GI: Negative for abdominal pain, nausea, vomiting, diarrhea, and constipation, Back: Negative for injury and pain, MS/Extremity: Negative for injury and deformity, Skin: Negative for injury, rash, and discoloration, Neuro: Negative for headache, weakness, numbness, tingling, and seizure, Psych: Negative for depression, anxiety, suicide ideation, homicidal ideation, and hallucinations, Allergy/Immunology: Negative for hives, rash, and allergies, Endocrine: Negative for neck swelling, polydipsia, polyuria, polyphagia, and marked weight changes, 08:57 All other systems are negative, Exam: 08:58 Constitutional: This is a well developed, well nourished patient who is awake, alert, sp3 and in no acute distress. Head/Face: Normocephalic, atraumatic. Eyes: Pupils equal round and reactive to light, extra-ocular motions intact. Lids and lashes normal. Conjunctiva and sclera are non-icteric and not injected. Cornea within normal limits. Periorbital areas with no swelling, redness, or edema. Neck: Trachea midline, no thyromegaly or masses palpated, and no cervical lymphadenopathy. Supple, full range of motion without nuchal rigidity, or vertebral point tenderness. No Meningismus. Chest/axilla: Normal chest wall appearance and motion. Nontender with no deformity. No lesions are appreciated. Cardiovascular: Regular rate and rhythm with a normal S1 and S2. No gallops, murmurs, or rubs. Normal PMI, no JVD. No pulse deficits. Respiratory: Lungs have equal breath sounds bilaterally, clear to auscultation and percussion. No rales, rhonchi or wheezes noted. No increased work of breathing, no retractions or nasal flaring. 08:58 ENT: Right-sided external auditory canal swelling and crusting noted. TM visible. Patient has Cipro Dex otic from her prior visit back in January. She states she has been using it but has not helped significantly. I will refill that as well as put her on p.o. Augmentin. She does not need a ear wick currently. I have advised her to see ENT.. Vital Signs: 08:47 BP 118 / 82; Pulse 100; Resp 16; Temp 97.8(TE); Pulse Ox 100% on R/A; Weight 94.35 kg jb4 (R); Height 5 ft. 1 in. (R); Pain 10/10; 09:08 Resp 17; ll1 08:47 Body Mass Index 39.30 (94.35 kg, 154.94 cm) jb4 08:47 Pain Scale: Adult jb4 MDM: 08:52 Medical Screening Exam initiated sp3 08:58 Data reviewed: vital signs, nurses notes, old medical records. ED course: Three sp3 4-year-old female with otitis externa. We will continue drops as well as add p.o. medications. Follow-up with ENT next-door.. Administered Medications: No medications were administered Disposition Summary: 06/20/25 09:00 Discharge Ordered Notes: Location: Home sp3 Condition: Stable sp3 Diagnosis - Otitis externa, right sp3 Followup: sp3 - With: Domonique Mayorga MD - When: Upon discharge from the Emergency Department - Reason: Recheck today's complaints Discharge Instructions: - Discharge Summary Sheet ll1 Forms: - Work release form ll1 - Medication Reconciliation Form sp3 - Antibiotic Education sp3 - Prescription Opioid Use sp3 - Patient Portal Instructions sp3 - Leadership Thank You Letter sp3 Prescriptions: - Augmentin 875-125 mg Oral Tablet - take 1 tablet ORAL route every 12 hours for 10 days; 20 tablet; Refills: 0, sp3 Product Selection Permitted - Ciprodex 0.3-0.1 % Otic drops, suspension - instill 4 drops OTIC route every 12 hours for 7 days , for ears ONLY; 10 sp3 milliliter; Refills: 0, Product Selection Permitted Signatures: Jose Raul Crocker RN RN jb4 Sulema Amaro MD MD sp3
[2025-06-20 09:24] VITALS: BP 118/82; TEMP 97.8; O2SAT 100
== END 2025-06-20 09:08 | disposition home or self-care (01) ==
LOC: ER 08:41
DX: H60.91 Unspecified otitis externa, right ear (principal)
CPT/HCPCS: 99283